=== PATIENT | female | born 1950 | race Caucasian/White ===

== ENCOUNTER → 2016-11-08 | Outpatient (CLI) | payer MEDICARE, OTHER ==
[~2016-11-08] MED LIST: ALBUTEROL2.5 MG/0.5 INH; AMBIEN5 MG PO; AMITRIPTYLINE50 MG PO; AMITRIPTYLINE75 MG PO; ASPIRIN ADULT L81 M1 PO; ASPIRIN ADULT L81 M2 PO; ATENOLOL25 MG PO; BREO ELLIPTA 11 EACH PO; CALCIUM 500 +1 EAC3 PO; CLOPIDOGREL75 MG PO; COLACE100 MG PO; CYMBALTA30 MG PO; CYMBALTA60 MG PO; ELAVIL75 MG PO; Ferrex 150150 MG PO; IRON159 M1 PO; IRON325 M2 PO; LASIX40 MG PO; LISINOPRIL10 M1 PO; Lovenox40 MG/0.4 SC; Lovenox60 MG/0.6 SQ; METOPROLOL SUCC50 M1 PO; MIRALAX17 GM PO; MOTRIN800 MG PO; MULTI VITAMINS1 TAB PO; NEURONTIN300 MG PO; NEURONTIN800 MG PO; OMEPRAZOLE MAGN20 MG PO; OSCAL/D,OYSTER250 MG PO; OXYCODONE AND A1 TA3 PO; PERCOCET 325 MG1 TA2 PO; PERCOCET 325 MG1 TA4 PO; PERCOCET 325 MG1 TA5 PO; PERCOCET 325 MG1 TA7 PO; PLAVIX75 M1 PO; PRAVASTATIN SOD40 MG PO; PRILOSEC20 M1 PO; PRINIVIL20 M1 PO; PROTONIX40 MG PO; ROXICODONE5 MG PO; SENNA8.6 MG PO; SEPTRA DS 800 M1 TAB PO; SYMBICORT1 AE1 INH; TASIGNA200 MG PO; TENORMIN25 M1 PO; TOPROL XL50 M1 PO; TRAZODONE100 MG PO; Tobrex Ophth S2.5 ML OPH; VENTOLIN H0.09 MG/AC INH; VITAMIN B-12500 MC3 PO; VITAMIN D34000 UNIT PO; VITAMIN D50000 I3 PO; XARELTO10 MG PO; ZETIA10 MG PO; ZOLPIDEM5 MG PO
[2016-11-08 16:58] LABS: BASO # 0.1 10*3/uL (0.0-0.1); EOS # 0.5 10*3/uL (0.0-0.4); EOS % 6.5 % (1.0-4.0); HEMATOCRIT 38.1 % (37.0-47.0); HEMOGLOBIN 11.1 g/dl (12.0-16.0); LYMPH # 2.1 10*3/uL (1.3-4.4); LYMPH % 30.8 % (27.0-41.0); MEAN CELL VOLUME 91.8 fl (81.0-99.0); MEAN CORPUSCULAR HGB 26.7 pg (27.0-31.0); MEAN CORPUSCULAR HGB CONC 29.1 g/dl (33.0-37.0); MEAN PLATELET VOLUME 9.1 fl (9.6-12.3); MONO # 0.6 10*3/uL (0.1-1.0); MONO % 8.4 % (3.0-9.0); NEUT # 3.6 10*3/uL (2.3-7.9); NEUT % 52.9 % (47.0-73.0); PLATELET COUNT AUTOMATED 314 10*3/uL (130-400); RED BLOOD COUNT 4.15 10*6/uL (4.10-5.10); RED CELL DISTRI WIDTH 14.4 % (0-14.5); WHITE BLOOD COUNT 6.9 10*3/uL (4.8-10.8)
[2016-11-08 17:24] LABS: BUN 13 mg/dl (7-24); CARBON DIOXIDE 30 mmol/L (21-32); CHLORIDE 99 mmol/L (98-107); EST GLOM FILT AFRICAN AMERICAN > 60 ml/min; GLUCOSE 90 mg/dL (65-99); POTASSIUM 4.1 mmol/L (3.5-5.1); SODIUM 138 mmol/L (136-145)
[2016-11-08 17:35] LABS: INTERNATIONAL NORM RATIO 0.9 (2.0-3.5)
== END | disposition home or self-care (01) ==
LOC: LAB 16:27
PROVIDERS: Surgery
DX: I73.9 Peripheral vascular disease, unspecified (principal); R79.1 Abnormal coagulation profile

== ENCOUNTER → 2017-01-16 | Outpatient (CLI) | payer MEDICARE, OTHER ==
--- NOTE | ~2017-01-16 | PR ---
[place], [place] PROGRESS NOTE NAME: [facility] ST[facility] #: [id number] UNIT #: [id number] ROOM: DOCTOR: SEBASTIÁN SloanTERRI BIRTHDATE: [birth year] DOS: 01/16/2017 SUBJECTIVE: The patient was seen last as a new patient in the wound clinic. She is status post a recent right lower extremity bypass with a postoperative edema and a wound from her surgical site at the distal calf. She continues to have sutures in place. She was sent to us for wound care for the right lower extremity for compression therapy. Initially, she had a wound VAC in place, but we did not have that SHERLY VAC available, so we had used Aquacel silver and a compression bandage of 3-layer Lite was used for her. We wanted her to come back and see us today to ensure that she did okay with the compression. She does complain that knee at times, it felt pretty tight and uncomfortable, but it did eventually resolve and she was able to keep the compression bandage in place. She has no new complaints. She does complain of continued pain of the left foot and an open wound of the left foot. According to the patient, she has had an open wound since her transmetatarsal amputation of her toes and continues to have an open wound from where the incision site is. Last time, last week, she was here was notable that there was some erythema noted and she was sent for an x-ray, which was unremarkable and negative. She comes in today saying the pain is about the same overall and she reports she has had continued pain off and on since the initial surgery in September. When I asked her specifically regarding the open wound of still present on her left foot near her surgical incision site, she states it has never healed and it has always been open. She offers no other specific complaints. Her physical examination, she is afebrile, pulse is 68, respirations 18, temperature is 98.2, blood pressure is 138/60. The left lateral foot wound is measuring slightly larger; however, the measurements reflect from last week did not include the area of nonviable fibrin slough that had been attached to the wound at the tip of the toe, so it is in the measurements are bigger at this time. Overall, redness seems better than it did when I saw her last week. There is no purulence, but there is a moderate amount of fibrin slough present in the base of the wound. It is measuring 2.2 x 0.4 x 0.1. The right medial leg wound, the surgical wound is looking better at 6 x 0.1 x 0.1. The edema of the leg seems improved as well. There is no cellulitis noted in the open area of the actual wound seems much less as well and there is no sign of maceration or any kind of particular amount of drainage. There is no drainage noted also. Selective debridement only was done of the left foot wound. There was some nonviable dried fibrin slough just hanging on the base of wound. This was removed with forceps and scissors. There was no bleeding. This was just nonviable tissue only. The patient did not want Hibiclens spray utilized and she did tolerate the procedure well. ASSESSMENT AND PLAN: Status post right lower extremity bypass. Her foot is warm. Her pulses were palpable. She seems to be tolerating, the compression therapy does seem to be helping as far as the edema control goes and the drainage from the wound is much minimal. At this point, we will continue with the dressing and a compression wrap for now, I am concerned about the left foot; however, her continued pain, there may be an continued ischemic component regarding this as she does have a poorly healing surgical wound still present. We did repeat the OMER in our clinic today on the left side and it was 0.7; although the Doppler did seem to have fade in and out at times. Her pulses are [place], [place] PROGRESS NOTE NAME: CHINMAY STARR [facility] UNIT #: [id number] ROOM: DOCTOR: TERRI LOWERY M.D. BIRTHDATE: [birth year] not palpable on the left foot, but her foot is warm. Due to the continued amount of pain that she has, I did do a culture as well as ordered a bone scan of the left foot to rule out osteomyelitis. I have placed a call to the surgical office and left a message regarding whether they would like her to follow up sooner than her appointment. She has an appointment scheduled for 01/24/2017. In addition, also, we will ask if they would like for us to take out the sutures at her next wound care visit or to have them taken out the sutures. The patient is to follow up in the Wound Clinic in one week. I did discuss that she should follow up with her oncologist regarding her lymph node of her right groin as well, so that he is aware of it and at some point, she may benefit from lymphedema therapy. She is asking for recommendations regarding the edema of the size. Our compression wraps only go up to the knee or below the knee. They did not go above the thigh, so she may need further management with morbid lymphedema for compression. Follow up with us in one week. The patient does have home health. TERRI LOWERY MD CM:PNTRANS [id number] TERRI LOWERY M.D. 01/20/17 1346 interface
== END ==
LOC: WOUNDCARE 10:59
DX: L97.521 Non-pressure chronic ulcer of other part of left foot limited to breakdown of skin (principal); I89.0 Lymphedema, not elsewhere classified; I48.91 Unspecified atrial fibrillation

== ENCOUNTER → 2017-01-20 | Outpatient (CLI) | payer MEDICARE, OTHER ==
[2017-01-20 16:54] LABS: BASO # 0.1 10*3/uL (0.0-0.1); BASO % 0.9 % (0.0-1.0); EOS # 0.2 10*3/uL (0.0-0.4); EOS % 3.5 % (1.0-4.0); HEMATOCRIT 28.3 % (37.0-47.0); HEMOGLOBIN 8.1 g/dl (12.0-16.0); LYMPH # 2.1 10*3/uL (1.3-4.4); LYMPH % 31.8 % (27.0-41.0); MEAN CELL VOLUME 88.7 fl (81.0-99.0); MEAN CORPUSCULAR HGB 25.4 pg (27.0-31.0); MEAN CORPUSCULAR HGB CONC 28.6 g/dl (33.0-37.0); MEAN PLATELET VOLUME 9.7 fl (9.6-12.3); MONO # 0.6 10*3/uL (0.1-1.0); MONO % 8.6 % (3.0-9.0); NEUT # 3.6 10*3/uL (2.3-7.9); PLATELET COUNT AUTOMATED 385 10*3/uL (130-400); RED BLOOD COUNT 3.19 10*6/uL (4.10-5.10); RED CELL DISTRI WIDTH 15.6 % (0-14.5); WHITE BLOOD COUNT 6.5 10*3/uL (4.8-10.8)
[2017-01-20 17:14] LABS: INTERNATIONAL NORM RATIO 1.1 (2.0-3.5); PROTHROMBIN TIME 11.2 SECONDS (9.0-12.4)
== END | disposition home or self-care (01) ==
LOC: LAB 16:24
PROVIDERS: Internal Medicine Medical Oncology
DX: C92.10 Chronic myeloid leukemia, BCR/ABL-positive, not having achieved remission (principal); D68.9 Coagulation defect, unspecified

== ENCOUNTER → 2017-01-23 | Outpatient (CLI) | payer MEDICARE, OTHER | END | disposition home or self-care (01) | LOC: WOUNDCARE 01:39 | DX: D68.9 Coagulation defect, unspecified (principal); C92.10 Chronic myeloid leukemia, BCR/ABL-positive, not having achieved remission ==

== ENCOUNTER → 2017-02-06 | Outpatient (CLI) | payer MEDICARE, OTHER ==
--- NOTE | ~2017-02-06 | PR ---
[place], [place] PROGRESS NOTE NAME: CHINMAY STARR [facility] #: [id number] UNIT #: [id number] ROOM: DOCTOR: SEBASTIÁN SloanTERRI BIRTHDATE: [birth year] DOS: 02/06/2017 WOUND CARE FOLLOWUP CHIEF COMPLAINT: Followup of recent right lower extremity surgical incision as well as her chronic surgical wound, status post transmetatarsal amputation of the left foot. HISTORY OF PRESENT ILLNESS: Her wound remains closed on the right lower extremity. Her edema has improved quite a bit. Her wound on her left foot seems to be healing. It is not draining anything; however, there is still in quite a bit of pain. She complains of pain that is pretty much persistent. It is a sharp, shooting, electrical type pain. At times, she also has some pain that she feels is from her toes, which are absent. She is finishing up her antibiotics this week. She is also complaining of some mouth sores, which is new. No fevers or chills. OBJECTIVE: VITAL SIGNS: Temperature is 98.9, pulse is 80, respirations 18, and blood pressure is 100/50. WOUND EXAMINATION: The wounded area basically has some callused dried adherent hyperkeratotic tissue to it. It does not appear to be open presently. The redness that was present when she first presented is much improved as well. There is no sign of infection. A selective debridement done of just some of the nonviable hyperkeratotic tissue at the periphery was removed at the periphery of the original wound. This was just accomplished with forceps and scissors. The measurements we are including at this time are included in 2 separate wounds and we are just clustering it and it is measuring 0.9 x 4.4 x 0.1. This is just a selective debridement once again. ASSESSMENT AND PLAN: Peripheral vascular disease, status post transmetatarsal amputation, very slow healing surgical postop wound. I think a lot of the pain that she has is neuropathic in nature. Her bone scan was unremarkable for the foot. It did have some areas of increased uptake in the pelvic areas as well as the right knee. She has had pelvic fractures in the past as well as multiple surgeries on her right knee. We will fax the reports to the PCP. As far as her stomatitis goes, I do not see any thrush at this point, but I would like her to follow up with her PCP and/or her home health nurse/oncologist regarding this. Follow up in wound care in 1 week. [place], [place] PROGRESS NOTE NAME: CHINMAY STARR UNIT #: [id number] ROOM: DOCTOR: TERRI LOWERY M.D. BIRTHDATE: [birth year] TERRI LOWERY MD CM:JO-ANN [id number] TERRI LOWERY M.D. 02/07/17 1021 interface
== END ==
LOC: WOUNDCARE 03:14
DX: T87.89 Other complications of amputation stump (principal); L97.521 Non-pressure chronic ulcer of other part of left foot limited to breakdown of skin; I73.9 Peripheral vascular disease, unspecified; L84 Corns and callosities; Y83.5 Amputation of limb(s) as the cause of abnormal reaction of the patient, or of later complication, without mention of misadventure at the time of the procedure

== ENCOUNTER → 2017-02-13 | Outpatient (CLI) | payer MEDICARE, OTHER ==
--- NOTE | ~2017-02-13 | PR ---
[place], [place] PROGRESS NOTE NAME: CHINMAY STARR [facility] #: [id number] UNIT #: [id number] ROOM: DOCTOR: TERRI LOWERY M.D. BIRTHDATE: [birth year] DOS: 02/13/2017 WOUND CARE FOLLOWUP NOTE CHIEF COMPLAINT: Followup of wound of the left lower extremity. HISTORY OF PRESENT ILLNESS: The wound is a surgical wound. It is located on her left foot. She has had a transmetatarsal amputation. This occurred in September. Comorbid conditions are chronic peripheral vascular disease, neuropathy, which is quite severe, somewhat debilitating, history of CML. The patient has been following up in the Wound Clinic. The postop wound has been steadily improving slowly. She had quite a bit of erythema when she first presented. Cultures were positive for MRSA. She was treated for 4 weeks with antibiotics. She did have a bone scan and x-ray which did not show any evidence of osteo. She comes in today without any specific complaints. The wound appears to be improving as well. There has been some scabbing over the incision and it seems to be overall slowly and gradually improving. The measurements are 0.1 x 0.1 x 0.1. PHYSICAL EXAMINATION: VITAL SIGNS: Stable. Blood pressure is 118/58, pulse of 80, respirations 18, temperature is 98.1. WOUND EXAMINATION: A debridement was done, a selective debridement only of very small amount of some of the adherent hyperkeratotic tissue around the periwound. There was no bleeding. This was accomplished with forceps and scissors. The patient tolerated the debridement well. ASSESSMENT AND PLAN: Slowly improving surgical postop wound. She does continue to have quite a bit of pain regarding this. It has been off and on since the surgery. The wound is looking pretty good. We will have her evaluated by an golf ball cover treater for shoes in the near future. I would like the wound to be a little bit more healed before this is done. Hopefully, within the next 2-3 weeks, she will be ready. Follow up next week. [place], [place] PROGRESS [facility] [id number] UNIT #: [id number] ROOM: DOCTOR: TERRI LOWERY M.D. BIRTHDATE: [birth year] TERRI LOWERY MD CM:JO-ANN [id number] TERRI LOWERY M.D. 02/14/1726 interface
== END ==
LOC: WOUNDCARE 02:11
DX: T87.89 Other complications of amputation stump (principal); L97.521 Non-pressure chronic ulcer of other part of left foot limited to breakdown of skin; I73.9 Peripheral vascular disease, unspecified; B95.62 Methicillin resistant Staphylococcus aureus infection as the cause of diseases classified elsewhere; Y83.5 Amputation of limb(s) as the cause of abnormal reaction of the patient, or of later complication, without mention of misadventure at the time of the procedure

== ENCOUNTER 2017-02-21 14:24 | Emergency (ER) | payer MEDICARE, OTHER ==
[2017-02-21] MEDS ORDERED: HYDROCODONE BIT1 T11 PO (15:19)
== END 2017-02-21 19:24 | disposition home or self-care (01) ==
LOC: ED 14:24
DX: M79.605 Pain in left leg (principal); D66 Hereditary factor VIII deficiency; I73.9 Peripheral vascular disease, unspecified; Z87.891 Personal history of nicotine dependence; Z90.49 Acquired absence of other specified parts of digestive tract; Z98.890 Other specified postprocedural states; Z79.899 Other long term (current) drug therapy; Z91.041 Radiographic dye allergy status; Z88.0 Allergy status to penicillin; Z91.040 Latex allergy status; Z88.8 Allergy status to other drugs, medicaments and biological substances

== ENCOUNTER 2017-03-05 14:22 | Inpatient (IN) | payer MEDICARE, OTHER, MEDICAID ==
[~2017-03-05] VITALS: Ht 157.4 cm; Wt 60.0 kg
--- NOTE | ~2017-03-05 | PR ---
[place], [place] PROGRESS NOTE NAME: CHINMAY STARR [facility] #: [id number] UNIT #: [id number] ROOM: 420 DOCTOR: TERRI LOWERY M.D. BIRTHDATE: [birth year] DOS: 03/07/2017 SUBJECTIVE: The patient was seen yesterday for a chronic wound on the left foot. It is a surgical wound that has been slowly healing. Yesterday, there was some discoloration noted at the distal part of the foot as well as the toes were felt to be quite cool. Pulses were difficult to feel and ultrasound was ordered. This morning, the radiologist called and informed me that there was absence of arterial flow from the left groin of the left foot with occlusion of the stented left superficial femoral artery and popliteal artery. These findings were relayed to the resident who is managing her medically. The patient reports some pain with the foot this morning. OBJECTIVE: VITAL SIGNS: Stable. Temperature is 97.4, pulse of 80, respirations 18, blood pressure is 157/54. WOUND EXAM: The dressing was removed. The wounds are stable and relatively unchanged from yesterday. The toes remains cool and slightly discolored. No palpable pulses are noted. ASSESSMENT AND PLAN: Critical leg ischemia in a patient with a history of severe vascular disease, multiple vascular procedures. Her vascular surgeon is Dr. Moreno from [facility]. Apparently, arrangements are being made for potential transfer to [facility] for further vascular management. TERRI LOWERY MD CM:JO-ANN [id number] TERRI LOWERY M.D. 03/08/17 0538 interface
--- NOTE | ~2017-03-05 | CON ---
[place], [place] REPORT OF CONSULTATION NAME: CHINMAY STARR [facility] #: [id number] UNIT #: [id number] ROOM: 420 DOCTOR: SEBASTIÁN SloanTERRI BIRTHDATE: [birth year] DOS: 03/06/2017 CHIEF COMPLAINT: Chronic ulceration of the left foot. HISTORY OF PRESENT ILLNESS: This is a 67-year-old female with a history of severe peripheral vascular disease who has undergone multiple bypass procedures, angiograms in the past with a recent left femoral posterior tibial artery bypass back in 07/2016. She eventually underwent transmetatarsal amputation of the left foot and has had nonhealing wound since then, it just never completely heals. She has got 2 open ulcers that have been slowly improving, but still have remained open. She has been following up in Wound Care since early January. She also underwent a recent right femoral to below the knee popliteal artery bypass graft back in 12/2016. She was seen for a surgical wound post this procedure as well, which did eventually heal with compression therapy. She was admitted through the Emergency Department last night for shortness of breath, productive cough and was noted to be only ____% when she arrived and symptoms have been getting worse over the past several days now, so she was admitted for these issues. 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 She does have a regular oncologist that she follows with; history of coronary artery disease, cellulitis, close foot fracture, depression, osteoarthritis, GERD, history of atrial fibrillation, anxiety disorder, history of stroke, history of sleep apnea. PAST SURGICAL HISTORY: Include multiple angioplasties and stents, at least 8 angioplasties with stent, thrombolysis and bypass surgery. ALLERGIES: GLEEVEC, IMATINIB, IODINATED CONTRAST MEDIA, IV DYE, LATEX AND PENICILLIN. MEDICATIONS: The current medications that she is on are as follows, Xarelto 20 mg daily, Elavil 75 daily, Levaquin 750 IV, Niferex 150 p.o. b.i.d., Cymbalta 60 daily, Colace 100 p.o. b.i.d., Plavix 75 daily, atenolol 25 p.o. daily, Ambien 5 mg at bedtime, Dulera 200 mcg inhalation b.i.d., Solu-Medrol 40 IV q. 8 hours, Neurontin 800 p.o. t.i.d., Zocor 40 daily, Roxicodone 5 mg q. 3 hours p.r.n., albuterol nebs q. 6 hours p.r.n., Zofran 4 mg IV q. 6 hours. p.r.n., Tylenol 650 q. 4 hours p.r.n. REVIEW OF SYSTEMS: She says her cough and her breathing feels better today. She has no nausea or vomiting, abdominal pain. Denies any diarrhea. No fevers or chills are noted. She says she feels her foot is healing well. She is asking about orthotic devices that she could possibly wear in order to get some [place], [place] REPORT OF CONSULTATION NAME: CHINMAY STARR UNIT #: [id number] ROOM: [facility] DOCTOR: TERRI LOWERY M.D. BIRTHDATE: [birth year] custom made shoes. She does have some sharp shooting pains at times, which she has complaints since I first met her. SOCIAL HISTORY: She does not smoke or drink. FAMILY HISTORY: Significant for coronary artery disease, congestive heart failure and atrial fibrillation. PHYSICAL EXAMINATION: VITAL SIGNS: She is afebrile, pulse 88, respirations 18, blood pressure is 119/41. GENERAL: This is a female who appears slightly older than her stated age, pleasant and cooperative, in no acute distress, slightly pale to examination. There is no JVD. LUNGS: Have coarse breath sounds bilaterally. CARDIOVASCULAR: S1, S2 regular rate and rhythm. Systolic murmur appreciable. ABDOMEN: Soft. EXTREMITIES: He has AMY hose on the right leg, edema is present. Left lower extremity trace edema. Peripheral pulses are palpable in the posterior tibia area, nut unable to appreciate the dorsalis pedis. She is status post transmetatarsal amputation of left foot. Her toes are quite cool. There is some minimal discoloration at the distal end of the forefoot noted. She still has 2 small areas of open wounds that are covered with hyperkeratotic tissue, which is actually stopped at this point since she has been using Adaptic still. The wound is covered with some hyperkeratotic tissue and it is on the lateral, there are 2 small areas noted. Overall, this is much improved from when she first presented to me. I would approximate it at 0.3 x 0.3 for both of these areas. Once again, it is quite cool. Her left heel is reddened, but it is blanchable. Her white count is down from 12.5 to 7. Her hemoglobin is 7.8. Her hematocrit is 28.9. Her platelets are 270, absolute neutrophils are high at 10. She has metamyelocytes at 1 and lymphocytes 3, neutrophils are 96. Her BUN is 10 and creatinine is 0.45. The hemoglobin A1c is less than 3.5 is low. Albumin is low at 2.2, HDL was 81. Chest x-ray shows increased scattered airspace opacities of both lungs could represent alveolar component of volume overload despite no significant pleural effusions or cardiomegaly. Blood cultures were negative. ASSESSMENT AND PLAN: Slow healing postsurgical wound on the left foot, status post transmetatarsal amputation. She has a history of hypercoagulable state, multiple revascularizations, her pulses are difficult to feel, toes are cool. There is some slight discoloration noted on the distal end. While she is here inpatient, I would like to go ahead and get an arterial ultrasound to further evaluate the circulation again. She has been seen by her vascular surgeon within the past 6 weeks or so regarding her continued pain of her left foot and he had felt that he was satisfied with the results of her Dopplers at that time. Those were performed in this office. We did not get Dopplers at this hospital before. However, I believe that the toes are slightly cooler than they had been from when I last saw her and slightly more discolored on the left foot, so I would like to go ahead and get the ultrasound while she is here. She has other [place], [place] REPORT OF CONSULTATION NAME: CHINMAY STARR [facility] #: [id number] UNIT #: [id number] ROOM: 420 DOCTOR: SEBASTIÁN Sloan,TERRI BIRTHDATE: [birth year] multiple medical problems that are being managed by her medical team. TERRI LOWERY MD CM:CONSTR:REPORT OF CONSULTATION 1255 03/07/17 1249 interface
[~2017-03-05 14:22] MED LIST changes: +HYDROCODONE BIT1 T11 PO
[2017-03-05 14:41] VITALS: BP 94/35
[2017-03-05] MEDS ORDERED: OXYCODONE HCL5 MG PO (14:46)
[2017-03-05 15:55] LABS: BASO # 0.1 10*3/uL (0.0-0.1); BASO % 0.4 % (0.0-1.0); EOS # 0.4 10*3/uL (0.0-0.4); EOS % 3.5 % (1.0-4.0); HEMATOCRIT 30.6 % (37.0-47.0); HEMOGLOBIN 8.5 g/dl (12.0-16.0); LYMPH # 1.2 10*3/uL (1.3-4.4); LYMPH % 9.2 % (27.0-41.0); MEAN CORPUSCULAR HGB 28.1 pg (27.0-31.0); MEAN CORPUSCULAR HGB CONC 27.8 g/dl (33.0-37.0); MEAN PLATELET VOLUME 8.9 fl (9.6-12.3); MONO # 0.9 10*3/uL (0.1-1.0); MONO % 6.8 % (3.0-9.0); NEUT % 79.8 % (47.0-73.0); PLATELET COUNT AUTOMATED 271 10*3/uL (130-400); RED BLOOD COUNT 3.03 10*6/uL (4.10-5.10); RED CELL DISTRI WIDTH 20.3 % (0-14.5); WHITE BLOOD COUNT 12.5 10*3/uL (4.8-10.8)
[2017-03-05 16:03] LABS: INTERNATIONAL NORM RATIO 1.1 (2.0-3.5); PROTHROMBIN TIME 12.1 SECONDS (9.0-12.4)
[2017-03-05 16:13] LABS: ALBUMIN 2.3 gm/dl (3.1-4.5); ALKALINE PHOSPHATASE 80 U/L (45-117); BILIRUBIN, TOTAL 0.3 mg/dl (0.2-1.0); BUN 9 mg/dl (7-24); CARBON DIOXIDE 35 mmol/L (21-32); CHLORIDE 96 mmol/L (98-107); EST GLOM FILT AFRICAN AMERICAN > 60 ml/min; GLUCOSE 101 mg/dL (65-99); POTASSIUM 4.3 mmol/L (3.5-5.1); SGOT/AST 13 IU/L (3-35); SGPT/ALT 11 U/L (12-78); SODIUM 139 mmol/L (136-145)
[2017-03-05 16:16] LABS: TROPONIN I < 0.015 ng/ml (<0.045)
[2017-03-05] MEDS ORDERED: METHADONE HYDROC5 MG PO (17:26)
[2017-03-05] MEDS ORDERED: IFEREX 150150 MG PO (17:27)
[2017-03-05] MEDS ORDERED: XARE20MG PO (17:28)
[2017-03-05] MEDS ORDERED: ZOLPIDEM TART5 MG PO (17:29)
[2017-03-05 18:17] VITALS: BP 118/44
[2017-03-05 20:00] VITALS: BP 102/44
[2017-03-06] VITALS: BP 101/41
[2017-03-06 06:37] LABS: HEMATOCRIT 28.9 % (37.0-47.0); HEMOGLOBIN 7.8 g/dl (12.0-16.0); MEAN CELL VOLUME 101.8 fl (81.0-99.0); MEAN CORPUSCULAR HGB 27.5 pg (27.0-31.0); MEAN PLATELET VOLUME 9.3 fl (9.6-12.3); PLATELET COUNT AUTOMATED 270 10*3/uL (130-400); RED BLOOD COUNT 2.84 10*6/uL (4.10-5.10); RED CELL DISTRI WIDTH 20.2 % (0-14.5); WHITE BLOOD COUNT 7.2 10*3/uL (4.8-10.8)
[2017-03-06 07:03] LABS: INTERNATIONAL NORM RATIO 1.4 (2.0-3.5); PROTHROMBIN TIME 14.6 SECONDS (9.0-12.4)
[2017-03-06 07:06] LABS: ALBUMIN 2.2 gm/dl (3.1-4.5); ALKALINE PHOSPHATASE 104 U/L (45-117); BILIRUBIN, TOTAL 0.2 mg/dl (0.2-1.0); BUN 10 mg/dl (7-24); CARBON DIOXIDE 36 mmol/L (21-32); CHLORIDE 100 mmol/L (98-107); CHOLESTEROL 140 mg/dL (<200); EST GLOM FILT AFRICAN AMERICAN > 60 ml/min; FREE T4 1.01 ng/dl (0.76-1.46); GLUCOSE 144 mg/dL (65-99); HDL CHOLESTEROL 81 mg/dl (40-60); LDL CHOLESTEROL 47 mg/dL (9-159); MAGNESIUM 1.5 mg/dL (1.5-2.1); POTASSIUM 4.5 mmol/L (3.5-5.1); SGOT/AST 18 IU/L (3-35); SGPT/ALT 20 U/L (12-78); SODIUM 139 mmol/L (136-145); TOTAL PROTEIN 5.7 gm/dL (6.4-8.2); TRIGLYCERIDES 59 mg/dl (<150); VLDL CHOLESTEROL 12 mg/dL (6-40)
[2017-03-06 07:11] LABS: THYROID STIM HORMONE (HS) 0.416 uIU/ml (0.358-4.75)
[2017-03-06 07:12] LABS: LYMPHOCYTE # 0.2 10*3/uL (1.3-4.4); METAMYELOCYTES 1 % (0-0); NEUTROPHIL # 6.9 10*3/uL (2.3-7.9); NEUTROPHILS 96 % (47-73); TOTAL CELLS COUNTED 100 #CELLS
[2017-03-06 07:13] LABS: PLATELET SUFFICIENCY NORMAL (NORMAL); POLYCHROMASIA SLIGHT
[2017-03-06 08:00] VITALS: BP 120/41
[2017-03-06 09:24] LABS: ESTIMATED AVERAGE GLUCOSE 54; HEMOGLOBIN A1c < 3.5 % (4.8-5.6)
[2017-03-06 10:45] LABS: VITAMIN D, 25-HYDROXY 61.9 ng/mL (30-100)
[2017-03-06 10:48] LABS: FOLIC ACID > 24.00 ng/mL (>5.38)
[2017-03-06 12:00] VITALS: BP 119/41
[2017-03-06 14:07] LABS: BILIRUBIN NEGATIVE (NEGATIVE); BLOOD NEGATIVE (NEGATIVE); CLARITY SL CLOUDY (CLEAR); COLOR YELLOW (YELLOW); GLUCOSE 3+ (NEGATIVE); KETONE NEGATIVE (NEGATIVE); LEUKO ESTERASE NEGATIVE (NEGATIVE); NITRITE NEGATIVE (NEGATIVE); PROTEIN NEGATIVE (NEGATIVE)
[2017-03-06 14:19] LABS: RBC 0-2 rbc/hpf (0-2); WBC 0-2 wbc/hpf (0-5)
[2017-03-06 16:00] VITALS: BP 118/40
[2017-03-06 20:00] VITALS: BP 124/60
[2017-03-07] VITALS: BP 120/50
[2017-03-07 06:12] LABS: BASO % 0.1 % (0.0-1.0); HEMATOCRIT 30.3 % (37.0-47.0); HEMOGLOBIN 8.2 g/dl (12.0-16.0); IG # 0.1 10*3/uL (0.0-0.1); LYMPH # 0.8 10*3/uL (1.3-4.4); LYMPH % 7.7 % (27.0-41.0); MEAN CELL VOLUME 103.1 fl (81.0-99.0); MEAN CORPUSCULAR HGB 27.9 pg (27.0-31.0); MEAN CORPUSCULAR HGB CONC 27.1 g/dl (33.0-37.0); MEAN PLATELET VOLUME 9.3 fl (9.6-12.3); MONO # 0.3 10*3/uL (0.1-1.0); MONO % 3.2 % (3.0-9.0); NEUT # 8.7 10*3/uL (2.3-7.9); NEUT % 88.2 % (47.0-73.0); PLATELET COUNT AUTOMATED 323 10*3/uL (130-400); RED BLOOD COUNT 2.94 10*6/uL (4.10-5.10); WHITE BLOOD COUNT 9.9 10*3/uL (4.8-10.8)
[2017-03-07 06:19] LABS: BUN 11 mg/dl (7-24); CARBON DIOXIDE 36 mmol/L (21-32); CHLORIDE 103 mmol/L (98-107); EST GLOM FILT AFRICAN AMERICAN > 60 ml/min; GLUCOSE 123 mg/dL (65-99); POTASSIUM 4.3 mmol/L (3.5-5.1); SODIUM 139 mmol/L (136-145)
[2017-03-07 08:00] VITALS: BP 157/54
[2017-03-07 12:00] VITALS: BP 146/62
[2017-03-07] MEDS ORDERED: NOVAPLUS SOLU-M40 MG IV (12:55)
[2017-03-07] MEDS ORDERED: LEVAQUIN IV (12:55)
[2017-03-07 16:00] VITALS: BP 138/89
== END 2017-03-07 17:50 | disposition short-term general hospital (02) | DRG 871 ==
LOC: ED 14:22 → 4E 16:55 → EDHOLD 16:55 → 4E 17:02
PROVIDERS: Internal Medicine; Internal Medicine Hospice and Palliative Medicine; Nurse Practitioner Family
DX: A41.9 Sepsis, unspecified organism (principal); J18.9 Pneumonia, unspecified organism; E46 Unspecified protein-calorie malnutrition; C92.10 Chronic myeloid leukemia, BCR/ABL-positive, not having achieved remission; D68.59 Other primary thrombophilia; L97.909 Non-pressure chronic ulcer of unspecified part of unspecified lower leg with unspecified severity; D64.9 Anemia, unspecified; I10 Essential (primary) hypertension; J44.9 Chronic obstructive pulmonary disease, unspecified; K59.00 Constipation, unspecified; F17.211 Nicotine dependence, cigarettes, in remission; I25.10 Atherosclerotic heart disease of native coronary artery without angina pectoris; F32.9 Major depressive disorder, single episode, unspecified; E78.5 Hyperlipidemia, unspecified; Z89.432 Acquired absence of left foot; I73.9 Peripheral vascular disease, unspecified; Z90.49 Acquired absence of other specified parts of digestive tract; Z82.49 Family history of ischemic heart disease and other diseases of the circulatory system; Z88.8 Allergy status to other drugs, medicaments and biological substances; Z91.041 Radiographic dye allergy status; Z88.0 Allergy status to penicillin; Z91.040 Latex allergy status; Z79.899 Other long term (current) drug therapy; Z68.23 Body mass index [BMI] 23.0-23.9, adult

== ENCOUNTER → 2017-03-22 | Outpatient (CLI) | payer MEDICARE, OTHER, MEDICAID ==
[~2017-03-22] MED LIST changes: +IFEREX 150150 MG PO; +LEVAQUIN IV; +METHADONE HYDROC5 MG PO; +NOVAPLUS SOLU-M40 MG IV; +OXYCODONE HCL5 MG PO; +XARE20MG PO; +ZOLPIDEM TART5 MG PO
--- NOTE | ~2017-03-22 | PR ---
[place], [place] PROGRESS NOTE NAME: CHINMAY STARR [facility] #: [id number] UNIT #: [id number] ROOM: DOCTOR: SEBASTIÁN SloanTERRI BIRTHDATE: [birth year] DOS: 03/22/2017 WOUND CARE PROGRESS NOTE CHIEF COMPLAINT: Chronic wound of the left lower extremity. HISTORY OF PRESENT ILLNESS: The wound is surgical. She is status post transmetatarsal amputation. She had this in September. She has chronic peripheral vascular disease, severe neuropathy and severe peripheral vascular disease that quite debilitating with recurrent revascularization being done, history of CML . She had been seen in the wound clinic and following up with her wound had steadily been improving. She had been admitted to the hospital here for an unrelated illness and I was consulted to see her and I had noted she had complained of pain that had been increasing on the left foot area and on physical exam at that time, it was noted that her left extremity was quite dusky and cool in appearance, which seemed to me to be more prominent than on prior occasions. In any case, she had a Doppler ultrasound, which was done that showed severe disease with very little flow even up high up from the femoral area. The patient was urgently transferred to [facility] for further management, where her surgeon is. Apparently, she is going to be revascularized later this month. I believe around the 03/30/2017, she is planning on bypass. She now currently is still undergoing cardiopulmonary testing first before this gets done, but she comes back to the Wound Clinic for further management of her wound. She thinks the wound is looking pretty good at this time, but she still continues to have a lot of pain with it. She is wondering about whether she can wear a different type of shoe as well. She has also still concerned about pressure ulcer that she has had for approximately 2 weeks now. It is in the left gluteal buttock area. Her saw her primary care doctor, Dr. Perez, who advised to use triple antibiotic ointment on it for now, but she does want our opinion regarding this as well. She reports that she was told to do some sort of exercise and get moving by her vascular surgeon, but she really has not had any desire to do this yet. PHYSICAL EXAMINATION: VITAL SIGNS: Her temperature is 98.1, pulse of 78, respirations 20, blood pressure is 118/58. Her wounds are measuring the following: The wound is located on the left lateral foot. It is a surgical wound. I am including 2 separate areas as one so the measurements 1.1 in length x 4.8 in width x 0.1 in depth. However, the full depth is not appreciable. It is covered with some dried hyperkeratotic tissue. There is chronic erythema. The toes are dusky and cool and I am unable to feel pulses. No debridement was done of this area at this time. Wound #5 is located on the proximal left gluteus, it is measuring 0.4 x 0.2 x 0.1. It is a superficial partial thickness wound that appears to be stage 2 ulcer. It actually looks like it is starting to epithelialize already on its own. There is no sign of infection. The next wound is measuring 0.4 x 0.1 x 0.1 and that looks similar in appearance as far as starting to epithelialize on its own as well with no sign of infection. ASSESSMENT AND PLAN: Chronic surgical wound of the left heel. The wound appears stable at the present time and in my opinion not completely healed yet. [place], [place] PROGRESS NOTE [facility] [id number] UNIT #: [id number] ROOM: DOCTOR: TERRI LOWERY M.D. BIRTHDATE: [birth year] There is still some hyperkeratotic tissue and an occasional drainage. She has severe peripheral vascular disease with very little flow from her femoral artery. She is going to have bypass hopefully in the near future. Hopefully, this will help heal this wound. In the meantime, I would hold off on changing the dressing to something different. I would just keep the Adaptic going that she has been using all along until she gets revascularized and then we can consider different dressings. In addition, we did discuss if maybe she could do stationary bike if it is okay with her men's furnishings salesperson and as long as she does not get out of breath. She can consider that for her vascular disease. As far as her pressure ulcers of the buttocks, they looks like they already in stages of healing, we will just continue with the same antibiotic ointment that was already being used and cover it with a foam. I did advise her to try to keep pressure off this area. We have written for a cushion for her chair. I did discuss with her about how these wounds start and friction from sliding in different positions, it may be a culprit and how it is important to try to avoid this type of movement. Also, nutrition is very important and she had a low albumin, when she was here, so I would recommend Boost supplements at least for now and to eat a healthy diet as much as she can. She is going to be in the hospital for another procedure and I did advise her and her family to make sure to keep an eye for the pressure ulcer, hopefully this will continue to improve. Follow up in Wound Care in one week. TERRI LOWERY MD CM:PNTRANS [phone] TERRI LOWERY M.D. 03/23/17 1023 interface
== END | disposition home or self-care (01) ==
LOC: WOUNDCARE 01:31
DX: T87.89 Other complications of amputation stump (principal); L97.521 Non-pressure chronic ulcer of other part of left foot limited to breakdown of skin; L89.322 Pressure ulcer of left buttock, stage 2; I73.9 Peripheral vascular disease, unspecified; Y83.5 Amputation of limb(s) as the cause of abnormal reaction of the patient, or of later complication, without mention of misadventure at the time of the procedure

== ENCOUNTER → 2017-03-31 | Outpatient (CLI) | payer MEDICARE, OTHER, MEDICAID ==
[~2017-03-31] MED LIST changes: +LOPRESSOR50 M1 PO
--- NOTE | ~2017-03-31 | PR ---
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 HISTORY OF PRESENT ILLNESS: The wound is on the left foot. It is surgical. She has a history of severe peripheral vascular disease. She is status post multiple revascularizations and a recent transmetatarsal amputation of the left foot. She has had some wound dehiscence for several weeks now. She has been coming to the Wound Clinic for 11 weeks; however, most recently, she had been admitted to the hospital for respiratory issues and was noted to have increased pain in the foot area and pulses were difficult to feel. There was discoloration of the foot, and it was noted that she had severe occlusion of the arteries to the left leg. On ultrasound, she was transferred to [facility]. She was evaluated by her vascular surgeon who is going to hopefully have her scheduled for revascularization; however, she is still awaiting Cardiopulmonary workup before this has been scheduled. In the meantime, she was noted to have a nonhealing ulcer near the suture sites from her transmetatarsal amputation. In addition, she was also noted to have a pressure ulcer of the buttock area, stage II last week, we had recommended to use a foam and bacitracin, which is what she had been using to the wound base. Since last week though she says that the buttock ulcer is feeling better; however, she complains of a lot of swelling of the right lower extremity. She has had edema in the right leg before. It was noted that did respond well to compression therapy. She has AMY hose at home, but they are too tight for her to get on. Her daughter was unable to get them on and off. She does have some discomfort in the lower leg due to the edema. She reports no other specific complaints. No fevers or chills. No change in pain with the left lower leg. Home health comes in to help her with the dressing changes other than that her daughters help her on days that they are unavailable. She recently was seen by her oncologist as well. They tried using an Savage wrap to the right lower leg to help with the edema, but it did not really help. SOCIAL HISTORY: She is a former smoker. She is . Does not drink alcohol and has a good family support system. Her daughters help her quite a bit. She is supposed to get a stress test done today; however, she drank a Coca Cola before it, so this had to be rescheduled. PHYSICAL EXAMINATION: VITAL SIGNS: Her vitals are as follows: Temperature is 99, pulse of 80, respirations 16, blood pressure is 122/58. WOUND EXAM: The wound on the left lower leg appears bigger. It is measuring 1.6 x 4.5 x 0.1. There has been more of the hyperkeratotic nonviable tissue seems to have fallen off on its own or with dressing changes; however, there is no visible necrotic tissue presently on the medial aspect of the stump of the left great toe; however, there is new openings. It is definitely open and it is right near where the suture lines would be. There is also a visible suture poking through the lateral side of the foot. The new wound is open and it is definitely measuring 0.5 x 1.9 x 0.1. It looks fairly clean. There is no overt necrotic tissue present. There is chronic erythema, which is unchanged, and the [place], [place] PROGRESS NOTE [facility]: [id number] UNIT #: [id number] ROOM: DOCTOR: TERRI LOWERY M.D. BIRTHDATE: [birth year] pulses are still difficult to feel and the tips of the foot are cool as before. The buttock area is wound number 5. It is measuring slightly bigger at 0.6 x 0.6 x 0.1. Remained fairly superficial. It actually looks like there might be small, very, very thin layer of epithelial tissue noted. However, there is quite a bit of excoriation around that. The left distal gluteal wound is measuring 0.1 x 0.1 x 0.1 and that is definitely smaller than last week, but the buttock area in general is quite excoriated and reddened. It appears to be more of irritation likely from the bacitracin. No debridement was done on any of the wounds today. Her right leg is quite edematous. There is pitting edema, and it is uncomfortable in general. There is no obvious calf tenderness. It seems uncomfortable in general. Her lymph node on the right groin seems to be smaller than the last time I had actually felt that. ASSESSMENT AND PLAN: Wound dehiscence and chronic ulceration of the left foot, status post transmetatarsal amputation with severe peripheral ischemia. She is awaiting revascularization. Hopefully, she will be able to get this done soon. In the meantime, since the wound seems to be more open now, there is no visible necrotic tissue, I would like to use a collagen dressing. There does not appear to be an active infection. We will do this for now and have her follow up next week if she is still of able to come into the wound clinic. She does have a pressure ulcer of the buttock area, which is much more excoriated than last week. She says she is trying to stay off of it as much as she can. I would like her to discontinue the bacitracin and use Calazime instead. She can also keep the area protected with a foam. I think this will help add some cushioning to it, but I would avoid the bacitracin for now. She also has a right lower extremity edema which is quite more noticeable on prior occasions, although she has had this before. She does have clotting disorder. She is on anticoagulants. She is on Xarelto. However, I would like to go ahead and order a stat Doppler ultrasound to ensure there is no DVT. Tubigrip can be utilized in place of the AMY hose since she is not able to get the AMY hose on at home. Follow up in the Wound Clinic in one week unless she is admitted to the hospital for revascularization. TERRI LOWERY MD CM:JO-ANN 1101 0 TERRI LOWERY M.D. 04/01/17420 interface
== END | disposition home or self-care (01) ==
LOC: CARD 03-30 09:00
DX: Z01.810 Encounter for preprocedural cardiovascular examination (principal); I25.10 Atherosclerotic heart disease of native coronary artery without angina pectoris; L89.319 Pressure ulcer of right buttock, unspecified stage; L97.529 Non-pressure chronic ulcer of other part of left foot with unspecified severity; R60.0 Localized edema; Z87.891 Personal history of nicotine dependence

== ENCOUNTER → 2017-04-04 | Outpatient (CLI) | payer MEDICARE, OTHER, MEDICAID ==
--- NOTE | ~2017-04-04 | ST ---
[place], [place] EXERCISE STRESS TEST REPORT NAME: CHINMAY STARR [facility] #: [id number] UNIT #: [id number] ROOM: DOCTOR: ALISHA NO MD BIRTHDATE: [birth year] DOS: 04/04/2017 LEXISCAN STRESS EKG INDICATION: Precordial chest pain. REFERRING PHYSICIAN: Dr. Wells. The patient underwent standard protocol Lexiscan stress EKG. The patient's baseline EKG showed sinus tachycardia with nonspecific ST-T wave changes with baseline heart rate of 105 with a blood pressure of 108/44 with a peak heart rate of 109 with a blood pressure 102/42. The patient had no chest pain. The patient had no ischemic changes. The patient had no arrhythmias. SUMMARY OF FINDINGS: Unremarkable Lexiscan stress EKG. Please see separate report for perfusion scan results. ALISHA NO MD CM:STRESS:EXERCISE STRESS TEST REPORT [id number] ALISHA NO MD
== END | disposition home or self-care (01) ==
LOC: CARD 02:28
DX: Z01.810 Encounter for preprocedural cardiovascular examination (principal); R07.2 Precordial pain; R53.81 Other malaise; I25.10 Atherosclerotic heart disease of native coronary artery without angina pectoris

== ENCOUNTER 2017-04-05 20:15 | Inpatient (IN) | payer MEDICARE, OTHER, MEDICAID ==
[~2017-04-05] VITALS: Ht 154.9 cm; Wt 73.1 kg
--- NOTE | ~2017-04-05 | PR ---
[place], [place] PROGRESS NOTE NAME: CHINMAY STARR [facility] #: [id number] UNIT #: [id number] ROOM: 510 DOCTOR: ARLENE MURRAY MD,PRESTON BIRTHDATE: [birth year] DOS: 04/07/2017 PULMONARY PROGRESS NOTE SUBJECTIVE: She has been noted without any new acute complaints, still noticed some cough, which has been noted nonproductive with shortness of breath. The symptoms have been noted partially decreased for the patient from yesterday. The patient denies symptoms of chest pain or any abdominal pain. OBJECTIVE: VITAL SIGNS: For the patient which were recorded showed the temperature of the patient noted as normal. The respiratory rate of the patient recorded as respiratory rate of 18, heart rate of 94, blood pressure 108/52. Pulse oxygen 97% saturation. HEENT: Showed no acute change. NECK: Supple. CARDIOVASCULAR SYSTEM: S1, S2 is audible. LUNGS: Noted crackles of the lungs was still noted in the middle lower portion of the lungs. ABDOMEN: Soft, nontender, bowel sounds present. LABORATORY DATA: BMP of patient 04/07/2017, glucose 135, BUN 13, creatinine 0.39. CO2 of 40. CBC of the patient that was done for the patient on 04/07/2017, hemoglobin 7.5, hematocrit 25.8, WBC count was normal. Platelet count was noted as normal. CT scan of the chest that was obtained yesterday I ordered for the patient review shows a large area of consolidation, infiltration noted in the lungs, mostly in the mid and lower portion of the lungs bilaterally. Some pleural thickening for the patient was also noted for this patient. Some of the infiltrate appeared to be reticulonodular in appearance. Upper lung relatively was noted spared of the problem. IMPRESSION: 1. The patient with acute bilateral pneumonia would be considered, current CT scan assessment as the cause of the current problem. The etiology of pneumonia of the patient could be considered gram-positive and gram-negative organisms. 2. Anemia of the patient as well. 3. Peripheral vascular disease. PLAN OF TREATMENT: The patient will be continued on the current bronchodilators, oxygen supplementation, antibiotics. I will add on the doxycycline to the treatment for patient in addition to the Levaquin that will give her coverage for gram-positive organisms. Continuation of the previous therapy, plan of management, other care. Usual care. All other supportive therapy, plan of management and treatments. Further treatment changes will be done based on the progression of the illness. If necessary do the bronchoscopy of the patient for the culture identifications as well. [place], [place] PROGRESS NOTE NAME: CHINMAY STARR UNIT #: [id number] ROOM: [facility] DOCTOR: PRESTON MCQUEEN MD BIRTHDATE: [birth year] PRESTON JACOBS MD CM:JO-ANN 1021 0 PRESTON MURRAY MD 04/08/17 011 interface
--- NOTE | ~2017-04-05 | PR ---
[place], [place] PROGRESS NOTE [id number] UN[facility] #: [id number] ROOM: 510 DOCTOR: ARLENE MURRAY MD,PRESTON BIRTHDATE: [birth year] DOS: 04/08/2017 SUBJECTIVE: She has been still noted with coughing for the patient which has been gradually decreased. Shortness of breath is resolving. There were no symptoms of chest pain or any abdominal pain. OBJECTIVE: VITAL SIGNS: Showed normal temperature, respiratory rate 18, heart rate 98, blood pressure 128/72. Intake for the patient recorded at 1340 mL, output was 1450 mL recorded. Pulse oxygen saturation on 2 L nasal cannula 95% saturation. HEENT: No acute change. NECK: Supple. CARDIOVASCULAR: S1, S2 audible. LUNGS: Crackles of the lungs were still noted, mostly on the right side. ABDOMEN: Soft, nontender. LABORATORY DATA: CBC: WBC count 9.0, hemoglobin 7.1, hematocrit 25.0, platelet count 368,000. BMP this morning, BUN 14, creatinine 0.41, CO2 of 38. IMPRESSION: 1. The patient who has been currently noted with extensive pneumonia involving the right lung for this patient with acute other respiratory symptoms, which have been noted with partial improvement. 2. Anemia, etiology unclear. PLAN OF TREATMENT: Continue antibiotics, bronchodilators as previously ordered. Chest x-ray repeat for this patient has been ordered for the morning for reassessment prior to making discharge planning. Other supportive plan of therapy. Usual care. PRESTON JACOBS MD CM:PNTRANS [id number] [id number] PRESTON MURRAY MD 04/08/17 1553 interface
--- NOTE | ~2017-04-05 | CON ---
[place], [place] REPORT OF CONSULTATION NAME: CHINMAY STARR [facility] #: [id number] UNIT #: [id number] ROOM: 510 DOCTOR: MYRIAM CONROY ED.D (YARY) BIRTHDATE: [birth year] DOS: 04/06/2017 HISTORY OF PRESENT ILLNESS: The patient is a 67-year-old female who is presently on the 5th floor at [facility]. She is a and has two daughters. I did speak with both daughters regarding the patient today. Her family physician is Dr. Mon. Her medical history is pertinent for Crohn's disease, hypertension, COPD, history of CVA, history of bowel obstructions, hypercholesterolemia, coronary artery disease, chronic leukemia, fractured tibia and atrial fibrillation and asthma and clotting disorder. Her medications include Symbicort, , zolpidem, Cymbalta, pravastatin, Neurontin, Elavil, Colace, vitamin D3 and she is on 2 liters of oxygen along with morphine. This patient was awake, alert and oriented to person, place and time. She was, however, quite delirious. She was hallucinating and talking to her daughters who were not present in the room. I spoke at length with her daughters and they stated this is a new issue and she has no difficulty with memory, but at the present time, she appears to be quite delirious. In my opinion, this patient is not really competent to make informed healthcare decisions at all. Decisions should be made by her family due to the fact she has no healthcare power of trimmer machine. Both daughters are in agreement that they will make decisions on her behalf. I spoke at length with the patient and she agrees with this also. DIAGNOSIS: Delirium, not otherwise specified. RECOMMENDATIONS: In my opinion, all decision should be made by her daughters who are her next of kin. Thank you very much for this consult. MYRIAM CONROY ED.D CM:CONSTR:REPORT OF CONSULTATION 1152 04/07/17 1122 interface
--- NOTE | ~2017-04-05 | CON ---
[place], [place] REPORT OF CONSULTATION NAME: CHINMAY STARR [facility] #: [id number] UNIT #: [id number] ROOM: 510 DOCTOR: PRESTON MCQUEEN MD BIRTHDATE: [birth year] DOS: 04/06/2017 The consultation was requested by the hospitalist services. REASON FOR CONSULTATION: The patient to be assessed for acute exacerbation of COPD. HISTORY OF PRESENT ILLNESS: This is a 67-year-old white female who has been noted with progressive increased respiratory symptoms of shortness of breath for this patient later on associated with coughing, which has been noted moderate to severe, nonproductive and wheezing and tightness in the chest for the past few days. The patient came into the emergency room. The patient has been hospitalized since 04/05/2017. The patient denies any symptoms of chest pain with that. She denies symptoms of hemoptysis. The patient denies any symptoms of chest trauma. The symptoms of the current respiratory track for the patient has been present for the past several weeks with recent worsening over the last 24-48 hours. PAST MEDICAL HISTORY: The patient was noted with history of: 1. Peripheral vascular disease. 2. Centrilobular emphysema. 3. Culture of the foot for this patient with previous bypass grafting of the left lower extremity. 4. History of CML. 5. Clotting disorder. 6. Essential hypertension. 7. Hyperlipidemia. 8. History of coronary artery disease. PAST SURGICAL HISTORY: 1. Amputation of the left toe. 2. Appendectomy. 3. Cardiac catheterization with coronary artery stent insertion. 4. Surgical resection of Meckel diverticulum. 5. Adhesions separation of small bowel with exploratory laparotomy twice. 6. Peripheral vascular disease intervention of the patient and bypass grafting of the left lower extremity, which has been later on complicated, treated at [facility]. SOCIAL HISTORY: The patient stated she is , has 2 children. Smoking known since teenager for the patient 2 packs of cigarettes per day until 2002. Denies history of alcohol use or any illicit drugs. FAMILY HISTORY: The patient's father from complication of congestive heart failure, coronary artery disease at age of 6060 years old. Mother at 60 years old from complication related to atrial fibrillation, coronary artery disease and myocardial infarction. HOME MEDICATIONS: 1. Listed as use of Elavil 75 mg daily. [place], [place] REPORT OF CONSULTATION NAME: CHINMAY STARR [facility] #: [id number] UNIT #: [id number] ROOM: 510 DOCTOR: ARLENE MURRAY MD,PRESTON BIRTHDATE: [birth year] 2. Atenolol 25 mg daily. 3. Symbicort 160/4.5 two puffs b.i.d. 4. Vitamin D3 of 5000 international units b.i.d. 5. Plavix 75 mg p.o. daily. 6. Cymbalta 60 mg p.o. daily. 7. Gabapentin 800 mg p.o. t.i.d. 8. Levaquin 750 mg IV daily. 9. Methadone 5 mg p.o. b.i.d. 10. OxyContin. 11. Simvastatin 40 mg daily. 12. Xarelto 20 mg daily. 13. Ambien 5 mg at bedtime. DRUG ALLERGIES HISTORY: 1. IVP DYE. 2. PENICILLIN. 3. GLEEVEC. REVIEW OF SYSTEMS: CONSTITUTIONAL: Fatigue and tiredness reported. Denies symptoms of fever or chills. EYES: Denies any burning, redness, or tenderness. EARS, NOSE, THROAT SYMPTOMS: No sore throat, hoarseness, otalgia, postnasal drainage. CARDIOVASCULAR: Denies anginal pain, edema or pain of the lower extremities. GASTROINTESTINAL: Denies dysphagia, nausea, vomiting, diarrhea, abdominal pain, hematemesis, melena, hematochezia. SKIN: Denies any lesions or rashes except the left foot problems which has been currently wrapped with the bandage. MUSCULOSKELETAL: The patient denies any acute joint pain, redness, or tenderness. CENTRAL NERVOUS SYSTEM: No dizziness, headache, diplopia with syncopal episodes. Remaining systems were reviewed with the patient, they were noted all negative. PHYSICAL EXAMINATION: GENERAL: This is a 67-year-old female who has been currently noted awake and alert without any acute distress. The patient's height was recorded by the nursing staff at the time of the admission with height of 5 feet 1 inch, weight of 161 pounds. BMI 30.4. HEENT: Examination shows head is atraumatic. Eyes: No icterus. NECK: Supple. CARDIOVASCULAR: S1, S2 is audible. LUNGS: The patient noted scattered crackles of the lungs noted bilaterally with expiratory wheezing. ABDOMEN: Soft, nontender and flat. EXTREMITIES: No edema, clubbing, cyanosis. Foot was wrapped with a bandage for this patient as well. CENTRAL NERVOUS SYSTEM: Cranial nerves 2 through 12 intact. No focal deficit. MUSCULOSKELETAL: Does not show any acute deformities. [place], [place] REPORT OF CONSULTATION NAME: CHINMAY STARR UNIT #: [id number] ROOM: [facility] DOCTOR: ARLENE MURRAY MD,PRESTON BIRTHDATE: [birth year] SKIN: Shows no lesions or rashes. LABORATORY DATA: On this patient, CBC that was done on 04/05/2017 was noted with WBC count 13.7, hemoglobin 7.6, hematocrit 27.9, platelet count was noted as 278,000. The PT/INR was 1.25 on 04/05/2017, on admission. CMP of the patient on 04/05/2017 was noted normal BUN and creatinine. The patient's carbon dioxide 42, chloride of 94. Arterial blood gas pH of 7.31, pCO2 of 84, pO2 of 82 last evening. The CK-MB and troponin noted normal yesterday and this morning. BMP this morning, BUN 5, creatinine was normal. Carbon dioxide 39, chloride of 97. CBC of the patient that was done on 04/06/2017 shows WBC count 11.4, hemoglobin 6.7, hematocrit of 25.1, platelet count was normal. The chest x-ray of the patient that was done, 1 view shows increased interstitial marking was noted in the lungs bilaterally with poor inspiratory efforts noted accentuating the current finding as well. The right hilar was noted to be quite prominent for the patient may be related partially due to the rotation effect. Chest x-ray of the patient that was done on 03/05/2017 essentially shows increased interstitial markings at that time. Additional previous chest x-ray of the patient was also reviewed, x-ray on 12/26/2016 still shows increasing interstitial markings. IMPRESSION: 1. The patient who has been currently admitted to the hospital with increase in the respiratory symptoms, but noted with acute hypercapnic and hypoxic respiratory failure. She is only using the oxygen supplementation 2 liters nasal cannula at home setting. 2. Hypercarbia. The patient was also noted metabolic alkalosis. 3. Rule out interstitial lung disease as well for this patient. Rule out lymphadenopathy in the hilar area for this patient, especially in the right hilum. 4. The patient with current peripheral vascular disease with complication. 5. Progressive anemia of the patient has been also noted. 6. Wound for this patient of the left foot which has been managed by the wound systems management consultant. 7. The exact cause of the anemia was unknown at this time. The evaluation remains in progress. PLAN OF TREATMENT: Ordering CT scan of the chest without contrast because of IVP dye allergy. The pulmonary parenchyma of the patient will be assessed; however, the assessment of the mediastinum will be suboptimal. Repeat another arterial blood gas of the patient this morning as well. Start the patient on the BiPAP for this patient after the arterial blood gas assessment. Further treatment changes will be done based on the current progression of the illness available to information for this patient as well. Usual care. All other supportive therapy, plan and management as well. Further treatment changes done for this patient later on as necessary. Obtain the sputum for Gram stain and culture as well. Continue bronchodilators administration. Supportive therapy, plan of management and other care. Thanks for allowing me to participate in the care of this patient. [place], [place] REPORT OF CONSULTATION NAME: CHINMAY STARR UNIT #: [id number] ROOM: [facility] DOCTOR: PRESTON MCQUEEN MD BIRTHDATE: [birth year] PRESTON JACOBS MD CM:CONSTR:REPORT OF CONSULTATION 1241 04/07/17 0206 interface
--- NOTE | ~2017-04-05 | PR ---
[place], [place] PROGRESS NOTE NAME: CHINMAY STARR UNIT #: [id number] ROOM: 510 DOCTOR: PRESTON MCQUEEN MD BIRTHDATE: [birth year] DOS: 04/10/2017 SUBJECTIVE: She has been noted comfortable at this time, ambulating well for this patient. She denies symptoms of chest pain or any abdominal pain. The coughing has been improved significantly. OBJECTIVE: VITAL SIGNS: For the patient, which has been recorded show the temperature of the patient noted as normal. The respiratory rate of the patient recorded as 20, heart rate 89, blood pressure 136/54. The pulse oxygen saturation on 2 L nasal cannula 95% saturation. HEENT: Examination shows no acute change. NECK: Supple. CARDIOVASCULAR SYSTEM: S1, S2 audible. LUNGS: Noted without any wheezing or crackles at the present time. ABDOMEN: Soft and nontender. LABORATORY DATA: Chest x-ray of the patient that were done yesterday showed reduction of the pulmonary infiltration; however, the resolution still noted incomplete, but the resolution gradually occurring. CBC this morning, hemoglobin of 7.2, hematocrit 25.7, WBC count was normal, platelet count was noted as normal. IMPRESSION: 1. The patient with resolving acute pneumonia gradually in the right lung for this patient. 2. Anemia for this patient noted, etiology unclear as well. 3. Peripheral vascular disease. PLAN OF TREATMENT: No changes from the pulmonary management standpoint. The patient could be discharged home on oral antibiotics, but needs to be assessed possibly for reassessment of the oxygen need for the home settings for this patient as a portable oxygen prior to discharge. She is currently using oxygen supplementation nocturnally. Abstinence of tobacco use was advised. [place], [place] PROGRESS NOTE NAME: CHINMAY STARR UNIT #: [id number] ROOM: 510 DOCTOR: PRESTON MCQUEEN MD BIRTHDATE: [birth year] PRESTON JACOBS MD CM:PNTRANS [id number] [id number] PRESTON MURRAY MD 04/11/17 0340 interface
--- NOTE | ~2017-04-05 | PR ---
[place], [place] PROGRESS NOTE [facility]: [id number] UNIT #: [id number] ROOM: 510 DOCTOR: ARLENE MURRAY MD,PRESTON BIRTHDATE: [birth year] DOS: 04/09/2017 SUBJECTIVE: The patient has been showing gradual reduction and improvement in the respiratory symptoms of coughing, shortness of breath has been improving gradually. Denies symptoms of chest pain or any abdominal pain. OBJECTIVE: VITAL SIGNS: For the patient which has been recorded shows normal temperature, respiratory rate 18, heart rate of 90, blood pressure 162/58. Pulse oxygen saturation of the patient noted 2 liters nasal cannula 98% saturation. HEENT: Showed no acute change. NECK: Supple. CARDIOVASCULAR SYSTEM: S1, S2 audible. LUNGS: Noted with crackles at the left lung base. There was no wheezing. ABDOMEN: Soft, nontender. LABORATORY DATA: CBC of the patient that was done this morning shows hemoglobin 7.3, hematocrit 26.3, WBC count normal, platelet count was normal. BMP for the patient that was done this morning showed glucose 134, CO2 of 36. Chest x-ray of the patient was ordered at this time. IMPRESSION: 1. The patient with acute bilateral pneumonia for this patient was noted, currently treated with antibiotics for this patient with resolving acute hypoxic respiratory failure as well. 2. Chronic wound for the patient of the foot. PLAN OF TREATMENT: Monitor chest x-ray results. Continue antibiotics, bronchodilators and other treatment as in progress. Usual care, other supportive therapy, plan of care. PRESTON JACOBS MD CM:PNTRANS [id number] PRESTON MURRAY MD 04/09/171934 interface
[2017-04-05 20:40] VITALS: BP 128/53
[2017-04-05 21:00] VITALS: BP 118/51; BP 130/60
[2017-04-05 21:56] LABS: BASO % 0.2 % (0.0-1.0); EOS # 0.3 10*3/uL (0.0-0.4); EOS % 2.2 % (1.0-4.0); HEMATOCRIT 27.9 % (37.0-47.0); HEMOGLOBIN 7.6 g/dl (12.0-16.0); IG # 0.1 10*3/uL (0.0-0.1); LYMPH # 1.1 10*3/uL (1.3-4.4); LYMPH % 7.9 % (27.0-41.0); MEAN CELL VOLUME 105.3 fl (81.0-99.0); MEAN CORPUSCULAR HGB 28.7 pg (27.0-31.0); MEAN CORPUSCULAR HGB CONC 27.2 g/dl (33.0-37.0); MEAN PLATELET VOLUME 8.8 fl (9.6-12.3); MONO # 0.7 10*3/uL (0.1-1.0); MONO % 5.3 % (3.0-9.0); NEUT # 11.4 10*3/uL (2.3-7.9); NEUT % 83.7 % (47.0-73.0); NUCLEATED RED BLOOD CELL 0.1 % (0.0-0.0); PLATELET COUNT AUTOMATED 378 10*3/uL (130-400); RED BLOOD COUNT 2.65 10*6/uL (4.10-5.10); WHITE BLOOD COUNT 13.7 10*3/uL (4.8-10.8)
[2017-04-05 22:00] VITALS: BP 112/49; BP 124/74; BP 124/741
[2017-04-05 22:07] LABS: INTERNATIONAL NORM RATIO 1.2 (2.0-3.5); PROTHROMBIN TIME 12.8 SECONDS (9.0-12.4)
[2017-04-05 22:15] LABS: ALKALINE PHOSPHATASE 69 U/L (45-117); BILIRUBIN, TOTAL 0.2 mg/dl (0.2-1.0); BUN 7 mg/dl (7-24); CHLORIDE 94 mmol/L (98-107); CKMB 0.6 ng/ml (0.5-3.6); CPK 8 U/L (26-192); EST GLOM FILT AFRICAN AMERICAN > 60 ml/min; GLUCOSE 93 mg/dL (65-99); LDH 134 U/L (84-246); MAGNESIUM 2.2 mg/dL (1.5-2.1); POTASSIUM 4.3 mmol/L (3.5-5.1); SGOT/AST 15 IU/L (3-35); SGPT/ALT 10 U/L (12-78); SODIUM 139 mmol/L (136-145); TOTAL PROTEIN 6.2 gm/dL (6.4-8.2)
[2017-04-05 22:19] LABS: CARBON DIOXIDE 42 mmol/L (21-32); TROPONIN I < 0.015 ng/ml (<0.045)
[2017-04-05 22:49] LABS: BILIRUBIN NEGATIVE (NEGATIVE); BLOOD NEGATIVE (NEGATIVE); CLARITY CLEAR (CLEAR); COLOR YELLOW (YELLOW); GLUCOSE NEGATIVE (NEGATIVE); KETONE NEGATIVE (NEGATIVE); LEUKO ESTERASE NEGATIVE (NEGATIVE); NITRITE NEGATIVE (NEGATIVE); PROTEIN NEGATIVE (NEGATIVE); UROBILINOGEN 0.2 E.U./dl (0.2-1.0)
[2017-04-05 23:03] LABS: BACTERIA TRACE; EPITHELIAL CELLS 0-2; MUCOUS 1+
[2017-04-05 23:04] LABS: URINE REFLEX COMMENT NO (NO)
[2017-04-05 23:11] LABS: ABG HCO3 41.4 mmol/l (22-26); ABG TEMPERATURE 98.4 F (98.0-99.0); ARTERIAL BLOOD GAS PH 7.312 (7.35-7.45)
[2017-04-05 23:12] VITALS: BP 112/68
[2017-04-06] VITALS (11 sets, daily range): BP systolic 98–152; BP diastolic 50–75
[2017-04-06 00:56] LABS: CKMB 0.6 ng/ml (0.5-3.6); CPK 9 U/L (26-192)
[2017-04-06 00:57] LABS: TROPONIN I < 0.015 ng/ml (<0.045)
[2017-04-06 06:22] LABS: BASO % 0.3 % (0.0-1.0); EOS # 0.2 10*3/uL (0.0-0.4); EOS % 1.6 % (1.0-4.0); HEMATOCRIT 25.1 % (37.0-47.0); HEMOGLOBIN 6.7 g/dl (12.0-16.0); IG # 0.1 10*3/uL (0.0-0.1); LYMPH # 1.1 10*3/uL (1.3-4.4); LYMPH % 9.5 % (27.0-41.0); MEAN CELL VOLUME 106.8 fl (81.0-99.0); MEAN CORPUSCULAR HGB 28.5 pg (27.0-31.0); MEAN CORPUSCULAR HGB CONC 26.7 g/dl (33.0-37.0); MEAN PLATELET VOLUME 9.3 fl (9.6-12.3); MONO # 0.6 10*3/uL (0.1-1.0); MONO % 5.3 % (3.0-9.0); NEUT # 9.5 10*3/uL (2.3-7.9); NEUT % 82.8 % (47.0-73.0); PLATELET COUNT AUTOMATED 341 10*3/uL (130-400); RED BLOOD COUNT 2.35 10*6/uL (4.10-5.10); RED CELL DISTRI WIDTH 18.1 % (0-14.5); WHITE BLOOD COUNT 11.4 10*3/uL (4.8-10.8)
[2017-04-06 06:23] LABS: BUN 5 mg/dl (7-24); CARBON DIOXIDE 39 mmol/L (21-32); CHLORIDE 97 mmol/L (98-107); EST GLOM FILT AFRICAN AMERICAN > 60 ml/min; GLUCOSE 79 mg/dL (65-99); PHOSPHOROUS 3.2 mg/dL (2.5-4.9); POTASSIUM 4.4 mmol/L (3.5-5.1); SODIUM 138 mmol/L (136-145)
[2017-04-06 06:26] LABS: CKMB 0.6 ng/ml (0.5-3.6); CPK 8 U/L (26-192)
[2017-04-06 06:31] LABS: TROPONIN I < 0.015 ng/ml (<0.045)
[2017-04-06 13:44] LABS: ABG BASE EXCESS 11.1 mmol/L (-2.0-2.0); ABG CO2 CONTENT 39.8 mmol/L (23-27); ABG HCO3 37.7 mmol/l (22-26); ABG TEMPERATURE 97.6 F (98.0-99.0); ARTERIAL BLOOD GAS PH 7.37 (7.35-7.45)
[2017-04-06 15:37] LABS: CKMB < 0.5 ng/ml (0.5-3.6); CPK 20 U/L (26-192); TROPONIN I < 0.015 ng/ml (<0.045)
[2017-04-07] VITALS: BP 131/43
[2017-04-07 06:37] LABS: HEMATOCRIT 25.8 % (37.0-47.0); HEMOGLOBIN 7.5 g/dl (12.0-16.0); LYMPH # 0.7 10*3/uL (1.3-4.4); LYMPH % 11.4 % (27.0-41.0); MEAN CORPUSCULAR HGB 28.4 pg (27.0-31.0); MEAN CORPUSCULAR HGB CONC 29.1 g/dl (33.0-37.0); MEAN PLATELET VOLUME 8.9 fl (9.6-12.3); MONO # 0.1 10*3/uL (0.1-1.0); MONO % 2.1 % (3.0-9.0); NEUT # 5.2 10*3/uL (2.3-7.9); NEUT % 85.8 % (47.0-73.0); NUCLEATED RED BLOOD CELL 0.3 % (0.0-0.0); PLATELET COUNT AUTOMATED 354 10*3/uL (130-400); RED BLOOD COUNT 2.64 10*6/uL (4.10-5.10); RED CELL DISTRI WIDTH 18.8 % (0-14.5); WHITE BLOOD COUNT 6.1 10*3/uL (4.8-10.8)
[2017-04-07 06:44] LABS: MEAN CELL VOLUME 97.7 fl (81.0-99.0)
[2017-04-07 06:47] LABS: BUN 13 mg/dl (7-24); CARBON DIOXIDE 40 mmol/L (21-32); CHLORIDE 98 mmol/L (98-107); EST GLOM FILT AFRICAN AMERICAN > 60 ml/min; GLUCOSE 135 mg/dL (65-99); POTASSIUM 4.5 mmol/L (3.5-5.1); SODIUM 141 mmol/L (136-145)
[2017-04-07 08:00] VITALS: BP 108/52; BP 121/43
[2017-04-07 12:00] VITALS: BP 128/50
[2017-04-07 16:00] VITALS: BP 134/46
[2017-04-07 20:00] VITALS: BP 126/51
[2017-04-08] VITALS: BP 122/54
[2017-04-08 04:00] VITALS: BP 120/50
[2017-04-08 06:57] LABS: HEMOGLOBIN 7.1 g/dl (12.0-16.0); IG # 0.1 10*3/uL (0.0-0.1); LYMPH # 0.9 10*3/uL (1.3-4.4); LYMPH % 9.9 % (27.0-41.0); MEAN CELL VOLUME 100.4 fl (81.0-99.0); MEAN CORPUSCULAR HGB 28.5 pg (27.0-31.0); MEAN CORPUSCULAR HGB CONC 28.4 g/dl (33.0-37.0); MEAN PLATELET VOLUME 9.3 fl (9.6-12.3); MONO # 0.4 10*3/uL (0.1-1.0); NEUT # 7.7 10*3/uL (2.3-7.9); NEUT % 85.3 % (47.0-73.0); PLATELET COUNT AUTOMATED 368 10*3/uL (130-400); RED BLOOD COUNT 2.49 10*6/uL (4.10-5.10); RED CELL DISTRI WIDTH 18.7 % (0-14.5)
[2017-04-08 07:22] LABS: BUN 14 mg/dl (7-24); CARBON DIOXIDE 38 mmol/L (21-32); CHLORIDE 101 mmol/L (98-107); EST GLOM FILT AFRICAN AMERICAN > 60 ml/min; GLUCOSE 121 mg/dL (65-99); POTASSIUM 4.2 mmol/L (3.5-5.1); SODIUM 145 mmol/L (136-145)
[2017-04-08 08:00] VITALS: BP 135/67
[2017-04-08 12:00] VITALS: BP 128/72
[2017-04-08] MEDS ORDERED: LEVOFLOXACIN500 MG PO (13:56)
[2017-04-08] MEDS ORDERED: VIBRAMYCIN100 MG PO (13:56)
[2017-04-08] MEDS ORDERED: PREDNISONE10 MG PO (13:56)
[2017-04-08 16:00] VITALS: BP 142/64
[2017-04-08 20:00] VITALS: BP 149/52
[2017-04-09] VITALS: BP 139/61
[2017-04-09 06:02] LABS: HEMATOCRIT 26.3 % (37.0-47.0); HEMOGLOBIN 7.3 g/dl (12.0-16.0); MEAN CELL VOLUME 102.3 fl (81.0-99.0); MEAN CORPUSCULAR HGB 28.4 pg (27.0-31.0); MEAN CORPUSCULAR HGB CONC 27.8 g/dl (33.0-37.0); NUCLEATED RED BLOOD CELL 0.4 % (0.0-0.0); PLATELET COUNT AUTOMATED 397 10*3/uL (130-400); RED BLOOD COUNT 2.57 10*6/uL (4.10-5.10); RED CELL DISTRI WIDTH 18.7 % (0-14.5); WHITE BLOOD COUNT 8.3 10*3/uL (4.8-10.8)
[2017-04-09 06:27] LABS: BUN 14 mg/dl (7-24); CARBON DIOXIDE 36 mmol/L (21-32); CHLORIDE 101 mmol/L (98-107); EST GLOM FILT AFRICAN AMERICAN > 60 ml/min; GLUCOSE 134 mg/dL (65-99); POTASSIUM 4.1 mmol/L (3.5-5.1); SODIUM 144 mmol/L (136-145)
[2017-04-09 06:29] LABS: HYPOCHROMIA MODERATE; MONOCYTE # 0.1 10*3/uL (0.1-1.0); NEUTROPHIL # 7.2 10*3/uL (2.3-7.9); NEUTROPHILS 87 % (47-73); PLATELET SUFFICIENCY NORMAL (NORMAL); POLYCHROMASIA SLIGHT; TOTAL CELLS COUNTED 100 #CELLS
[2017-04-09 08:00] VITALS: BP 162/58
[2017-04-09 12:00] VITALS: BP 158/60
[2017-04-09 16:00] VITALS: BP 141/59
[2017-04-09 20:00] VITALS: BP 152/57
[2017-04-10] VITALS: BP 168/62
[2017-04-10 06:12] LABS: HEMATOCRIT 25.7 % (37.0-47.0); HEMOGLOBIN 7.2 g/dl (12.0-16.0); MEAN CELL VOLUME 101.2 fl (81.0-99.0); MEAN CORPUSCULAR HGB 28.3 pg (27.0-31.0); MEAN PLATELET VOLUME 9.1 fl (9.6-12.3); NUCLEATED RED BLOOD CELL 0.1 10*3/uL (0.0-0.0); NUCLEATED RED BLOOD CELL 0.6 % (0.0-0.0); PLATELET COUNT AUTOMATED 396 10*3/uL (130-400); RED BLOOD COUNT 2.54 10*6/uL (4.10-5.10); RED CELL DISTRI WIDTH 18.6 % (0-14.5); WHITE BLOOD COUNT 8.5 10*3/uL (4.8-10.8)
[2017-04-10 06:31] LABS: BASOPHIL # 0.1 10*3/uL (0-0.1); BASOPHILS 1 % (0-1); LYMPHOCYTE # 1.1 10*3/uL (1.3-4.4); MONOCYTE # 0.1 10*3/uL (0.1-1.0); MYELOCYTES 2 % (0-0); NEUTROPHIL # 7.1 10*3/uL (2.3-7.9); NEUTROPHILS 83 % (47-73); PLATELET SUFFICIENCY NORMAL (NORMAL); POLYCHROMASIA SLIGHT; TOTAL CELLS COUNTED 100 #CELLS
[2017-04-10 08:00] VITALS: BP 136/54
[2017-04-10 16:00] VITALS: BP 165/74
== END 2017-04-10 18:10 | disposition home health service (06) | DRG 871 ==
LOC: ED 20:15 → EDHOLD 22:42 → 5E 22:42
PROVIDERS: Family Medicine Adult Medicine; Hospitalist; Internal Medicine; Internal Medicine Critical Care Medicine; Physician Assistant
PROC: 5A09357 Assistance with Respiratory Ventilation, Less than 24 Consecutive Hours, Continuous Positive Airway Pressure (ICD-10-PCS; principal; 2017-04-05)
PROC: 30233N1 Transfusion of Nonautologous Red Blood Cells into Peripheral Vein, Percutaneous Approach (ICD-10-PCS; principal; 2017-04-05)
DX: A41.9 Sepsis, unspecified organism (principal); J96.22 Acute and chronic respiratory failure with hypercapnia; J96.01 Acute respiratory failure with hypoxia; E43 Unspecified severe protein-calorie malnutrition; G93.41 Metabolic encephalopathy; C92.10 Chronic myeloid leukemia, BCR/ABL-positive, not having achieved remission; E87.2 Acidosis; E87.3 Alkalosis; J18.9 Pneumonia, unspecified organism; D68.9 Coagulation defect, unspecified; J44.1 Chronic obstructive pulmonary disease with (acute) exacerbation; J44.0 Chronic obstructive pulmonary disease with (acute) lower respiratory infection; R65.20 Severe sepsis without septic shock; E86.0 Dehydration; E83.41 Hypermagnesemia; I48.0 Paroxysmal atrial fibrillation; E78.5 Hyperlipidemia, unspecified; I10 Essential (primary) hypertension; I73.9 Peripheral vascular disease, unspecified; S91.309A Unspecified open wound, unspecified foot, initial encounter; R41.0 Disorientation, unspecified; D53.9 Nutritional anemia, unspecified; I25.10 Atherosclerotic heart disease of native coronary artery without angina pectoris; Z89.432 Acquired absence of left foot; Z90.49 Acquired absence of other specified parts of digestive tract; Z87.891 Personal history of nicotine dependence; Z82.49 Family history of ischemic heart disease and other diseases of the circulatory system; Z88.8 Allergy status to other drugs, medicaments and biological substances; Z99.81 Dependence on supplemental oxygen; Z91.041 Radiographic dye allergy status; Z88.0 Allergy status to penicillin; Z91.040 Latex allergy status; Z79.899 Other long term (current) drug therapy; Z68.21 Body mass index [BMI] 21.0-21.9, adult

== ENCOUNTER 2017-04-27 12:46 | Inpatient (IN) | payer MEDICARE ==
[~2017-04-27] VITALS: Ht 154.9 cm; Wt 57.6 kg
--- NOTE | ~2017-04-27 | PROC NOTE ---
[place], [place] PROCEDURE NOTE NAME: CHINMAY STARR [facility] #: [id number] UNIT #: [id number] ROOM: 411 DOCTOR: MANISHA DA SILVA BIRTHDATE: [birth year] DOS: 05/01/2017 MODIFIED BARIUM SWALLOW LOCATION: [facility], room 411, bed 2. DOCTOR: Dr. Jean. RADIOLOGIST: Dr. Moore. BACKGROUND INFORMATION: The patient is a 67-year-old female who was seen for modified barium swallow. This test was ordered to rule out aspiration and determine most appropriate diet consistency. This patient is currently receiving a regular diet and honey-thick liquids. She has undergone past modified barium swallows with aspiration detected. The patient reports dislike of the honey-thick liquids and is hoping to be able to upgrade. The patient presented to the hospital with nonhealing wound of the left foot. She was recently hospitalized in [place] with shortness of breath and pneumonia. MEDICAL HISTORY: Includes COPD, , CAD, clotting disorder, depression and chronic myelocytic leukemia. For today's assessment, she was alert and able to follow all commands. The patient was receiving oxygen via nasal cannula with congested respirations displayed. Lingual, labial and buccal skills were within normal limits for strength, range of motion and coordination. The patient presented with natural teeth with the exception of a bottom partial plate. She did have several missing left lower teeth. METHODS AND MATERIALS USED FOR THE EXAM: The patient was positioned in the lateral plane and the examination was viewed under fluoroscopy. The patient was presented with a variety of consistencies to assess swallowing skills including applesauce mixed with barium presented in half teaspoon amounts, barium-coated banana and cookie presented in bite size pieces and nectar thick barium by cup. The patient was given the cup and was observed in small and larger sip size amounts. ORAL PHASE: The patient achieved adequate labial seal around cup and spoon with no anterior loss. Bolus formation and transit were adequate. Mastication was adequate. Tongue to palate contact was within normal limits. Tongue retraction was within normal limits. Jarquin functioning was normal with no nasal regurgitation. PHARYNGEAL PHASE: The pharyngeal swallow occurred within a timely manner. There was no significant residue in the pharyngeal recesses. Post-swallow, the patient did exhibit some penetration during the swallow with nectar thick liquid when taking a larger sip size amount due to reduced laryngeal elevation and epiglottic function. When the patient took a small single sip of liquid, no penetration occurred. No aspiration occurred with any consistency. IMPRESSIONS AND RECOMMENDATIONS: Based upon assessment results, this 67-year-old female presents with a mild pharyngeal stage dysphagia characterized [place], [place] PROCEDURE NOTE NAME: CHINMAY STARR UNIT #: [id number] ROOM: 411 DOCTOR: MANISHA DA SILVA BIRTHDATE: [birth year] by penetration during the swallow with nectar thick liquid when consuming a larger volume. No penetration occurred with small single sip of liquid. No aspiration occurred with any consistency. Recommend regular diet and nectar thick liquid. Recommend small single sips of liquids. Followup therapy is recommended focusing on pharyngeal strengthening exercises, safe swallow strategies and education. Results and recommendations were shared with the patient, her daughter and her nurse and they verbalized understanding. Thank you very much for this referral. Should you have any questions regarding this patient, please contact the speech pathologist at [phone]. MANISHA DA SILVA CM:PROCNOTE:PROCEDURE NOTE [id number] MANISHA DA SILVA
--- NOTE | ~2017-04-27 | PR ---
[place], [place] PROGRESS NOTE NAME: [facility] STARR [facility] [id number] UNIT #: [id number] ROOM: 411 DOCTOR: ARLENE MURRAY MD,PRESTON BIRTHDATE: [birth year] DOS: 05/01/2017 PULMONARY FOLLOWUP SUBJECTIVE: She has been noted n.p.o. past midnight. Bronchoscopy has not reported any further symptoms of hemoptysis. Denies any chest pain. Shortness of breath has been noted at times with wheezing. OBJECTIVE: VITAL SIGNS: Normal temperature, respiratory rate 20, heart rate 87, blood pressure 150/59. The pulse oxygen saturation recorded on 3 liters nasal cannula 96% saturation. HEENT: No acute change. NECK: Supple. CARDIOVASCULAR: S1, S2 audible. LUNGS: Without any wheezing. Scattered crackles of the lungs were noted in the lung bases bilaterally. ABDOMEN: Soft, nontender. LABORATORY DATA: CBC today: WBC count 8.4, hemoglobin 39.1, platelet count was normal and WBC count was normal. Anti-Mabel-1 antibody was noted as negative. IMPRESSION: The patient has been currently noted with interstitial lung disease, possibly superimposed acute pulmonary infiltration as well as small amount of hemoptysis and other medical illnesses, which has been noted essentially the same. PLAN OF TREATMENT: Bronchoscopy will be done. Continue antibiotics, bronchodilators, and corticosteroids same dose. Other supportive therapy, plan of management and care. Usual treatment and any modification treatment if necessary will be done after bronchoscopy. PRESTON JACOBS MD CM:PNYAN [id number] PRESTON MURRAY MD 05/01/17 1330 interface
--- NOTE | ~2017-04-27 | PR ---
[place], [place] PROGRESS NOTE NAME: CHINMAY STARR UNIT #: [id number] ROOM: 411 DOCTOR: PRESTON MCQUEEN MD BIRTHDATE: [birth year] DOS: 04/30/2017 SUBJECTIVE: The patient has been noted comfortable at this time. She has not been noted with further symptoms of hemoptysis, chest congestion or cough which she had described. Shortness of breath occurs with exertion. Denied any symptoms of chest pain or abdominal pain. She has been given 1 packed RBC blood transfusion yesterday as well. OBJECTIVE: VITAL SIGNS: Shows normal temperature, respiratory rate 18, heart rate 82, blood pressure 120/56. Pulse oxygen saturation on 2 liters nasal cannula 97% saturation. HEENT: Shows no acute change. NECK: Supple. CARDIOVASCULAR: S1, S2 audible. LUNGS: Crackles were noted in the lungs bilaterally, patchy in the mid to lower lungs. There was no wheezing. ABDOMEN: Soft and nontender. LABORATORY DATA: CBC today: WBC count 11.8, hemoglobin 8.9, hematocrit 30.8, platelet count was normal. Vancomycin trough level 16.7, which is therapeutic. Blood culture from the , so far showed no bacterial growth. IMPRESSION: 1. The patient with patchy bilateral pulmonary infiltration with acute pneumonia. Treated this patient with intravenous antibiotics. 2. Hemoptysis, seems to be resolving. 3. Acute exacerbation of chronic obstructive pulmonary disease as well. 4. Peripheral vascular disease. PLAN OF TREATMENT: Bronchoscopy planned to be done in the morning for assessment of hemoptysis and currently bilateral pulmonary infiltration. In the meantime, continue with the therapy, plan of management, other care. Usual care, other supportive plan of therapies. [place], [place] PROGRESS NOTE NAME: CHINMAY STARR UNIT #: [id number] ROOM: 411 DOCTOR: PRESTON MCQUEEN MD BIRTHDATE: [birth year] PRESTON JACOBS MD CM:PNTRANS [id number] PRESTON MURRAY MD 05/01/17 0104 interface
--- NOTE | ~2017-04-27 | PR ---
[place], [place] PROGRESS NOTE NAME: CHINMAY STARR [facility] #: [id number] UNIT #: [id number] ROOM: 411 DOCTOR: ARLENE MURRAY MD,PRESTON BIRTHDATE: [birth year] DOS: 04/29/2017 SUBJECTIVE: She was ordered one blood transfusion. CT scan of the chest was completed yesterday, which was reviewed for patient. She has been noted symptoms of acute shortness of breath at rest. The cough has been noted, hemoptysis was noted small yesterday, not reoccurred at this time. OBJECTIVE: VITAL SIGNS: Showed normal temperature to 100.7 degree Fahrenheit, respiratory rate of 16-18, heart rate 70-85, blood pressure 114/42 on . Intake for the patient was 1400 mL, output 1600 mL. Pulse ox saturation on 2 liters nasal cannula 100% saturation recorded. HEENT: Examination shows no acute change. NECK: Supple. CARDIOVASCULAR: S1, S2 audible. LUNGS: Noted crackles in lower portion of the lungs bilaterally. ABDOMEN: Soft, nontender. LABORATORY DATA: Blood culture showed no bacterial growth on 04/27/2017. CBC this morning, WBC count 12.3, hemoglobin 6.7, hematocrit 24.0, platelet count 183,000. The BMP of the patient was noted BUN 30, creatinine 0.51, glucose 143. ESR was yesterday noted at 59. C-reactive protein was noted significantly elevated at 14.0. The CT scan of the chest of patient that was done yesterday for this patient was reviewed personally in detail. It shows multiple areas with ground glass opacity as well as reticular nodular pattern noted infiltrates in the lungs, predominantly noted in the left than the right side. Hiatal hernia for the patient was also noted. Some area of consolidative processes was also noted patchy in the lungs bilaterally. The mediastinal window review for this patient does not show any evidence of major significant lymphadenopathy, mild mediastinoscopy was noted with patient of unknown significance. However, the finding, the patient was not noted a very clear because of lack of the IV contrast study. IMPRESSION: 1. The patient will be currently admitted to the hospital noted with hemoptysis. The patient with interstitial lung process with a differential diagnosis of acute pulmonary infection versus other atypical infection and other differential diagnosis of interstitial lung disease including, nonspecific interstitial pneumonia, chronic infection with Mycobacterium avium complex, likely atypical microbacteria and all other remains in consideration. 2. History of peripheral vascular disease with intervention at [facility]. 3. Rule out chronic hypersensitivity pneumonitis as well. Plan of management workup for connective tissue disorder, vasculitis and others has been ordered and sent to the lab. A TB core test was also ordered. Continue the current treatment of patient with intravenous antibiotics. Consider bronchoscopy of patient for more accurate culture assessment as well. Monitor for hemoptysis which has been noted minimal to none at this time. Usual care, other supportive therapy, plan of care and treatment. Usual medical [place], [place] PROGRESS NOTE NAME: CHINMAY STARR UNIT #: [id number] ROOM: [facility] DOCTOR: ARLENE MURRAY MD,PRESTON BIRTHDATE: [birth year] therapies. Further change in treatment done based on progression of illness. Assessment and management done with one of her daughter, who was present in the room with the patient as well. PRESTON JACOBS MD CM:PNTRANS [id number] PRESTON MURRAY MD 04/30/17 0809 interface
--- NOTE | ~2017-04-27 | PROC NOTE ---
[place], [place] PROCEDURE NOTE [id number] UN[facility] #: [id number] ROOM: 411 DOCTOR: ARLENE MURRAY MD,PRESTON BIRTHDATE: [birth year] DOS: 05/01/2017 PREOPERATIVE DIAGNOSIS: Small hemoptysis with abnormal pulmonary infiltration in the lungs. POSTOPERATIVE DIAGNOSES: 1. There was no evidence of active hemoptysis noted at the present time. 2. Evidence of acute tracheobronchitis with the suspicion of acute pneumonia as well. PROCEDURE DESCRIPTION: Informed consent obtained. The patient was brought to the OR. In the supine position, conscious sedation administered by the Anesthesia Department. After achieving appropriate sedation, the patient's airway introduced into the mouth. The bronchoscope advanced into the airway into laryngeal area. Epiglottis and vocal cords were seen. The bronchoscope advanced to the vocal cord and tracheal lumen. There were no signs of active or old bleeding noted. Moderate amount of thick purulent secretion present in the tracheal lumen, which was suctioned out to the mary level. Right upper, right middle, right lower, left upper, lingular lower lobe bronchi were all examined. Moderate amount of thick mucopurulent secretions present in the endobronchial tree, which has been suctioned out with the help of normal saline wash. ____ sent for culture. There were no endobronchial obstructive lesions noted. Postoperative findings were discussed with the patient's daughter in the recovery room as well. PRESTON JACOBS MD CM:PROCNOTE:PROCEDURE NOTE [id number] PRESTON MURRAY MD
--- NOTE | ~2017-04-27 | CON ---
[place], [place] REPORT OF CONSULTATION NAME: CHINMAY STARR [facility] #: [id number] UNIT #: [id number] ROOM: 411 DOCTOR: PRESTON MCQUEEN MD BIRTHDATE: [birth year] DOS: 04/28/2017 PULMONARY CONSULTATION, EVALUATION AND MANAGEMENT CONSULTATION REQUESTED BY: Hospitalist services. REASON FOR CONSULTATION: Assessment of ongoing acute respiratory symptoms with pneumonia. HISTORY OF PRESENT ILLNESS: A 67-year-old white female who has been known to me with her previous admission. The patient has been admitted in this hospital in 04/2017. She was discharged home on 04/10/2017. At that time, she was managed for the acute pneumonia involving the right lower lobe, also noted with anemia of unclear etiology. She stated that she has developed symptoms of increased shortness of breath for the past few days. The symptoms started on Monday with progressive worsening. The symptoms have been noted with increased coughing, which has been noted with thick productive sputum. She was also noted with low-grade fever as well about 100 degrees Fahrenheit. Shortness of breath also noted that has been noted gradually increased. She denies symptoms of chest pain. Denies symptoms of hemoptysis. She has been noted with increased daytime sleepiness as well, as reported by the patient's daughter. At this time, the patient stated that symptoms have been noted partially decreased from yesterday. However, still noted with coughing intermittently. She denies symptoms of chest pain at the present time. There was no history of rather chest trauma. Upon assessment in the Emergency, the patient's oxygen saturation recorded 79-80% with 2 L nasal cannula. REVIEW OF SYSTEMS: CONSTITUTIONAL: Generalized weakness and fatigue were described without symptoms of fever or chills. EYES: Denies any burning, redness, or tenderness. EARS, NOSE, THROAT: No sore throat, hoarseness, otalgia, postnasal drainage or epistaxis. CARDIOVASCULAR: Denies anginal pain, edema of the lower extremities, or palpitations. GASTROINTESTINAL: Denies dysphagia, nausea, vomiting, diarrhea, abdominal pain, hematemesis, melena, or hematochezia. GENITOURINARY: No dysuria, suprapubic pain, hematuria. SKIN: Denies lesions or rashes. MUSCULOSKELETAL: Denies acute joint pain, redness, or tenderness. CENTRAL NERVOUS SYSTEM: Denies dizziness, headache, diplopia or syncopal episodes. Remaining systems were reviewed with the patient, they were noted all negative. PAST MEDICAL HISTORY: 1. CML. 2. Clotting disorder. 3. Essential hypertension. 4. Hyperlipidemia. [place], [place] REPORT OF CONSULTATION [id number] UNIT #: [id number] ROOM: 411 DOCTOR: ARLENE MURRAY MD,PRESTON BIRTHDATE: [birth year] 5. Coronary artery disease. 6. COPD/centrilobular emphysema. 7. History of peripheral vascular disease. 8. Wound of the left foot and lower extremity with previous bypass grafting surgery of the lower extremity for peripheral vascular disease management in [facility]. PAST SURGICAL HISTORY: 1. Amputation of the left toe. 2. Appendectomy. 3. Cardiac catheterization and coronary artery stent insertion. 4. Surgical resection Meckel diverticulum. 5. Adhesions separation of the small bowel with exploratory laparotomy x 2. 6. Peripheral vascular disease intervention and bypass grafting of the left lower extremity, complicated with some wounds and others, treated in [facility]. SOCIAL HISTORY: The patient is , has 2 children. Denies any history of alcohol use. Tobacco use was noted since teenager, 2 packs of cigarettes per day that was discontinued in 2002. FAMILY HISTORY: Father with complication of congestive heart failure, coronary artery disease. Mother at 60 years old from complication related to atrial fibrillation, coronary artery disease with acute myocardial infarction. CURRENT MEDICATIONS ADMINISTERED: Noted use of amitriptyline, Protonix, Plavix, metoprolol tartrate, Cymbalta, Lasix 20 mg IV b.i.d., simvastatin, Mucinex, IV Solu-Medrol 60 mg q.8 hours, Xarelto, oxycodone hydrochloride p.r.n. use, DuoNeb, Tylenol, Levaquin, aztreonam, and vancomycin. DRUG ALLERGY HISTORY: Reported as: 1. IVP DYE. 2. PENICILLIN. 3. GLEEVEC. PHYSICAL EXAMINATION: GENERAL: This is a 67-year-old female who has been currently sitting on the side of the bed without any acute distress. Height of 5 feet 1 inch, weight of 127 pounds, BMI 24. VITAL SIGNS: Temperature 100.7 degrees Fahrenheit noted yesterday on admission, currently noted normal temperature, respiratory rate 18-20, heart rate 71-84, blood pressure 115/43-123/46. Pulse oxygen saturation was noted on 3 L nasal canula 96% saturation. HEENT: Examination shows head was atraumatic. Eyes nonicterus. NECK: Supple. CARDIOVASCULAR: S1, S2 audible. LUNGS: Show essentially crackles noted in both lower lungs inspiratory with scattered wheezing. [place], [place] REPORT OF CONSULTATION NAME: CHINMAY STARR UNIT #: [id number] ROOM: 411 DOCTOR: ARLENE MURRAY MD,PRESTON BIRTHDATE: [birth year] ABDOMEN: Soft, nontender. EXTREMITIES: Mild edema of both lower extremities. CENTRAL NERVOUS SYSTEM: Cranial nerves 2-12 intact. No focal deficits. MUSCULOSKELETAL: No deformities. SKIN: No lesions or rashes. LABORATORY DATA: CBC on 04/27/2017, WBC count 15.3, hemoglobin 8.6, hematocrit 30.4, platelet count of 163,000. BMP of the patient on 04/27/2017, BUN and creatinine was normal. CO2 of 38. Lactic acid was noted at 2.3 yesterday, followup lactic acid 1.9 yesterday as well. CMP this morning, BUN and creatinine was normal, glucose 150. PT/PTT noted with INR of 1.2, PTT of 38.4. CBC showed WBC count 14.2, hemoglobin 7.9, hematocrit 28.8, platelet count was noted 186,000. IMAGING DATA: Chest x-ray of the patient that was done 1 view, was personally reviewed, shows increased interstitial markings noted with evidence of acute pneumonia, which has been observed in bilateral lower lungs as well. IMPRESSION: 1. The patient who has been currently admitted to the hospital with current acute symptoms, lactic acid; possibility of acute pneumonia with atelectasis and other etiology will be considered. 2. The patient with acute exacerbation of chronic obstructive pulmonary disease. At this time, wheezing has been noted significant. Decrease current dose of corticosteroids. 3. Past history of having nicotine dependence, which was discontinued in 2002. 4. Peripheral vascular disease was noted with some complications postoperatively, which seem to be resolving. PLAN OF MANAGEMENT: Decrease Solu-Medrol dose to 40 mg b.i.d. at the present time. Continue bronchodilators. Current antibiotic to be continued on broad spectrum until the culture results will be known. For more clear assessment of underlying pulmonary pathology and the extent of the current abnormality, I will order CT scan of the chest to be done without contrast. The noncontrast CT will be obtained because of history of allergy to IVP DYE. Collect the sputum for Gram stain and culture as well. Further treatment changes, plan of management to be continued according to the progression of the current illness. Thanks for allowing me to participate in the care of this patient. [place], [place] REPORT OF CONSULTATION NAME: CHINMAY STARR UNIT #: [id number] ROOM: 411 DOCTOR: ARLENE MURRAY MD,PRESTON BIRTHDATE: [birth year] PRESTON JACOBS MD CM:CONSTR:REPORT OF CONSULTATION 1202 04/28/17 5322 interface
--- NOTE | ~2017-04-27 | CON ---
[place], [place] REPORT OF CONSULTATION NAME: CHINMAY STARR [facility] #: [id number] UNIT #: [id number] ROOM: 411 DOCTOR: SEBASTIÁN SloanTERRI BIRTHDATE: [birth year] DOS: 04/28/2017 WOUND CARE CONSULTATION HISTORY OF PRESENT ILLNESS: This is a 67-year-old female with multiple medical problems, known to the Wound Clinic for nonhealing surgical wound of the left foot. She is status post multiple revascularizations and has a clotting disorder and follows with vascular surgery at [facility]. She has had transmetatarsal amputation and has had nonhealing surgical wound since. She has been coming to the Wound Clinic for several months, initially the wound was improving, however, within the past couple of weeks, she has had problems with wound worsening, increased pain and recent concern of graft occlusion. She has not been seen in the Wound Clinic for some time now. She was supposed to be considered for possible bypass surgery back at [facility], however, due to according to the patient and the patient's family due to her pulmonary status and the procedure that was initially intended to happen was felt to be too risky for her, so they are planning at some point to do it sounds like an axillary femoral bypass, but I do not have the records in front of me and I do not have the exact details. However, she has been having problems with her respiratory status, repetitive admissions for shortness of breath and pneumonia. There has been also some concern of aspiration. She has been following up at [facility] at their Wound Clinic. Apparently, there are plans for her to have laser therapy for it appears to be possibly to increase the microcirculation. I do not have records for this. According to the patient, they were planning on wanting her to have the treatment 4 days a week. In the meantime, they have been using Santyl on the wound and Adaptic, so it does not adhere to it. She does not want anything to adhere to the wound because it hurts when the dressings are removed. She says that regimen seems to be keeping things stable. In any case, she was admitted to the Emergency Room Department for worsening shortness of breath and a productive cough since Monday. She was recently discharged from [facility]. She was recently discharged with oral antibiotics from [facility] on Ceftin. She was prior to that was discharged on 04/10/2017 at [place] for COPD exacerbation and shortness of breath and also had some confusion and mental status changes from medication. PAST MEDICAL HISTORY: Complicated and includes arterial leg ulcer, coronary artery disease, chronic anemia, chronic respiratory acidosis, clotting disorder, chronic myelocytic leukemia, constipation, COPD, depression, diastolic heart failure, essential hypertension, hyperlipidemia, narcotic-induced respiratory depression, oxygen dependent, paroxysmal atrial fib, peripheral vascular disease, peripheral arterial disease. She is status post transmetatarsal amputation of the left foot, ORIF, history of appendectomy, history of cardiac catheterization with stents, Meckel's diverticulum, small-bowel obstruction due to adhesions, bowel obstruction requiring 2 surgeries. She is also status post multiple revascularizations that include bypass and her vascular surgeon is Dr. Moreno. FAMILY HISTORY: Significant for coronary artery disease and congestive heart failure. Mother with coronary artery disease, atrial fib and coronary artery disease. [place], [place] REPORT OF CONSULTATION NAME: CHINMAY STARR UNIT #: [id number] ROOM: [employer] DOCTOR: TERRI LOWERY M.D. BIRTHDATE: [birth year] SOCIAL HISTORY: She does not smoke or drink. She did smoke in the past, but quit in 2013, she had smoked 1 pack per day. ALLERGIES: IVP DYE, PENICILLIN, GLEEVEC AND LATEX. MEDICATIONS: That have been ordered are Solu-Medrol 40 mg IV b.i.d., Elavil 75 p.o. at bedtime., Levaquin 750 mg IV daily, Protonix 40 mg p.o. daily, Toprol-XL 50 p.o. daily, Lasix 20 IV b.i.d., Cymbalta 60 mg p.o. daily, Plavix 75 p.o. daily, aztreonam 2 g IV every 8 hours, Zocor 80 at bedtime, MS Contin 15 mg p.o. b.i.d., Mucinex 1200 mg q.12 hours, Xarelto 20 mg p.o. q.p.m., oxycodone 10 mg q.3 hours p.r.n., vancomycin 750 mg IV, DuoNeb 3 mL q.6 hours p.r.n., milk of magnesia p.r.n., Dulcolax p.r.n., Tylenol p.r.n. REVIEW OF SYSTEMS: She continues to have pain in her foot. She is not complaining of any increase in drainage. She was admitted with complaints of worsening shortness of breath and a cough that is productive and blood-tinged. She did have some complaints of pleuritic chest pain as well. She denies any vomiting, diarrhea, dizziness, abdominal pain or any other symptoms. Currently, there is no fever, but she had noted a fever prior to her admission. Once again, she thinks the foot looks better with the Santyl and also that Adaptic keeps it from sticking to the bandages and that the wound did look worse a couple of weeks ago. The last time I had seen the wound, there was a thick yellow drainage. OBJECTIVE: VITAL SIGNS: Temperature is 97.8, pulse of 71, respirations 20, blood pressure is 148/56. GENERAL: She is alert and in no acute distress. Mentation is clear and appropriate. The last time I had seen her, she was quite confused. She is slightly pale. HEENT: Oropharynx is clear. Extraocular movements are intact. NECK: Supple. I do not appreciate any JVD. LUNGS: Have coarse rhonchi bilaterally. CARDIOVASCULAR: S1, S2, regular rate and rhythm. ABDOMEN: Soft and nontender. EXTREMITIES: There is no calf tenderness. Her left foot was examined. She is status post transmetatarsal amputation, she still has an open surgical wounds that are noted. Her foot is cool. There is dependent rubor. There is no purulence noted. There is no overt sign of infection and there is no odor. It is open and there is fibrin slough present in the open area on the lateral incision of the foot. The wound is approximately 4 cm in length and 1 cm in width and 0.2 cm in depth. The area by her toe is open as well. This area seems bigger than the last time I had seen her, it is open, I would say measuring approximately 1 x 1 cm in length and width and 0.2 to 0.3 in depth. There is area of fibrin slough that is adhering and some of the necrotic tissue is dark in color. There is also a pressure ulcer on her heel. It is not actually open. I would classify it as unstageable, but it is dark and black to suggest necrosis, likely a combination of pressure and vascular disease and it is on the heel. It is measuring approximately 0.5 x 2 cm and present on the left heel. [place], [place] REPORT OF CONSULTATION NAME: CHINMAY STARR UNIT #: [id number] ROOM: 411 DOCTOR: TERRI LOWERY M.D. BIRTHDATE: [birth year] Once again, it is not open. LABORATORY DATA: Her white count is measuring 14.2, hemoglobin is 7.9, platelets are 186. INR is 1.2, creatinine is 0.52. BUN is 14, bicarbonate is 38, glucose is 150. LFTs are normal, protein is low at 5.6, albumin is low at 2.2. TSH is low at 0.154. Lactic acid is 2.3. Her blood cultures are pending. Chest x-ray shows moderate diffuse pneumonia, which overall has worsened in appearance when compared to the 04/05/2017 chest x-ray and superimposed congestive heart failure is also considered likely. ASSESSMENT AND PLAN: Nonhealing surgical wound of the left foot with vascular disease, which is severe. Further vascular treatment is planned, but has been on hold presently. I would like to get the records from [facility] if we can, it sounds like they are doing laser therapy to increase the microcirculation of the foot. There is no overt sign of infection. We will go ahead and get an x-ray for now to see if there is any kind of bony destruction. I would continue with the Olamide, she does have it at home, the family is going to be bringing it in for her and we will use that in the base of the wound where the fibrin slough is present, continue the Adaptic and Kerlix. As far as the heel goes, it is not actually open; however, this is at risk for breakdown. I would use Betadine on it daily and keep it covered with a foam and encourage offloading as much as possible to hopefully prevent this wound from opening up if we can. She has multiple other problems that include worsening pneumonia, history of aspiration, concern for heart failure, COPD, acute respiratory failure, hypoxia, and clotting disorder that are being managed by her medical team. TERRI LOWERY MD CM:CONSTR:REPORT OF CONSULTATION 1219 EM 05/08/17 1531 BRITTANIE [email or web address]
[~2017-04-27 12:46] MED LIST changes: +LEVOFLOXACIN500 MG PO; -LOPRESSOR50 M1 PO; +OXYCODONE HCL10 M1 PO; -OXYCODONE HCL5 MG PO; +PRAVACHOL80 M1 PO; -PRAVASTATIN SOD40 MG PO; +PREDNISONE10 MG PO; +VIBRAMYCIN100 MG PO
[2017-04-27 12:52] VITALS: BP 102/36
[2017-04-27] MEDS ORDERED: ALBUTEROL2.5 MG/0.5 INH (12:54)
[2017-04-27] MEDS ORDERED: ADVAIR 250/501 EA INH (12:55)
[2017-04-27] MEDS ORDERED: MS CONTIN15 MG PO (12:56)
[2017-04-27 14:10] LABS: BASO % 0.1 % (0.0-1.0); EOS # 0.1 10*3/uL (0.0-0.4); EOS % 0.5 % (1.0-4.0); HEMATOCRIT 30.4 % (37.0-47.0); HEMOGLOBIN 8.6 g/dl (12.0-16.0); IG # 0.1 10*3/uL (0.0-0.1); LYMPH % 6.3 % (27.0-41.0); MEAN CELL VOLUME 102.7 fl (81.0-99.0); MEAN CORPUSCULAR HGB 29.1 pg (27.0-31.0); MEAN CORPUSCULAR HGB CONC 28.3 g/dl (33.0-37.0); MONO # 0.9 10*3/uL (0.1-1.0); MONO % 5.7 % (3.0-9.0); NEUT # 13.3 10*3/uL (2.3-7.9); NEUT % 86.9 % (47.0-73.0); PLATELET COUNT AUTOMATED 163 10*3/uL (130-400); RED BLOOD COUNT 2.96 10*6/uL (4.10-5.10); RED CELL DISTRI WIDTH 17.4 % (0-14.5); WHITE BLOOD COUNT 15.3 10*3/uL (4.8-10.8)
[2017-04-27 14:25] LABS: BUN 13 mg/dl (7-24); CARBON DIOXIDE 38 mmol/L (21-32); CHLORIDE 96 mmol/L (98-107); EST GLOM FILT AFRICAN AMERICAN > 60 ml/min; GLUCOSE 117 mg/dL (65-99); POTASSIUM 4.8 mmol/L (3.5-5.1); SODIUM 141 mmol/L (136-145)
[2017-04-27 14:26] LABS: TROPONIN I < 0.015 ng/ml (<0.045)
[2017-04-27 17:10] VITALS: BP 115/45
[2017-04-27 17:17] VITALS: BP 115/45
[2017-04-27 17:57] VITALS: BP 137/52
[2017-04-27] MEDS ORDERED: COLACE100 MG PO (17:58)
[2017-04-27] MEDS ORDERED: PLAVIX75 M1 PO (18:16)
[2017-04-27] MEDS ORDERED: PREVACID15 M1 PO (18:17)
[2017-04-27] MEDS ORDERED: AMITRIPTYLINE H75 MG PO (18:20)
[2017-04-27] MEDS ORDERED: VITAMIN D50000 UNIT PO (18:32)
[2017-04-27 20:00] VITALS: BP 115/43
[2017-04-27 22:20] LABS: LA>2 REFLEX 2 HR DRAW NOW
[2017-04-28] VITALS: BP 125/46
[2017-04-28 05:57] LABS: HEMATOCRIT 28.8 % (37.0-47.0); HEMOGLOBIN 7.9 g/dl (12.0-16.0); MEAN CELL VOLUME 105.1 fl (81.0-99.0); MEAN CORPUSCULAR HGB 28.8 pg (27.0-31.0); MEAN CORPUSCULAR HGB CONC 27.4 g/dl (33.0-37.0); MEAN PLATELET VOLUME 9.7 fl (9.6-12.3); PLATELET COUNT AUTOMATED 186 10*3/uL (130-400); RED BLOOD COUNT 2.74 10*6/uL (4.10-5.10); RED CELL DISTRI WIDTH 17.1 % (0-14.5); WHITE BLOOD COUNT 14.2 10*3/uL (4.8-10.8)
[2017-04-28 05:59] LABS: ALBUMIN 2.2 gm/dl (3.1-4.5); ALKALINE PHOSPHATASE 60 U/L (45-117); BILIRUBIN, TOTAL 0.2 mg/dl (0.2-1.0); BUN 14 mg/dl (7-24); CARBON DIOXIDE 38 mmol/L (21-32); CHLORIDE 99 mmol/L (98-107); EST GLOM FILT AFRICAN AMERICAN > 60 ml/min; GLUCOSE 150 mg/dL (65-99); PHOSPHOROUS 2.8 mg/dL (2.5-4.9); POTASSIUM 4.9 mmol/L (3.5-5.1); SGOT/AST 7 IU/L (3-35); SGPT/ALT 13 U/L (12-78); SODIUM 145 mmol/L (136-145); TOTAL PROTEIN 5.6 gm/dL (6.4-8.2)
[2017-04-28 06:04] LABS: THYROID STIM HORMONE (HS) 0.154 uIU/ml (0.358-4.75)
[2017-04-28 06:13] LABS: INTERNATIONAL NORM RATIO 1.2 (2.0-3.5); PROTHROMBIN TIME 13.2 SECONDS (9.0-12.4)
[2017-04-28 06:44] LABS: FOLIC ACID 13.72 ng/mL (>5.38); VITAMIN D, 25-HYDROXY 58.6 ng/mL (30-100)
[2017-04-28 07:15] LABS: HYPOCHROMIA MODERATE; LYMPHOCYTE # 0.7 10*3/uL (1.3-4.4); NEUTROPHIL # 13.5 10*3/uL (2.3-7.9); NEUTROPHILS 95 % (47-73); PLATELET SUFFICIENCY NORMAL (NORMAL); POLYCHROMASIA SLIGHT; TOTAL CELLS COUNTED 100 #CELLS
[2017-04-28 08:00] VITALS: BP 148/56
[2017-04-28 12:00] VITALS: BP 145/67
[2017-04-28 16:00] VITALS: BP 101/68
[2017-04-28 20:00] VITALS: BP 136/55
[2017-04-29] VITALS (10 sets, daily range): BP systolic 104–134; BP diastolic 40–81
[2017-04-29 05:59] LABS: HEMOGLOBIN 6.7 g/dl (12.0-16.0); MEAN CELL VOLUME 102.6 fl (81.0-99.0); MEAN CORPUSCULAR HGB 28.6 pg (27.0-31.0); MEAN CORPUSCULAR HGB CONC 27.9 g/dl (33.0-37.0); MEAN PLATELET VOLUME 9.2 fl (9.6-12.3); PLATELET COUNT AUTOMATED 183 10*3/uL (130-400); RED BLOOD COUNT 2.34 10*6/uL (4.10-5.10); RED CELL DISTRI WIDTH 16.9 % (0-14.5); WHITE BLOOD COUNT 12.3 10*3/uL (4.8-10.8)
[2017-04-29 06:01] LABS: CARBON DIOXIDE 38 mmol/L (21-32); CHLORIDE 98 mmol/L (98-107); EST GLOM FILT AFRICAN AMERICAN > 60 ml/min; GLUCOSE 143 mg/dL (65-99); POTASSIUM 4.6 mmol/L (3.5-5.1); SODIUM 144 mmol/L (136-145)
[2017-04-29 06:06] LABS: VANCOMYCIN TROUGH 9.9 ug/mL (10-20)
[2017-04-29 06:10] LABS: BUN 30 mg/dl (7-24)
[2017-04-29 06:52] LABS: LYMPHOCYTE # 0.1 10*3/uL (1.3-4.4); MONOCYTE # 0.2 10*3/uL (0.1-1.0); NEUTROPHIL # 11.9 10*3/uL (2.3-7.9); NEUTROPHILS 97 % (47-73); PLATELET SUFFICIENCY NORMAL (NORMAL); POLYCHROMASIA SLIGHT; TOTAL CELLS COUNTED 100 #CELLS
[2017-04-29 08:08] LABS: RHEUMATOID ARTHRITIS FACTOR 15.2 IU/mL (0.0-13.9)
[2017-04-29 09:10] LABS: IMMUNOGLOBULIN IgE 002170 7 IU/mL (0-100)
[2017-04-30] VITALS: BP 110/52
[2017-04-30 05:53] LABS: BASO % 0.1 % (0.0-1.0); IG # 0.2 10*3/uL (0.0-0.1); LYMPH # 0.8 10*3/uL (1.3-4.4); LYMPH % 6.6 % (27.0-41.0); MEAN CORPUSCULAR HGB 28.9 pg (27.0-31.0); MEAN CORPUSCULAR HGB CONC 28.9 g/dl (33.0-37.0); MEAN PLATELET VOLUME 9.2 fl (9.6-12.3); MONO # 0.3 10*3/uL (0.1-1.0); MONO % 2.2 % (3.0-9.0); NEUT # 10.6 10*3/uL (2.3-7.9); NEUT % 89.7 % (47.0-73.0); NUCLEATED RED BLOOD CELL 0.3 % (0.0-0.0); PLATELET COUNT AUTOMATED 213 10*3/uL (130-400); RED BLOOD COUNT 3.08 10*6/uL (4.10-5.10); RED CELL DISTRI WIDTH 16.2 % (0-14.5); WHITE BLOOD COUNT 11.8 10*3/uL (4.8-10.8)
[2017-04-30 05:56] LABS: HEMATOCRIT 30.8 % (37.0-47.0); HEMOGLOBIN 8.9 g/dl (12.0-16.0)
[2017-04-30 08:00] VITALS: BP 120/56
[2017-04-30] MEDS ORDERED: ZOLPIDEM5 MG PO (10:36)
[2017-04-30 12:00] VITALS: BP 125/46
[2017-04-30 16:00] VITALS: BP 140/58
[2017-04-30 20:00] VITALS: BP 144/53
[2017-05-01] VITALS (8 sets, daily range): BP systolic 129–156; BP diastolic 52–67
[2017-05-01 06:30] LABS: BASO % 0.1 % (0.0-1.0); HEMATOCRIT 29.1 % (37.0-47.0); HEMOGLOBIN 8.4 g/dl (12.0-16.0); IG # 0.2 10*3/uL (0.0-0.1); LYMPH # 0.8 10*3/uL (1.3-4.4); LYMPH % 8.5 % (27.0-41.0); MEAN CELL VOLUME 101.4 fl (81.0-99.0); MEAN CORPUSCULAR HGB 29.3 pg (27.0-31.0); MEAN CORPUSCULAR HGB CONC 28.9 g/dl (33.0-37.0); MONO # 0.4 10*3/uL (0.1-1.0); MONO % 4.6 % (3.0-9.0); NEUT # 7.6 10*3/uL (2.3-7.9); NEUT % 84.4 % (47.0-73.0); NUCLEATED RED BLOOD CELL 0.1 10*3/uL (0.0-0.0); NUCLEATED RED BLOOD CELL 0.7 % (0.0-0.0); PLATELET COUNT AUTOMATED 235 10*3/uL (130-400); RED BLOOD COUNT 2.87 10*6/uL (4.10-5.10); RED CELL DISTRI WIDTH 16.3 % (0-14.5); WHITE BLOOD COUNT 9.1 10*3/uL (4.8-10.8)
[2017-05-01 14:09] LABS: ANGIOTENSIN-CONVERTING ENZYME 17 U/L (14-82)
[2017-05-01 15:04] LABS: ORGANISM ID Not indicated. (.); SPECIMEN SOURCE Urine (.); STREPTOCOCCUS PNEUMONIAE AG Negative (Negative)
[2017-05-01 17:08] LABS: IGG SUBCLASS 1 175 mg/dL (248-810); IGG SUBCLASS 2 182 mg/dL (130-555); IGG SUBCLASS 3 21 mg/dL (15-102); IGG SUBCLASS 4 7 mg/dL (2-96)
[2017-05-01] MEDS ORDERED: SANTYL250 U/GM T (17:56)
[2017-05-01] MEDS ORDERED: SPIRIVA -- 3018 MCG INH (17:56)
[2017-05-01] MEDS ORDERED: IFEREX 150150 MG PO (17:57)
[2017-05-01] MEDS ORDERED: OXYCODONE5 M1 PO (17:59)
[2017-05-01] MEDS ORDERED: MS CONTIN15 MG PO (18:17)
[2017-05-01] MEDS ORDERED: NEURONTIN800 MG PO (18:21)
[2017-05-02] VITALS: BP 141/55
[2017-05-02 07:03] LABS: BASO % 0.1 % (0.0-1.0); HEMATOCRIT 27.3 % (37.0-47.0); HEMOGLOBIN 8.1 g/dl (12.0-16.0); IG # 0.2 10*3/uL (0.0-0.1); LYMPH # 0.8 10*3/uL (1.3-4.4); LYMPH % 9.3 % (27.0-41.0); MEAN CELL VOLUME 100.7 fl (81.0-99.0); MEAN CORPUSCULAR HGB 29.9 pg (27.0-31.0); MEAN CORPUSCULAR HGB CONC 29.7 g/dl (33.0-37.0); MEAN PLATELET VOLUME 8.6 fl (9.6-12.3); MONO # 0.5 10*3/uL (0.1-1.0); NEUT # 6.6 10*3/uL (2.3-7.9); NEUT % 81.9 % (47.0-73.0); NUCLEATED RED BLOOD CELL 0.5 % (0.0-0.0); PLATELET COUNT AUTOMATED 217 10*3/uL (130-400); RED BLOOD COUNT 2.71 10*6/uL (4.10-5.10); RED CELL DISTRI WIDTH 16.8 % (0-14.5); WHITE BLOOD COUNT 8.1 10*3/uL (4.8-10.8)
[2017-05-02 08:00] VITALS: BP 140/52
[2017-05-02 14:08] LABS: ACID FAST SPEC PROCESSING Concentration (.)
[2017-05-02 16:00] VITALS: BP 127/47
[2017-05-03] VITALS: BP 118/50
[2017-05-03 06:06] LABS: BUN 19 mg/dl (7-24); EST GLOM FILT AFRICAN AMERICAN > 60 ml/min
[2017-05-03 06:14] LABS: VANCOMYCIN TROUGH 24.4 ug/mL (10-20)
[2017-05-03 08:00] VITALS: BP 100/52
[2017-05-03 10:03] LABS: MITOGEN VALUE 0.05 IU/mL (.); NIL VALUE 0.04 IU/mL (.); TB Ag VALUE 0.04 IU/mL (.); TB GOLD Indeterminate (Negative)
[2017-05-03] MEDS ORDERED: FUROSEMIDE40 MG PO (11:19)
[2017-05-03] MEDS ORDERED: DOXYCYCLINE100 M3 PO (11:19)
[2017-05-03] MEDS ORDERED: K-TAB10 MEQ PO (11:25)
[2017-05-03] MEDS ORDERED: PREDNISONE10 MG PO (11:25)
== END 2017-05-03 14:25 | disposition home health service (06) | DRG 871 ==
LOC: ED 12:46 → EDHOLD 15:32 → 4E 15:32
PROVIDERS: Emergency Medicine; Internal Medicine; Internal Medicine Critical Care Medicine; Student in an Organized Health Care Education/Training Program
PROC: 30233N1 Transfusion of Nonautologous Red Blood Cells into Peripheral Vein, Percutaneous Approach (ICD-10-PCS; principal; 2017-04-29)
PROC: 0BC18ZZ Extirpation of Matter from Trachea, Via Natural or Artificial Opening Endoscopic (ICD-10-PCS; 2017-05-01)
PROC: BD1BYZZ Fluoroscopy of Mouth/Oropharynx using Other Contrast (ICD-10-PCS; 2017-05-01)
PROC: 0BC28ZZ Extirpation of Matter from Carina, Via Natural or Artificial Opening Endoscopic (ICD-10-PCS; 2017-05-01)
PROC: 0BC88ZZ Extirpation of Matter from Left Upper Lobe Bronchus, Via Natural or Artificial Opening Endoscopic (ICD-10-PCS; 2017-05-01)
PROC: 0BC68ZZ Extirpation of Matter from Right Lower Lobe Bronchus, Via Natural or Artificial Opening Endoscopic (ICD-10-PCS; 2017-05-01)
PROC: 0BCB8ZZ Extirpation of Matter from Left Lower Lobe Bronchus, Via Natural or Artificial Opening Endoscopic (ICD-10-PCS; 2017-05-01)
PROC: 0BC48ZZ Extirpation of Matter from Right Upper Lobe Bronchus, Via Natural or Artificial Opening Endoscopic (ICD-10-PCS; 2017-05-01)
PROC: 0BC58ZZ Extirpation of Matter from Right Middle Lobe Bronchus, Via Natural or Artificial Opening Endoscopic (ICD-10-PCS; 2017-05-01)
PROC: 0BC98ZZ Extirpation of Matter from Lingula Bronchus, Via Natural or Artificial Opening Endoscopic (ICD-10-PCS; 2017-05-01)
DX: A41.9 Sepsis, unspecified organism (principal); J18.9 Pneumonia, unspecified organism; J96.01 Acute respiratory failure with hypoxia; I50.33 Acute on chronic diastolic (congestive) heart failure; T17.890A Other foreign object in other parts of respiratory tract causing asphyxiation, initial encounter; D68.9 Coagulation defect, unspecified; I11.0 Hypertensive heart disease with heart failure; C92.10 Chronic myeloid leukemia, BCR/ABL-positive, not having achieved remission; J44.1 Chronic obstructive pulmonary disease with (acute) exacerbation; J44.0 Chronic obstructive pulmonary disease with (acute) lower respiratory infection; R04.2 Hemoptysis; R65.20 Severe sepsis without septic shock; E78.5 Hyperlipidemia, unspecified; X58.XXXA Exposure to other specified factors, initial encounter; I25.10 Atherosclerotic heart disease of native coronary artery without angina pectoris; I73.9 Peripheral vascular disease, unspecified; I48.0 Paroxysmal atrial fibrillation; J20.9 Acute bronchitis, unspecified; D64.9 Anemia, unspecified; F32.9 Major depressive disorder, single episode, unspecified; Z90.49 Acquired absence of other specified parts of digestive tract; Z87.891 Personal history of nicotine dependence; Z88.8 Allergy status to other drugs, medicaments and biological substances; Z99.81 Dependence on supplemental oxygen; Z88.0 Allergy status to penicillin; Z91.040 Latex allergy status; Z98.1 Arthrodesis status; Z91.041 Radiographic dye allergy status; Z79.51 Long term (current) use of inhaled steroids; Z79.1 Long term (current) use of non-steroidal anti-inflammatories (NSAID); Z79.899 Other long term (current) drug therapy; Y93.89 Activity, other specified; Y92.89 Other specified places as the place of occurrence of the external cause; Y99.8 Other external cause status

== ENCOUNTER 2017-05-08 10:54 | Inpatient (IN) | payer MEDICARE, OTHER ==
[2017-05-08] VITALS (7 sets, daily range): BP systolic 86–116; BP diastolic 29–56
[~2017-05-08] VITALS: Ht 157.5 cm; Wt 63.1 kg
[~2017-05-08 10:54] MED LIST changes: +ADVAIR 250/501 EA INH; +AMITRIPTYLINE H75 MG PO; +DOXYCYCLINE100 M3 PO; +FUROSEMIDE40 MG PO; +K-TAB10 MEQ PO; +MS CONTIN15 MG PO; +OXYCODONE5 M1 PO; +PREVACID15 M1 PO; +SANTYL250 U/GM T; +SPIRIVA -- 3018 MCG INH; +VITAMIN D50000 UNIT PO
[2017-05-08] MEDS ORDERED: ONE-A-DAY ESSE1 EACH PO (11:06)
[2017-05-08] MEDS ORDERED: PREVACID15 M2 PO (11:07)
[2017-05-08] MEDS ORDERED: GABAPENTIN800 MG PO (11:07)
[2017-05-08] MEDS ORDERED: PRAVACHOL80 M1 GT (11:08)
[2017-05-08] MEDS ORDERED: POTASSIUM CHLO10 ME5 PO (11:08)
[2017-05-08] MEDS ORDERED: PLAVIX75 M1 PO (11:08)
[2017-05-08] MEDS ORDERED: MORPHINE SULFAT15 M7 PO (11:09)
[2017-05-08] MEDS ORDERED: XARE20MG PO (11:10)
[2017-05-08] MEDS ORDERED: PREDNISONE5 MG PO (11:10)
[2017-05-08] MEDS ORDERED: AMITRIPTYLINE H75 MG PO (11:11)
[2017-05-08] MEDS ORDERED: VITAMIN D2400 UNIT PO (11:11)
[2017-05-08] MEDS ORDERED: CYMBALTA60 MG PO (11:11)
[2017-05-08 11:39] LABS: BASO % 0.1 % (0.0-1.0); EOS % 0.2 % (1.0-4.0); HEMATOCRIT 31.1 % (37.0-47.0); HEMOGLOBIN 8.8 g/dl (12.0-16.0); IG # 0.2 10*3/uL (0.0-0.1); LYMPH # 1.2 10*3/uL (1.3-4.4); LYMPH % 6.2 % (27.0-41.0); MEAN CELL VOLUME 103.3 fl (81.0-99.0); MEAN CORPUSCULAR HGB 29.2 pg (27.0-31.0); MEAN CORPUSCULAR HGB CONC 28.3 g/dl (33.0-37.0); MEAN PLATELET VOLUME 8.9 fl (9.6-12.3); MONO # 0.9 10*3/uL (0.1-1.0); MONO % 4.5 % (3.0-9.0); NEUT # 17.6 10*3/uL (2.3-7.9); NEUT % 87.9 % (47.0-73.0); NUCLEATED RED BLOOD CELL 0.2 % (0.0-0.0); PLATELET COUNT AUTOMATED 358 10*3/uL (130-400); RED BLOOD COUNT 3.01 10*6/uL (4.10-5.10); RED CELL DISTRI WIDTH 17.3 % (0-14.5); WHITE BLOOD COUNT 19.9 10*3/uL (4.8-10.8)
[2017-05-08 11:57] LABS: ALBUMIN 2.5 gm/dl (3.1-4.5); ALKALINE PHOSPHATASE 65 U/L (45-117); BILIRUBIN, TOTAL 0.2 mg/dl (0.2-1.0); BUN 19 mg/dl (7-24); CARBON DIOXIDE 40 mmol/L (21-32); CHLORIDE 92 mmol/L (98-107); EST GLOM FILT AFRICAN AMERICAN > 60 ml/min; GLUCOSE 162 mg/dL (65-99); POTASSIUM 3.6 mmol/L (3.5-5.1); SGOT/AST 14 IU/L (3-35); SGPT/ALT 18 U/L (12-78); SODIUM 138 mmol/L (136-145); TOTAL PROTEIN 5.7 gm/dL (6.4-8.2)
[2017-05-08 12:02] LABS: TROPONIN I < 0.015 ng/ml (<0.045)
[2017-05-08 12:19] LABS: ABG BASE EXCESS 16.4 mmol/L (-2.0-2.0); ABG CO2 CONTENT 44.6 mmol/L (23-27); ABG HCO3 42.7 mmol/l (22-26); ARTERIAL BLOOD GAS PH 7.424 (7.35-7.45); ARTERIAL BLOOD GAS PO2 54.6 mmHg (80-90)
[2017-05-08] MEDS ORDERED: SPIRIVA18 MCG PO (13:24)
[2017-05-08 13:30] LABS: LA>2 REFLEX 2 HR DRAW NOW
[2017-05-08 19:04] LABS: BILIRUBIN NEGATIVE (NEGATIVE); BLOOD NEGATIVE (NEGATIVE); CLARITY CLEAR (CLEAR); COLOR YELLOW (YELLOW); GLUCOSE NEGATIVE (NEGATIVE); KETONE NEGATIVE (NEGATIVE); LEUKO ESTERASE 1+ (NEGATIVE); NITRITE NEGATIVE (NEGATIVE); PH 6.5 (5.0-9.0); PROTEIN NEGATIVE (NEGATIVE); UROBILINOGEN 0.2 E.U./dl (0.2-1.0)
[2017-05-08 19:23] LABS: BACTERIA TRACE; RBC 0-2 rbc/hpf (0-2); URINE REFLEX COMMENT YES (NO)
[2017-05-09] VITALS (12 sets, daily range): BP systolic 108–143; BP diastolic 40–61
[2017-05-09 06:03] LABS: ALBUMIN 1.9 gm/dl (3.1-4.5); ALKALINE PHOSPHATASE 58 U/L (45-117); BILIRUBIN, TOTAL 0.2 mg/dl (0.2-1.0); BUN 16 mg/dl (7-24); CARBON DIOXIDE 40 mmol/L (21-32); CHLORIDE 99 mmol/L (98-107); EST GLOM FILT AFRICAN AMERICAN > 60 ml/min; GLUCOSE 128 mg/dL (65-99); PHOSPHOROUS 2.8 mg/dL (2.5-4.9); POTASSIUM 4.3 mmol/L (3.5-5.1); SGOT/AST 12 IU/L (3-35); SGPT/ALT 20 U/L (12-78); SODIUM 144 mmol/L (136-145); TOTAL PROTEIN 4.9 gm/dL (6.4-8.2)
[2017-05-09 06:09] LABS: MEAN CELL VOLUME 104.7 fl (81.0-99.0); MEAN CORPUSCULAR HGB 28.9 pg (27.0-31.0); MEAN CORPUSCULAR HGB CONC 27.6 g/dl (33.0-37.0); PLATELET COUNT AUTOMATED 256 10*3/uL (130-400); RED BLOOD COUNT 2.32 10*6/uL (4.10-5.10); RED CELL DISTRI WIDTH 17.4 % (0-14.5); WHITE BLOOD COUNT 16.4 10*3/uL (4.8-10.8)
[2017-05-09 06:11] LABS: HEMATOCRIT 24.3 % (37.0-47.0); HEMOGLOBIN 6.7 g/dl (12.0-16.0)
[2017-05-09 06:31] LABS: LYMPHOCYTE # 0.3 10*3/uL (1.3-4.4); NEUTROPHIL # 16.1 10*3/uL (2.3-7.9); NEUTROPHILS 98 % (47-73); TOTAL CELLS COUNTED 100 #CELLS
[2017-05-09 06:32] LABS: PLATELET SUFFICIENCY NORMAL (NORMAL)
[2017-05-09] MEDS ORDERED: LASIX40 MG PO (20:40)
[2017-05-09 22:27] LABS: HEMOGLOBIN 8.2 g/dl (12.0-16.0); MEAN CORPUSCULAR HGB 29.6 pg (27.0-31.0); MEAN CORPUSCULAR HGB CONC 29.3 g/dl (33.0-37.0); MEAN PLATELET VOLUME 8.9 fl (9.6-12.3); NUCLEATED RED BLOOD CELL 0.1 % (0.0-0.0); PLATELET COUNT AUTOMATED 277 10*3/uL (130-400); RED BLOOD COUNT 2.77 10*6/uL (4.10-5.10); RED CELL DISTRI WIDTH 17.6 % (0-14.5); WHITE BLOOD COUNT 16.3 10*3/uL (4.8-10.8)
[2017-05-09 22:28] LABS: MEAN CELL VOLUME 101.1 fl (81.0-99.0)
[2017-05-09 22:45] LABS: LYMPHOCYTE # 0.5 10*3/uL (1.3-4.4); MONOCYTE # 0.3 10*3/uL (0.1-1.0); NEUTROPHIL # 15.5 10*3/uL (2.3-7.9); NEUTROPHILS 95 % (47-73); PLATELET SUFFICIENCY NORMAL (NORMAL); TOTAL CELLS COUNTED 100 #CELLS
[2017-05-09 22:46] LABS: HYPOCHROMIA SLIGHT; POLYCHROMASIA SLIGHT
[2017-05-10] VITALS: BP 134/50
[2017-05-10 06:14] LABS: HEMATOCRIT 28.2 % (37.0-47.0); MEAN CELL VOLUME 102.2 fl (81.0-99.0); MEAN CORPUSCULAR HGB CONC 28.4 g/dl (33.0-37.0); MEAN PLATELET VOLUME 9.2 fl (9.6-12.3); PLATELET COUNT AUTOMATED 276 10*3/uL (130-400); RED BLOOD COUNT 2.76 10*6/uL (4.10-5.10); RED CELL DISTRI WIDTH 17.5 % (0-14.5)
[2017-05-10 06:51] LABS: LYMPHOCYTE # 0.1 10*3/uL (1.3-4.4); NEUTROPHIL # 13.9 10*3/uL (2.3-7.9); NEUTROPHILS 99 % (47-73); PLATELET SUFFICIENCY NORMAL (NORMAL); POLYCHROMASIA SLIGHT; TOTAL CELLS COUNTED 100 #CELLS
[2017-05-10 08:00] VITALS: BP 131/72
[2017-05-10 12:00] VITALS: BP 134/58
[2017-05-10 16:00] VITALS: BP 124/58
[2017-05-10 20:00] VITALS: BP 148/56
[2017-05-10] MEDS ORDERED: SANTYL250 U/GM T (20:51)
[2017-05-11] VITALS: BP 146/65
[2017-05-11 06:43] LABS: HEMATOCRIT 28.2 % (37.0-47.0); HEMOGLOBIN 8.2 g/dl (12.0-16.0); MEAN CELL VOLUME 99.6 fl (81.0-99.0); MEAN CORPUSCULAR HGB CONC 29.1 g/dl (33.0-37.0); MEAN PLATELET VOLUME 8.7 fl (9.6-12.3); PLATELET COUNT AUTOMATED 284 10*3/uL (130-400); RED BLOOD COUNT 2.83 10*6/uL (4.10-5.10); RED CELL DISTRI WIDTH 16.8 % (0-14.5); RETICULOCYTE % 5.43 % (0.50-2.50); WHITE BLOOD COUNT 9.6 10*3/uL (4.8-10.8)
[2017-05-11 07:13] LABS: ALBUMIN 2.1 gm/dl (3.1-4.5); BILIRUBIN, TOTAL 0.3 mg/dl (0.2-1.0); BUN 20 mg/dl (7-24); CARBON DIOXIDE 39 mmol/L (21-32); CHLORIDE 98 mmol/L (98-107); EST GLOM FILT AFRICAN AMERICAN > 60 ml/min; GLUCOSE 136 mg/dL (65-99); IRON 37 ug/dL (50-170); POTASSIUM 3.9 mmol/L (3.5-5.1); SGOT/AST 15 IU/L (3-35); SGPT/ALT 27 U/L (12-78); SODIUM 143 mmol/L (136-145)
[2017-05-11 07:16] LABS: ALKALINE PHOSPHATASE 58 U/L (45-117); IRON SATURATION 14 %; TOTAL PROTEIN 5.3 gm/dL (6.4-8.2); UIBC 224 ug/dL (110-365)
[2017-05-11 08:00] VITALS: BP 162/73
[2017-05-11 08:07] LABS: FERRITIN 202.7 ng/mL (10.0-291.0)
[2017-05-11 08:08] LABS: FOLIC ACID 11.25 ng/mL (>5.38)
[2017-05-11 08:15] LABS: IRF 20.9 % (2.4-13.3); RET-He 22.8 pg (32.1-37.9)
[2017-05-11 08:16] LABS: BASOPHIL # 0.1 10*3/uL (0-0.1); BASOPHILS 1 % (0-1); EOSINOPHIL # 0.1 10*3/uL (0-0.4); EOSINOPHILS 1 % (1-4); LYMPHOCYTE # 0.1 10*3/uL (1.3-4.4); MONOCYTE # 0.2 10*3/uL (0.1-1.0); NEUTROPHIL # 9.1 10*3/uL (2.3-7.9); NEUTROPHILS 95 % (47-73); PLATELET SUFFICIENCY NORMAL (NORMAL); TOTAL CELLS COUNTED 100 #CELLS
[2017-05-11 12:00] VITALS: BP 146/72
[2017-05-11 16:00] VITALS: BP 139/57
[2017-05-11 20:00] VITALS: BP 129/45
[2017-05-11 23:50] VITALS: BP 138/57
[2017-05-12] VITALS (8 sets, daily range): BP systolic 138–157; BP diastolic 54–71
[2017-05-12 05:05] LABS: IMMUNOGLOBULIN IgE 002170 8 IU/mL (0-100)
[2017-05-12 06:10] LABS: HEMATOCRIT 28.1 % (37.0-47.0); HEMOGLOBIN 8.2 g/dl (12.0-16.0); IG # 0.1 10*3/uL (0.0-0.1); LYMPH # 0.3 10*3/uL (1.3-4.4); LYMPH % 4.9 % (27.0-41.0); MEAN CELL VOLUME 98.9 fl (81.0-99.0); MEAN CORPUSCULAR HGB 28.9 pg (27.0-31.0); MEAN CORPUSCULAR HGB CONC 29.2 g/dl (33.0-37.0); MONO # 0.2 10*3/uL (0.1-1.0); MONO % 3.7 % (3.0-9.0); NEUT # 5.9 10*3/uL (2.3-7.9); PLATELET COUNT AUTOMATED 281 10*3/uL (130-400); RED BLOOD COUNT 2.84 10*6/uL (4.10-5.10); RED CELL DISTRI WIDTH 16.6 % (0-14.5); WHITE BLOOD COUNT 6.6 10*3/uL (4.8-10.8)
[2017-05-12 06:43] LABS: ALBUMIN 2.1 gm/dl (3.1-4.5); BUN 19 mg/dl (7-24); CHLORIDE 96 mmol/L (98-107); EST GLOM FILT AFRICAN AMERICAN > 60 ml/min; GLUCOSE 162 mg/dL (65-99); POTASSIUM 3.3 mmol/L (3.5-5.1); SGOT/AST 18 IU/L (3-35); SGPT/ALT 32 U/L (12-78); SODIUM 142 mmol/L (136-145)
[2017-05-12 06:45] LABS: ALKALINE PHOSPHATASE 60 U/L (45-117); BILIRUBIN, TOTAL 0.3 mg/dl (0.2-1.0); CARBON DIOXIDE 39 mmol/L (21-32); TOTAL PROTEIN 5.2 gm/dL (6.4-8.2)
[2017-05-12 08:09] LABS: HAPTOGLOBIN 001628 315 mg/dL (34-200)
[2017-05-13] VITALS: BP 146/54
[2017-05-13 06:04] LABS: HEMATOCRIT 28.3 % (37.0-47.0); HEMOGLOBIN 8.3 g/dl (12.0-16.0); IG # 0.1 10*3/uL (0.0-0.1); LYMPH # 0.6 10*3/uL (1.3-4.4); MEAN CELL VOLUME 100.7 fl (81.0-99.0); MEAN CORPUSCULAR HGB 29.5 pg (27.0-31.0); MEAN CORPUSCULAR HGB CONC 29.3 g/dl (33.0-37.0); MEAN PLATELET VOLUME 8.7 fl (9.6-12.3); MONO # 0.6 10*3/uL (0.1-1.0); MONO % 8.3 % (3.0-9.0); NEUT # 5.8 10*3/uL (2.3-7.9); NEUT % 81.7 % (47.0-73.0); NUCLEATED RED BLOOD CELL 0.3 % (0.0-0.0); PLATELET COUNT AUTOMATED 280 10*3/uL (130-400); RED BLOOD COUNT 2.81 10*6/uL (4.10-5.10); RED CELL DISTRI WIDTH 16.3 % (0-14.5); WHITE BLOOD COUNT 7.1 10*3/uL (4.8-10.8)
[2017-05-13 06:35] LABS: BUN 16 mg/dl (7-24); CHLORIDE 97 mmol/L (98-107); EST GLOM FILT AFRICAN AMERICAN > 60 ml/min; GLUCOSE 97 mg/dL (65-99); MAGNESIUM 2.5 mg/dL (1.5-2.1); PHOSPHOROUS 2.3 mg/dL (2.5-4.9); POTASSIUM 3.4 mmol/L (3.5-5.1); SODIUM 145 mmol/L (136-145)
[2017-05-13 06:37] LABS: CARBON DIOXIDE 41 mmol/L (21-32)
[2017-05-13 08:00] VITALS: BP 142/62
[2017-05-13 12:00] VITALS: BP 133/53
[2017-05-13 16:00] VITALS: BP 138/59
[2017-05-13 20:00] VITALS: BP 131/55
[2017-05-14] VITALS: BP 141/55
[2017-05-14 06:21] LABS: HEMATOCRIT 29.2 % (37.0-47.0); HEMOGLOBIN 8.4 g/dl (12.0-16.0); MEAN CORPUSCULAR HGB 29.1 pg (27.0-31.0); MEAN CORPUSCULAR HGB CONC 28.8 g/dl (33.0-37.0); MEAN PLATELET VOLUME 8.6 fl (9.6-12.3); NUCLEATED RED BLOOD CELL 0.2 % (0.0-0.0); PLATELET COUNT AUTOMATED 234 10*3/uL (130-400); RED BLOOD COUNT 2.89 10*6/uL (4.10-5.10); RED CELL DISTRI WIDTH 16.4 % (0-14.5); WHITE BLOOD COUNT 8.2 10*3/uL (4.8-10.8)
[2017-05-14 06:53] LABS: BUN 14 mg/dl (7-24); CARBON DIOXIDE 39 mmol/L (21-32); CHLORIDE 97 mmol/L (98-107); EST GLOM FILT AFRICAN AMERICAN > 60 ml/min; GLUCOSE 121 mg/dL (65-99); LYMPHOCYTE # 0.4 10*3/uL (1.3-4.4); METAMYELOCYTES 2 % (0-0); MONOCYTE # 0.6 10*3/uL (0.1-1.0); MYELOCYTES 1 % (0-0); NEUTROPHILS 85 % (47-73); PLATELET SUFFICIENCY NORMAL (NORMAL); POLYCHROMASIA SLIGHT; SODIUM 144 mmol/L (136-145); TOTAL CELLS COUNTED 100 #CELLS
[2017-05-14 08:00] VITALS: BP 159/71
[2017-05-14 12:00] VITALS: BP 152/76
[2017-05-14 16:00] VITALS: BP 140/59
[2017-05-14 20:00] VITALS: BP 147/78
[2017-05-15] VITALS (7 sets, daily range): BP systolic 136–160; BP diastolic 55–73
[2017-05-15 06:19] LABS: PROTHROMBIN TIME 10.1 SECONDS (9.0-12.4)
[2017-05-15] MEDS ORDERED: PREDNISONE10 MG PO (13:31)
[2017-05-15] MEDS ORDERED: DOXYCYCLINE100 M3 PO (13:31)
[2017-05-15] MEDS ORDERED: METOPROLOL SUCC50 M1 PO (14:11)
== END 2017-05-15 17:45 | disposition home health service (06) | DRG 871 ==
LOC: ED 10:54 → 5E 11:50 → ICCU 11:50 → EDHOLD 11:50 → ICCU 11:55 → 5E 05-09 13:51
PROVIDERS: Emergency Medicine; Hospitalist; Internal Medicine; Internal Medicine Hematology & Oncology; Internal Medicine Nephrology; Surgery
PROC: 5A09457 Assistance with Respiratory Ventilation, 24-96 Consecutive Hours, Continuous Positive Airway Pressure (ICD-10-PCS; principal; 2017-05-08)
PROC: 0DB78ZX Excision of Stomach, Pylorus, Via Natural or Artificial Opening Endoscopic, Diagnostic (ICD-10-PCS; 2017-05-12)
PROC: 30243N1 Transfusion of Nonautologous Red Blood Cells into Central Vein, Percutaneous Approach (ICD-10-PCS; 2017-05-12)
PROC: B5181ZA Fluoroscopy of Superior Vena Cava using Low Osmolar Contrast, Guidance (ICD-10-PCS; 2017-05-15)
PROC: 02HV33Z Insertion of Infusion Device into Superior Vena Cava, Percutaneous Approach (ICD-10-PCS; 2017-05-15)
DX: A41.9 Sepsis, unspecified organism (principal); J96.21 Acute and chronic respiratory failure with hypoxia; E43 Unspecified severe protein-calorie malnutrition; D84.9 Immunodeficiency, unspecified; J18.1 Lobar pneumonia, unspecified organism; I11.0 Hypertensive heart disease with heart failure; J44.0 Chronic obstructive pulmonary disease with (acute) lower respiratory infection; I50.32 Chronic diastolic (congestive) heart failure; K22.10 Ulcer of esophagus without bleeding; J18.0 Bronchopneumonia, unspecified organism; C92.10 Chronic myeloid leukemia, BCR/ABL-positive, not having achieved remission; J44.1 Chronic obstructive pulmonary disease with (acute) exacerbation; K92.2 Gastrointestinal hemorrhage, unspecified; D80.1 Nonfamilial hypogammaglobulinemia; R65.20 Severe sepsis without septic shock; F32.9 Major depressive disorder, single episode, unspecified; E78.5 Hyperlipidemia, unspecified; I73.9 Peripheral vascular disease, unspecified; I25.10 Atherosclerotic heart disease of native coronary artery without angina pectoris; I48.0 Paroxysmal atrial fibrillation; D64.9 Anemia, unspecified; Y95 Nosocomial condition; K44.9 Diaphragmatic hernia without obstruction or gangrene; Z89.432 Acquired absence of left foot; Z68.23 Body mass index [BMI] 23.0-23.9, adult; Z99.81 Dependence on supplemental oxygen; Z88.0 Allergy status to penicillin; Z91.041 Radiographic dye allergy status; Z91.040 Latex allergy status; Z82.49 Family history of ischemic heart disease and other diseases of the circulatory system; Z79.899 Other long term (current) drug therapy; Z88.8 Allergy status to other drugs, medicaments and biological substances; Z87.891 Personal history of nicotine dependence; T38.0X5A Adverse effect of glucocorticoids and synthetic analogues, initial encounter; Y92.89 Other specified places as the place of occurrence of the external cause

== ENCOUNTER 2017-05-18 09:53 | Inpatient (IN) | payer MEDICARE, OTHER ==
[2017-05-18] VITALS (9 sets, daily range): BP systolic 77–120; BP diastolic 42–66
[~2017-05-18] VITALS: Ht 167.6 cm; Wt 62.7 kg
[~2017-05-18 09:53] MED LIST changes: +GABAPENTIN800 MG PO; +MORPHINE SULFAT15 M7 PO; +ONE-A-DAY ESSE1 EACH PO; +POTASSIUM CHLO10 ME5 PO; +PRAVACHOL80 M1 GT; +PREDNISONE5 MG PO; +PREVACID15 M2 PO; +SPIRIVA18 MCG PO; +VITAMIN D2400 UNIT PO
[2017-05-18 10:48] LABS: BASO % 0.1 % (0.0-1.0); EOS # 0.1 10*3/uL (0.0-0.4); EOS % 0.4 % (1.0-4.0); HEMATOCRIT 27.9 % (37.0-47.0); HEMOGLOBIN 7.9 g/dl (12.0-16.0); IG # 0.1 10*3/uL (0.0-0.1); LYMPH # 0.8 10*3/uL (1.3-4.4); LYMPH % 6.1 % (27.0-41.0); MEAN CELL VOLUME 101.1 fl (81.0-99.0); MEAN CORPUSCULAR HGB 28.6 pg (27.0-31.0); MEAN CORPUSCULAR HGB CONC 28.3 g/dl (33.0-37.0); MONO # 0.4 10*3/uL (0.1-1.0); MONO % 3.3 % (3.0-9.0); NEUT # 11.8 10*3/uL (2.3-7.9); NEUT % 89.5 % (47.0-73.0); PLATELET COUNT AUTOMATED 214 10*3/uL (130-400); RED BLOOD COUNT 2.76 10*6/uL (4.10-5.10); RED CELL DISTRI WIDTH 17.2 % (0-14.5); WHITE BLOOD COUNT 13.2 10*3/uL (4.8-10.8)
[2017-05-18] MEDS ORDERED: IFEREX 150150 MG PO (10:49)
[2017-05-18] MEDS ORDERED: PANTOPRAZOLE SO20 MG PO (10:49)
[2017-05-18] MEDS ORDERED: XARELTO10 MG PO (10:50)
[2017-05-18] MEDS ORDERED: AMITRIPTYLINE25 MG PO (10:50)
[2017-05-18] MEDS ORDERED: LASIX20 MG PO (10:51)
[2017-05-18] MEDS ORDERED: PLAVIX75 M1 PO (10:51)
[2017-05-18] MEDS ORDERED: CYMBALTA60 MG PO (10:51)
[2017-05-18] MEDS ORDERED: POTASSIUM CHLO10 ME5 PO (10:52)
[2017-05-18] MEDS ORDERED: GABAPENTIN800 MG PO (10:52)
[2017-05-18] MEDS ORDERED: PREDNISONE10 MG PO (10:52)
[2017-05-18] MEDS ORDERED: ZOFRAN4 MG PO (10:53)
[2017-05-18] MEDS ORDERED: PRAVACHOL80 M1 PO (10:53)
[2017-05-18] MEDS ORDERED: VITAMIN D22000 UNIT PO (10:54)
[2017-05-18] MEDS ORDERED: MIRALAX17 GM/DOSE PO (10:56)
[2017-05-18] MEDS ORDERED: SENOKOT1 TAB PO (10:56)
[2017-05-18] MEDS ORDERED: GAVISCON ES TA1 EACH PO (10:57)
[2017-05-18] MEDS ORDERED: SPIRIVA18 MCG PO (10:57)
[2017-05-18] MEDS ORDERED: Ventolin 02.5 MG/3 M INH (10:58)
[2017-05-18] MEDS ORDERED: MORPHINE SULFAT15 MG PO (10:59)
[2017-05-18] MEDS ORDERED: OXYCODONE HCL10 M1 PO (10:59)
[2017-05-18] MEDS ORDERED: OXYCODONE HCL15 MG PO (11:00)
[2017-05-18 11:04] LABS: BUN 29 mg/dl (7-24); CHLORIDE 95 mmol/L (98-107); EST GLOM FILT AFRICAN AMERICAN > 60 ml/min; GLUCOSE 158 mg/dL (65-99); SODIUM 142 mmol/L (136-145); TROPONIN I < 0.015 ng/ml (<0.045)
[2017-05-18 11:04] LABS: BILIRUBIN NEGATIVE (NEGATIVE); BLOOD NEGATIVE (NEGATIVE); CLARITY CLEAR (CLEAR); COLOR YELLOW (YELLOW); GLUCOSE NEGATIVE (NEGATIVE); KETONE TRACE (NEGATIVE); LEUKO ESTERASE NEGATIVE (NEGATIVE); NITRITE NEGATIVE (NEGATIVE); PH 5.5 (5.0-9.0); PROTEIN 1+ (NEGATIVE); SPECIFIC GRAVITY 1.025 (1.005-1.030); UROBILINOGEN 0.2 E.U./dl (0.2-1.0)
[2017-05-18 11:05] LABS: CARBON DIOXIDE 42 mmol/L (21-32)
[2017-05-18 11:14] LABS: RBC 0-2 rbc/hpf (0-2); URINE REFLEX COMMENT NO (NO); WBC 0-2 wbc/hpf (0-5)
[2017-05-18] MEDS ORDERED: Lopressor25 MG PO (11:14)
[2017-05-18 14:24] LABS: ABG BASE EXCESS 13.5 mmol/L (-2.0-2.0); ABG CO2 CONTENT 42.2 mmol/L (23-27); ABG HCO3 40.1 mmol/l (22-26); ARTERIAL BLOOD GAS PH 7.378 (7.35-7.45); ARTERIAL BLOOD GAS PO2 71.4 mmHg (80-90)
[2017-05-18] MEDS ORDERED: DOXYCYCLINE HY100 M3 PO (14:34)
[2017-05-18 18:42] LABS: ABG BASE EXCESS 8.8 mmol/L (-2.0-2.0); ABG CO2 CONTENT 37.5 mmol/L (23-27); ABG HCO3 35.4 mmol/l (22-26); ABG TEMPERATURE 97.7 F (98.0-99.0); ARTERIAL BLOOD GAS PH 7.332 (7.35-7.45); ARTERIAL BLOOD GAS PO2 79.6 mmHg (80-90)
[2017-05-18] MEDS ORDERED: METOPROLOL SUCC50 M1 PO (20:03)
[2017-05-18] MEDS ORDERED: XARE20MG PO (22:22)
[2017-05-19] VITALS (19 sets, daily range): BP systolic 104–142; BP diastolic 44–58
[2017-05-19 06:19] LABS: MEAN CORPUSCULAR HGB 28.9 pg (27.0-31.0); MEAN CORPUSCULAR HGB CONC 28.4 g/dl (33.0-37.0); MEAN PLATELET VOLUME 9.5 fl (9.6-12.3); PLATELET COUNT AUTOMATED 151 10*3/uL (130-400); RED BLOOD COUNT 1.97 10*6/uL (4.10-5.10); RED CELL DISTRI WIDTH 17.2 % (0-14.5); WHITE BLOOD COUNT 9.4 10*3/uL (4.8-10.8)
[2017-05-19 06:38] LABS: PROTHROMBIN TIME 10.8 SECONDS (9.0-12.4)
[2017-05-19 06:43] LABS: ALBUMIN 1.7 gm/dl (3.1-4.5); ALKALINE PHOSPHATASE 51 U/L (45-117); BILIRUBIN, TOTAL 0.3 mg/dl (0.2-1.0); BUN 20 mg/dl (7-24); CARBON DIOXIDE 38 mmol/L (21-32); CHLORIDE 102 mmol/L (98-107); EST GLOM FILT AFRICAN AMERICAN > 60 ml/min; GLUCOSE 169 mg/dL (65-99); MAGNESIUM 1.8 mg/dL (1.5-2.1); PHOSPHOROUS 2.5 mg/dL (2.5-4.9); POTASSIUM 4.3 mmol/L (3.5-5.1); SGOT/AST 12 IU/L (3-35); SGPT/ALT 26 U/L (12-78); SODIUM 143 mmol/L (136-145); TOTAL PROTEIN 4.6 gm/dL (6.4-8.2)
[2017-05-19 06:51] LABS: HEMATOCRIT 20.1 % (37.0-47.0)
[2017-05-19 06:53] LABS: HYPOCHROMIA SLIGHT; MONOCYTE # 0.2 10*3/uL (0.1-1.0); NEUTROPHIL # 9.2 10*3/uL (2.3-7.9); NEUTROPHILS 98 % (47-73); PLATELET SUFFICIENCY NORMAL (NORMAL); POLYCHROMASIA SLIGHT; TOTAL CELLS COUNTED 100 #CELLS
[2017-05-19 06:54] LABS: HEMOGLOBIN 5.7 g/dl (12.0-16.0)
[2017-05-19 08:36] LABS: ABG BASE EXCESS 11.6 mmol/L (-2.0-2.0); ABG CO2 CONTENT 39.9 mmol/L (23-27); ABG HCO3 37.8 mmol/l (22-26); ABG TEMPERATURE 97.9 F (98.0-99.0); ARTERIAL BLOOD GAS PH 7.362 (7.35-7.45)
[2017-05-19 08:41] LABS: ARTERIAL BLOOD GAS PO2 38.7 mmHg (80-90)
[2017-05-19 09:05] LABS: ABG BASE EXCESS 10.6 mmol/L (-2.0-2.0); ABG CO2 CONTENT 37.6 mmol/L (23-27); ABG HCO3 35.8 mmol/l (22-26); ABG TEMPERATURE 97.9 F (98.0-99.0); ARTERIAL BLOOD GAS PH 7.418 (7.35-7.45); ARTERIAL BLOOD GAS PO2 63.3 mmHg (80-90)
[2017-05-19 14:26] LABS: ABG BASE EXCESS 10.4 mmol/L (-2.0-2.0); ABG CO2 CONTENT 39.1 mmol/L (23-27); ABG TEMPERATURE 98.1 F (98.0-99.0); ARTERIAL BLOOD GAS PH 7.36 (7.35-7.45); ARTERIAL BLOOD GAS PO2 67.3 mmHg (80-90)
[2017-05-19 15:07] LABS: HEMATOCRIT 24.9 % (37.0-47.0); HEMOGLOBIN 7.5 g/dl (12.0-16.0); MEAN CORPUSCULAR HGB 30.1 pg (27.0-31.0); MEAN CORPUSCULAR HGB CONC 30.1 g/dl (33.0-37.0); MEAN PLATELET VOLUME 9.1 fl (9.6-12.3); NUCLEATED RED BLOOD CELL 0.2 % (0.0-0.0); PLATELET COUNT AUTOMATED 175 10*3/uL (130-400); RED BLOOD COUNT 2.49 10*6/uL (4.10-5.10); RED CELL DISTRI WIDTH 17.5 % (0-14.5); WHITE BLOOD COUNT 11.2 10*3/uL (4.8-10.8)
[2017-05-19 15:14] LABS: LYMPHOCYTE # 0.2 10*3/uL (1.3-4.4); MONOCYTE # 0.2 10*3/uL (0.1-1.0); NEUTROPHIL # 10.8 10*3/uL (2.3-7.9); NEUTROPHILS 96 % (47-73); PLATELET SUFFICIENCY NORMAL (NORMAL); POLYCHROMASIA SLIGHT; TOTAL CELLS COUNTED 100 #CELLS
[2017-05-19 15:16] LABS: HYPOCHROMIA SLIGHT
[2017-05-20 03:51] VITALS: BP 112/44
[2017-05-20 05:49] LABS: ABG BASE EXCESS 9.9 mmol/L (-2.0-2.0); ABG CO2 CONTENT 39.1 mmol/L (23-27); ABG TEMPERATURE 98.2 F (98.0-99.0); ARTERIAL BLOOD GAS PH 7.351 (7.35-7.45)
[2017-05-20 06:26] LABS: BASO % 0.1 % (0.0-1.0); EOS # 0.1 10*3/uL (0.0-0.4); EOS % 0.6 % (1.0-4.0); HEMATOCRIT 26.9 % (37.0-47.0); IG # 0.1 10*3/uL (0.0-0.1); LYMPH # 0.7 10*3/uL (1.3-4.4); LYMPH % 8.4 % (27.0-41.0); MEAN CORPUSCULAR HGB 28.8 pg (27.0-31.0); MEAN CORPUSCULAR HGB CONC 29.7 g/dl (33.0-37.0); MEAN PLATELET VOLUME 9.7 fl (9.6-12.3); MONO # 0.3 10*3/uL (0.1-1.0); MONO % 4.2 % (3.0-9.0); NEUT # 6.9 10*3/uL (2.3-7.9); PLATELET COUNT AUTOMATED 135 10*3/uL (130-400); RED BLOOD COUNT 2.78 10*6/uL (4.10-5.10); RED CELL DISTRI WIDTH 18.8 % (0-14.5)
[2017-05-20 06:28] LABS: MEAN CELL VOLUME 96.8 fl (81.0-99.0)
[2017-05-20 07:10] LABS: BUN 13 mg/dl (7-24); CARBON DIOXIDE 36 mmol/L (21-32); CHLORIDE 100 mmol/L (98-107); EST GLOM FILT AFRICAN AMERICAN > 60 ml/min; GLUCOSE 85 mg/dL (65-99); POTASSIUM 3.9 mmol/L (3.5-5.1); SODIUM 142 mmol/L (136-145)
[2017-05-20 07:19] LABS: INTERNATIONAL NORM RATIO 0.9 (2.0-3.5); PROTHROMBIN TIME 9.5 SECONDS (9.0-12.4)
[2017-05-20 08:00] VITALS: BP 130/52
[2017-05-20 08:00] LABS: FOLIC ACID 10.56 ng/mL (>5.38)
[2017-05-20 16:00] VITALS: BP 102/44
[2017-05-20 20:00] VITALS: BP 117/46
[2017-05-21] VITALS: BP 120/55
[2017-05-21 04:00] VITALS: BP 124/55
[2017-05-21 05:51] LABS: ALBUMIN 1.8 gm/dl (3.1-4.5); ALKALINE PHOSPHATASE 69 U/L (45-117); BILIRUBIN, TOTAL 0.3 mg/dl (0.2-1.0); BUN 10 mg/dl (7-24); CHLORIDE 92 mmol/L (98-107); EST GLOM FILT AFRICAN AMERICAN > 60 ml/min; GLUCOSE 96 mg/dL (65-99); POTASSIUM 3.1 mmol/L (3.5-5.1); SGOT/AST 24 IU/L (3-35); SGPT/ALT 38 U/L (12-78); SODIUM 141 mmol/L (136-145); TOTAL PROTEIN 5.5 gm/dL (6.4-8.2)
[2017-05-21 05:53] LABS: CARBON DIOXIDE 44 mmol/L (21-32)
[2017-05-21 05:55] LABS: BASO % 0.2 % (0.0-1.0); EOS # 0.1 10*3/uL (0.0-0.4); EOS % 0.8 % (1.0-4.0); HEMATOCRIT 28.3 % (37.0-47.0); HEMOGLOBIN 8.6 g/dl (12.0-16.0); IG # 0.2 10*3/uL (0.0-0.1); LYMPH # 0.7 10*3/uL (1.3-4.4); MEAN CELL VOLUME 95.6 fl (81.0-99.0); MEAN CORPUSCULAR HGB 29.1 pg (27.0-31.0); MEAN CORPUSCULAR HGB CONC 30.4 g/dl (33.0-37.0); MEAN PLATELET VOLUME 9.4 fl (9.6-12.3); MONO # 0.3 10*3/uL (0.1-1.0); MONO % 5.1 % (3.0-9.0); NEUT # 5.3 10*3/uL (2.3-7.9); NEUT % 81.4 % (47.0-73.0); NUCLEATED RED BLOOD CELL 0.3 % (0.0-0.0); PLATELET COUNT AUTOMATED 157 10*3/uL (130-400); RED BLOOD COUNT 2.96 10*6/uL (4.10-5.10); RED CELL DISTRI WIDTH 17.5 % (0-14.5); WHITE BLOOD COUNT 6.5 10*3/uL (4.8-10.8)
[2017-05-21 07:21] LABS: ABG BASE EXCESS 15.7 mmol/L (-2.0-2.0); ABG CO2 CONTENT 44.1 mmol/L (23-27); ABG HCO3 42.1 mmol/l (22-26); ABG TEMPERATURE 98.6 F (98.0-99.0); ARTERIAL BLOOD GAS PH 7.433 (7.35-7.45); ARTERIAL BLOOD GAS PO2 73.1 mmHg (80-90)
[2017-05-21 08:00] VITALS: BP 123/48
[2017-05-21 12:00] VITALS: BP 99/45
[2017-05-21 16:00] VITALS: BP 110/42
[2017-05-21 20:00] VITALS: BP 98/44
[2017-05-22] VITALS: BP 94/50
[2017-05-22 07:13] LABS: BASO % 0.2 % (0.0-1.0); EOS # 0.1 10*3/uL (0.0-0.4); EOS % 1.2 % (1.0-4.0); HEMATOCRIT 28.1 % (37.0-47.0); HEMOGLOBIN 8.5 g/dl (12.0-16.0); IG # 0.1 10*3/uL (0.0-0.1); LYMPH # 0.6 10*3/uL (1.3-4.4); LYMPH % 12.3 % (27.0-41.0); MEAN CELL VOLUME 98.3 fl (81.0-99.0); MEAN CORPUSCULAR HGB 29.7 pg (27.0-31.0); MEAN CORPUSCULAR HGB CONC 30.2 g/dl (33.0-37.0); MEAN PLATELET VOLUME 9.4 fl (9.6-12.3); MONO # 0.3 10*3/uL (0.1-1.0); MONO % 5.8 % (3.0-9.0); NEUT # 3.9 10*3/uL (2.3-7.9); NEUT % 77.7 % (47.0-73.0); PLATELET COUNT AUTOMATED 161 10*3/uL (130-400); RED BLOOD COUNT 2.86 10*6/uL (4.10-5.10); RED CELL DISTRI WIDTH 16.9 % (0-14.5)
[2017-05-22 07:43] LABS: BUN 13 mg/dl (7-24); CHLORIDE 97 mmol/L (98-107); EST GLOM FILT AFRICAN AMERICAN > 60 ml/min; GLUCOSE 105 mg/dL (65-99); POTASSIUM 3.8 mmol/L (3.5-5.1); SODIUM 141 mmol/L (136-145)
[2017-05-22 07:45] LABS: CARBON DIOXIDE 41 mmol/L (21-32)
[2017-05-22 08:00] VITALS: BP 142/67
[2017-05-22 12:00] VITALS: BP 90/49
[2017-05-22] MEDS ORDERED: LEVAQUIN750 M1 PO (13:27)
[2017-05-22] MEDS ORDERED: SUPRAX400 M2 PO (13:29)
[2017-05-22] MEDS ORDERED: PANTOPRAZOLE SO40 MG PO (13:29)
[2017-05-22 16:00] VITALS: BP 98/48
[2017-05-22 20:00] VITALS: BP 95/49
[2017-05-23] VITALS: BP 102/52; BP 172/82
[2017-05-23 08:00] VITALS: BP 110/42
== END 2017-05-23 12:48 | disposition other institution (70) | DRG 871 ==
LOC: ED 09:53 → EDHOLD 13:06 → ICCU 13:06 → 4E 05-21 13:43
PROVIDERS: Emergency Medicine; Family Medicine; Internal Medicine; Internal Medicine Hematology & Oncology
PROC: 5A09457 Assistance with Respiratory Ventilation, 24-96 Consecutive Hours, Continuous Positive Airway Pressure (ICD-10-PCS; principal; 2017-05-18)
PROC: 30233N1 Transfusion of Nonautologous Red Blood Cells into Peripheral Vein, Percutaneous Approach (ICD-10-PCS; 2017-05-19)
DX: A41.9 Sepsis, unspecified organism (principal); J96.22 Acute and chronic respiratory failure with hypercapnia; E43 Unspecified severe protein-calorie malnutrition; J69.0 Pneumonitis due to inhalation of food and vomit; L89.321 Pressure ulcer of left buttock, stage 1; I77.2 Rupture of artery; E87.3 Alkalosis; J18.9 Pneumonia, unspecified organism; I50.32 Chronic diastolic (congestive) heart failure; J44.0 Chronic obstructive pulmonary disease with (acute) lower respiratory infection; E87.2 Acidosis; C92.10 Chronic myeloid leukemia, BCR/ABL-positive, not having achieved remission; J44.1 Chronic obstructive pulmonary disease with (acute) exacerbation; D68.59 Other primary thrombophilia; D80.1 Nonfamilial hypogammaglobulinemia; D62 Acute posthemorrhagic anemia; L97.429 Non-pressure chronic ulcer of left heel and midfoot with unspecified severity; R13.12 Dysphagia, oropharyngeal phase; D53.1 Other megaloblastic anemias, not elsewhere classified; K64.9 Unspecified hemorrhoids; I25.10 Atherosclerotic heart disease of native coronary artery without angina pectoris; F32.9 Major depressive disorder, single episode, unspecified; I11.0 Hypertensive heart disease with heart failure; E78.5 Hyperlipidemia, unspecified; I48.0 Paroxysmal atrial fibrillation; R65.20 Severe sepsis without septic shock; K29.50 Unspecified chronic gastritis without bleeding; I73.9 Peripheral vascular disease, unspecified; T87.81 Dehiscence of amputation stump; Z88.8 Allergy status to other drugs, medicaments and biological substances; Z88.0 Allergy status to penicillin; Z91.040 Latex allergy status; Z91.041 Radiographic dye allergy status; Z99.81 Dependence on supplemental oxygen; Z79.01 Long term (current) use of anticoagulants; Z89.422 Acquired absence of other left toe(s); Z95.5 Presence of coronary angioplasty implant and graft; Z87.891 Personal history of nicotine dependence; Z82.49 Family history of ischemic heart disease and other diseases of the circulatory system; Z68.21 Body mass index [BMI] 21.0-21.9, adult; Z79.891 Long term (current) use of opiate analgesic

== ENCOUNTER 2017-06-03 12:53 | Inpatient (IN) | payer MEDICARE, OTHER ==
[~2017-06-03] VITALS: Ht 154.9 cm; Wt 77.1 kg
[2017-06-03] VITALS (8 sets, daily range): BP systolic 99–155; BP diastolic 44–62
--- NOTE | ~2017-06-03 | PR ---
[place], [place] PROGRESS NOTE NAME: CHINMAY STARR [facility] #: [id number] UNIT #: [id number] ROOM: 407 DOCTOR: SEBASTIÁN SloanTERRI BIRTHDATE: [birth year] DOS: 06/07/2017 SUBJECTIVE: She is a 67-year-old female with multiple medical problems who is known to the Wound Clinic for a nonhealing wound on her left foot. She is status post multiple bilateral lower extremity revascularizations and has had critical ischemia of the left foot since March of this past year. She is being followed by Vascular Surgery, Dr. Moreno at [facility]. She has been admitted on multiple occasions to the hospital, most recently 2 weeks ago for respiratory failure and pneumonia. She was able to make her followup appointment with Dr. Moreno on 05/24/2017. She did evaluate her, had noticed that there was some deterioration of the wound and did not think revascularization was an option at that time. Her overall condition and pulmonary status was greatly compromised and he had felt that if hopefully she has improvement in her pulmonary status, he may be able to consider revascularization aorto profunda bypass in the near future. He was to see her for followup in 2-3 weeks. It does appear that the patient has been at [facility] facility, was noted to have increasing shortness of breath and low saturation and some confusion. The patient was admitted for these above complaints, this is her ninth admission in the hospital for the past 10 weeks. PAST MEDICAL HISTORY: Complicated and includes anemia, megaloblastic arterial leg ulcer, coronary artery disease status post transmetatarsal amputation of the left foot, chronic anemia, chronic respiratory failure, clotting disorders, CML, depression, diastolic heart failure, hypertension, GI bleed, healthcare-associated pneumonia, hyperlipidemia, oxygen dependent paroxysmal atrial fibrillation, peripheral arterial disease, pneumonia of both lower lobes, peripheral vascular disease. She is status post transmetatarsal amputation of the left foot, ORIF, appendectomy, cardiac cath, stents x 2, Meckel's diverticulum with small bowel obstruction due to adhesions. SOCIAL HISTORY: She is a past smoker, quit in 2013. Does not drink alcohol or use illicit drugs. FAMILY HISTORY: Significant for coronary artery disease, heart failure, and atrial fibrillation. ALLERGIES: IVP DYE, PENICILLIN, GLEEVEC, AND LATEX. CURRENT MEDICATIONS: Xarelto 20 mg daily, Deltasone 10 mg p.o. b.i.d., vitamin D 50,000 units once a week, MS Contin 15 mg t.i.d., Micro-K 10 mEq p.o. daily, Toprol-XL 50 daily, lidocaine 3% topical, Cymbalta 60 p.o. daily, Santyl has been ordered, Plavix 75 p.o. daily, Protonix 40 mg p.o. daily, Zocor 40 mg p.o. at bedtime, Neurontin 800 t.i.d., Lasix 40 b.i.d. IV, Elavil 75 mg p.o. at bedtime, Niferex 150 mg p.o. b.i.d., Ventolin 2.5 q.6h., Dulera inhalation q. 12 hours, Senokot 8.6 mg daily, MiraLax 17 g p.o. daily, Roxicodone 15 mg p.o. q. 3 hours p.r.n., Reglan 5 mg p.o. at bedtime p.r.n., morphine sulfate 2 mg IV q.4h. p.r.n., milk of mag, Dulcolax, [place] and Tylenol p.r.n. REVIEW OF SYSTEMS: The patient says she is feeling better with her breathing. She states that her foot hurts and she would like to dangle it down off the bed [place], [place] PROGRESS NOTE NAME: CHINMAY STARR UNIT #: [id number] ROOM: [facility] DOCTOR: TERRI LOWERY M.D. BIRTHDATE: [birth year] to help the pain. She offers no other specific complaints. OBJECTIVE: VITAL SIGNS: Her vitals are stable. Temperature is 97.8, pulse 89, respirations 20, blood pressure is 136/60. The dressing was removed. She has Adaptic placed on the entire lateral and forefoot of the wound. She has some increased areas of breakdown, which are new that I did not see 2 weeks ago. Essentially, almost entire surgical site is dehisced on the lateral side of the foot and the forefoot. Also, there has been increased breakdown on the left great toe amputation site as well and also there is some epidermal loss also noted on the great toe area that was not there last time either. She has moderate fibrin slough. There is no odor. There is no sign of infection. The left heel also has an area which is unstageable. There is some fibrin slough present in it, but it is still fairly flat and it has not gotten any deeper from what I can see. It is acutely tender and cool, pale. Pulses are not palpable. LABORATORY DATA: Her white count is 14. Her hemoglobin is 8. Her platelets are 376. Her bicarbonate is 46, BUN is 18, potassium is 3, chloride is 83, glucose is 134. Albumin is markedly low at 1.8. DIAGNOSTIC DATA: Her actual chest x-ray from the and shows slightly improved lung base or aeration. The initial chest x-ray was read as mild interval increase in heart size and probable mild pulmonary edema, more opacities in the bases, may be atelectasis and/or infiltrate. ASSESSMENT AND PLAN: Ischemic foot. They have been using Santyl, which has already been ordered. We will continue this and a nonadherent dressing. For now, there is no sign of an acute infection. Her recent x-ray really was unremarkable. I have ordered for a heel lift to help protect the heel as well. She should followup with Vascular Surgery once stabilized. Hopefully, at some point, her pulmonary status will be stable enough for her to undergo revascularization. [place], [place] PROGRESS NOTE [facility]ARR [facility] [id number] UNIT #: [id number] ROOM: 407 DOCTOR: TERRI LOWERY M.D. BIRTHDATE: [birth year] TERRI LOWERY MD CM:JO-ANN [id number] TERRI LOWERY M.D. 06/07/17 1336 interface
--- NOTE | ~2017-06-03 | CON ---
[place], [place] REPORT OF CONSULTATION NAME: CHINMAY STARR [facility] #: [id number] UNIT #: [id number] ROOM: 407 DOCTOR: PRESTON MCQUEEN MD BIRTHDATE: [birth year] DOS: 06/08/2017 PULMONARY CONSULTATION CONSULTATION REQUESTED BY: Hospitalist services. REASON FOR CONSULTATION: To assess the patient for symptoms of shortness of breath and other symptoms. HISTORY OF PRESENT ILLNESS: This is a 67-year-old white female, well known to me with history of recurrent pneumonia, variable hypogammaglobulinemia, recently discovered history of chronic hypercapnic hypoxic respiratory failure, was transferred and admitted to [facility] on 05/23/2017. The patient remained in the facility. The patient was actually doing well. I did see the patient last . The patient said she was improving progressively using oxygen supplementation 3 liters nasal cannula and also using noninvasive ventilator at the facility. She stated that she has developed gradually increased edema of the lower extremity and increasing abdominal girth. The patient's history was partially assisted by her daughter who was present in the room with the patient. She was brought to the hospital and is currently admitted and treated under the hospitalist service on 06/03/2017. She stated symptoms of cough has been noted intermittently. Denies symptoms of chest pain. She does have edema of the lower extremity seemed to be decreased. She denies any wheezing or hemoptysis. REVIEW OF SYSTEMS: CONSTITUTIONAL: Fatigue and tiredness noted without any fever or chills. EYES: Denies any burning, redness, or tenderness. EARS, NOSE, THROAT SYMPTOMS: Denies sore throat, hoarseness, otalgia, postnasal drainage or epistaxis. CARDIOVASCULAR: As reported, edema of the lower extremity seems to be better at this time. GASTROINTESTINAL: Denies dysphagia, nausea, vomiting, diarrhea, abdominal pain, hematemesis, melena, or hematochezia. SKIN: Denies lesions or rashes. CENTRAL NERVOUS SYSTEM: Generalized weakness and fatigue, was noted without symptoms of seizures. Remaining systems were reviewed with the patient, they were noted all negative. PAST MEDICAL HISTORY: Noted with last hospitalization in this hospital in 05/2017 and [facility] after the management of acute exacerbation of COPD and other problems. 1. The past medical history was noted with chronic hypercapnia and hypoxic respiratory failure and a history of chronic obstructive pulmonary disease and acute chronic wound of the left foot. 2. History of peripheral vascular disease with past intervention. 3. History of common variable hypogammaglobulinemia. 4. 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 5. Clotting disorder. [place], [place] REPORT OF CONSULTATION NAME: CHINMAY STARR UNIT #: [id number] ROOM: 407 DOCTOR: ARLENE MURRAY MD,PRESTON BIRTHDATE: [birth year] 6. Essential hypertension. 7. Hyperlipidemia. 8. Coronary artery disease. 9. Recurrent anemia for this patient requiring blood transfusion intermittently. PAST SURGICAL HISTORY: 1. Amputation of the left toe. 2. Appendectomy. 3. Cardiac catheterization and coronary artery stent insertion. 4. Resection Meckel diverticulum. 5. Adhesiolysis and exploratory laparotomy twice for acute peripheral vascular disease, intervention and grafting of the patient's left lower extremity. 5. Fiberoptic bronchoscopies. SOCIAL HISTORY: The patient is , has 2 children, lives at home prior to the hospitalization currently residing at the nursing facility. History of tobacco use noted as teenager, 2 packs of cigarettes per day until 2002. FAMILY HISTORY: The patient's father from complication related to congestive heart failure, coronary artery disease. Mother at the age 6060 years old, complication related to atrial fibrillation, coronary artery disease and acute myocardial infarction. MEDICATIONS: Current administered medications for the patient were noted as Xarelto, vitamin D, collagenase dressing, metoprolol succinate, potassium chloride, Plavix, Cymbalta, Protonix, simvastatin, Neurontin, amitriptyline, Lasix 40 mg IV b.i.d., albuterol sulfate with the nebulizer, Dulera, Reglan, Levaquin, OxyContin and other medications. DRUG ALLERGIES: 1. PENICILLIN. 2. IVP DYE. 3. GLEEVEC. PHYSICAL EXAMINATION: GENERAL: A 67-year-old female, currently sitting on the chair without any distress. Height of 5 feet 1 inch, weight of 170 pounds, BMI 32.1. VITAL SIGNS: Normal temperature, respiratory rate 18-20, heart rate 94-89, blood pressure 142-115/50. The pulse oxygen saturation for the patient was recorded this morning on 3 L nasal cannula 97% saturation. The patient's admission oxygen saturation was recorded at 50% as 93% with the use of the BiPAP. HEENT: Examination shows head was atraumatic. Eyes nonicterus. NECK: Supple. CARDIOVASCULAR: S1, S2 audible. LUNGS: The patient was noted with coarse crackles noted in the mid to lower portion of the lungs bilaterally. There was no wheezing. EXTREMITIES: Shows mild edema. The left foot bandage was noted in place. MUSCULOSKELETAL: No deformities. [place], [place] REPORT OF CONSULTATION NAME: CHINMAY STARR UNIT #: [id number] ROOM: 407 DOCTOR: ARLENE MURRAY MD,PRESTON BIRTHDATE: [birth year] SKIN: Showed no lesions or rashes. CENTRAL NERVOUS SYSTEM: Cranial nerves 2-12 intact. No focal deficits. LABORATORY DATA: CBC of 06/03/2017 in the emergency on admission, WBC count normal, hemoglobin 8.3, hematocrit 29.2, platelet count of 405,000; elevated. Differential 81% segmented neutrophils, 14% lymphocytes. CMP of the patient on admission 06/03/2017, normal BUN and creatinine. CO2 was 39. Arterial blood gas of the patient, pH of 7.29, pCO2 88.6, pO2 80.1. Chest x-ray of the patient that was done for the patient on admission 1 view on 06/03/2017 shows increased interstitial marking. The patient's pulmonary edema was noted bilaterally with the area of basilar atelectasis. Blood culture from the 05/30 for this patient showed no bacterial growth. CBC on 06/06, WBC count 16.3, hemoglobin 9.5, hematocrit 32.2, platelet count was 425,000. CMP of the patient noted normal BUN and creatinine. CT scan of the head, which was done without contrast yesterday for this patient was noted without any acute intracranial pathologies. CBC of this morning: WBC count of 12.9, hemoglobin 7, hematocrit 27.2, platelet count of 419,000 and 77% segmented neutrophils. CMP of the patient noted glucose 126, BUN and creatinine normal, carbon dioxide 46, chloride of 84. The blood culture of the patient from the showed no bacterial growth. Chest x-ray of the patient that was done this morning was reviewed, MediPort noted in place in the left chest. Basilar area of atelectasis for this patient noted right middle lobe atelectasis with reduction of the previous noted congestive heart failure findings. There were no significant visible pleural fluid seen. IMPRESSION: 1. The patient has been admitted to the hospital, developed acute congestive heart failure. The patient with acute on chronic hypercapnic hypoxic respiratory failure. 2. The patient with evidence of chronic hypercapnia and COPD as well, which appeared to be advanced. 3. Congestive heart failure, with possible diastolic dysfunction noted with echocardiogram that was done on 12/06/2016. 4. General anxiety disorder. 5. Recurrent anemia was noted with gradual anemia again. 6. Overall debility and muscle deconditioning. 7. History of common variable hypogammaglobulinemia. 8. Right middle lobe partial atelectasis in the right lower lobe secondary to mucus impaction. 9. The patient with worsening of the metabolic alkalosis secondary to diuretic for this patient and because of the chronic hypercarbia. PLAN OF TREATMENT: Conservative treatment for the sputum expectoration with continuous use of the incentive spirometry and flutter valve use. Obtain the sputum for Gram stain and assessment and management of anemia to be continued. Obtain another arterial blood gas of the patient to assess the improvement in the acute hypercapnia. All other supportive therapy, plan of management. Usual treatment, all other care. Metabolic alkalosis, the patient will be treated with the use of Diamox for this patient as well. All other supportive plan and management and care to be continued. [place], [place] REPORT OF CONSULTATION NAME: CHINMAY STARR UNIT #: [id number] ROOM: 407 DOCTOR: PRESTON MCQUEEN MD BIRTHDATE: [birth year] Thanks for allowing me to participate in the care of this patient. PRESTON JACOBS MD CM:CONSTR:REPORT OF CONSULTATION 1715 06/08/172033 interface
--- NOTE | ~2017-06-03 | PR ---
[place], [place] PROGRESS NOTE NAME: CHINMAY STARR UNIT #: [id number] ROOM: 407 DOCTOR: PRESTON MCQUEEN MD BIRTHDATE: [birth year] DOS: SUBJECTIVE: The patient has been noted comfortably sitting on the chair at this time. There was no acute shortness breath or chest pain. Arterial blood gases were done yesterday, which shows improvement in the pH. Hypercarbia still noted. The patient denies any cough or chest pain. Edema of the extremity was resolving. OBJECTIVE: VITAL SIGNS: Normal temperature, respiratory rate 18, heart rate 89, blood pressure 100/46. The pulse oxygen saturation of the patient was recorded as 99% on 4 L nasal cannula. HEENT: Showed no acute change. NECK: Supple. CARDIOVASCULAR: S1, S2 audible. LUNGS: Noted without any wheezing or crackles at the present time. ABDOMEN: Soft, nontender. EXTREMITIES: Shows very mild edema. LABORATORY DATA: Arterial blood gas yesterday, 4 liters, pH of 7.41, pCO2 of 75, pO2 of 79.5. BMP of patient, BUN 29, creatinine was normal. The CO2 was elevated as 49. Chloride of 84. CBC this morning, hemoglobin 7.7, hematocrit 26.5, WBC count 14.6, platelet count 449,000. IMPRESSION: 1. Resolving [id number] severe hypercapnic hypoxic respiratory failure. 2. Metabolic alkalosis noted severe. 3. Congestive heart failure for this patient with diastolic dysfunction. 4. Anemia. 5. Debility. PLAN OF TREATMENT: Pulmonary standpoint, the patient could be discharged on oral medications at this time. She will be continued on the noninvasive ventilator at the nursing facility. Physical therapy, occupational therapy. Continue Diamox for metabolic alkalosis and management. Other supportive therapy, plan and management, usual care, other treatment and therapies. [place], [place] PROGRESS NOTE NAME: CHINMAY STARR UNIT #: [id number] ROOM: 407 DOCTOR: PRESTON MCQUEEN MD BIRTHDATE: [birth year] PRESTON JACOBS MD CM:PNTRANS [id number] PRESTON MURRAY MD 06/09/17 1331 interface
[~2017-06-03 12:53] MED LIST changes: +AMITRIPTYLINE25 MG PO; +DOXYCYCLINE HY100 M3 PO; +GAVISCON ES TA1 EACH PO; +LASIX20 MG PO; +LEVAQUIN750 M1 PO; +Lopressor25 MG PO; +MIRALAX17 GM/DOSE PO; +MORPHINE SULFAT15 MG PO; +OXYCODONE HCL15 MG PO; +PANTOPRAZOLE SO20 MG PO; +PANTOPRAZOLE SO40 MG PO; +SENOKOT1 TAB PO; +SUPRAX400 M2 PO; +VITAMIN D22000 UNIT PO; +Ventolin 02.5 MG/3 M INH; +ZOFRAN4 MG PO
[2017-06-03 13:37] LABS: HEMATOCRIT 29.2 % (37.0-47.0); HEMOGLOBIN 8.3 g/dl (12.0-16.0); MEAN CELL VOLUME 100.3 fl (81.0-99.0); MEAN CORPUSCULAR HGB 28.5 pg (27.0-31.0); MEAN CORPUSCULAR HGB CONC 28.4 g/dl (33.0-37.0); NUCLEATED RED BLOOD CELL 0.1 10*3/uL (0.0-0.0); NUCLEATED RED BLOOD CELL 0.6 % (0.0-0.0); PLATELET COUNT AUTOMATED 405 10*3/uL (130-400); RED BLOOD COUNT 2.91 10*6/uL (4.10-5.10); RED CELL DISTRI WIDTH 17.4 % (0-14.5); WHITE BLOOD COUNT 10.6 10*3/uL (4.8-10.8)
[2017-06-03 13:49] LABS: PROTHROMBIN TIME 10.3 SECONDS (9.0-12.4)
[2017-06-03 13:54] LABS: LYMPHOCYTE # 1.5 10*3/uL (1.3-4.4); METAMYELOCYTES 2 % (0-0); MONOCYTE # 0.1 10*3/uL (0.1-1.0); MYELOCYTES 2 % (0-0); NEUTROPHIL # 8.6 10*3/uL (2.3-7.9); NEUTROPHILS 81 % (47-73); TOTAL CELLS COUNTED 100 #CELLS
[2017-06-03 13:55] LABS: PLATELET SUFFICIENCY NORMAL (NORMAL); POLYCHROMASIA SLIGHT
[2017-06-03 13:59] LABS: ALKALINE PHOSPHATASE 88 U/L (45-117); BILIRUBIN, TOTAL 0.2 mg/dl (0.2-1.0); BUN 15 mg/dl (7-24); CARBON DIOXIDE 39 mmol/L (21-32); CHLORIDE 97 mmol/L (98-107); EST GLOM FILT AFRICAN AMERICAN > 60 ml/min; GLUCOSE 156 mg/dL (65-99); SGOT/AST 17 IU/L (3-35); SGPT/ALT 24 U/L (12-78); SODIUM 141 mmol/L (136-145)
[2017-06-03 14:05] LABS: TROPONIN I < 0.015 ng/ml (<0.045)
[2017-06-03 14:51] LABS: ABG BASE EXCESS 13.5 mmol/L (-2.0-2.0); ABG CO2 CONTENT 44.2 mmol/L (23-27); ABG HCO3 41.6 mmol/l (22-26); ABG TEMPERATURE 99.3 F (98.0-99.0); ARTERIAL BLOOD GAS PH 7.296 (7.35-7.45); ARTERIAL BLOOD GAS PO2 80.1 mmHg (80-90)
[2017-06-03] MEDS ORDERED: PRO-STAT 64 3030 M2 (16:17)
[2017-06-03] MEDS ORDERED: REGLAN5 MG PO (16:21)
[2017-06-03] MEDS ORDERED: BREO ELLIPTA 11 EACH INH (16:26)
[2017-06-03] MEDS ORDERED: LIDOVEX60 GM T (17:52)
[2017-06-03] MEDS ORDERED: SANTYL250 U/GM T (17:53)
[2017-06-04] VITALS: BP 115/58
[2017-06-04 04:00] VITALS: BP 123/72
[2017-06-04 06:02] LABS: ALKALINE PHOSPHATASE 81 U/L (45-117); BILIRUBIN, TOTAL 0.2 mg/dl (0.2-1.0); BUN 14 mg/dl (7-24); CHLORIDE 90 mmol/L (98-107); EST GLOM FILT AFRICAN AMERICAN > 60 ml/min; GLUCOSE 156 mg/dL (65-99); MAGNESIUM 1.9 mg/dL (1.5-2.1); POTASSIUM 3.7 mmol/L (3.5-5.1); SGOT/AST 15 IU/L (3-35); SGPT/ALT 21 U/L (12-78); SODIUM 143 mmol/L (136-145); TOTAL PROTEIN 5.9 gm/dL (6.4-8.2)
[2017-06-04 06:07] LABS: CARBON DIOXIDE 44 mmol/L (21-32)
[2017-06-04 06:18] LABS: BASO % 0.1 % (0.0-1.0); EOS % 0.2 % (1.0-4.0); HEMATOCRIT 29.5 % (37.0-47.0); HEMOGLOBIN 8.2 g/dl (12.0-16.0); IG # 0.2 10*3/uL (0.0-0.1); LYMPH # 1.5 10*3/uL (1.3-4.4); LYMPH % 10.9 % (27.0-41.0); MEAN CELL VOLUME 98.3 fl (81.0-99.0); MEAN CORPUSCULAR HGB 27.3 pg (27.0-31.0); MEAN CORPUSCULAR HGB CONC 27.8 g/dl (33.0-37.0); MEAN PLATELET VOLUME 9.1 fl (9.6-12.3); MONO # 1.1 10*3/uL (0.1-1.0); MONO % 7.9 % (3.0-9.0); NEUT # 10.6 10*3/uL (2.3-7.9); NEUT % 79.1 % (47.0-73.0); NUCLEATED RED BLOOD CELL 0.1 10*3/uL (0.0-0.0); NUCLEATED RED BLOOD CELL 0.9 % (0.0-0.0); PLATELET COUNT AUTOMATED 425 10*3/uL (130-400); RED CELL DISTRI WIDTH 17.3 % (0-14.5); WHITE BLOOD COUNT 13.4 10*3/uL (4.8-10.8)
[2017-06-04 08:00] VITALS: BP 124/72
[2017-06-04 12:00] VITALS: BP 119/57; BP 142/89
[2017-06-04 15:59] VITALS: BP 119/57
[2017-06-04 20:00] VITALS: BP 118/57
[2017-06-05] VITALS: BP 117/55
[2017-06-05 04:00] VITALS: BP 95/43
[2017-06-05 05:24] LABS: HEMATOCRIT 29.4 % (37.0-47.0); HEMOGLOBIN 8.4 g/dl (12.0-16.0); MEAN CELL VOLUME 96.1 fl (81.0-99.0); MEAN CORPUSCULAR HGB 27.5 pg (27.0-31.0); MEAN CORPUSCULAR HGB CONC 28.6 g/dl (33.0-37.0); MEAN PLATELET VOLUME 8.9 fl (9.6-12.3); NUCLEATED RED BLOOD CELL 0.3 % (0.0-0.0); PLATELET COUNT AUTOMATED 384 10*3/uL (130-400); RED BLOOD COUNT 3.06 10*6/uL (4.10-5.10); WHITE BLOOD COUNT 14.6 10*3/uL (4.8-10.8)
[2017-06-05 05:35] LABS: BUN 18 mg/dl (7-24); CHLORIDE 86 mmol/L (98-107); EST GLOM FILT AFRICAN AMERICAN > 60 ml/min; GLUCOSE 93 mg/dL (65-99); POTASSIUM 3.3 mmol/L (3.5-5.1); SODIUM 137 mmol/L (136-145)
[2017-06-05 05:48] LABS: CARBON DIOXIDE 47 mmol/L (21-32)
[2017-06-05 07:12] LABS: HYPOCHROMIA SLIGHT; LYMPHOCYTE # 0.7 10*3/uL (1.3-4.4); MONOCYTE # 0.6 10*3/uL (0.1-1.0); NEUTROPHIL # 13.3 10*3/uL (2.3-7.9); NEUTROPHILS 91 % (47-73); PLATELET SUFFICIENCY NORMAL (NORMAL); POLYCHROMASIA SLIGHT; TOTAL CELLS COUNTED 100 #CELLS
[2017-06-05 08:00] VITALS: BP 108/76
[2017-06-05 12:00] VITALS: BP 99/75
[2017-06-05 16:00] VITALS: BP 119/52
[2017-06-05 20:00] VITALS: BP 96/47
[2017-06-06] VITALS: BP 90/58
[2017-06-06 06:12] LABS: HEMATOCRIT 32.2 % (37.0-47.0); HEMOGLOBIN 9.5 g/dl (12.0-16.0); MEAN CELL VOLUME 95.8 fl (81.0-99.0); MEAN CORPUSCULAR HGB 28.3 pg (27.0-31.0); MEAN CORPUSCULAR HGB CONC 29.5 g/dl (33.0-37.0); MEAN PLATELET VOLUME 8.9 fl (9.6-12.3); NUCLEATED RED BLOOD CELL 0.1 10*3/uL (0.0-0.0); NUCLEATED RED BLOOD CELL 0.4 % (0.0-0.0); PLATELET COUNT AUTOMATED 425 10*3/uL (130-400); RED BLOOD COUNT 3.36 10*6/uL (4.10-5.10); WHITE BLOOD COUNT 16.3 10*3/uL (4.8-10.8)
[2017-06-06 06:30] LABS: ALBUMIN 1.8 gm/dl (3.1-4.5); BUN 19 mg/dl (7-24); CHLORIDE 83 mmol/L (98-107); GLUCOSE 93 mg/dL (65-99); POTASSIUM 3.2 mmol/L (3.5-5.1); SODIUM 136 mmol/L (136-145)
[2017-06-06 06:33] LABS: ALKALINE PHOSPHATASE 107 U/L (45-117); BILIRUBIN, TOTAL 0.4 mg/dl (0.2-1.0); EST GLOM FILT AFRICAN AMERICAN > 60 ml/min; SGOT/AST 17 IU/L (3-35); SGPT/ALT 20 U/L (12-78); TOTAL PROTEIN 6.4 gm/dL (6.4-8.2)
[2017-06-06 07:03] LABS: LYMPHOCYTE # 2.6 10*3/uL (1.3-4.4); METAMYELOCYTES 1 % (0-0); MONOCYTE # 0.8 10*3/uL (0.1-1.0); NEUTROPHIL # 12.7 10*3/uL (2.3-7.9); NEUTROPHILS 78 % (47-73); TOTAL CELLS COUNTED 100 #CELLS
[2017-06-06 07:04] LABS: PLATELET SUFFICIENCY HIGH (NORMAL); POLYCHROMASIA SLIGHT
[2017-06-06 08:00] VITALS: BP 111/47
[2017-06-06 09:26] LABS: CARBON DIOXIDE 45 mmol/L (21-32)
[2017-06-06 12:01] VITALS: BP 90/53
[2017-06-06 16:00] VITALS: BP 100/50
[2017-06-06 20:00] VITALS: BP 106/88
[2017-06-07] VITALS: BP 125/53
[2017-06-07 06:12] LABS: HEMATOCRIT 28.3 % (37.0-47.0); HEMOGLOBIN 8.3 g/dl (12.0-16.0); MEAN CELL VOLUME 94.3 fl (81.0-99.0); MEAN CORPUSCULAR HGB 27.7 pg (27.0-31.0); MEAN CORPUSCULAR HGB CONC 29.3 g/dl (33.0-37.0); NUCLEATED RED BLOOD CELL 0.2 % (0.0-0.0); PLATELET COUNT AUTOMATED 376 10*3/uL (130-400); RED CELL DISTRI WIDTH 16.8 % (0-14.5); WHITE BLOOD COUNT 14.7 10*3/uL (4.8-10.8)
[2017-06-07 06:52] LABS: BUN 18 mg/dl (7-24); CHLORIDE 83 mmol/L (98-107); EST GLOM FILT AFRICAN AMERICAN > 60 ml/min; GLUCOSE 134 mg/dL (65-99); POTASSIUM 3.3 mmol/L (3.5-5.1); SODIUM 136 mmol/L (136-145)
[2017-06-07 07:03] LABS: HYPOCHROMIA MODERATE; LYMPHOCYTE # 1.9 10*3/uL (1.3-4.4); METAMYELOCYTES 1 % (0-0); MONOCYTE # 1.2 10*3/uL (0.1-1.0); MYELOCYTES 1 % (0-0); NEUTROPHIL # 11.3 10*3/uL (2.3-7.9); NEUTROPHILS 77 % (47-73); PLATELET SUFFICIENCY NORMAL (NORMAL); STOMATOCYTE FEW; TOTAL CELLS COUNTED 100 #CELLS
[2017-06-07 08:00] VITALS: BP 132/59
[2017-06-07 10:16] LABS: CARBON DIOXIDE 46 mmol/L (21-32)
[2017-06-07 12:00] VITALS: BP 136/60
[2017-06-07 16:00] VITALS: BP 115/53
[2017-06-07 20:00] VITALS: BP 113/53
[2017-06-08] VITALS: BP 108/57
[2017-06-08 06:45] LABS: HEMATOCRIT 27.2 % (37.0-47.0); HEMOGLOBIN 7.8 g/dl (12.0-16.0); MEAN CELL VOLUME 96.1 fl (81.0-99.0); MEAN CORPUSCULAR HGB 27.6 pg (27.0-31.0); MEAN CORPUSCULAR HGB CONC 28.7 g/dl (33.0-37.0); NUCLEATED RED BLOOD CELL 0.3 % (0.0-0.0); PLATELET COUNT AUTOMATED 419 10*3/uL (130-400); RED BLOOD COUNT 2.83 10*6/uL (4.10-5.10); RED CELL DISTRI WIDTH 16.6 % (0-14.5); WHITE BLOOD COUNT 12.9 10*3/uL (4.8-10.8)
[2017-06-08 06:58] LABS: BUN 20 mg/dl (7-24); CHLORIDE 84 mmol/L (98-107); EST GLOM FILT AFRICAN AMERICAN > 60 ml/min; GLUCOSE 126 mg/dL (65-99); POTASSIUM 3.7 mmol/L (3.5-5.1); SODIUM 137 mmol/L (136-145)
[2017-06-08 07:16] LABS: LYMPHOCYTE # 1.7 10*3/uL (1.3-4.4); METAMYELOCYTES 3 % (0-0); MONOCYTE # 0.8 10*3/uL (0.1-1.0); MYELOCYTES 1 % (0-0); NEUTROPHIL # 9.9 10*3/uL (2.3-7.9); NEUTROPHILS 77 % (47-73); TOTAL CELLS COUNTED 100 #CELLS
[2017-06-08 07:17] LABS: OVALOCYTES FEW; PLATELET SUFFICIENCY NORMAL (NORMAL); POLYCHROMASIA SLIGHT
[2017-06-08 07:24] LABS: CARBON DIOXIDE 46 mmol/L (21-32)
[2017-06-08 08:00] VITALS: BP 100/42
[2017-06-08 10:55] LABS: BILIRUBIN NEGATIVE (NEGATIVE); BLOOD NEGATIVE (NEGATIVE); CLARITY CLEAR (CLEAR); COLOR YELLOW (YELLOW); GLUCOSE NEGATIVE (NEGATIVE); KETONE NEGATIVE (NEGATIVE); LEUKO ESTERASE NEGATIVE (NEGATIVE); NITRITE NEGATIVE (NEGATIVE); PROTEIN NEGATIVE (NEGATIVE); SPECIFIC GRAVITY <= 1.005 (1.005-1.030); UROBILINOGEN 0.2 E.U./dl (0.2-1.0)
[2017-06-08 11:13] LABS: EPITHELIAL CELLS 0-2
[2017-06-08 11:14] LABS: BACTERIA 2+; RBC 0-2 rbc/hpf (0-2); URINE REFLEX COMMENT YES (NO)
[2017-06-08 12:00] VITALS: BP 110/50
[2017-06-08 16:00] VITALS: BP 115/58
[2017-06-08 19:16] LABS: ABG BASE EXCESS 20.4 mmol/L (-2.0-2.0); ABG CO2 CONTENT 49.8 mmol/L (23-27); ABG HCO3 47.5 mmol/l (22-26); ABG TEMPERATURE 98.6 F (98.0-99.0); ARTERIAL BLOOD GAS PH 7.417 (7.35-7.45); ARTERIAL BLOOD GAS PO2 79.5 mmHg (80-90)
[2017-06-08 20:00] VITALS: BP 132/50
[2017-06-09] VITALS: BP 121/44
[2017-06-09 06:42] LABS: HEMATOCRIT 26.5 % (37.0-47.0); HEMOGLOBIN 7.7 g/dl (12.0-16.0); MEAN CORPUSCULAR HGB 27.9 pg (27.0-31.0); MEAN CORPUSCULAR HGB CONC 29.1 g/dl (33.0-37.0); MEAN PLATELET VOLUME 9.1 fl (9.6-12.3); NUCLEATED RED BLOOD CELL 0.2 10*3/uL (0.0-0.0); PLATELET COUNT AUTOMATED 449 10*3/uL (130-400); RED BLOOD COUNT 2.76 10*6/uL (4.10-5.10); RED CELL DISTRI WIDTH 16.9 % (0-14.5); WHITE BLOOD COUNT 14.6 10*3/uL (4.8-10.8)
[2017-06-09 06:48] LABS: BUN 29 mg/dl (7-24); CHLORIDE 84 mmol/L (98-107); EST GLOM FILT AFRICAN AMERICAN > 60 ml/min; GLUCOSE 118 mg/dL (65-99); POTASSIUM 3.6 mmol/L (3.5-5.1); SODIUM 134 mmol/L (136-145)
[2017-06-09 07:00] LABS: CARBON DIOXIDE 49 mmol/L (21-32)
[2017-06-09 07:25] LABS: LYMPHOCYTE # 2.9 10*3/uL (1.3-4.4); METAMYELOCYTES 3 % (0-0); MONOCYTE # 0.6 10*3/uL (0.1-1.0); MYELOCYTES 4 % (0-0); NEUTROPHIL # 10.1 10*3/uL (2.3-7.9); NEUTROPHILS 69 % (47-73); TOTAL CELLS COUNTED 100 #CELLS
[2017-06-09 07:26] LABS: PLATELET SUFFICIENCY HIGH (NORMAL); POLYCHROMASIA SLIGHT
[2017-06-09 08:00] VITALS: BP 129/58
[2017-06-09] MEDS ORDERED: MORPHINE SULFAT15 MG PO (09:59)
[2017-06-09] MEDS ORDERED: PREDNISONE10 M1 PO (09:59)
[2017-06-09] MEDS ORDERED: VITAMIN D1000 IU PO (09:59)
[2017-06-09] MEDS ORDERED: ACETAZOLAMIDE250 MG PO (09:59)
[2017-06-09] MEDS ORDERED: XARE20MG PO (09:59)
[2017-06-09] MEDS ORDERED: OXYCODONE HCL15 MG PO (09:59)
[2017-06-09] MEDS ORDERED: OXYCODONE HCL10 M1 PO (09:59)
[2017-06-09] MEDS ORDERED: LASIX40 MG PO (09:59)
[2017-06-09 12:00] VITALS: BP 100/46
== END 2017-06-09 14:03 | disposition other institution (70) | DRG 291 ==
LOC: ED 12:53 → ICCU 14:55 → EDHOLD 14:55 → ICCU 15:46 → 4E 06-05 13:28
PROVIDERS: Hospitalist; Internal Medicine; Internal Medicine Critical Care Medicine; Internal Medicine Hospice and Palliative Medicine; Internal Medicine Nephrology; Nurse Practitioner Family; Student in an Organized Health Care Education/Training Program
PROC: 5A09557 Assistance with Respiratory Ventilation, Greater than 96 Consecutive Hours, Continuous Positive Airway Pressure (ICD-10-PCS; principal; 2017-06-03)
DX: I11.0 Hypertensive heart disease with heart failure (principal); E43 Unspecified severe protein-calorie malnutrition; J96.21 Acute and chronic respiratory failure with hypoxia; E87.3 Alkalosis; J18.9 Pneumonia, unspecified organism; C92.10 Chronic myeloid leukemia, BCR/ABL-positive, not having achieved remission; D68.9 Coagulation defect, unspecified; J96.22 Acute and chronic respiratory failure with hypercapnia; L97.909 Non-pressure chronic ulcer of unspecified part of unspecified lower leg with unspecified severity; J44.0 Chronic obstructive pulmonary disease with (acute) lower respiratory infection; J44.9 Chronic obstructive pulmonary disease, unspecified; E87.8 Other disorders of electrolyte and fluid balance, not elsewhere classified; I50.33 Acute on chronic diastolic (congestive) heart failure; B95.2 Enterococcus as the cause of diseases classified elsewhere; F41.1 Generalized anxiety disorder; R73.9 Hyperglycemia, unspecified; F32.9 Major depressive disorder, single episode, unspecified; E78.5 Hyperlipidemia, unspecified; I73.9 Peripheral vascular disease, unspecified; I25.10 Atherosclerotic heart disease of native coronary artery without angina pectoris; D53.1 Other megaloblastic anemias, not elsewhere classified; Z88.8 Allergy status to other drugs, medicaments and biological substances; Z91.041 Radiographic dye allergy status; Z88.0 Allergy status to penicillin; Z91.040 Latex allergy status; Z79.2 Long term (current) use of antibiotics; Z79.51 Long term (current) use of inhaled steroids; Z90.49 Acquired absence of other specified parts of digestive tract; Z79.899 Other long term (current) drug therapy; Z89.432 Acquired absence of left foot; Z95.5 Presence of coronary angioplasty implant and graft; Z87.891 Personal history of nicotine dependence; Z82.49 Family history of ischemic heart disease and other diseases of the circulatory system; Z68.32 Body mass index [BMI] 32.0-32.9, adult

== ENCOUNTER 2017-06-13 11:06 | Emergency (ER) | payer MEDICARE, OTHER ==
[~2017-06-13] VITALS: Ht 154.9 cm; Wt 54.4 kg
[~2017-06-13 11:06] MED LIST changes: +ACETAZOLAMIDE250 MG PO; +BREO ELLIPTA 11 EACH INH; +LIDOVEX60 GM T; +PREDNISONE10 M1 PO; +PRO-STAT 64 3030 M2; +REGLAN5 MG PO; +VITAMIN D1000 IU PO
[2017-06-13 11:56] LABS: HEMATOCRIT 21.7 % (37.0-47.0); HEMOGLOBIN 6.1 g/dl (12.0-16.0); MEAN CELL VOLUME 98.6 fl (81.0-99.0); MEAN CORPUSCULAR HGB 27.7 pg (27.0-31.0); MEAN CORPUSCULAR HGB CONC 28.1 g/dl (33.0-37.0); NUCLEATED RED BLOOD CELL 0.1 10*3/uL (0.0-0.0); NUCLEATED RED BLOOD CELL 0.9 % (0.0-0.0); PLATELET COUNT AUTOMATED 407 10*3/uL (130-400); RED CELL DISTRI WIDTH 19.9 % (0-14.5); WHITE BLOOD COUNT 13.7 10*3/uL (4.8-10.8)
[2017-06-13 12:06] LABS: INTERNATIONAL NORM RATIO 1.2 (2.0-3.5); PROTHROMBIN TIME 12.4 SECONDS (9.0-12.4)
[2017-06-13 12:13] LABS: ALKALINE PHOSPHATASE 78 U/L (45-117); BILIRUBIN, TOTAL 0.1 mg/dl (0.2-1.0); BUN 38 mg/dl (7-24); C-REACTIVE PROTEIN 2.01 MG/DL (0-0.3); CARBON DIOXIDE 37 mmol/L (21-32); CHLORIDE 94 mmol/L (98-107); CKMB 0.5 ng/ml (0.5-3.6); CPK 29 U/L (26-192); EST GLOM FILT AFRICAN AMERICAN > 60 ml/min; GLUCOSE 138 mg/dL (65-99); MAGNESIUM 2.3 mg/dL (1.5-2.1); POTASSIUM 2.8 mmol/L (3.5-5.1); SGOT/AST 21 IU/L (3-35); SGPT/ALT 17 U/L (12-78); SODIUM 138 mmol/L (136-145); TOTAL PROTEIN 5.6 gm/dL (6.4-8.2)
[2017-06-13 12:15] LABS: TROPONIN I < 0.015 ng/ml (<0.045)
[2017-06-13 12:18] LABS: EOSINOPHIL # 0.3 10*3/uL (0-0.4); EOSINOPHILS 2 % (1-4); LYMPHOCYTE # 2.5 10*3/uL (1.3-4.4); MONOCYTE # 0.4 10*3/uL (0.1-1.0); MYELOCYTES 1 % (0-0); NEUTROPHIL # 10.4 10*3/uL (2.3-7.9); NEUTROPHILS 76 % (47-73); PLATELET SUFFICIENCY HIGH (NORMAL); TOTAL CELLS COUNTED 100 #CELLS
[2017-06-13 12:19] LABS: HYPOCHROMIA MODERATE; POLYCHROMASIA MODERATE; STOMATOCYTE FEW
== END 2017-06-13 12:33 | disposition short-term general hospital (02) ==
LOC: ED 11:06
PROVIDERS: Emergency Medicine
DX: I77.9 Disorder of arteries and arterioles, unspecified (principal); I25.10 Atherosclerotic heart disease of native coronary artery without angina pectoris; I48.0 Paroxysmal atrial fibrillation; E78.5 Hyperlipidemia, unspecified; I11.0 Hypertensive heart disease with heart failure; I50.30 Unspecified diastolic (congestive) heart failure; Z91.041 Radiographic dye allergy status; Z88.0 Allergy status to penicillin; Z88.8 Allergy status to other drugs, medicaments and biological substances; Z91.040 Latex allergy status; Z87.891 Personal history of nicotine dependence

== ENCOUNTER 2018-01-22 14:11 | Emergency (ER) | payer MEDICARE, OTHER ==
[~2018-01-22] VITALS: Ht 157.4 cm; Wt 8.6 kg
== END 2018-01-22 14:51 | disposition home or self-care (01) ==
LOC: ED 14:11
DX: S50.11XA Contusion of right forearm, initial encounter (principal); I25.10 Atherosclerotic heart disease of native coronary artery without angina pectoris; I11.0 Hypertensive heart disease with heart failure; I50.9 Heart failure, unspecified; E78.5 Hyperlipidemia, unspecified; I48.0 Paroxysmal atrial fibrillation; Z91.041 Radiographic dye allergy status; Z91.040 Latex allergy status; Z88.8 Allergy status to other drugs, medicaments and biological substances; Z79.899 Other long term (current) drug therapy; Z88.0 Allergy status to penicillin; Z87.891 Personal history of nicotine dependence; W22.03XA Walked into furniture, initial encounter; Y93.89 Activity, other specified; Y92.89 Other specified places as the place of occurrence of the external cause; Y99.8 Other external cause status

== ENCOUNTER → 2018-01-22 | Outpatient (CLI) | payer MEDICARE, OTHER ==
[2018-01-22 14:29] LABS: INTERNATIONAL NORM RATIO 3.5 (2.0-3.5)
[2018-01-22 14:44] LABS: ALKALINE PHOSPHATASE 151 U/L (45-117); BUN 17 mg/dl (7-24); CHLORIDE 99 mmol/L (98-107); CREATININE 0.63 mg/dL (0.55-1.02); POTASSIUM 3.4 mmol/L (3.5-5.1); SGOT/AST 55 IU/L (3-35); SGPT/ALT 77 U/L (12-78); SODIUM 138 mmol/L (136-145); TOTAL PROTEIN 6.9 gm/dL (6.4-8.2)
[2018-01-23 08:10] LABS: COMPLEMENT C4 001834 31 mg/dL (14-44)
== END | disposition home or self-care (01) ==
LOC: LAB 13:19
PROVIDERS: Family Medicine; Surgery
DX: I73.9 Peripheral vascular disease, unspecified (principal); C92.90 Myeloid leukemia, unspecified, not having achieved remission; J44.9 Chronic obstructive pulmonary disease, unspecified; I10 Essential (primary) hypertension

== ENCOUNTER → 2018-03-01 | Outpatient (CLI) | payer MEDICARE, OTHER ==
[2018-03-01 13:37] LABS: BASO % 0.4 % (0.0-1.0); EOS # 0.1 10*3/uL (0.0-0.4); EOS % 0.7 % (1.0-4.0); HEMATOCRIT 44.7 % (37.0-47.0); LYMPH # 1.2 10*3/uL (1.3-4.4); LYMPH % 12.7 % (27.0-41.0); MEAN CELL VOLUME 100.7 fl (81.0-99.0); MEAN CORPUSCULAR HGB 29.3 pg (27.0-31.0); MEAN CORPUSCULAR HGB CONC 29.1 g/dl (33.0-37.0); MEAN PLATELET VOLUME 9.4 fl (9.6-12.3); MONO # 0.3 10*3/uL (0.1-1.0); MONO % 2.9 % (3.0-9.0); NEUT # 7.5 10*3/uL (2.3-7.9); NEUT % 82.3 % (47.0-73.0); PLATELET COUNT AUTOMATED 233 10*3/uL (130-400); RED BLOOD COUNT 4.44 10*6/uL (4.10-5.10); RED CELL DISTRI WIDTH 14.7 % (0-14.5); WHITE BLOOD COUNT 9.1 10*3/uL (4.8-10.8)
[2018-03-01 13:46] LABS: BILIRUBIN NEGATIVE (NEGATIVE); BLOOD NEGATIVE (NEGATIVE); CLARITY CLEAR (CLEAR); COLOR YELLOW (YELLOW); GLUCOSE NEGATIVE (NEGATIVE); KETONE NEGATIVE (NEGATIVE); LEUKO ESTERASE NEGATIVE (NEGATIVE); NITRITE NEGATIVE (NEGATIVE); PH 6.5 (5.0-9.0)
[2018-03-01 14:02] LABS: BACTERIA TRACE; WBC 0-2 wbc/hpf (0-5)
[2018-03-01 14:09] LABS: BUN 17 mg/dl (7-24); CHLORIDE 101 mmol/L (98-107); CREATININE 0.59 mg/dL (0.55-1.02); POTASSIUM 4.9 mmol/L (3.5-5.1); SODIUM 139 mmol/L (136-145)
[2018-03-02 09:06] LABS: HEPATITIS B SURFACE AG Negative (Negative); HEPATITIS C VIRUS ANTIBODY <0.1 s/co (0.0-0.9)
== END | disposition home or self-care (01) ==
LOC: LAB 12:51
PROVIDERS: Family Medicine; Surgery
DX: Z01.818 Encounter for other preprocedural examination (principal); J44.9 Chronic obstructive pulmonary disease, unspecified; I73.9 Peripheral vascular disease, unspecified; I10 Essential (primary) hypertension; R94.5 Abnormal results of liver function studies

== ENCOUNTER → 2018-03-23 | Outpatient (CLI) | payer MEDICARE, OTHER ==
[2018-03-23 15:21] LABS: BASO # 0.1 10*3/uL (0.0-0.1); BASO % 0.6 % (0.0-1.0); EOS # 0.1 10*3/uL (0.0-0.4); EOS % 0.6 % (1.0-4.0); HEMATOCRIT 40.9 % (37.0-47.0); HEMOGLOBIN 12.1 g/dl (12.0-16.0); LYMPH # 1.6 10*3/uL (1.3-4.4); LYMPH % 14.7 % (27.0-41.0); MEAN CELL VOLUME 98.1 fl (81.0-99.0); MEAN CORPUSCULAR HGB CONC 29.6 g/dl (33.0-37.0); MEAN PLATELET VOLUME 9.1 fl (9.6-12.3); MONO # 0.4 10*3/uL (0.1-1.0); MONO % 3.7 % (3.0-9.0); NEUT # 8.6 10*3/uL (2.3-7.9); NEUT % 79.2 % (47.0-73.0); PLATELET COUNT AUTOMATED 310 10*3/uL (130-400); RED BLOOD COUNT 4.17 10*6/uL (4.10-5.10); RED CELL DISTRI WIDTH 14.8 % (0-14.5); WHITE BLOOD COUNT 10.9 10*3/uL (4.8-10.8)
== END ==
LOC: LAB 14:37
PROVIDERS: Internal Medicine Medical Oncology
DX: C92.10 Chronic myeloid leukemia, BCR/ABL-positive, not having achieved remission (principal)

== ENCOUNTER → 2018-04-26 | Outpatient (CLI) | payer MEDICARE, OTHER ==
[2018-04-26 18:16] LABS: INTERNATIONAL NORM RATIO 2.2 (2.0-3.5)
== END | disposition home or self-care (01) ==
LOC: LAB 17:14
PROVIDERS: Surgery
DX: I70.219 Atherosclerosis of native arteries of extremities with intermittent claudication, unspecified extremity (principal)

== ENCOUNTER → 2018-08-13 | Outpatient (CLI) | payer MEDICARE, OTHER ==
[~2018-08-13] MED LIST changes: +KEFLEX500 M1 PO; +TESSALON PERLE100 M1 PO
[2018-08-13 13:26] LABS: BASO # 0.1 10*3/uL (0.0-0.1); BASO % 0.7 % (0.0-1.0); EOS # 0.2 10*3/uL (0.0-0.4); EOS % 2.6 % (1.0-4.0); HEMOGLOBIN 11.8 g/dl (12.0-16.0); LYMPH # 1.6 10*3/uL (1.3-4.4); LYMPH % 17.6 % (27.0-41.0); MEAN CELL VOLUME 91.3 fl (81.0-99.0); MEAN CORPUSCULAR HGB 26.3 pg (27.0-31.0); MEAN CORPUSCULAR HGB CONC 28.8 g/dl (33.0-37.0); MEAN PLATELET VOLUME 9.7 fl (9.6-12.3); MONO # 0.7 10*3/uL (0.1-1.0); MONO % 7.8 % (3.0-9.0); NEUT # 6.4 10*3/uL (2.3-7.9); PLATELET COUNT AUTOMATED 308 10*3/uL (130-400); RED BLOOD COUNT 4.49 10*6/uL (4.10-5.10); RED CELL DISTRI WIDTH 15.8 % (0-14.5); WHITE BLOOD COUNT 9.1 10*3/uL (4.8-10.8)
== END | disposition home or self-care (01) ==
LOC: LAB 12:34
PROVIDERS: Family Medicine
DX: J40 Bronchitis, not specified as acute or chronic (principal); R06.02 Shortness of breath; J44.9 Chronic obstructive pulmonary disease, unspecified

== ENCOUNTER 2018-08-23 13:40 | Emergency (ER) | payer MEDICARE, OTHER ==
[~2018-08-23] VITALS: Ht 157.4 cm; Wt 65.8 kg
--- NOTE | ~2018-08-23 | EKG ---
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
[~2018-08-23 13:40] MED LIST changes: -KEFLEX500 M1 PO; -TESSALON PERLE100 M1 PO
[2018-08-23 15:05] LABS: BASO # 0.1 10*3/uL (0.0-0.1); BASO % 0.9 % (0.0-1.0); EOS # 0.4 10*3/uL (0.0-0.4); EOS % 6.5 % (1.0-4.0); HEMATOCRIT 39.9 % (37.0-47.0); HEMOGLOBIN 11.4 g/dl (12.0-16.0); LYMPH # 1.5 10*3/uL (1.3-4.4); LYMPH % 27.2 % (27.0-41.0); MEAN CELL VOLUME 91.5 fl (81.0-99.0); MEAN CORPUSCULAR HGB 26.1 pg (27.0-31.0); MEAN CORPUSCULAR HGB CONC 28.6 g/dl (33.0-37.0); MEAN PLATELET VOLUME 9.4 fl (9.6-12.3); MONO # 0.5 10*3/uL (0.1-1.0); MONO % 8.3 % (3.0-9.0); NEUT % 55.6 % (47.0-73.0); PLATELET COUNT AUTOMATED 226 10*3/uL (130-400); RED BLOOD COUNT 4.36 10*6/uL (4.10-5.10); RED CELL DISTRI WIDTH 15.8 % (0-14.5); WHITE BLOOD COUNT 5.4 10*3/uL (4.8-10.8)
[2018-08-23 15:20] LABS: ACT PARTIAL THROMBO TIME 55.3 SECONDS (20.8-31.5)
[2018-08-23 15:24] LABS: ALBUMIN 2.5 gm/dl (3.1-4.5); ALKALINE PHOSPHATASE 119 U/L (45-117); BUN 8 mg/dl (7-24); CHLORIDE 101 mmol/L (98-107); CREATININE 0.53 mg/dL (0.55-1.02); POTASSIUM 4.2 mmol/L (3.5-5.1); SGOT/AST 11 IU/L (3-35); SGPT/ALT 9 U/L (12-78); SODIUM 139 mmol/L (136-145); TOTAL PROTEIN 6.7 gm/dL (6.4-8.2)
[2018-08-23 15:25] LABS: TROPONIN I < 0.015 ng/ml (<0.045)
[2018-08-23 15:26] LABS: INTERNATIONAL NORM RATIO 4.6 (2.0-3.5)
[2018-08-23] MEDS ORDERED: TESSALON PERLE100 M1 PO (15:43)
[2018-08-23 16:01] LABS: BILIRUBIN NEGATIVE (NEGATIVE); BLOOD NEGATIVE (NEGATIVE); CLARITY CLEAR (CLEAR); COLOR YELLOW (YELLOW); GLUCOSE NEGATIVE (NEGATIVE); KETONE NEGATIVE (NEGATIVE); NITRITE NEGATIVE (NEGATIVE); PH 6.5 (5.0-9.0); SPECIFIC GRAVITY 1.025 (1.005-1.030)
[2018-08-23 16:04] LABS: LEUKO ESTERASE TRACE (NEGATIVE)
[2018-08-23 16:26] LABS: BACTERIA TRACE
[2018-08-23] MEDS ORDERED: KEFLEX500 M1 PO (16:31)
== END 2018-08-23 17:00 | disposition home or self-care (01) ==
LOC: ED 13:40
PROVIDERS: Physician Assistant
DX: R30.0 Dysuria (principal); R05 Cough; R51 Headache; R79.1 Abnormal coagulation profile; R53.1 Weakness; R53.83 Other fatigue; J44.9 Chronic obstructive pulmonary disease, unspecified; Z87.891 Personal history of nicotine dependence; Z79.899 Other long term (current) drug therapy; Z91.041 Radiographic dye allergy status; Z88.0 Allergy status to penicillin; Z91.040 Latex allergy status; Z88.8 Allergy status to other drugs, medicaments and biological substances

== ENCOUNTER → 2018-09-12 | Outpatient (CLI) | payer MEDICARE, OTHER ==
[~2018-09-12] MED LIST changes: +KEFLEX500 M1 PO; +TESSALON PERLE100 M1 PO
[2018-09-12 18:50] LABS: INTERNATIONAL NORM RATIO 1.8 (2.0-3.5)
== END | disposition home or self-care (01) ==
LOC: LAB 17:50
PROVIDERS: Surgery
DX: Z79.01 Long term (current) use of anticoagulants (principal)

== ENCOUNTER 2018-11-26 03:18 | Inpatient (IN) | payer MEDICARE, OTHER ==
[~2018-11-26] VITALS: Ht 157.4 cm; Wt 64.0 kg
[2018-11-26] VITALS (7 sets, daily range): BP systolic 110–141; BP diastolic 40–64
--- NOTE | ~2018-11-26 | PR ---
[place], [place] PROGRESS NOTE NAME: CHINMAY STARR UNIT #: [id number] ROOM: 406 DOCTOR: LAITH YOUNG MD BIRTHDATE: [birth year] DOS: 11/28/2018 CARDIOLOGY PROGRESS NOTE SUBJECTIVE: The patient was seen at her bedside today with her daughter in attendance. The patient states that she is feeling reasonably well. She did tolerate the bronchoscopy that was done this morning and is breathing well at this time. She did have a brief period of atrial fibrillation, but has reverted back to sinus rhythm. Her appetite has improved, but she still does not eat much. She denies any nausea or vomiting. Her daughter believes that her color is better and that she is looking brighter. PHYSICAL EXAMINATION: VITAL SIGNS: On exam today, her pulse is 90 and regular, blood pressure is 148/78. She is afebrile. NECK: Supple. She has no jugular distention. Carotids are full. LUNGS: Respirations are unlabored. Chest is clear to auscultation and percussion. She has no presacral edema. HEART: Has a regular rhythm with an S4 gallop. ABDOMEN: Soft. EXTREMITIES: Right lower extremity shows trivial edema. She has a left above the knee amputation. IMPRESSIONS: 1. Hospitalization with increased respiratory distress and bilateral pneumonia. 2. Paroxysmal atrial fibrillation. The patient has had episodes of atrial fibrillation in the hospital, but currently is in sinus rhythm. 3. History of atherosclerotic heart disease with recent atypical chest pain. 4. History of peripheral vascular disease, status post [id number] amputation on the left. 5. History of recurrent anemia. PLAN: We will continue her current management. Her INR was 1.9 today and we will simply recheck it on her current dose of warfarin tomorrow. I thank the hospitalist physicians for asking our advice regarding her care. [place], [place] PROGRESS NOTE NAME: CHINMAY STARR UNIT #: [id number] ROOM: 406 DOCTOR: LAITH YOUNG MD BIRTHDATE: [birth year] LAITH YOUNG MD CM:PNTRANS [id number] LAITH YOUNG MD 11/28/18 1631 interface
--- NOTE | ~2018-11-26 | PR ---
[place], [place] PROGRESS NOTE NAME: CHINMAY STARR UNIT #: [id number] ROOM: 406 DOCTOR: PRESTON MCQUEEN MD BIRTHDATE: [birth year] DOS: 12/02/2018 PULMONARY PROGRESS NOTE SUBJECTIVE: The patient was noted comfortable at this time, sitting on the chair without any acute distress. The edema of the extremity noted decreased. She does have mild cough, but there was no sputum expectoration. Denies symptoms of chest pain, fever or chills. Has symptoms of hemoptysis. OBJECTIVE: VITAL SIGNS: For the patient, which has been recorded showed normal temperature, respiratory rate 18, heart rate 77, blood pressure of 162/83. The pulse oxygen saturation was noted on 3 liters nasal cannula 92% saturation. HEENT: Head was atraumatic. Eyes nonicterus. NECK: Supple. CARDIOVASCULAR SYSTEM: S1, S2 audible. LUNGS: Decreased breath sounds in the right lung as previously. Scattered crackles. ABDOMEN: Soft, nontender. Bowel sounds present. EXTREMITIES: With resolving edema. LABORATORY DATA: INR today was noted 3.0, which is therapeutic. CMP this morning, normal BUN and creatinine. Potassium decreased at 3.1 and CO2 level noted 41. IMPRESSION: 1. The patient with resolving peripheral edema. 2. Improving acute pneumonia, Methicillin-resistant Staphylococcus aureus, which is noted recurrent. Clinical radiologic progression was still noted the same without any changes with chest x-ray of yesterday. PLAN OF MANAGEMENT: The patient recommended placement in the senior care facility or LTAC Facility. Monitor the potassium level for this patient. Supplementation of potassium will be continued. Monitoring the bicarbonate level as well. Other additional treatment changes will be ordered based on progression of the illness. [place], [place] PROGRESS NOTE NAME: CHINMAY STARR UNIT #: [id number] ROOM: 406 DOCTOR: PRESTON MCQUEEN MD BIRTHDATE: [birth year] PRESTON JACOBS MD CM:PNTRANS 1607 [id number] PRESTON MURRAY MD 12/03/18 0057 interface
--- NOTE | ~2018-11-26 | PR ---
[place], [place] PROGRESS NOTE NAME: CHINMAY STARR [facility] #: [id number] UNIT #: [id number] ROOM: 406 DOCTOR: ARLENE MURRAY MD,PRESTON BIRTHDATE: [birth year] DOS: 12/03/2018 PULMONARY PROGRESS NOTE SUBJECTIVE: The patient was noted comfortable at this time, resting in the bed without any acute distress. She has been noted with some cough, but there was no sputum expectoration. Denies symptoms of acute shortness of breath at rest. The patient was stating improvement in the edema of the extremities. She has not been noted with any symptoms of headache or fever. Denies symptoms of diplopia. Denies symptoms of hematuria or urinary incontinence or diarrhea. Remaining systems reviewed were noted all negative. OBJECTIVE: VITAL SIGNS: Normal temperature, respiratory rate of 18, heart rate 72, blood pressure 144/50-148/51. Pulse oxygen saturation on 3 liters nasal cannula is 95% saturation. HEENT: Head was atraumatic. Eyes nonicterus. NECK: Supple. CARDIOVASCULAR: S1, S2 is audible. LUNGS: Decreased breath sounds, some crackles scattered in the lungs on the right side. ABDOMEN: Soft, nontender. Bowel sounds present. EXTREMITIES: Resolving edema. 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 Other musculoskeletal noted without any deformities. VISIBLE SKIN: No lesions or rashes. CENTRAL NERVOUS SYSTEM: Intact. LABORATORY DATA: Labs on this patient. CBC this morning; WBC count 6.9, hemoglobin 10.5, platelet count were normal. PT/INR is 3.2, which is therapeutic today. CMP of the patient this morning; normal BUN and creatinine, potassium 3.2, CO2 of 44. The acid-fast bacillus in the bronchial washing was noted as negative with pending culture results. IMPRESSION: 1. Acute extensive pneumonia noted with methicillin-resistant Staphylococcus aureus. 2. Hypokalemia secondary to diuretics. 3. Metabolic alkalosis secondary to intravascular volume depletion and use of diuretic combination. 4. Peripheral edema was noted, much better. 5. Therapeutic INR. PLAN OF MANAGEMENT: Switching the patient's Lasix to oral was done yesterday. Supplementation of potassium. Use of Diamox 4 doses to resolve the metabolic alkalosis. Potassium supplementation will be given oral formulation to improve the severe hypokalemia for this patient and also it will help to improve the metabolic alkalosis. [place], [place] PROGRESS NOTE NAME: CHINMAY STARR UNIT #: [id number] ROOM: [facility] DOCTOR: PRESTON MCQUEEN MD BIRTHDATE: [birth year] PRESTON JACOBS MD CM:JO-ANN 1005 PRESTON MURRAY MD 12/04/18 0056 interface
--- NOTE | ~2018-11-26 | EKG ---
[place], [place] ELECTROCARDIOGRAM REPORT NAME: CHINMAY STARR UNIT #: [id number] ROOM: 406 DOCTOR: EPIPHANY DRAFT REPORT BIRTHDATE: [address] [facility] Test Date: 2018-11-28 Test Time: 12:35:56 Pat Name: CHINMAY STARR Department: Room: [facility] 1 Gender: F Tanyard Worker: ELIZABETH : 1950 Requested By: JANEL HEARD Order Number: [id number] Reading MD: Bj Wells MD Measurements Intervals [place] Rate: 133 P: 91 MO: 127 QRS: 30 QRSD: 89 T: 4 QT: 307 QTc: 457 Interpretive Statements Sinus tachycardia Low voltage, precordial leads Borderline repolarization abnormality Compared to ECG 11/26/2018 03:32:58 Sinus rhythm no longer present Electronically Signed On 11-28-2018 22:10:01 PST by Bj Wells MD CM:EKGRPT:ELECTROCARDIOGRAM REPORT [id number] JANEL HEARD EPIPHANY DRAFT REPORT JANEL HEARD
--- NOTE | ~2018-11-26 | PR ---
[place], [place] PROGRESS NOTE NAME: CHINMAY STARR [facility] #: [id number] UNIT #: [id number] ROOM: 406 DOCTOR: ARLENE MURRAY MD,PRESTON BIRTHDATE: [birth year] DOS: 11/27/2018 SUBJECTIVE: The patient has been currently sitting on the chair this morning for assessment. Coughing has been reported with minimal sputum expectoration. Shortness of breath has been noted stable. There were no symptoms of chest pain reported by the patient. Denies symptoms of nausea, vomiting, diarrhea, headache or diplopia reported by the patient. He denies any pain of the lower extremity, mild edema of the right lower extremity was still noted. Symptoms of itching. Remaining systems were reviewed. They were noted all negative. OBJECTIVE: VITAL SIGNS: For the patient which has been recorded shows normal temperature, respiratory rate of 16-20, heart rate of 87-85, blood pressure 120/41-118/50. Pulse oxygen saturation on 2.5 liters nasal cannula with 93% saturation. HEENT: Examination shows head was atraumatic. Eyes nonicterus. NECK: Supple. CARDIOVASCULAR: S1, S2 audible. LUNGS: Decreased breath sounds on the right lung. ABDOMEN: Soft, nontender. Bowel sounds present. EXTREMITIES: Mild edema. MUSCULOSKELETAL: Amputation of the left lower extremity. SKIN: No lesions or rashes. CENTRAL NERVOUS SYSTEM: No focal deficit. LABORATORY DATA: The CT scan of the chest noted with pulmonary infiltration involving both of the lungs bilaterally with area of consolidative mass-like lesion in the right upper and right lower lobe. Other additional infiltration was noted in the left lung as well. Mediastinal lymphadenopathy was also noted as well as at the right hilar lymph node enlargement size of 1.8 x 1.3-2.1 and 1.9 cm. Trace right pleural fluid was also seen. IMPRESSION: 1. Acute bilateral pneumonia with area of consolidative mass-like lesion. 2. Mediastinal lymphadenopathy, most likely reactive to the current pneumonia; however, this needs to be monitored to exclude a malignancy in future. 3. History of MRSA pneumonia and prolonged hospitalization, treated with an antibiotic with addition of resistant infection besides the MRSA to be excluded. 4. Mild edema of the right lower extremity as well. Overall debility secondary to the above. Plan of management. Therapeutic bronchoscopy was suggested for this patient. The procedure could be done tomorrow morning. She agreed for the procedure. N.p.o. past midnight status will be achieved. No change in antibiotic at this time. Continue other therapy, plan of management, care plan and treatment. Other additional treatment changes recommended based on progression of the illness. [place], [place] PROGRESS NOTE NAME: CHINMAY STARR UNIT #: [id number] ROOM: [facility] DOCTOR: PRESTON MCQUEEN MD BIRTHDATE: [birth year] PRESTON JACOBS MD CM:PNTRANS 1015 [id number] PRESTON MURRAY MD 11/27/18 1150 interface
--- NOTE | ~2018-11-26 | PR ---
[place], [place] PROGRESS NOTE NAME: CHINMAY STARR [facility] #: [id number] UNIT #: [id number] ROOM: 406 DOCTOR: LAITH YOUNG MD BIRTHDATE: [birth year] DOS: 12/05/2018 CARDIOLOGY PROGRESS NOTE SUBJECTIVE: The patient was seen at her bedside today, 12/05/2018, for followup of her paroxysmal atrial fibrillation and atherosclerotic heart disease. She was seen with her daughter at the bedside. She is progressing well. She is being treated for bilateral pneumonia and this is responding to therapy. Plans are being made for her to be sent to an extended care facility in the very near future. The nurses did mention to me that her blood pressure has been on the lower end of normal with systolic pressures of 106-118. Heart rates have been stable in the 70s and therefore, they have been withholding beta vinayak doses. The patient denies any chest pain or palpitations and the monitor shows that she is remaining in sinus rhythm. PHYSICAL EXAMINATION: VITAL SIGNS: Her pulse is 78 and regular, blood pressure is 106/42. She is afebrile. NECK: Supple. She has no jugular distention. Carotids are full. LUNGS: Respirations are unlabored. Chest is clear with a few crackles at the bases. She has no presacral edema. HEART: Has a regular rhythm with an S4 gallop, but no S3 or significant murmur. ABDOMEN: Soft. EXTREMITIES: Her right ankle is free of any edema or palpable cords. LABORATORY DATA: Hemoglobin is 11.4, white count 13,100, platelet count 339,000. IMPRESSION: 1. Hospitalization with bilateral pneumonia. 2. Paroxysmal atrial fibrillation. The patient is currently in sinus rhythm. 3. History of atherosclerotic heart disease. The patient had atypical chest pain, but no evidence for acute myocardial infarction on this admission. 4. History of peripheral vascular disease, status post left ipqju-cry-pmed amputation. 5. History of recurrent anemia. PLAN: We will decrease her metoprolol to twice a day and place parameters for its administration on the chart. Otherwise, no other cardiac workup is planned at this time. We will see her intermittently while she is still in the hospital, but she may be discharged at any time from our perspective. I thank the hospitalist physicians for asking our advice regarding her care. [place], [place] PROGRESS NOTE NAME: CHINMAY STARR UNIT #: [id number] ROOM: 406 DOCTOR: LAITH YOUNG MD BIRTHDATE: [birth year] LAITH YOUNG MD CM:PNTRANS [id number] LAITH YOUNG MD 12/06/18 0425 interface
--- NOTE | ~2018-11-26 | PR ---
[place], [place] PROGRESS NOTE NAME: [facility] #[facility] [id number] UNIT #: [id number] ROOM: 406 DOCTOR: LAITH YOUNG MD BIRTHDATE: [birth year] DOS: 12/03/2018 CARDIOLOGY PROGRESS NOTE SUBJECTIVE: The patient was seen at her bedside with her daughter in attendance today 12/03/2018. She is feeling better. She is breathing easily and coughing much less. She denies any chest pain or palpitations. She has been in sinus rhythm for the last few days. PHYSICAL EXAMINATION: VITAL SIGNS: On exam today, her pulse is 72 and regular, blood pressure is 144/50. She is afebrile, oxygen saturation is 95%. NECK: Supple. She has no jugular distention. Carotids are full. LUNGS: Respirations are unlabored. Her chest has bibasilar crackles. She has no presacral edema. HEART: Has a regular rhythm with a fourth heart sound, but no third heart sound or murmur. ABDOMEN: Benign. EXTREMITIES: Her ankle is mildly swollen with trace edema. LABORATORY DATA: INR today is 3.2, slightly supratherapeutic. Sodium is 142, potassium 3.2, chloride 94, CO2 44, BUN 3, creatinine 0.36. Albumin is low at 2.0. IMPRESSION: 1. Hospitalization with increased respiratory distress and bilateral pneumonias. 2. Paroxysmal atrial fibrillation. The patient is currently in sinus rhythm. 3. History of atherosclerotic heart disease. The patient recently had atypical chest pain, but no evidence for an acute myocardial infarction. 4. History of peripheral vascular disease, status post left csnwz-msr-hwlw amputation. 5. History of recurrent anemia. PLAN: Her potassium should be replaced. No other cardiac evaluation or change in therapy is planned at this time. I will defer to the primary team for management of her INR. We will continue to look in on her intermittently while she is still here for antibiotic therapy. I thank the hospitalist physicians for asking our advice regarding her care. [place], [place] PROGRESS NOTE NAME: CHINMAY STARR UNIT #: [id number] ROOM: 406 DOCTOR: LAITH YOUNG MD BIRTHDATE: [birth year] LAITH YOUNG MD CM:PNYAN [phone] LAITH YOUNG MD 12/04/18 0935 interface
--- NOTE | ~2018-11-26 | EKG ---
[place], [place] ELECTROCARDIOGRAM REPORT NAME: CHINMAY STARR UNIT #: [id number] ROOM: 406 DOCTOR: EPIPHANY DRAFT REPORT BIRTHDATE: [birth year] [facility] Test Date: 2018-11-27 Test Time: 11:25:03 Pat Name: CHINMAY STARR Department: Room: [facility] 1 Gender: F Video Game Technician: Sindhu Gaffney : 1950 Requested By: PRESTON MURRAY Order Number: [id number] Reading MD: Preston Swift MD Measurements Intervals [place] Rate: 87 P: -53 WY: 146 QRS: 33 QRSD: 84 T: 36 QT: 358 QTc: 431 Interpretive Statements Sinus or ectopic atrial rhythm Compared to ECG 09/22/2018 16:31:16 Electronically Signed On 12-01-2018 11:45:52 PST by Preston Swift MD CM:EKGRPT:ELECTROCARDIOGRAM REPORT [id number] PRESTON ALBRIGHT DRAFT REPORT PRESTON MURRAY MD
--- NOTE | ~2018-11-26 | CON ---
[place], [place] REPORT OF CONSULTATION NAME: CHINMAY STARR [facility] #: [id number] UNIT #: [id number] ROOM: 406 DOCTOR: LAITH YOUNG MD BIRTHDATE: [birth year] DOS: 11/26/2018 REASON FOR CONSULTATION: History of coronary artery disease, paroxysmal atrial fibrillation, peripheral vascular disease. HISTORY OF PRESENT ILLNESS: The patient is a 68-year-old woman who has got multiple medical problems including coronary artery disease status post stents in the distant past, peripheral vascular disease, status post stents and eventual left above the knee amputation, hypertension, Crohn's disease, immunodeficiency with common variable hypergammaglobulinemia, and chronic myeloid leukemia. She has had recurrent pneumonias and was recently hospitalized at the [facility] with pneumonia. While there, she reportedly did have a seizure. She did have recurrent atrial fibrillation while she was in respiratory distress and her medications were changed. She was placed on ranolazine and propafenone. Since then, she has felt poorly. She is hospitalized now with recurrent dyspnea and we were asked to assist in the adjustment of her medications. Currently, the patient feels lethargic and weak. She has noticed increased shortness of breath lately. A chest x-ray on admission does show a right middle and lower lobe pneumonia and therefore she was admitted for further management. PAST MEDICAL HISTORY: Includes: 1. Essential hypertension. 2. Paroxysmal atrial fibrillation. 3. Hyperlipidemia. 4. History of stroke. 5. Atherosclerotic heart disease, status post 2 stents placed in the distant past, reportedly around 2003. 6. Chronic myeloid leukemia. The patient is not currently on chemotherapy. 7. Peripheral vascular disease, status post revascularizations and eventual left icxrw-ifn-vyyo amputation. 8. Immune deficiency with common variable hypogammaglobulinemia. 9. Recurrent anemia. 10. Chronic obstructive pulmonary disease. 11. Recurrent pneumonias. 12. Reported seizure while hospitalized with respiratory difficulties at the [facility] recently. MEDICATIONS: Prior to admission included albuterol by inhaler q. 6 hours, Pulmicort by nebulizer daily, Cymbalta 30 mg daily, famotidine 40 mg daily, iron sulfate 325 mg daily, folic acid 1 mg daily, gabapentin 300 mg t.i.d., Keppra 250 mg b.i.d., Ondansetron 4 mg q. 6 hours p.r.n., pantoprazole 40 mg daily, potassium chloride 10 mEq b.i.d., pravastatin 40 mg at bedtime, ranolazine 500 mg b.i.d. and warfarin 3 mg daily to maintain an INR between 2 and 3. Recently, she has also taken aspirin and metoprolol. Although these have been stopped during her hospitalization in [place]. ALLERGIES: SHE LISTS ALLERGIES TO IV DYE, PENICILLINS, ABILIGY, AND LATEX. In addition, she appears to be intolerant of propafenone, although this probably is [place], [place] REPORT OF CONSULTATION NAME: CHINMAY STARR UNIT #: [id number] ROOM: 406 DOCTOR: LAITH YOUNG MD BIRTHDATE: [birth year] not a true allergy. REVIEW OF SYSTEMS: The patient denies diplopia or loss of vision. She is generally weak, but denies focal weakness. She denies syncope. She denies vomiting, but she is constantly nauseous. She believes that this got worse when she started taking ranolazine. She denies chest pain at present, although she may have had some pain while she was hospitalized in [place]. She denies fevers, chills or sweats at this time. She is coughing and does have shortness of breath. Cough is mildly productive. There is no blood in her sputum. She denies blood in her bowels or urine. She denies any change in bowel or bladder habits. She denies swelling in her right leg. She has a left AKA. She denies any new skin rashes. Remainder review of systems is negative except as noted above. FAMILY HISTORY: The patient's parents both of complications of coronary artery disease in their early 60s. There is a family history of hypertension, diabetes, stroke and coronary artery disease. SOCIAL HISTORY: The patient lives with her daughter. She was a smoker, but quit many years ago. She does not consume alcohol. PHYSICAL EXAMINATION: GENERAL: The patient is a slender, elderly white female who looks chronically ill. VITAL SIGNS: Pulse is 94 and regular, blood pressure is 119/50. She is afebrile. She weighs 59.1 kg and has a body mass index of 23.8. HEENT: Normocephalic and atraumatic. Extraocular muscles are intact. Sclerae are clear. Pupils equal, round and react to light. The oral mucosa is moist. Tongue is midline. NECK: Supple. She has no jugular distention. Carotids are full and I heard no bruits. She had no neck or supraclavicular masses. LUNGS: Respirations are unlabored at rest. She does have decreased breath sounds at the bases with crackles at the bases, especially on the right. She has no presacral edema or chest wall tenderness. HEART: Has a regular rhythm. She has a fourth heart sound, but no third heart sound or murmur. The PMI is not displaced. There is no precordial heave, lift or thrill. ABDOMEN: Soft and normally active without masses, organomegaly or bruits. EXTREMITIES: Showed no clubbing, cyanosis or edema on the right. She has a left AKA. Peripheral pulses are absent in the right foot. There is no palpable cord in the right leg. LABORATORY DATA: I reviewed her electrocardiograms, which showed sinus rhythm with low voltage in the precordium. No acute ST or T-wave changes are seen. IMPRESSIONS: 1. Admission to hospital with increased respiratory distress and progressive bilateral pneumonias. 2. Paroxysmal atrial fibrillation. The patient is currently in sinus rhythm. 3. History of atherosclerotic heart disease with recent atypical chest pain. [place], [place] REPORT OF CONSULTATION NAME: CHINMAY STARR UNIT #: [id number] ROOM: 406 DOCTOR: LAITH YOUNG MD BIRTHDATE: [birth year] 4. History of peripheral vascular disease, status post left above-knee amputation. 5. History of recurrent anemia with current hemoglobin 11.1. PLAN: As regards to her atrial fibrillation, she has done well with metoprolol in the past and we will resume that. Hopefully, this will be enough to take care of any potential cardiac ischemia as well. She does not appear to be tolerating ranolazine and therefore we will stop the drug. Hopefully, this will help with some of her nausea. She should be on an antiplatelet agent for her lower extremity stenting and we will continue her on warfarin, both for her right lower extremity and for stroke prevention. Currently, her INR is subtherapeutic. Once it becomes therapeutic we will be able to stop her Lovenox injections. For now, however, I would increase the Lovenox to therapeutic doses. We will follow the patient with her other physicians and I thank the hospitalist for asking our advice regarding her care. LAITH YOUNG MD CM:CONSTR:REPORT OF CONSULTATION 1025 11/26/18 1149 interface
--- NOTE | ~2018-11-26 | PR ---
[place], [place] PROGRESS NOTE NAME: CHINMAY STARR UNIT #: [id number] ROOM: 406 DOCTOR: LAITH YOUNG MD BIRTHDATE: [birth year] DOS: 11/27/2018 CARDIOLOGY PROGRESS NOTE SUBJECTIVE: The patient was seen at her bedside today, 11/27/2018, for followup of her paroxysmal atrial fibrillation and atherosclerotic heart disease. When I saw her yesterday, I stopped ranolazine and put her back on beta vinayak. She is feeling much better today. She states that her appetite has improved. She no longer has nausea and she is breathing adequately. She no longer feels lethargic and weak. She still is coughing and has coarse breath sounds. I understand that she is scheduled for bronchoscopy by Dr. Swift within the next 24 hours. PHYSICAL EXAMINATION: VITAL SIGNS: Today her pulse is 87 and regular, blood pressure is 120/41. She is afebrile. NECK: Supple. She has no jugular distention. Carotids are full. LUNGS: Respirations are unlabored. She does have coarse breath sounds bilaterally with expiratory prolongation and scattered wheezes bilaterally. She also has rhonchi, especially anteriorly. HEART: Has a regular rhythm. Heart tones are quite distant and obscured by lung sounds. ABDOMEN: Soft and normally active. EXTREMITIES: Showed left above the knee amputation. Her right ankle shows trivial edema. She does seem to be doing better from a cardiac standpoint on her current medical regimen. Since she has good control of her heart rate and blood pressure, I think I will leave things as they are, but we have room to adjust her beta vinayak upwards if need be. IMPRESSION: 1. Hospitalization with increased respiratory distress and progressive bilateral pneumonias. 2. Paroxysmal atrial fibrillation. The patient is currently in sinus rhythm. 3. History of atherosclerotic heart disease with recent atypical chest pain. 4. History of peripheral vascular disease, status post left mstgt-kip-vsiu amputation. 5. History of recurrent anemia. PLAN: As noted above. We will continue to follow the patient intermittently in the hospital as her pneumonias are being treated. I thank the hospitalist physicians for asking our advice regarding her care. [place], [place] PROGRESS NOTE NAME: CHINMAY STARR UNIT #: [id number] ROOM: 406 DOCTOR: LAITH YOUNG MD BIRTHDATE: [birth year] LAITH YOUNG MD CM:PNTRANS [id number] LAITH YOUNG MD 11/27/18 1437 interface
--- NOTE | ~2018-11-26 | PR ---
[place], [place] PROGRESS NOTE NAME: CHINMAY STARR [facility] #: [id number] UNIT #: [id number] ROOM: 406 DOCTOR: ARLENE MURRAY MD,PRESTON BIRTHDATE: [birth year] DOS: 11/30/2018 PULMONARY PROGRESS NOTE SUBJECTIVE: The patient has been still noted with some cough. Shortness of breath has been subsiding. There are no symptoms of chest pain or hemoptysis. She denies symptoms of abdominal pain, nausea, vomiting, diarrhea, hematemesis, melena, or hematochezia. The patient denies any symptoms of headache or diplopia. Remaining systems were reviewed, they were noted all negative. OBJECTIVE: VITAL SIGNS: Normal temperature, respiratory rate 21, heart rate 77, blood pressure 164/74. Pulse oxygen saturation recorded as 96% on BiPAP. HEENT: No acute change. NECK: Supple. CARDIOVASCULAR: S1 and S2 audible. LUNGS: Noted with decreased breath sounds. Scattered crackles of the right lung. ABDOMEN: Soft, nontender. EXTREMITIES: Above-knee amputation, left lower extremity. Mild edema of the right lower extremity. VISIBLE SKIN: No lesions or rashes. MUSCULOSKELETAL: Without other deformities. CENTRAL NERVOUS SYSTEM: No focal deficit. LABORATORY DATA: CBC: WBC count was 4.9, hemoglobin 9.9, platelet count normal. PT/INR 3.9, mildly above therapeutic range. Culture of the bronchial washings has been noted with MRSA isolation and yeast. IMAGING STUDIES: Chest x-ray that was done outpatient this morning was personally reviewed, extensive infiltration involving the right lung was noted with small infiltration in the left lower lobe as well. IMPRESSION: 1. Acute multilobar pneumonia in the lung secondary to MRSA pneumonia, which has been noted recurrent. The patient has been treated for MRSA pneumonia for several weeks in the last 60 days or more. 2. Acute respiratory failure, secondary to above. PLAN OF MANAGEMENT: De-escalation of antibiotic based on the current culture results. Adjustment of PT/INR to be in the therapeutic level. Continuation of other therapy plan of management. Placement with either a long-term acute care facility or usp facility could be started with protective services social worker for discharge possibly on Monday upon achieving further stability of the current respiratory condition and pneumonia. Other therapy plan of management as well. Usual care. Continue the BiPAP for respiratory failure support. [place], [place] PROGRESS NOTE NAME: CHINMAY STARR [facility] #: [id number] UNIT #: [id number] ROOM: [facility] DOCTOR: PRESTON MCQUEEN MD BIRTHDATE: [birth year] PRESTON JACOBS MD CM:PNTRANS 1145 [id number] PRESTON MURRAY MD 11/30/18 1433 interface
--- NOTE | ~2018-11-26 | PR ---
[place], [place] PROGRESS NOTE NAME: CHINMAY STARR [facility] #: [id number] UNIT #: [id number] ROOM: 406 DOCTOR: ARLENE MURRAY MD,PRESTON BIRTHDATE: [birth year] DOS: 12/01/2018 SUBJECTIVE: The patient was seen and examined on 12/01/2018. She has been noted with chest congestion with intermittent cough and shortness of breath. She has been noted increased edema of the upper and the lower extremities. Denies symptoms of chest pain. Denies symptoms of hemoptysis. Denies symptoms of nausea and vomiting. Denies symptoms of diplopia. There were no symptoms of hematuria. Remaining systems were reviewed, they were noted all negative. OBJECTIVE: VITAL SIGNS: Normal temperature, respiratory rate 20, heart rate 74, blood pressure 151/59 to 148/60. Intake of 820 mL, output 1100 mL, negative 280 mL. Pulse oxygen saturation on BiPAP 35% oxygen 97%; on 2 liters nasal cannula at rest, 97% saturation. HEENT: Shows head was atraumatic, eyes nonicterus. NECK: Supple. CARDIOVASCULAR: S1 and S2 audible. LUNGS: Decreased breath sounds and scattered crackles in the lung on the right side. Left lung appeared to be clear. ABDOMEN: Soft, nontender. Bowel sounds present. EXTREMITIES: Noted edema of the right lower extremity and the upper extremity 2+. VISIBLE SKIN: Noted without any lesions or rashes. MUSCULOSKELETAL: Above knee amputation of the left lower extremity. CENTRAL NERVOUS SYSTEM: Intact. LABORATORY DATA: CBC this morning: WBC count normal, hemoglobin 9.9, platelet count was normal. PT/INR 3.8, mildly about therapeutic range. BMP this morning: BUN 5, creatinine was normal, potassium 3.3. IMPRESSION: 1. The patient has been currently noted with peripheral edema. 2. Acute pneumonia, extensive, involving the right lung with methicillin-resistant Staphylococcus aureus. 3. Acute respiratory failure that remains stable. 4. Overall debility. PLAN OF MANAGEMENT: Continuation of vancomycin. Supplementation of potassium. Ordering IV Lasix 40 mg daily. Monitor BUN, creatinine, and electrolytes. Titrate oxygen supplementation to maintain pulse ox saturation 92% or greater. Continue use of the BiPAP. Other additional treatment changes will be done based on progression of the illness. [place], [place] PROGRESS NOTE NAME: CHINMAY STARR UNIT #: [id number] ROOM: [facility] DOCTOR: PRESTON MCQUEEN MD BIRTHDATE: [birth year] PRESTON JACOBS MD CM:JO-ANN [id number] PRESTON MURRAY MD 12/01/18 2323 interface
--- NOTE | ~2018-11-26 | PR ---
[place], [place] PROGRESS NOTE NAME: CHINMAY STARR [facility] #: [id number] UNIT #: [id number] ROOM: 406 DOCTOR: ARLENE MURRAY MD,PRESTON BIRTHDATE: [birth year] DOS: 11/28/2018 PULMONARY PROGRESS NOTE SUBJECTIVE: The patient has been noted comfortable, resting on the bed this morning. She has not been noted with any symptoms of fever, chills, or hemoptysis. She is continuing with broad-spectrum intravenous antibiotic coverage for MRSA infection as a Gram-negative infection. Extensive pneumonic infiltration was noted in the lungs, greater on the right than the left side. Denies symptoms of nausea, vomiting, diarrhea, or abdominal pain. She has not been noted with any symptoms of hemoptysis. Denies symptoms of headache or diplopia. Denies any pain of the lower extremities. Remaining systems reviewed, were noted negative. OBJECTIVE: VITAL SIGNS: Which recorded show the temperature recorded as normal, respiratory rate of 14-20, heart rate 95, blood pressure is 145/74 to 128/51. The pulse oxygen saturation recorded as 97% saturation on 3 liters nasal cannula. HEENT: Examination shows head was atraumatic. Eyes nonicterus. NECK: Supple. CARDIOVASCULAR: S1 and S2 audible. LUNGS: Noted without any crackles, rhonchi, or wheezing. Breaths are noted decreased in the lungs essentially bilaterally. ABDOMEN: Soft, nontender. Bowel sounds present. EXTREMITIES: Without any acute edema. MUSCULOSKELETAL: Noted without any abnormality. Above-keen amputation of the left lower extremity. VISIBLE SKIN: No lesions or rashes. CENTRAL NERVOUS SYSTEM: General weakness, but there were no gross focal neurologic deficits. LABORATORY DATA: INR today is noted as 1.9. Vancomycin trough level from yesterday noted as 11.5. IMPRESSION: 1. Acute multilobar pneumonia with consolidative area, mass-like lesion, much greater on the right side than the left side. 2. History of peripheral arterial disease. 3. Recurrent hospitalization. 4. Chronic obstructive pulmonary disease without any acute exacerbation. 5. Chronic anticoagulation, hypercoagulable disorder. PLAN OF MANAGEMENT: Continue with current plan of management, antibiotics, bronchodilator. Proceed with fiberoptic bronchoscopy as planned. Any additional treatment changes if necessary for the patient will be ordered after the bronchoscopy. [place], [place] PROGRESS NOTE NAME: CHINMAY STARR UNIT #: [id number] ROOM: [facility] DOCTOR: PRESTON MCQUEEN MD BIRTHDATE: [birth year] PRESTON JCAOBS MD CM:PNYAN [id number] PRESTON MURRAY MD 11/28/18 1514 interface
--- NOTE | ~2018-11-26 | PR ---
[place], [place] PROGRESS NOTE NAME: CHINMAY STARR UNIT #: [id number] ROOM: 406 DOCTOR: PRESTON MCQUEEN MD BIRTHDATE: [birth year] DOS: 12/06/2018 PULMONARY PROGRESS NOTE SUBJECTIVE: She was comfortably resting in the bed, using BiPAP this morning of assessment. Has not reported any acute respiratory complaints in the last 24 hours. The coughing has been subsiding. Shortness of breath noted stable at rest. She was continued on intravenous antibiotics with vancomycin for the MRSA pneumonia. OBJECTIVE: VITAL SIGNS: Normal temperature this morning, respiratory rate 14, heart rate of 86, blood pressure 136/56. The pulse oxygen saturation BiPAP 95% on 4 liters nasal cannula at rest 97% saturation other times. HEENT: No acute change. NECK: Supple. CARDIOVASCULAR: S1, S2 audible. LUNGS: Noted without any wheezing or crackles at present time. Decreased breath sounds in the lungs. ABDOMEN: Soft, nontender. Bowel sounds are present. EXTREMITIES: No acute change. Above-knee amputation of the left lower extremity with resolved edema. LABORATORY DATA: PT/INR noted 1.5, which is subtherapeutic. IMPRESSION: 1. Stable respiratory status, acute pneumonia with methicillin-resistant Staphylococcus aureus, which noted extensive. Currently noted stable and slow response to the treatment. 2. Small pleural fluid related to acute pneumonia on the right side as well, not amenable for any intervention. PLAN OF MANAGEMENT: No change in the plan of care at this time. Continue the patient's current therapy, plan of care as in progress. Still pending transfer to the long-term care facility based on the neonatal social worker note as well. [place], [place] PROGRESS NOTE NAME: CHINMAY STARR UNIT #: [id number] ROOM: 406 DOCTOR: PRESTON MCQUEEN MD BIRTHDATE: [birth year] PRESTON JACOBS MD CM:PNTRANS [id number] PRESTON MURRAY MD 12/06/18 1887 interface
--- NOTE | ~2018-11-26 | CON ---
[place], [place] REPORT OF CONSULTATION NAME: CHINMAY STARR [facility] #: [id number] UNIT #: [id number] ROOM: 406 DOCTOR: PRESTON MCQUEEN MD BIRTHDATE: [birth year] DOS: 11/26/2018 PULMONARY CONSULTATION EVALUATION AND MANAGEMENT REQUESTED PHYSICIAN: The consultation is requested by the hospitalist service. REASON FOR CONSULTATION: Assessment of current pneumonia with respiratory failure. HISTORY OF PRESENT ILLNESS: A 68-year-old white female patient who has been followed up by a mouthpiece maker in [place], [place]. She has been noted prolonged hospitalization at [facility], later at [facility] from September 2018 and discharged on 11/08/2018 as per daughter. The patient has been treated for MRSA infection, which is noted recurrent. She also stayed at a halfway facility in between 2 hospitalizations as well. She has completed the antibiotic management for acute pneumonia and MRSA was noted with improvement in respiratory status prior to discharge as per daughter. She has been admitted to the hospital for further assessment of symptoms, which have been reported as increased shortness of breath with coughing and chest congestion. The symptoms were noted significantly worsened, requiring assessment in the hospital. Cough has been noted intermittent with sputum expectoration. There was no chest pain reported by the patient. She has not reported any symptoms of hemoptysis. There were no symptoms of wheezing reported as well. REVIEW OF SYSTEMS: CONSTITUTIONAL: Fatigue and tiredness reported. Denies symptoms of fever or chills. EYES: Denies any burning, redness, or tenderness. EARS, NOSE, AND THROAT: Denies sore throat, hoarseness, otalgia, postnasal drainage or epistaxis. CARDIOVASCULAR: Denies anginal pain, edema, or pain of the lower extremities. GASTROINTESTINAL: Denies dysphagia, nausea, vomiting, diarrhea, abdominal pain, hematemesis, melena, or hematochezia. SKIN: Denies any abnormal lesions or rashes. MUSCULOSKELETAL: No acute joint pain, redness, or tenderness. 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 CENTRAL NERVOUS SYSTEM: Denies dizziness, headache, diplopia, or syncopal episodes. Remaining systems were reviewed, they were noted all negative. PAST MEDICAL HISTORY: Reported as: 1. COPD. 2. Chronic hypercapnia with respiratory failure and acute chronic hypoxic respiratory failure. 3. Peripheral arterial disease. 4. Common variable hypogammaglobulinemia. 5. 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 6. Hypercoagulable disorder. [place], [place] REPORT OF CONSULTATION NAME: CHINMAY STARR [facility] #: [id number] UNIT #: [id number] ROOM: 406 DOCTOR: ARLENE MURRAY MDPRESTON BIRTHDATE: [birth year] 7. Essential hypertension. 8. Hyperlipidemia. 9. Coronary artery disease. 10. Recurrent anemia, requiring blood transfusions. PAST SURGICAL HISTORY: 1. Above knee amputation of left lower extremity. 2. Appendectomy. 3. Cardiac catheterization with coronary stents insertion. 4. Resection of Meckel's diverticulum. 5. Exploratory laparotomy for adhesions separation. 6. Fiberoptic bronchoscopies. SOCIAL HISTORY: The patient is , has 2 children, lives at home. There is no history of alcohol use or illicit drug use. Tobacco use was noted at a younger age, 2 packs of cigarettes per day, until 2002. FAMILY HISTORY: The patient's father from complication of congestive heart failure and coronary artery disease. Mother at age 6060 years old from complication of atrial fibrillation, coronary artery disease, and myocardial infarction. MEDICATIONS: Current medications administered to the patient during this hospitalization, use of aspirin, Protonix, Lipitor, Lovenox, Coumadin, metoprolol tartrate, folic acid, ferrous sulfate, famotidine, Keppra, Neurontin, Cymbalta, IV vancomycin, clindamycin, and [place]. DRUG ALLERGIES: THE PATIENT REPORTED ALLERGIES: 1. IVP DYE. 2. PENICILLIN. 3. RYTHMOL. 4. ABILIFY. PHYSICAL EXAMINATION: GENERAL: A 68-year-old white female, currently noted to be awake and alert without any acute distress this morning, using oxygen supplementation through nasal cannula. Height of 5 feet 3 inches, weight of 130 pounds, BMI 23. VITAL SIGNS: Normal temperature, respiratory rate 19-20, heart rate of 94-97, blood pressure 119/50 to 121/49. Pulse oxygen saturation was recorded on 3 liters as 94% saturation at rest. HEENT: Head was atraumatic. Eyes nonicterus. NECK: Supple. Oral mucosa was moist. CARDIOVASCULAR: S1 and S2 audible. LUNGS: Noted coarse breathing with crackles noted in the mid to lower portion of the left lung and in the right lower lung. There was no wheezing heard. ABDOMEN: Flat, soft, nontender. EXTREMITIES: The patient was noted with mild edema of the right lower extremity and above knee amputation of left lower extremity. Other musculoskeletal examination of the patient was noted as normal. VISIBLE SKIN: No lesions or rashes. [place], [place] REPORT OF CONSULTATION NAME: CHINMAY STARR UNIT #: [id number] ROOM: [facility] DOCTOR: ARLENE MURRAY MD,PRESTON BIRTHDATE: [birth year] CENTRAL NERVOUS SYSTEM: Cranial nerves 2-12 intact. No focal deficit. LABORATORY AND DIAGNOSTIC DATA: Assessed for the patient for this hospitalization. Lactic acid this morning on admission 1.0, normal. CBC of the patient this morning, hemoglobin of 11.1, WBC count normal, platelet count normal. PT/INR is subtherapeutic at 1.4. CMP this morning on admission, BUN normal, creatinine normal, glucose 135, albumin 2.4. Troponin was normal. Arterial blood gas with pH of 7.34, pCO2 64, pO2 62.2 and 3 liters nasal cannula. Chest x-ray shows rotation of the film towards the right side. Left lung appeared to have a small infiltration in the left lower lung. The right side of the lung was noted with area of consolidation, mass-like lesion in the right lower lobe. Small associated pleural fluid cannot be excluded. IMPRESSION: 1. The patient has been currently admitted to the hospital, noted with past history of treatment for MRSA pneumonia, recurrent, in the past couple of months with antibiotics, currently admitted to the hospital with current abnormal finding on chest x-ray suggestive of possibility of recurrent pneumonia. 2. Rule out any mass lesion in the right lower lobe versus rounded atelectasis, rule out pleural fluid as well. 3. The patient with chronic obstructive pulmonary disease, which has been also noted long-term without any apparent exacerbation of chronic obstructive pulmonary disease noted at the present time. 4. The patient with chronic anticoagulation with hypercoagulable disorder, on Coumadin, subtherapeutic INR. 5. 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 PLAN OF MANAGEMENT: Agree with the current antibiotic for the medical management of the suspected MRSA infection. She was also started on clindamycin for possible aspiration that could be continued. De-escalation of antibiotic based on the new culture results. Order sputum for Gram stain and culture. Obtain CT scan of the chest for further detailed assessment of the patient's current abnormal chest x-ray. Sputum for Gram stain culture was ordered. Titrate oxygen supplementation to maintain pulse ox 92% or greater. Chronic hypercapnic hypoxemic respiratory failure will be treated with BiPAP as well with the BiPAP settings of 14/8. Other additional treatment changes will be ordered based on progression of the illness. Assessment and management of the patient discussed with the patient's daughter. Coumadin is to be continued with adjustment of the dose to bring the INR to the therapeutic level. Thanks for allowing me to participate in the care of this patient. [place], [place] REPORT OF CONSULTATION NAME: CHINMAY STARR UNIT #: [id number] ROOM: [facility] DOCTOR: PRESTON MCQUEEN MD BIRTHDATE: [birth year] PRESTON JACOBS MD CM:CONSTR:REPORT OF CONSULTATION 1147 11/27/18 0009 interface
--- NOTE | ~2018-11-26 | PR ---
[place], [place] PROGRESS NOTE NAME[facility]ARR [id number] UN[facility] #: [id number] ROOM: 406 DOCTOR: LAITH YOUNG MD BIRTHDATE: [birth year] DOS: 11/29/2018 CARDIOLOGY PROGRESS NOTE SUBJECTIVE: The patient was seen at her bedside today 11/29/2018 for followup of her paroxysmal atrial fibrillation. She did have an episode of atrial fibrillation after bronchoscopy yesterday. This resolved spontaneously. This morning, her metoprolol was slightly delayed and she went back into atrial fibrillation. Her dose was administered and she has gone back into sinus rhythm again. She is lying almost flat in the bed and does seem to be comfortable today. PHYSICAL EXAMINATION: VITAL SIGNS: Her pulse is 80 and regular, blood pressure is 150/74. She is afebrile. She weighs 59.0 kg. NECK: Supple. She has no jugular distention. Carotids are full. LUNGS: Respirations are unlabored. Chest is clear to auscultation and percussion. She has no presacral edema. HEART: Has a regular rhythm with an S4 gallop. ABDOMEN: Soft. EXTREMITIES: She does have trivial edema of the right lower extremity and has a left above the knee amputation. IMPRESSION: 1. Hospitalization with increased respiratory distress and bilateral pneumonia. 2. Paroxysmal atrial fibrillation. The patient has had episodes of atrial fibrillation in the hospital, but is back in sinus rhythm now. 3. History of atherosclerotic heart disease with recent atypical chest pain. 4. History of peripheral vascular disease, status post [id number] amputation on the left. 5. History of recurrent anemia. PLAN: I did increase her metoprolol slightly today. Her INR remains slightly subtherapeutic at 1.9. We will add an additional dose of warfarin today and continue to monitor this closely. I thank the hospitalist physicians for asking our advice regarding her care. [place], [place] PROGRESS NOTE NAME: CHINMAY STARR UNIT #: [id number] ROOM: 406 DOCTOR: LAITH YOUNG MD BIRTHDATE: [birth year] LAITH YOUNG MD CM:PNTRANS [id number] 1222 LAITH YOUNG MD 11/29/18 1223 interface
--- NOTE | ~2018-11-26 | PR ---
[place], [place] PROGRESS NOTE NAME: CHINMAY STARR UNIT #: [id number] ROOM: 406 DOCTOR: ARLENE MURRAY MD,PRESTON BIRTHDATE: [birth year] DOS: 12/05/2018 PULMONARY PROGRESS NOTE SUBJECTIVE: She has been comfortably resting on the bed without any acute distress. Coughing continued, resolved. There were no symptoms of fever or chills, chest pain or hemoptysis reported. OBJECTIVE: VITAL SIGNS: Normal temperature, respiratory rate 17, heart rate 76, blood pressure 150/50. Pulse oxygen saturation recorded as 96% saturation on 4 liters nasal cannula at rest. HEENT: Examination shows head was atraumatic. Eyes nonicterus. NECK: Supple. CARDIOVASCULAR: S1, S2 is audible. LUNGS: Without any wheezing or crackles in the left side. Decreased breath sounds noted. Questionable crackles in the right lung. ABDOMEN: Soft, nontender. Bowel sounds present. EXTREMITIES: No acute change. LABORATORY DATA: CBC this morning WBC count 13.1, hemoglobin 11.4, platelet count was normal. BMP this morning, CO2 of 38. Potassium was normal. IMPRESSION: 1. Resolution of the metabolic alkalosis progressively with resolved hypokalemia. 2. Acute pneumonia with methicillin-resistant Staphylococcus aureus. Resolution of peripheral edema. Stable respiratory failure. PLAN OF MANAGEMENT: No changes in the plan of care at this time. Continue the patient's current therapy, plan of management. The patient has been accepted for transfer to long-term acute care facility, awaiting for bed availability. PRESTON JACOBS MD CM:PNTRANS [id number] PRESTON MURRAY MD 12/05/18 1234 interface
--- NOTE | ~2018-11-26 | PR ---
[place], [place] PROGRESS NOTE NAME: CHINMAY STARR UNIT #: [id number] ROOM: 406 DOCTOR: PRESTON MCQUEEN MD BIRTHDATE: [birth year] DOS: 11/29/2018 SUBJECTIVE: She has bronchoscopy done yesterday, reduction in cough is noted. Symptoms of chest pain, fevers or chills reported by the patient. Does not have symptoms of nausea, vomiting. Bronchoscopy resulted in symptoms of cough. OBJECTIVE: VITAL SIGNS: Normal temperature, respiratory rate 16, heart rate of 80, blood pressure 150/74. The pulse oxygen saturation recorded as 99% saturation on 3 liters nasal cannula. HEAD, EYES, EARS, NOSE, AND THROAT: Examination shows head was atraumatic. Eyes nonicterus. NECK: Supple. CARDIOVASCULAR SYSTEM: S1, S2 is audible. LUNGS: Crackles noted. Decreased breaths in the right lung. ABDOMEN: Soft, nontender. Bowel sounds present. EXTREMITIES: No acute change. LABORATORY DATA: Culture of the bronchial washing was noted with moderate growth of gram-positive cocci and yeast. The final results pending. Gram stain of the bronchial washing yesterday, many white blood cells, few epithelial cells, rare gram-positive cocci in pairs and clusters. Urine for legionella antigen negative. Respiratory virus panel negative. IMPRESSION: 1. The patient who has been currently noted and treated for acute multilobar pneumonia, which are noted current possible consideration of MRSA recurrence. Rule out any other superimposed infection. 2. Overall muscle decondition for the secondary to acute illness. 3. Chronic obstructive pulmonary disease by history. PLAN OF MANAGEMENT: Continuation of the current plan of care at this time with antibiotics, adjustment in antibiotic escalation tomorrow, most likely upon availability of final culture results. Continue other medical management as in progress. No changes need to be made for today's visit. [place], [place] PROGRESS NOTE NAME: CHINMAY STARR UNIT #: [id number] ROOM: 406 DOCTOR: PRESTON MCQUEEN MD BIRTHDATE: [birth year] PRESTON JACOBS MD CM:PNTRANS 1121 1223 PRESTON MURRAY MD 11/29/18 1223 interface
--- NOTE | ~2018-11-26 | PROC NOTE ---
[place], [place] PROCEDURE NOTE NAME: [facility]INMAY STARR [facility] [id number] UNIT #: [id number] ROOM: 406 DOCTOR: ARLENE MURRAY MD,PRESTON BIRTHDATE: [birth year] DOS: 11/28/2018 FIBEROPTIC BRONCHOSCOPY PREOPERATIVE DIAGNOSES: Extensive bilateral multilobar pneumonia at consolidative areas. POSTOPERATIVE DIAGNOSES: Removal of the mucopurulent material from endobronchial tree bilaterally and mucus impaction of the airways. COMPLICATION: None. PROCEDURE DESCRIPTION: Informed consent obtained from the patient. The patient was brought to the OR. She was placed in supine position. Conscious sedation administered by the Anesthesia Department. After achieving proper sedation, airway introduced into the mouth. Bronchoscope advanced to the airway into laryngeal area. Epiglottis and vocal cord were seen. Bronchoscope advanced to the vocal cords into tracheal lumen. The tracheal lumen was noted with moderate amount of purulent secretion suctioned out at the mary level. The patient noted purulent secretion from endobronchial tree bilaterally, which were removed endobronchial tree subsegments bilaterally. Some of the mucus impaction was also noted in the right middle and lower lobe bronchi, which was removed as well. BAL specimen was also obtained in the right lower lobe. The bronchial washing sent for all the appropriate testing and analysis for the cultures as well as for the BAL for cell differential. Postoperative findings will be discussed with the patient once he recovers the effects of acute sedation. PRESTON JACOBS MD CM:PROCNOTE:PROCEDURE NOTE [id number] 1521 PRESTON MURRAY MD
--- NOTE | ~2018-11-26 | EKG ---
[place], [place] ELECTROCARDIOGRAM REPORT NAME: CHINMAY STARR UNIT #: [id number] ROOM: 406 DOCTOR: NATALEE DRAFT REPORT BIRTHDATE: [birth year] [facility] Test Date: 2018-11-26 Test Time: 03:32:58 Pat Name: CHINMAY STARR Department: Room: 406 Gender: F Senior Research Executive: Joselin Lion : 1950 Requested By: YASSINE AMBROSIO Order Number: [id number] Reading MD: Bj Wells MD Measurements Intervals [place] Rate: 94 P: 8 AL: 166 QRS: 31 QRSD: 75 T: 30 QT: 335 QTc: 419 Interpretive Statements Sinus rhythm Low voltage, precordial leads Borderline T abnormalities, anterior leads Compared to ECG 09/22/2018 16:31:16 Low QRS voltage now present Ectopic atrial rhythm no longer present Electronically Signed On 11-28-2018 9:05:25 PST by Bj Wells MD CM:EKGRPT:ELECTROCARDIOGRAM REPORT [id number] YASSINE TITUS DRAFT REPORT YASSINE AMBROSIO DO
--- NOTE | ~2018-11-26 | PR ---
[place], [place] PROGRESS NOTE [id number] UN[facility] #: [id number] ROOM: 406 DOCTOR: LAITH YOUNG MD BIRTHDATE: [birth year] DOS: 11/30/2018 CARDIOLOGY PROGRESS NOTE SUBJECTIVE: The patient was seen at her bedside today 11/30/2018 for followup of her paroxysmal atrial fibrillation in the setting of severe peripheral vascular disease and bilateral pneumonia. She tells me that she is gradually feeling better. Her breathing is improving. She did have a brief period of atrial fibrillation yesterday, but her rhythms have remained stable since we increased her metoprolol. She denies any chest pain, palpitations or syncope. She is anxious for discharge. PHYSICAL EXAMINATION: VITAL SIGNS: Today, her pulse is 79 and regular, blood pressure is 141/55. She is afebrile. NECK: Supple. She has no jugular distention. Carotids are full. LUNGS: Respirations are unlabored. She has bibasilar crackles. She has no presacral edema. HEART: Has a regular rhythm with an S4 gallop. ABDOMEN: Soft and normally active without masses, organomegaly or bruits. EXTREMITIES: She has trivial edema of the right lower extremity. The left leg has an [id number] amputation. LABORATORY DATA: INR today is elevated at 3.9, it increased from 1.9 yesterday after I increased her warfarin from 5 mg daily to 6 mg daily. IMPRESSION: 1. Hospitalization with increased respiratory distress and bilateral pneumonia. 2. Paroxysmal atrial fibrillation. The patient is currently back in sinus rhythm. 3. History of atherosclerotic heart disease with recent atypical chest pain. 4. History of peripheral vascular disease, status post left [id number] amputation. 5. History of recurrent anemia. PLAN: She is doing well with the increased dose of metoprolol. I will be withholding her warfarin today since her INR is 3.9. It is still being checked daily and daily adjustments will be required to maintain her INR between 2 and 3. I thank the hospitalist physicians for asking our advice regarding her care. [place], [place] PROGRESS NOTE NAME: CHINMAY STARR UNIT #: [id number] ROOM: 406 DOCTOR: LAITH YOUNG MD BIRTHDATE: [birth year] LAITH YOUNG MD CM:PNTRANS 1316 29 LAITH YOUNG MD 11/30/18 1531 interface
--- NOTE | ~2018-11-26 | PR ---
[place], [place] PROGRESS NOTE NAME: CHINMAY STARR UNIT #: [id number] ROOM: 406 DOCTOR: PRESTON MCQUEEN MD BIRTHDATE: [birth year] DOS: 12/04/2018 SUBJECTIVE: The patient has been noted comfortable, sitting on the chair this morning, has not been noted symptoms of chest pain. The coughing has been noted minimal at this time. Denies symptoms of fever or chills or hemoptysis, edema of the lower extremity, resolved completely. OBJECTIVE: VITAL SIGNS: Normal temperature, respiratory rate 18, heart rate 74, blood pressure 134/60. Pulse oxygen saturation recorded on 3 liters nasal cannula, rest 99% saturation. HEAD, EYES, EARS, NOSE, AND THROAT: Examination shows head was atraumatic. Eyes nonicterus. NECK: Supple. CARDIOVASCULAR SYSTEM: S1, S2 audible. LUNGS: Decreased breath sounds on the right lung. Scattered crackles. There was no wheezing. ABDOMEN: Soft, nontender. EXTREMITIES: Resolution of the edema. Above knee amputation of left lower extremity. Chronic finding. LABORATORY AND DIAGNOSTIC DATA: INR today was noted 2.5. The chest x-ray that was completed yesterday noted with a small pleural fluid was noted without any further changes and the chest x-ray as compared with the previous chest x-ray of . IMPRESSION: 1. Acute MRSA pneumonia noted with extensive mass-like consolidation in the right lung with debility and partial improvement was noted. Small pleural fluid noted in the right related to current pneumonia. 2. Resolution of the edema of the extremities. 3. Resolving metabolic alkalosis for this patient and improving hyperkalemia. Potassium level noted at the low normal range and it was noted 40. PLAN OF MANAGEMENT: Continue antibiotics, bronchodilators, monitor current chest x-ray until resolution before consideration of any additional assessment for future. Pleural fluid noted small at this time, would not require any further assessment and intervention. [place], [place] PROGRESS NOTE NAME: CHINMAY STARR UNIT #: [id number] ROOM: 406 DOCTOR: PRESTON MCQUEEN MD BIRTHDATE: [birth year] PRESTON JACOBS MD CM:PNTRANS 1017 1245 PRESTON MURRAY MD 12/04/18 1246 interface
[2018-11-26 03:49] LABS: BASO % 0.4 % (0.0-1.0); EOS % 0.4 % (1.0-4.0); HEMATOCRIT 38.3 % (37.0-47.0); HEMOGLOBIN 11.1 g/dl (12.0-16.0); LYMPH # 0.8 10*3/uL (1.3-4.4); LYMPH % 9.6 % (27.0-41.0); MEAN CELL VOLUME 98.7 fl (81.0-99.0); MEAN CORPUSCULAR HGB 28.6 pg (27.0-31.0); MEAN PLATELET VOLUME 9.7 fl (9.6-12.3); MONO # 1.2 10*3/uL (0.1-1.0); MONO % 13.4 % (3.0-9.0); NEUT # 6.5 10*3/uL (2.3-7.9); PLATELET COUNT AUTOMATED 247 10*3/uL (130-400); RED BLOOD COUNT 3.88 10*6/uL (4.10-5.10); RED CELL DISTRI WIDTH 15.4 % (0-14.5); WHITE BLOOD COUNT 8.6 10*3/uL (4.8-10.8)
[2018-11-26 03:58] LABS: INTERNATIONAL NORM RATIO 1.4 (2.0-3.5)
[2018-11-26] MEDS ORDERED: KEPPRA250 MG PO (04:00)
[2018-11-26] MEDS ORDERED: PULMICORT0.5 MG/2 M INH (04:01)
[2018-11-26] MEDS ORDERED: RANEXA500 M1 PO (04:02)
[2018-11-26] MEDS ORDERED: GOOD NEIGHBOR P20 MG PO (04:02)
[2018-11-26] MEDS ORDERED: FERROUS SULFAT325 MG PO (04:03)
[2018-11-26] MEDS ORDERED: NATURE'S BLEND F1 MG PO (04:03)
[2018-11-26] MEDS ORDERED: COUMADIN3 M1 PO (04:04)
[2018-11-26 04:05] LABS: ALBUMIN 2.4 gm/dl (3.1-4.5); ALKALINE PHOSPHATASE 109 U/L (45-117); BUN 10 mg/dl (7-24); CHLORIDE 100 mmol/L (98-107); CREATININE 0.46 mg/dL (0.55-1.02); SGOT/AST 10 IU/L (3-35); SGPT/ALT 11 U/L (12-78); SODIUM 137 mmol/L (136-145); TOTAL PROTEIN 7.1 gm/dL (6.4-8.2)
[2018-11-26 04:08] LABS: TROPONIN I < 0.015 ng/ml (<0.045)
--- NOTE | 2018-11-26 04:09 | NUR ---
PATIENT IN BED, DAUGHTER AT BEDSIDE. RESP EASY AND NONLABORED. RN WILL CONT TO MONITOR
--- NOTE | 2018-11-26 06:10 | NUR ---
BLANCHABLE REDDENED AREA NOTED TO PT BUTTOCKS, NO WOUNDS PRESENT.
--- NOTE | 2018-11-26 06:15 | NUR ---
A 68, admitted to , under the services of BONNIE Mcnally DO with a diagnosis of PNEUMONIA. Chief complaint is SOB. Patient arrived via stretcher from ER. Monitor applied. Initial assessment completed. Vital signs taken and recorded. BONNIE MCNALLY DO notified of admission to the unit. Orders received. See assessment for past medical history, medications and allergies. Patient and/or family oriented to unit. [facility] 4TH FLOOR visitation policy reviewed. Clothing/patient valuable form completed. JON PRETTY
--- NOTE | 2018-11-26 07:09 | NUR ---
MED REC UPDATED PER LIST FROM [facility]
--- NOTE | 2018-11-26 07:48 | NUR ---
CHINMAY STARR [id number] Please refer to the physician's history and physical for past medical history, comorbid conditions, and allergies. Diagnosis: PNEUMONIA Mauricio Score: 17,AT RISK WOUND DESCRIPTIONS: Location of the wound: right great toe Thickness: Partial Size: 0.4cm x 0.2cm x 0.1cm Tunneling: none Undermining: none Sinus Tract: none Presence of Exudate: none Amount: None Color: Red Odor: None Periwound Skin Appearance: Normal Wound edges: approximated Pain (associated with wound): none at time of assessment How does patient state this happened? Daughter stated she followed up with her coal inspector in [facility] and he removed ingrown toenails and she has a blister to the third toe and the coal inspector told her to not where those shoes because its causing pressure Location of the wound: right 3rd toe proximal Thickness: Partial Size: 0.4cm x 0.3cm x 0.1cm Tunneling: none Undermining: none Sinus Tract: none Presence of Exudate: none Amount: None Color: Red Odor: None Periwound Skin Appearance: Normal Wound edges: approximated Pain (associated with wound): none at time of assessment How does patient state this happened? Daughter stated she followed up with her coal inspector in [facility] and he removed ingrown toenails and she has a blister to the third toe and the coal inspector told her to not where those shoes because its causing pressure Location of the wound: right 3rd toe distal Thickness: Partial Size: 0.1cm x 0.2cm x 0.1cm Tunneling: none Undermining: none Sinus Tract: none Presence of Exudate: none Amount: None Color: Red Odor: None Periwound Skin Appearance: Normal Wound edges: approximated Pain (associated with wound): none at time of assessment How does patient state this happened? Daughter stated she followed up with her coal inspector in [facility] and he removed ingrown toenails and she has a blister to the third toe and the coal inspector told her to not where those shoes because its causing pressure Patient coccyx is red and blanchable at time of assessment. No open areas noted at present time. No odor noted at present time. Daughter stated she was using some type of silver cream on her buttocks. Patients right heel is red and blanchable at time of assessment. No open areas noted. No drainage noted at time of assessment. Surface the patient is resting on: Isoflex SKIN PREVENTION RECOMMENDATION: 1. Pressure redistribution support surface as appropriate 2. Elevate heels 3. Remove boots/TEDS every shift and reapply 4. Head of bed 30 degrees as tolerated 5. Assess nutrition and hydration 6. Manage moisture 7. Avoid the use of containment devices while in bed 8. Use absorptive products on surfaces limit layers of linens on bed 9. Turn and reposition every 1-2 hours in bed and every 1 hour in chair as tolerated 10. Weight shifts every 15 minutes while up in chair 11. Offloading with pillows or device to keep heels elevated off bed 12. Monitor skin at least every shift 13. Inspect under medical devices twice a day WOUND TREATMENT RECOMMENDATIONS: Heel raiser pro boots to right foot while in bed. Wheelchair cushion when oob. Partial thickness guidelines: Cleanse right great toe and right 3rd toe proximal and distal areas with nss and apply sureprep around the wound therahoney to wound bed and cover with bandaids daily. Cleanse coccyx with soap and water and apply hydraguard every shift and prn for soiling. Patient is requesting to follow up in the wound care center next week on Monday.
--- NOTE | 2018-11-26 09:00 | NUR ---
Stud Beef Cattle Farmer in to talk to patient. Patient states lives at home with daughter. There are no steps in the home. Physician: julia lew [facility] Patient's level of ADLs: MODERATE ASSIST Patient has working utilities: all working DME: stair lift, home oxygen, portable tanks, [facility] Follow-up physician's appointment after d/c: will be made by hospitalist nurse director upon discharge Does patient want to access PORTAL?: no Discharge plan discussed with patient, patient lives at home with daughter, daughter present at this time, daughter states that patient has caregivers when the daughter works and also has [facility], nursing, physical therapy and occupational therapy currently and would like them to continue upon discharge, daughter states the patient will be going back home with her when patient is medically stable. daughter stated there wasnt anything else at this time they needed at home. BALA RODRIGUEZ
--- NOTE | 2018-11-26 09:10 | NUR ---
PHYSICIAN WAS NOTIFIED OF DR. JACOBS CONSULT. RESPONSE OF NOTIFICATION WAS ON FLOOR AND SEEN PATIENT. NARINDER MOTLEY
[2018-11-26 09:14] LABS: ABG BASE EXCESS 7.6 mmol/L (-2.0-2.0); ABG HCO3 34.5 mmol/l (22-26); ABG O2 SATURATION 93.4 % (95-97); ARTERIAL BLOOD GAS PCO2 64.3 mmHg (35-45); ARTERIAL BLOOD GAS PH 7.348 (7.35-7.45); ARTERIAL BLOOD GAS PO2 62.3 mmHg (80-90)
--- NOTE | 2018-11-26 09:16 | NUR ---
Follow up with Hanny NELSON in wound care clinic on 12/03/18 at 11:00am, call [phone] with any concerns
--- NOTE | 2018-11-26 09:47 | NUR ---
PT REQUESTED NORCO FOR C/O CHRONIC BACK PAIN OF 05/15. WILL CONT TO MONITOR. CALL LIGHT IN REACH.
--- NOTE | 2018-11-26 10:02 | NUR ---
Bedside swallow Evaluation Patient pleasant her daughter present and reporting in September 2018 she was hospitalized and had an MBS with aspiration on thin liquids but follow up MBS later in September with no aspiration and regular diet tolerated.Oral phase timely with thin liquids via cup, applesauce via spoon and cracker Saltine.No overt signs and symptoms of aspiration with clear vocal quality.Recommend soft diet texture due ot weakness overall and thin liquiods via cup small sips which patient demonstrates independently. Speech to follow 1-2 days at meal to assess endurance to complete a meal timely as history of COPD and breathing issues reported. Ramona Nowak MA CCC-GEROPSYCHOLOGIST
--- NOTE | 2018-11-26 10:38 | NUR ---
Dr. Lis SANCHEZ notified of wound care recommendations.
[2018-11-26 10:40] LABS: BILIRUBIN NEGATIVE (NEGATIVE); BLOOD NEGATIVE (NEGATIVE); CLARITY CLEAR (CLEAR); COLOR YELLOW (YELLOW); GLUCOSE NEGATIVE (NEGATIVE); KETONE NEGATIVE (NEGATIVE); LEUKO ESTERASE NEGATIVE (NEGATIVE); NITRITE NEGATIVE (NEGATIVE); PH 5.5 (5.0-9.0); SPECIFIC GRAVITY >= 1.030 (1.005-1.030); UROBILINOGEN 0.2 E.U./dl (0.2-1.0)
[2018-11-26 10:54] LABS: BACTERIA 4+
[2018-11-26 10:55] LABS: EPITHELIAL CELLS 15-20; WBC 21-30 wbc/hpf (0-5)
[2018-11-26 10:56] LABS: YEAST 2+
--- NOTE | 2018-11-26 11:52 | NUR ---
PHYSICAL THERAPY 1:1 Time: Pain on a scale of 0-10 > Prior to treatment: 01/13 Post treatment: 03/15 Progress note: Pt seen on this date for initial physical therapy assessment; please refer to pt's chart for details. Pt was able to perform supine <-> sit with with min A and sit at EOB for 5 minutes with F+/G- balance. SHe was able to transfer self back in bed I but required max A x 2 for scooting up in bed. She has a prosthetic for her LLE, however, it is at home. Her daughter reports that she will bring it in tomorrow. ZHEN TIM S PT
--- NOTE | 2018-11-26 14:25 | NUR ---
PHYSICAL THERAPY Patient seen this pm 1:1 for therapy visit and was supine in bed upon therapist arrival. Patient presented with continuous O2-3L via NC and family member was visiting throughout entire treatment. Patient voices no new c/o's and is AKA on L LE, but does not have her Prosthesis with her at this time. Patient transfers supine to sit EOB with Min A, tolerating static sit x 3 minutes without c/o. Patient performed seated R LE therex, all planes, x 15 reps each for increased LE strength and stated she was too tired to attempt sit to stand. Patient returned to supine in bed and remained with call light, tray table and bed alarm. Will continue per POC as tolerated, total treatment time 16 minutes. Lloyd López, YARD WAREHOUSE WORKER
--- NOTE | 2018-11-26 18:39 | NUR ---
C/O PAIN TO RIGHT FOOT OF 05/15. WILL CONT TO MONITOR. CALL LIGHT IN REACH.
--- NOTE | 2018-11-26 20:11 | NUR ---
1952 RESTING IN BED ON RIGHT SIDE. HEP LOCK INTACT. 02 ITNACT. RESPIRATIONS EASY. NO DISTRESS NOTED.
--- NOTE | 2018-11-26 23:15 | NUR ---
PT PLACED ON BIPAP
[2018-11-27] VITALS: BP 120/41
--- NOTE | 2018-11-27 00:15 | NUR ---
RESTING IN BED WITH EYES CLOSED. APPEARS TO BE SLEEPING.
--- NOTE | 2018-11-27 01:52 | NUR ---
0000 REFUSED BIPAP FOR RESPIRATORY THERAPY. PULSE OX 96% WITH 02 INTACT VIA NC. 0150 [id number] OF URINE. COMPLETE BED BATH GIVEN AND LINENS CHANGED.
--- NOTE | 2018-11-27 04:12 | NUR ---
RESTING IN BED WITHOUT C/O'S. SLEEPING AT INTERVALS.
--- NOTE | 2018-11-27 06:07 | NUR ---
APPEARS TO BE SLEEPING 02 INTACT. HEP LOCK INTACT NILES. NO DISTRESS NOTED. MOIST COUGH CONT. CONDITION GUARDED.
[2018-11-27 06:24] LABS: BASO % 0.4 % (0.0-1.0); EOS # 0.1 10*3/uL (0.0-0.4); EOS % 0.7 % (1.0-4.0); HEMATOCRIT 35.2 % (37.0-47.0); LYMPH % 11.3 % (27.0-41.0); MEAN CELL VOLUME 96.7 fl (81.0-99.0); MEAN CORPUSCULAR HGB 27.5 pg (27.0-31.0); MEAN CORPUSCULAR HGB CONC 28.4 g/dl (33.0-37.0); MONO # 0.8 10*3/uL (0.1-1.0); MONO % 8.8 % (3.0-9.0); NEUT # 7.1 10*3/uL (2.3-7.9); NEUT % 78.6 % (47.0-73.0); PLATELET COUNT AUTOMATED 261 10*3/uL (130-400); RED BLOOD COUNT 3.64 10*6/uL (4.10-5.10); RED CELL DISTRI WIDTH 15.5 % (0-14.5)
[2018-11-27 06:34] LABS: BUN 10 mg/dl (7-24); CHLORIDE 98 mmol/L (98-107); CREATININE 0.35 mg/dL (0.55-1.02); PHOSPHOROUS 2.2 mg/dL (2.5-4.9); POTASSIUM 3.6 mmol/L (3.5-5.1); SODIUM 137 mmol/L (136-145)
[2018-11-27 06:41] LABS: THYROID STIM HORMONE (HS) 0.468 uIU/ml (0.358-4.75)
--- NOTE | 2018-11-27 07:05 | NUR ---
pt not on bipap at this time
[2018-11-27 08:00] VITALS: BP 120/60
--- NOTE | 2018-11-27 08:55 | NUR ---
PT OOB IN WHEELCHAIR, C/O PAIN TO RIGHT FOOT OF 05/15. NORCO GIVEN AT THIS TIME. WILL CONT TO MONITOR. CALL LIGHT IN REACH.
--- NOTE | 2018-11-27 09:55 | NUR ---
PANKAJ EFF. WILL CONT TO MONITOR. CALL LIGHT IN REACH.
--- NOTE | 2018-11-27 10:01 | NUR ---
PHYSICAL THERAPY Patient presented to therapy in supine with head of bed elevated and report of not having prosthetic leg. Patient has no other complaints. Patient was identified by name and . Patient agreed to therapy session. Patient performed supine to sitting at EOB transfer with MIN A x 1. Patient STS transfer with MIN A X 1 to W/W with verbal cues for locking R LE and pushing off bed with hands. Patient transferrred to bedside chair with SPT with MIN A X 1. Patient then performed seated bilateral LE ther ex x 15 reps each in all planes of movement in order to improve patient's functional mobility. Patient was left in wheelchair with chair alarm attached ot patient and wheelchair, call light within reach, and tray table near patient. Patient has pressure pads under hips and back in wheelchair. Patient was 1:1 with this CABLE OPERATOR for 23 minutes total. AMEE HARRIS CABLE OPERATOR
--- NOTE | 2018-11-27 10:39 | NUR ---
SPEECH PATHOLOGY Patient was seen for treatment this am during breakfast meal to ensure safe intake and endurance to complete meal. Patient was alert and cooperative but confused. She was able to feed herself after tray set up. No overt s/s aspiration were displayed. After several minutes into the meal, patient reported that she was done eating and to use the bathroom. Her intake was poor overall, with consumption of only a few bites of pancakes and several sips of coffee. Recommend she remain on present diet with continued treatment plan. BLAKE DA SILVA MSCCC-SEASONAL RECRUITER
--- NOTE | 2018-11-27 10:47 | NUR ---
Occupational Therapy evaluation completed on 4 with full eval to follow. Precautions include fall risk, LLE prosthesis, o2 use. Patient is moderate complexity level 23544 via testing, eval and chart review. Recommend OT per POC and SNF v.s. home health to enable max safety in her home environment. Thank you for this referral. Sanna Simms OTR/l
[2018-11-27 12:00] VITALS: BP 131/49
--- NOTE | 2018-11-27 13:45 | NUR ---
PHYSICAL THERAPY Patient seen this pm 1:1 for therapy visit and was supine in bed upon therapist arrival. Patient presents with Aayush WILLARD and received her prosthetic leg earlier today which she has supposedly worn the past few months. Patient reports no new c/o's at this time and transfers supine to sit EOB with CGA. Patient performed sit to stand transfer, MORTGAGE LOAN OFFICER ORIGINATOR/Min, completing SPT to w/c in room, then received verbal / visual instruction on proper Don/Doff of L stump silicone sleeve. Patient attmepted Donning of sleeve, however experienced increased difficulty as she stated was due to increased stump edema. Therapist also made attmept and was unable to Dmitriy as well. Stump prepleater sleeve was applied to control edema as patient remained in bedside w/c with call light, tray table, telephone and body alarm awaiting a late lunch. Will continue per POC as tolerated, total treatmen time 15 minutes. Lloyd López, FIRST OFFICER
[2018-11-27 16:00] VITALS: BP 129/52
--- NOTE | 2018-11-27 17:05 | NUR ---
Nursing screen and Occupational Therapy referral received and evaluation completed. Thank you. Sanna Simms OTR/l
[2018-11-27 20:00] VITALS: BP 128/51
[2018-11-28] VITALS (8 sets, daily range): BP systolic 145–156; BP diastolic 59–78
[2018-11-28 06:10] LABS: ADENOVIRUS Negative (Negative); INFLUENZA A Negative (Negative); INFLUENZA B Negative (Negative); METAPNEUMOVIRUS Negative (Negative); PARAINFLUENZA 1 Negative (Negative); PARAINFLUENZA 2 Negative (Negative); PARAINFLUENZA 3 Negative (Negative); RHINOVIRUS Negative (Negative); RSV A Negative (Negative); RSV B Negative (Negative)
[2018-11-28 06:50] LABS: INTERNATIONAL NORM RATIO 1.9 (2.0-3.5)
--- NOTE | 2018-11-28 07:30 | NUR ---
PT IS DOWN FOR BRONCH. UNABLE TO ASSESS AT THIS TIME.
--- NOTE | 2018-11-28 07:38 | NUR ---
PATIENT TAKEN OFF FLOOR FOR SURGERY AT THIS TIME.
--- NOTE | 2018-11-28 07:57 | NUR ---
OT NOTE Attempted to see pt this A.M. 1:1 for OT session and upon arrival pt was out of room for surgery. Will continue with POC as able. MISSAEL Brenner/Aayush
--- NOTE | 2018-11-28 09:30 | NUR ---
case management attempted to visit with patient, patient out of room for procedure, will talk with patient and daughter at a later time today
[2018-11-28 10:29] LABS: BF LYMPHOCYTES 3 %; BF MACROPHAGES 3 %; BF NEUTROPHILS 93 %
--- NOTE | 2018-11-28 11:11 | NUR ---
NORCO GIVEN FOR 7/10 R FOOT PAIN. WILL CONTINUE TO MONITOR AND REASSESS.
--- NOTE | 2018-11-28 11:50 | NUR ---
NORCO EFFECTIVE FOR 7/10 PAIN. PT STATES 5/10 PAIN, RESTING COMFORTABLY
--- NOTE | 2018-11-28 13:25 | NUR ---
RISHI FAJARDO NOTIFIED OF PT HR IN 150S. EKG IN CHART.
--- NOTE | 2018-11-28 14:00 | NUR ---
OT NOTE Pt was seen this P.M. 1:1 for 20 minute OT session. Upon arrival pt was sitting upright in w/c, pt identified by name and and had no complaints at this time. Pt completed BUE towel exercises over all planes of motion with emphasis on triceps for 1 X 10 to increase UE strength needed for increased I in self care tasks and functional transfers. Pt then completed a stand pivot from w/c <> bedside commode with modA and use of w/w for UE support. Pt was left sitting upright in w/c with body alarm activated for safety, call light in hand, and tray table in place. Continue with rec D/C plan to SNF versus home. MISSAEL Brenner/Aayush
--- NOTE | 2018-11-28 14:58 | NUR ---
PHYSICAL THERAPY Patient presented to therapy in supine with daughter olga in the room with report of no pain , but feeling tired. Patient had a brochyscope this AM. Patient agrees to therapy session. Patient was identified by name and . Patient performed transfer via sliding board to bedside wheelchair with CGA X 1. Patient is on 3.5 liters of spO2 via nasal canula. Patient performed seated bilateral LE ther ex 2 x 10 reps each for strengthening the LEs in order to improve patient's functional mobility. Patient did not want to don prosthetic leg due to being fatigued. Patient says she dons and doffs prosthetic leg on her own at home everyday. Patient was left in sitting position with call light within reach, chair alarm attached ,and tray table in front of patient with lunch. Patient was 1:1 with this VAMP PRESSER for 20 minutes total. Patient is recommended to SNF upon discharge. AMEE HARRIS VAMP PRESSER
--- NOTE | 2018-11-28 15:03 | NUR ---
SPEECH PATHOLOGY Patient was taken for surgery this am. Treatment was attempted X2 this pm. Upon both visits, patient was sleeping. Her daughter was present and reported that she has been "in an out" since returning from surgery and was too tired to eat much. Swallowing therapy withheld today. Continue treatment tomorrow. [facility]HA [facility]PA[facility]IXER LIQUID
--- NOTE | 2018-11-28 18:05 | NUR ---
NORCO GIVEN FOR 8 OUT OF 10 PAIN IN RIGHT LEG. WILL CONTINUE TO MONITOR AND REASSESS.
--- NOTE | 2018-11-28 18:54 | NUR ---
.NORCO EFFECTIVE FOR PAIN. PT RESTING COMFORTABLY
--- NOTE | 2018-11-28 21:12 | NUR ---
NOTIFIED DR. MARTIN AT THIS TIME THAT ON PATIENTS MED REC, PATIENT IS TO BE TAKING 750MG BID OF KEPPRA AND 600MG TID OF NEUROTIN AND NO LONGER TAKES RANEXA. DR. MARTIN STATED THAT IT WAS OK TO FIX THESE ON THE MED REC, CONTINUE THEM AND GIVE HER THE REST OF THE DOSAGES THAT SHE MISSED
[2018-11-28] MEDS ORDERED: NEURONTIN600 MG PO (21:14)
[2018-11-28] MEDS ORDERED: KEPPRA750 MG PO (21:15)
--- NOTE | 2018-11-28 21:30 | NUR ---
CALLED DR. MARTIN AT THIS TIME FOR PATIENT COMPLAINING OF EXCRUCIATED PAIN TO THE LEG AND THAT IT IS NOT QUITE TIME FOR HER PAIN PILL. DR. MARTIN STATED HE WOULD PUT IN A ONE TIME DOSE OF MORPHINE
--- NOTE | 2018-11-28 22:26 | NUR ---
PRN NORCO GIVEN FOR PT COMPLAINTS OF CONTINUED LEG PAIN. STATED THAT MORPHINE BROUGHT THE PAIN DOWN TO A 6/10 VS AN 8/10 AND WOULD LIKE HER PAIN PILL. CALL LIGHT WITHIN REACH, WILL MONITOR
--- NOTE | 2018-11-28 22:50 | NUR ---
PT PLACED ON BIPAP
--- NOTE | 2018-11-28 23:33 | NUR ---
PRN NORCO APPEARS EFFECTIVE, PT SLEEPING
[2018-11-29] VITALS: BP 129/53
--- NOTE | 2018-11-29 01:22 | NUR ---
24 HR chart check completed.
[2018-11-29 06:38] LABS: INTERNATIONAL NORM RATIO 1.9 (2.0-3.5)
[2018-11-29 08:00] VITALS: BP 150/74
--- NOTE | 2018-11-29 09:48 | NUR ---
PATIENT NOW IN A-FIB WITH RVR. PT ASYMPTOMATIC. PT SITTING UP IN BED. 02 IN USE PER ORDER. HR RANGING BETWEEN 140-160'S. UP ON FLOOR AND NOTIFIED AT THIS TIME. PATIENT'S SCHEDULED PO LOPRESSOR GIVEN AT THIS TIME. WILL MONITOR EFFECTIVENESS. CALL LIGHT WITHIN REACH.
--- NOTE | 2018-11-29 09:57 | NUR ---
OT NOTE Attempted to see pt this A.M. for OT session and upon arrival pt's nurse notified therapist that pt's heart rate is elevated and would like for her to be on hold at this time. Will continue with POC as able. GEO Brenner
--- NOTE | 2018-11-29 10:00 | NUR ---
HR NOW 114. SINUS TACH PER CM. WILL CONTINUE TO MONITOR. 02 IN USE. POX 93 % VIA 3LNC. CALL LIGHT WITHIN REACH.
--- NOTE | 2018-11-29 10:04 | NUR ---
SPEECH PATHOLOGY Patient was seen for treatment this am during breakfast meal. She was alert and cooperative, reporting that her breathing was better since her bronchoscopy yesterday. Patient was sitting upright, feeding herself breakfast. Patient consumed solid foods and thin liquids with no overt difficulty. Patient implemented safe swallow precautions independenly while eating. Her intake was good today, improved from previous sessions. As she is tolerating a regular diet safely, recommend discharge from dysphagia therapy. Thank you for this referral. It has been a pleasure taking part in this patient's care. MANISHA DA SILVA MSCCC-ELEMENTARY TEACHER
--- NOTE | 2018-11-29 10:55 | NUR ---
PATIENT'S HR NOW NSR. HR BETWEEN 80-90'S. WILL CONTINUE TO MONITOR.
--- NOTE | 2018-11-29 11:11 | NUR ---
PHYSICAL THERAPY Per discussion with patient's nurse, Patient to be on hold this date secondary to increased HR and SOB. Will continue as able per POC. Lloyd López, ASSISTANT PROFESSOR OF MATHEMATICS
[2018-11-29 12:00] VITALS: BP 144/55
[2018-11-29 15:08] LABS: ACID FAST SPEC PROCESSING Concentration (.)
[2018-11-29 16:00] VITALS: BP 154/68
--- NOTE | 2018-11-29 16:01 | NUR ---
PT MEDICATED WITH PO NORCO PER PRN ORDER FOR C/O PAIN/DISCOMFORT. WILL MONITOR EFFECTIVENESS. CHRONIC PAIN PER PT. CALL LIGHT WITHIN REACH.
--- NOTE | 2018-11-29 17:30 | NUR ---
NORCO SLIGHTLY RELIEVING PAIN. WILL CONTINUE TO MONITOR.
[2018-11-29 20:00] VITALS: BP 152/60
--- NOTE | 2018-11-29 20:50 | NUR ---
CALLED DR. CHOI AT THIS TIME ABOUT PATIENT INQUIRING ABOUT 2MG OF MORPHINE FOR HER PHANTOM LIMB PAIN WHICH GETS WORSE AT NIGHT. DR. CHOI STATED HE WOULD ORDER IT.
--- NOTE | 2018-11-29 22:02 | NUR ---
PRN NORCO GIVEN AFTER MORPHINE BROUGHT PATIENTS PAIN DOWN SLIGHTLY. PAIN NOW 6/10 INSTEAD OF 9/10 IN PHANTOM LIMB. CALL LIGHT WITHIN REACH, WILL MONITOR
--- NOTE | 2018-11-29 23:30 | NUR ---
PRN MEDICATION APPEARS EFFECTIVE, PT SLEEPING
[2018-11-30] VITALS: BP 157/57
--- NOTE | 2018-11-30 02:20 | NUR ---
PATIENT SLEEPING. BIPAP ON. RESPIRATIONS EASY/REG, BED IN LOW POSITION. WHEELS LOCKED, CALL LIGHT IN REACH
[2018-11-30 06:14] LABS: ALBUMIN 1.8 gm/dl (3.1-4.5); ALKALINE PHOSPHATASE 91 U/L (45-117); BUN 6 mg/dl (7-24); CHLORIDE 106 mmol/L (98-107); CREATININE 0.35 mg/dL (0.55-1.02); PHOSPHOROUS 2.6 mg/dL (2.5-4.9); POTASSIUM 3.3 mmol/L (3.5-5.1); SGOT/AST 14 IU/L (3-35); SGPT/ALT 9 U/L (12-78); SODIUM 145 mmol/L (136-145); TOTAL PROTEIN 6.1 gm/dL (6.4-8.2)
[2018-11-30 06:15] LABS: BASO % 0.6 % (0.0-1.0); EOS # 0.3 10*3/uL (0.0-0.4); EOS % 6.1 % (1.0-4.0); HEMATOCRIT 35.2 % (37.0-47.0); HEMOGLOBIN 9.9 g/dl (12.0-16.0); LYMPH # 1.4 10*3/uL (1.3-4.4); LYMPH % 28.6 % (27.0-41.0); MEAN CELL VOLUME 98.1 fl (81.0-99.0); MEAN CORPUSCULAR HGB 27.6 pg (27.0-31.0); MEAN CORPUSCULAR HGB CONC 28.1 g/dl (33.0-37.0); MEAN PLATELET VOLUME 9.1 fl (9.6-12.3); MONO # 0.6 10*3/uL (0.1-1.0); MONO % 11.6 % (3.0-9.0); NEUT # 2.5 10*3/uL (2.3-7.9); NEUT % 51.3 % (47.0-73.0); PLATELET COUNT AUTOMATED 254 10*3/uL (130-400); RED BLOOD COUNT 3.59 10*6/uL (4.10-5.10); RED CELL DISTRI WIDTH 15.5 % (0-14.5); WHITE BLOOD COUNT 4.9 10*3/uL (4.8-10.8)
[2018-11-30 06:22] LABS: INTERNATIONAL NORM RATIO 3.9 (2.0-3.5)
[2018-11-30 08:00] VITALS: BP 164/74
--- NOTE | 2018-11-30 08:04 | NUR ---
OT NOTE Attempted to see pt this A.M. for OT session and upon arrival pt was asleep in bed with BIPAP on. Will check back at a later time/date. MISSAEL Brenner/Aayush
--- NOTE | 2018-11-30 08:34 | NUR ---
PHYSICAL THERAPY Patient was on bi-pap machine at 8:04 AM. Will check back later. AMEE HARRIS PLANNER INTERNSHIP
--- NOTE | 2018-11-30 08:40 | NUR ---
PT RESTING IN BED WITH HOB ELEVATED. AIDE JUST BATHED PT. NO C/O AT THIS TIME. PROD COUGH FOR LIGHT YELLOW PER PT. RIGHT HEEL OFF BED ON PILLOW. LUNGS RHONCHI,WHEEZES T/O. CALL LIGHT IN REACH. SEE SHIFT ASSESSMENT.
--- NOTE | 2018-11-30 09:21 | NUR ---
PT TAKEN OFF OF BIPAP BY RN. PLACED ON 2LNC
--- NOTE | 2018-11-30 10:04 | NUR ---
PT SITTING UP IN RECLINER CHAIR. C/O RIGHT TOE PAIN, RATES PAIN 8 ON PAIN SCALE 0-10. MEDICATED WITH NORCO PO PER PRN ORDER, SEE EMAR. CALL LIGHT IN REACH.
--- NOTE | 2018-11-30 10:33 | NUR ---
NOTIFIED RISHI ZALDIVAR UNABLE TO GET IV ON PT. REMOVED OLD IV SITE, WAS BURNING PT. SMALL AMOUNT RED SWELLING NOTED. CALL DR. PARK FOR MIDLINE.
--- NOTE | 2018-11-30 10:35 | NUR ---
JAYY PARK HE STATES HE WILL TRY THIS AFTERNOON. RISHI NOTIFIED.
--- NOTE | 2018-11-30 10:50 | NUR ---
RESTING IN CHAIR. STATES PAIN MEDICATION IS HELPING. CALL LIGHT IN REACH.
[2018-11-30 12:00] VITALS: BP 141/55
--- NOTE | 2018-11-30 12:54 | NUR ---
OT NOTE Pt was seen this P.M. 1:1 for 14 minute OT session. Upon arrival pt was sitting upright on the bedside commode. Pt identified by name and and had no complaints at this time. Pt completed sit to stand transfer from bedside commode with modA X 2 and education of proper hand placement. While standing pt required maxA for clothing management and maxA to maintain upright posture due to going retrograde and having LOB to the R. Stand pivot completed from bedside commode with recliner with modA X 2 and use of w/w for UE support. Pt then completed BUE towel exercises over all planes of motion for 1 X 10 to increase UE strength needed for increased I in self care tasks and functional transfers. Pt was left sitting upright in recliner with call light in hand, trya table in place, and body alarm activated for safety. Continue with rec D/C plan to SNF versus home. MISSAEL Brenner/Aayush
--- NOTE | 2018-11-30 13:03 | NUR ---
PHYSICAL THERAPY Patient presented to therapy in sitting position on bedside commode with report of not wanting to don her prosthetic LE today due to being fatigued. Patient agrees to ther ex and transfer to bedside chair. Patient transferred from bedside commode with MOD A X 2. Patient transferred to bedside chair with MOD A X 2. Patient performed seated bilateral LE ther ex x 20 reps each in all planes of movement for strengthening in order to improve patient's functional mobility. Patient was left in sitting position in bedside chair with call light within reach, chair alarm tested and attached to patient and chair, and tray table in front of patient. Patient O2 SAT was recorded as 95% and pulse is 75. Patient was 1:1 with this FURNITURE ASSEMBLER AND INSTALLER for 20 minutes. PATIENT WAS VERY CONFUSED. AMEE HARRIS FURNITURE ASSEMBLER AND INSTALLER
--- NOTE | 2018-11-30 13:30 | NUR ---
SITTING UP IN CHAIR. TOLERATED ROUTINE MED WITH NO PROBLEM. CALL LIGHT IN REACH.
--- NOTE | 2018-11-30 15:27 | NUR ---
ASSUMED CARE OF THE PATIENT AT THIS TIME. RESTING COMFORTABLY IN HER BED AT THIS TIME. NO S/S OF DISTRESS. CALL LIGHT WITHIN REACH.
--- NOTE | 2018-11-30 15:52 | NUR ---
PATIENT RECEIVED NORCO FOR PAIN RATED 6/10.
[2018-11-30 16:00] VITALS: BP 164/65
--- NOTE | 2018-11-30 16:04 | NUR ---
OCCUPATIONAL THERAPY CO-SIGN I approve of the Occupational Therapy notes written above. ANDRÉS BUCHANAN OTR/Aayush
[2018-11-30 20:00] VITALS: BP 123/55
--- NOTE | 2018-11-30 20:37 | NUR ---
NOTIFIED DR MASON OF PATIENTS DAILY WEIGHT THIS AM 137.2 AND ON ADMISSION FROM THE WAS 130.3. PATIENT STATES SHE SHORT OF BREATH OFF/ON AND LUNGS DID HAVE SOME CRACKLES TONIGHT. STATED TO LET THEM KNOW IF SHE IS INCREASINGLY SOB. NO NEW ORDERS AT THIS TIME
--- NOTE | 2018-11-30 21:28 | NUR ---
PATIENT MEDICATED WITH 1X DOSE MORPHINE ORDERED FOR C/O RIGHT LEG/ LEFT PHANTOM LEG PAIN WHICH IS WORSE AT NIGHT PER PATIENT. WILL FOLLOW UP
--- NOTE | 2018-11-30 22:30 | NUR ---
PATIENT MEDICATED LEX ABBOTT NORCO ORDERD FOR C/O RIGHT LEG PAIN AND LEFT PHANTOM LIBM PAIN, WORSE AT BEDTIME, RATED 9/10.
[2018-12-01] VITALS: BP 151/59
--- NOTE | 2018-12-01 02:30 | NUR ---
MEDICATED WITH PRN NORCO FOR LEFT PHANTOM LIMB PAIN RATED 7/10
--- NOTE | 2018-12-01 03:32 | NUR ---
EARLIER NORCO APPEARS EFFECTIVE. PATIENT SLEEPING. BIPAP ON. NO S/S OF DISTRESS NOTED. CALL LIGHT IS IN REACH.
--- NOTE | 2018-12-01 05:59 | NUR ---
NOTIFIED DR MARTIN OF PATIENTS WEIGHT STILL INCREASING THIS MORNING TO 143.4 AND WITH PATIENT HAVING MORE SOB THIS MORNING THAN NORMAL. STATED HE WILL PUT IN FOR A CXR AND GO FROM THERE.
[2018-12-01 07:29] LABS: INTERNATIONAL NORM RATIO 3.8 (2.0-3.5)
[2018-12-01 07:47] LABS: BASO % 0.5 % (0.0-1.0); EOS # 0.3 10*3/uL (0.0-0.4); EOS % 5.2 % (1.0-4.0); HEMATOCRIT 34.8 % (37.0-47.0); HEMOGLOBIN 9.9 g/dl (12.0-16.0); LYMPH # 1.3 10*3/uL (1.3-4.4); LYMPH % 22.4 % (27.0-41.0); MEAN CELL VOLUME 98.9 fl (81.0-99.0); MEAN CORPUSCULAR HGB 28.1 pg (27.0-31.0); MEAN CORPUSCULAR HGB CONC 28.4 g/dl (33.0-37.0); MEAN PLATELET VOLUME 9.3 fl (9.6-12.3); MONO # 0.4 10*3/uL (0.1-1.0); MONO % 7.5 % (3.0-9.0); NEUT # 3.5 10*3/uL (2.3-7.9); NEUT % 62.6 % (47.0-73.0); PLATELET COUNT AUTOMATED 252 10*3/uL (130-400); RED BLOOD COUNT 3.52 10*6/uL (4.10-5.10); RED CELL DISTRI WIDTH 15.4 % (0-14.5); WHITE BLOOD COUNT 5.6 10*3/uL (4.8-10.8)
[2018-12-01 07:55] LABS: BUN 5 mg/dl (7-24); CHLORIDE 103 mmol/L (98-107); CREATININE 0.27 mg/dL (0.55-1.02); POTASSIUM 3.3 mmol/L (3.5-5.1); SODIUM 145 mmol/L (136-145)
--- NOTE | 2018-12-01 09:48 | NUR ---
PATIENT RECEIVED NORCO FOR PAIN RATED 6/10 IN LEG.
[2018-12-01 09:50] VITALS: BP 148/60
[2018-12-01 12:00] VITALS: BP 168/90
[2018-12-01] MEDS ORDERED: OXYCODONE HYDRO15 MG PO (13:42)
[2018-12-01] MEDS ORDERED: LASIX40 MG PO (13:42)
--- NOTE | 2018-12-01 14:24 | NUR ---
PATIENT RECEIVED ROXICODONE FOR PAIN RATED 7/10.
[2018-12-01 16:00] VITALS: BP 144/59
--- NOTE | 2018-12-01 17:53 | NUR ---
PATIENT STATES ROXYCODONE WAS EFFECTIVE FOR PAIN. RATES IT 11/15.
--- NOTE | 2018-12-01 18:41 | NUR ---
PATIENT RECEIVED ZOFRAN FOR NAUSEA.
--- NOTE | 2018-12-01 19:58 | NUR ---
AWAKE/ALERT FOR SHIFT ASSESSMENT. DAUGHTER IS AT BEDSIDE. RESPIRATIONS EASY/REG ON 3L NC. SITTING AT SIDE OF BED, STATES SHE HAS SOME PHANTOM LIMB PAIN. UNDERSTANDING OF TIMING FOR NEXT DOSE, BED IN LOW POSITION, WHEELS LOCKED,CALL LIGHT IN REACH.
[2018-12-01 20:00] VITALS: BP 159/57
[2018-12-02] VITALS: BP 163/56
--- NOTE | 2018-12-02 04:37 | NUR ---
PATIENT SLEEPING. NO S/S OF DISTRESS NOTED. BIPAP ON. CALL LIGHT IN REACH
[2018-12-02 06:41] LABS: BUN 4 mg/dl (7-24); CHLORIDE 97 mmol/L (98-107); POTASSIUM 3.1 mmol/L (3.5-5.1); SGOT/AST 11 IU/L (3-35); SGPT/ALT 9 U/L (12-78); SODIUM 144 mmol/L (136-145); TOTAL PROTEIN 6.4 gm/dL (6.4-8.2)
[2018-12-02 06:42] LABS: ALKALINE PHOSPHATASE 101 U/L (45-117)
--- NOTE | 2018-12-02 06:57 | NUR ---
NOTIFIED DR AQUINO OF PATIENTS CRITICAL CO2 41.
[2018-12-02 08:00] VITALS: BP 146/70
[2018-12-02 12:00] VITALS: BP 162/83
--- NOTE | 2018-12-02 13:45 | NUR ---
PT MEDICATED WITH LASIX 40MG PO PRN DOSE. PT STATES SHE FEELS SHE HASNT BEEN PEEING ENOUGH TODAY AND THAT IS WHEN SHE USUALLY TAKES IT AT HOME.
[2018-12-02 16:00] VITALS: BP 148/52
--- NOTE | 2018-12-02 16:47 | NUR ---
PT STATED THE OXY WAS EFFECTIVE IN EASING HER LEG PAIN.
[2018-12-02 20:00] VITALS: BP 137/46
--- NOTE | 2018-12-02 21:29 | NUR ---
2000 PT BACK IN BED PER DTR. PT RESTING IN BEDWITH HOB ELEVATED. SIDE RAILS UP X'S 2. CALL LIGHT IN REACH. HEP LOCK INTACT JUAN. 02 ITACT AT 3L. PULSE OX 98%. 2019 MEDICATED WITH OXY IR FOR C/O'S GENERALIZED PAIN. WILL MONITOR.
--- NOTE | 2018-12-02 22:11 | NUR ---
EARLIER PAIN MED EFFECTIVE. 02 INTACT. WAITING ON RESP THERAPY TO APPLY BIPAP. CONDITION GUARDED
--- NOTE | 2018-12-02 23:05 | NUR ---
2245 BIPAP APPLIED. CONT PULSE OX ON. 92%. WILL CONT TO MONITOR.
[2018-12-03] VITALS: BP 144/55
--- NOTE | 2018-12-03 00:46 | NUR ---
24 HR chart check completed.
--- NOTE | 2018-12-03 01:28 | NUR ---
PATIENT STATES SHE DOES NOT WANT TO STAY ON THE BIPAP ANY LONGER BECAUSE THE MASK IS BOTHERING HER. EDUCATED ON THE IMPORTANCE OF WEARING IT. VERBALIZED UNDERSTANDING. NASAL CANNULA INTACT. BED IN LOWEST POSITION, BED ALARM ON, CALL LIGHT IN REACH
[2018-12-03 05:14] VITALS: BP 148/51
[2018-12-03 06:14] LABS: BASO % 0.6 % (0.0-1.0); EOS # 0.2 10*3/uL (0.0-0.4); EOS % 3.4 % (1.0-4.0); HEMATOCRIT 36.9 % (37.0-47.0); HEMOGLOBIN 10.5 g/dl (12.0-16.0); LYMPH # 1.3 10*3/uL (1.3-4.4); MEAN CELL VOLUME 97.6 fl (81.0-99.0); MEAN CORPUSCULAR HGB 27.8 pg (27.0-31.0); MEAN CORPUSCULAR HGB CONC 28.5 g/dl (33.0-37.0); MEAN PLATELET VOLUME 8.7 fl (9.6-12.3); MONO # 0.4 10*3/uL (0.1-1.0); MONO % 6.3 % (3.0-9.0); NEUT # 4.8 10*3/uL (2.3-7.9); NEUT % 69.5 % (47.0-73.0); PLATELET COUNT AUTOMATED 246 10*3/uL (130-400); RED BLOOD COUNT 3.78 10*6/uL (4.10-5.10); RED CELL DISTRI WIDTH 14.8 % (0-14.5); WHITE BLOOD COUNT 6.9 10*3/uL (4.8-10.8)
[2018-12-03 06:24] LABS: INTERNATIONAL NORM RATIO 3.2 (2.0-3.5)
[2018-12-03 06:37] LABS: ALKALINE PHOSPHATASE 103 U/L (45-117); BUN 3 mg/dl (7-24); CHLORIDE 94 mmol/L (98-107); CREATININE 0.36 mg/dL (0.55-1.02); POTASSIUM 3.2 mmol/L (3.5-5.1); SGOT/AST 10 IU/L (3-35); SGPT/ALT 8 U/L (12-78); SODIUM 142 mmol/L (136-145); TOTAL PROTEIN 6.6 gm/dL (6.4-8.2)
--- NOTE | 2018-12-03 06:44 | NUR ---
DR MOURA AWARE OF CRITICAL CO2 44. NO ORDERS
[2018-12-03 08:00] VITALS: BP 144/50
--- NOTE | 2018-12-03 08:10 | NUR ---
PT. DOES NOT WANT AEROSOL TX OR TO USE BIPAP AT THIS TIME. RN AWARE.
--- NOTE | 2018-12-03 10:24 | NUR ---
OT NOTE Pt was seen this A.M. 1:1 for 15 minute OT session. Upon arrival pt was supine in bed, pt identified by name and and had no complaints at this time. Pt transferred supine to sit EOB with SBA and good use of bed rail for UB assist. While sitting EOB pt completed one set of ten tricep towel exercises then transport showed up needing pt, no other ther ex completed at this time. Pt completed stand pivot to w/c with Red. There she was left under transport supervision for chest xray. Continue with rec D/C plan to SNF versus home. MISSAEL Brenner/Aayush
--- NOTE | 2018-12-03 10:45 | NUR ---
PHYSICAL THERAPY Patient presented to therapy in supine with no concerns or complaints. Patient's daughter in the room visiting with patient. Patient agrees to therapy session. Patient was identified by name and . Patient transferred supine to sitting at EOB with MIN A X 1. Patient attempted to don prosthetic LE ,but the sock would not slide up over patient's thigh due to contiued edema. Patient transferred STS and SPT transfer to bedside wheelchair with MIN A X 1. Patient was then transported to radiology via W/W for X-RAY. Patient is on 3 liters of spO2 via nasal canula. Patient was 1:1 with this BUILDING MANAGER for 14 minutes total. AMEE HARRIS BUILDING MANAGER
[2018-12-03 12:00] VITALS: BP 141/47
--- NOTE | 2018-12-03 12:34 | NUR ---
case managment visits with patient, daughter present, discussed with patient and daughter a short term jail for rehab prior to going back home, patient will also need iv antibiotics for a couple of weeks, patient and daughter were agreeable but to an LTAC, [facility]. daughter stated that they wanted to try this facility first before making another choice. associate media planner will contact [facility] and see if patient will qualify for a stay in their facility, case management will follow
--- NOTE | 2018-12-03 12:40 | NUR ---
Patient and family requesting referral to [facility]; Contacted facility and faxed referral. [facility] stated they do not have any beds today, but they have a planned discharge for tomorrow and should have availability at that point. [facility] is checking the rev codes since patient has not had an [facility] stay. Waiting for review.
--- NOTE | 2018-12-03 13:40 | NUR ---
OT NOTE Pt was seen this P.M. 1:1 for second OT session consisting of 20 minutes. Upon arrival pt was sitting upright in her w/c with call light on requesting to get back into bed. Pt identified by name and and had reports of increased fatigue. Presented to therapy with continous 3L-O2 via NC which she remained on throughout entire session. Pt completed stand pivot w/c to bed with Red for UE support. While in bed pt completed BUE towel exercises over all planes of motion for 1 X 10 to increase UE strength needed for increased I in self care tasks and functional transfers. Pt was left supine in bed with call light in hand, tray table in place, and bed alarm activated for safety. Continue with rec D/C plan to SNF versus home. MISSAEL Brenner/Aayush
--- NOTE | 2018-12-03 14:04 | NUR ---
PHYSICAL THERAPY Patient presented to therapy in sitting position with report of wanting to go back to bed and being tired. Patient has no other complaints. Patient agrees to therapy session. Patient was identified by name and . Patient is on 3 liters of spO2 via nasal canula. Patient performed STS transfer with MIN A X 2 using bed railing and handles of W/C. Patient transferred sit to supine with SBA. Patient performed supine bilateral LE ther ex x 15 reps each in all planes of movement for strengthening the LEs in order to improve patient's functional mobility. Patient still unable to Don prosthetic LE due to edema in affected extremity preventing the suction sock from being applied. Patient was left in supine with head of bed elevated, call light within reach, and bed alarm activated with patient's daughter visiting in room. Patient was 1:1 with this JET OPERATOR for 20 minutes total. AMEE HARRIS JET OPERATOR
--- NOTE | 2018-12-03 14:50 | NUR ---
CHINMAY STARR [id number] Please refer to the physician's history and physical for past medical history, comorbid conditions, and allergies. Diagnosis: PNEUMONIA Mauricio Score: 17,AT RISK WOUND DESCRIPTIONS: Location of the wound: right great toe Thickness: Partial Size: 0.4cm x 0.2cm x 0.1cm Tunneling: none Undermining: none Sinus Tract: none Presence of Exudate: none Amount: None Color: Red Odor: None Periwound Skin Appearance: Normal Wound edges: approximated Pain (associated with wound): none at time of assessment How does patient state this happened? Daughter stated she followed up with her lean six sigma black belt in [facility] and he removed ingrown toenails and she has a blister to the third toe and the lean six sigma black belt told her to not where those shoes because its causing pressure Location of the wound: right 3rd toe proximal Thickness: Partial Size: 0.4cm x 0.3cm x 0.1cm Tunneling: none Undermining: none Sinus Tract: none Presence of Exudate: none Amount: None Color: Red Odor: None Periwound Skin Appearance: Normal Wound edges: approximated Pain (associated with wound): none at time of assessment How does patient state this happened? Daughter stated she followed up with her lean six sigma black belt in [facility] and he removed ingrown toenails and she has a blister to the third toe and the lean six sigma black belt told her to not where those shoes because its causing pressure Location of the wound: right 3rd toe distal Thickness: Partial Size: 0.1cm x 0.2cm x 0.1cm Tunneling: none Undermining: none Sinus Tract: none Presence of Exudate: none Amount: None Color: Red Odor: None Periwound Skin Appearance: Normal Wound edges: approximated Pain (associated with wound): none at time of assessment How does patient state this happened? Daughter stated she followed up with her lean six sigma black belt in [facility] and he removed ingrown toenails and she has a blister to the third toe and the lean six sigma black belt told her to not where those shoes because its causing pressure Patient coccyx is red and blanchable at time of assessment. No open areas noted at present time. No odor noted at present time. Daughter stated she was using some type of silver cream on her buttocks. Patients right heel is red and blanchable at time of assessment. No open areas noted. No drainage noted at time of assessment. Surface the patient is resting on: Isoflex SKIN PREVENTION RECOMMENDATION: 1. Pressure redistribution support surface as appropriate 2. Elevate heels 3. Remove boots/TEDS every shift and reapply 4. Head of bed 30 degrees as tolerated 5. Assess nutrition and hydration 6. Manage moisture 7. Avoid the use of containment devices while in bed 8. Use absorptive products on surfaces limit layers of linens on bed 9. Turn and reposition every 1-2 hours in bed and every 1 hour in chair as tolerated 10. Weight shifts every 15 minutes while up in chair 11. Offloading with pillows or device to keep heels elevated off bed 12. Monitor skin at least every shift 13. Inspect under medical devices twice a day WOUND TREATMENT RECOMMENDATIONS: Continue current orders.
[2018-12-03 16:00] VITALS: BP 140/59
[2018-12-03 20:00] VITALS: BP 151/56
--- NOTE | 2018-12-03 20:42 | NUR ---
DAUGHTER AT BEDSIDE. PATIENT EDUCATED ON IMPORTANCE OF WEARING BIPAP DUE TO CO2 BEING HIGH. PATIENT VERBALIZED UNDERSTANDING. NO NEEDS MADE AT THIS TIME. BED IN LOWEST POSITION, CALL LIGHT IN REACH
--- NOTE | 2018-12-03 21:22 | NUR ---
PATIENT INSTRUCTED ON IS USE. PATIENT ACHIEVED 500-1000CC X 10. GOOD PATIENT EFFORT. IS LEFT AT BEDSIDE, PATIENT ENCOURAGED TO USE ON HER OWN.
--- NOTE | 2018-12-03 21:36 | NUR ---
PATIENT MEDICATED WITH PRN ZOFRAN FOR C/O NAUSEA. WILL MONITOR FOR EFFECTIVENESS
--- NOTE | 2018-12-03 21:41 | NUR ---
24 HR chart check completed.
[2018-12-04] VITALS: BP 130/47
--- NOTE | 2018-12-04 04:28 | NUR ---
PATIENT RESTING IN BED WITH NO NEEDS MADE. NO S/S OF DISTRESS. BED IN LOWEST POSITION, CALL LIGHT IN REACH.
[2018-12-04 06:14] LABS: BASO # 0.1 10*3/uL (0.0-0.1); BASO % 0.6 % (0.0-1.0); EOS # 0.3 10*3/uL (0.0-0.4); EOS % 3.1 % (1.0-4.0); HEMATOCRIT 37.5 % (37.0-47.0); HEMOGLOBIN 10.6 g/dl (12.0-16.0); LYMPH # 1.3 10*3/uL (1.3-4.4); LYMPH % 15.6 % (27.0-41.0); MEAN CELL VOLUME 98.9 fl (81.0-99.0); MEAN CORPUSCULAR HGB CONC 28.3 g/dl (33.0-37.0); MEAN PLATELET VOLUME 9.1 fl (9.6-12.3); MONO # 0.5 10*3/uL (0.1-1.0); NEUT # 5.9 10*3/uL (2.3-7.9); NEUT % 73.7 % (47.0-73.0); PLATELET COUNT AUTOMATED 281 10*3/uL (130-400); RED BLOOD COUNT 3.79 10*6/uL (4.10-5.10); RED CELL DISTRI WIDTH 14.9 % (0-14.5)
[2018-12-04 06:24] LABS: ALBUMIN 2.1 gm/dl (3.1-4.5); ALKALINE PHOSPHATASE 108 U/L (45-117); BUN 4 mg/dl (7-24); CHLORIDE 97 mmol/L (98-107); CREATININE 0.43 mg/dL (0.55-1.02); POTASSIUM 3.7 mmol/L (3.5-5.1); SGOT/AST 10 IU/L (3-35); SGPT/ALT 9 U/L (12-78); SODIUM 141 mmol/L (136-145); TOTAL PROTEIN 6.8 gm/dL (6.4-8.2)
--- NOTE | 2018-12-04 06:30 | NUR ---
PATIENT TOLERATED BIPAP WELL OVERNIGHT.
[2018-12-04 06:35] LABS: INTERNATIONAL NORM RATIO 2.5 (2.0-3.5)
[2018-12-04 08:00] VITALS: BP 134/60
--- NOTE | 2018-12-04 08:27 | NUR ---
Patient was accepted and approved to [facility], however the planned discharge they had for today for this patient to have a bed, is not being discharged. They may have a bed for this patient tomorrow pending a discharge from their facility.
--- NOTE | 2018-12-04 08:45 | NUR ---
OT NOTE Pt was seen this A.M. 1:1 for 30 minute OT session. Upon arrival pt was supine in bed, pt identified by name and . Pt had no complaints at this time and presented to therapy with continous 3L-O2 via NC which she remained on throughout entire session. Pt transferred supine to sit EOB with SBA. Stand pivot then completed from bed to w/c with Red. She was then taken into the bathroom where she sat sink side while completing UB/LB bathing with set-upA. Pt donned shirt with Red due to managing heart monitor and donned pants with modA. Extra time given throughout task due to slow rate of performance. Pt was left sitting upright in w/c with call light in hand, tray table in place, and body alarm on for safety. Continue with rec D/C plan to SNF versus home. MISSAEL Brenner/Aayush
--- NOTE | 2018-12-04 09:32 | NUR ---
PHYSICAL THERAPY Patient presented to therapy in supine with 3 liters of spO2 via nasal canula and report of no pain or other complaints. Patient agrees to therapy treatment. Patient was identified by name and . Patient performed supine to EOB transfer with SBA. Patient transferred STS to W/W with and MIN A X 1. Patient transferred to bedside wheel-chair with CGA X 1. Patient sat in wheelchair and performed seated bilateral LE ther ex 2 x 10 reps each in all planes of movement for strengthening the LEs in order to improve patients functional mobility. Patient stood at W/W for 2 minutes for standing tolerance with CGA x 1 with verbal cues for upright posture AND PUSHING DOWN ON WALKER. Patient was left in sitting position with call light within reach, chair alarm tested and attached to patient and chair, and tray table near patient. Patient still with significant edema in L LE preventing prosthesis from being Donned and walking. Patient was 1:1 with this FROZEN MEAT CUTTER for 23 minutes total. AMEE HARRIS FROZEN MEAT CUTTER
--- NOTE | 2018-12-04 10:44 | NUR ---
development planner working with [facility] on transferring patient when she is medically stable and [facility] has an available bed. case management will follow
--- NOTE | 2018-12-04 11:33 | NUR ---
PATIENT MEDICATED WITH ROXICODONE AT THIS TIME FOR COMPLAINTS OF PAIN IN HER LEFT HIP AREA. WILLL MONITOR FOR EFFECTIVENESS.
[2018-12-04 12:00] VITALS: BP 152/61
--- NOTE | 2018-12-04 13:50 | NUR ---
OT NOTE Pt was seen this A.M. 1:1 for 20 minute OT session. Upon arrival pt was sitting upright in recliner, pt identified by name and . Pt had no complaints at this time and presented to therapy with continous 3L-O2 via NC which she remained on throughout entire session. Pt completed BUE towel exercises over all planes of motion with emphasis on triceps for 1 X 15 to increase UE strength needed for increased I in self care tasks and functional transfers. Pt was left sitting upright in recliner with call light in hand, tray table in place, and body alarm on fo safety. Continue with rec D/C plan to SNF versus home. MISSAEL Brenner/Aayush
--- NOTE | 2018-12-04 14:04 | NUR ---
PHYSICAL THERAPY Patient presented therapy in sitting position with head of bed elevated and report of feeling better. patient says she is frustrated she cannot get her prosthetic LE on due ot the swelling lately. Patient agrees to therapy session. Patient was identified by name and . Patient's daughter is in the room visiting at present. Patient attempted to Don her SOCK AND PROSTHETIC LE , BUT THE L LE WAS STILL TO EDEMOUS and prevent the sock/prosthetic from being put on the L LE. Patient performed bilateral LE ther ex 2 x 10 reps in all planes of movement for strengthening the LEs in order to facilitate improving patient's functional mobility. Patient performed x 5 STSs from bedside chair with MIN A X 1 for the 1st and 2nd attempts and the last x 3 STSs was with CGA x 1. Patient requested to stay in bedside chair. Patient was left in bedside chair with call light within reach, chair alarm attached and tested, and LEs elevated. Patient was 1:1 with this REBEAMER for 23 minutes. AMEE HARRIS REBEAMER
--- NOTE | 2018-12-04 15:15 | NUR ---
Recommend follow up for wound care in outpatient setting patient being discharge to another facility at this time.
--- NOTE | 2018-12-04 15:36 | NUR ---
PATIENT MEDICATED WITH PRN LASIX AT THIS TIME PER REQUEST OF PATIENT. PATIENT STATED HER LEG IS SWOLLEN AND SHE IS NOT ABLE TO GET HER PROSTHETIC LEG ON.
[2018-12-04 16:00] VITALS: BP 134/45
--- NOTE | 2018-12-04 19:54 | NUR ---
PATIENT RESTING IN BED WITH DAUGHTER AT BEDSIDE. DAUGHTER CONCERNED ABOUT INCREASED CONFUSION. PREVIOUS SHIFT NURSE STATES THE DOCTORS ARE AWARE OF THIS. PATIENT PLEASANT AND COOPERATIVE AT THIS TIME. ALERT TO PERSON AND TIME, REORIENTED TO PLACE. BED ALARM ON. BED IN LOWEST POSITION, CALL LIGHT IN REACH
[2018-12-04 20:00] VITALS: BP 130/64
[2018-12-05] VITALS (7 sets, daily range): BP systolic 100–129; BP diastolic 38–51
--- NOTE | 2018-12-05 01:25 | NUR ---
24 HR chart check completed.
[2018-12-05 06:00] LABS: BASO # 0.1 10*3/uL (0.0-0.1); BASO % 0.5 % (0.0-1.0); EOS # 0.4 10*3/uL (0.0-0.4); EOS % 2.7 % (1.0-4.0); HEMATOCRIT 40.4 % (37.0-47.0); HEMOGLOBIN 11.4 g/dl (12.0-16.0); LYMPH # 1.5 10*3/uL (1.3-4.4); LYMPH % 11.4 % (27.0-41.0); MEAN CELL VOLUME 98.8 fl (81.0-99.0); MEAN CORPUSCULAR HGB 27.9 pg (27.0-31.0); MEAN CORPUSCULAR HGB CONC 28.2 g/dl (33.0-37.0); MEAN PLATELET VOLUME 8.9 fl (9.6-12.3); MONO # 0.6 10*3/uL (0.1-1.0); MONO % 4.5 % (3.0-9.0); NEUT # 10.5 10*3/uL (2.3-7.9); PLATELET COUNT AUTOMATED 339 10*3/uL (130-400); RED BLOOD COUNT 4.09 10*6/uL (4.10-5.10); RED CELL DISTRI WIDTH 15.1 % (0-14.5); WHITE BLOOD COUNT 13.1 10*3/uL (4.8-10.8)
[2018-12-05 06:11] LABS: BUN 9 mg/dl (7-24); CHLORIDE 97 mmol/L (98-107); CREATININE 0.48 mg/dL (0.55-1.02); POTASSIUM 3.7 mmol/L (3.5-5.1); SODIUM 140 mmol/L (136-145)
--- NOTE | 2018-12-05 06:22 | NUR ---
sarathpressor held per dr vinson
--- NOTE | 2018-12-05 09:03 | NUR ---
[facility] stated they are unable to accept this patient today because their "planned discharge" cannot be discharged again today. They are willing to accept this patient at their [place] facility and then transfer her to [place] when a bed is available. notified Case Management.
--- NOTE | 2018-12-05 09:03 | NUR ---
PHYSICAL THERAPY Patient was sleeing at 08:10 AM. Will check back later. AMEE HARRIS CEMENTER MACHINE APPLICATOR
--- NOTE | 2018-12-05 10:53 | NUR ---
OT NOTE Pt was seen this A.M. 1:1 for 23 minute OT session. Upon arrival pt was supine in bed, pt identified by name and . Pt had complaints of increased fatigue and presented to therapy with continous 4L-O2 via NC which she remained on throughout entire session. Pt transferred supine to sit EOB with CGA and use of bed rails. Stand pivot completed from bed to w/c with Red. Pt was taken into the sink where she completed UB/LB bathing with set-upA while seated in w/c. Extra time given throughout due to slow rate of performance and increased fatigue. Pt was left sitting upright in w/c with call light in hand, tray table in place, and body alarm on for safety. Continue with rec D/C plan to SNF versus home. MISSAEL Brenner/Aayush
--- NOTE | 2018-12-05 10:54 | NUR ---
PHYSICAL THERAPY Patient presented to therapy in supine with head of bed elevated and complaint of fatigue. Patient agrees to therapy session. Patient was identified by name and . Patient is on 4 liters oF spO2. Patient performed supine to sitting at EOB with SBA. Patient transferred STS with MIN A X 1. Patient SPT to bedside W/C with MIN A X 1. Patient very fatigued and was encouraged to sit up in W/C until after lunch. This PIER MASTER attempted to assist pateint to DON GEL SOCK but it would not fit fully on L THIGH , so after 2 attempts this was aborted. Patient was left in sitting position with call light within reach, chair alarm attached and tested and LEG REST attached ON R LE. Patient was 1;1 with this PIER MASTER for 18 minutes total. AMEE HARRIS PIER MASTER
--- NOTE | 2018-12-05 11:31 | NUR ---
case management visits with patient and daughter, patient was somewhat drowsy, educated daughter that [facility] [place] did not have any available beds but respresentative from [facility] stated that patient could be admitted to their facility in [place], [place] and transferred to [place] when bed was available. daughter declined this, stated she did not want her mother that far away that her compensation analyst was in [place] and that's where she wanted her mom to stay. ased case management to check on inpatient stay at [facility] nursing. sr. merchandise planner will contact [facility] and check on bed availablity
--- NOTE | 2018-12-05 12:40 | NUR ---
PT WAS UP IN CHAIR, DAUGHTER ASSISTED BACK TO BED. PT DROWSY/SLEEPY. WILL WAKE UP EASILY TO VERBAL COMMAND. DAUGHTER UPDATED ON CARE.
--- NOTE | 2018-12-05 13:52 | NUR ---
OT NOTE Pt was seen this P.M. for second OT session consisting of 20 minutes. Upon arrival pt was supine in bed, pt transferred supine to sit EOB with CGA. Stand pivot transfer completed with Red bed to bedside commode. Clothing management completed with Red and toilet hygiene completed with set-upA. Stand pivot then completed bedside commode to recliner with Red. There she completed BUE PRE using green (medium) theraband over all planes of motion for 1 X 10 to increase UE strength needed for increased I in self care tasks and functional transfers. Pt was left sitting upright in recliner with call light in hand, tray table in place, and body alarm on for safety. Continue with rec D/C plan to SNF versus home. MISSAEL Brenner/Aayush
--- NOTE | 2018-12-05 14:21 | NUR ---
OKAY PER DR. GUERRA TO HOLD 1400 DOSE OF LOPRESSOR, AWARE NO PROTIME ORDERED FOR TODAY, STATED WILL PLACE ORDER FOR PROTIME TO BE DRAWN
--- NOTE | 2018-12-05 14:26 | NUR ---
PHYSICAL THERAPY Patient presented to therapy in supine with noticable fatigue. patient transferred to bedside chair with MIN A X 1. patient performed seated bilateral LE ther ex 2 x 10 reps in all planes of movement for strengthening in order to improve patient's functional mobility. Patient was 1;1 wit hthis BUTTON BUTTONHOLE MARKER for 16 minutes total. AMEE HARRIS BUTTON BUTTONHOLE MARKER
--- NOTE | 2018-12-05 14:33 | NUR ---
Contacted [facility], they have no available beds at this time and they have a waiting list. Notified manager country and Dr. Samaniego that family is refusing placement any where else besides [facility].
--- NOTE | 2018-12-05 15:10 | NUR ---
pt complains of pain 7/10 in foot, prn oxyir given. see mar. will monitor for effectiveness. changed bandaid on right great toe, right 3rd toe. pt sitting up in chair at this time
--- NOTE | 2018-12-05 20:00 | NUR ---
PT HAD DTI TO COCCYX, PT REFUSED OPTIFOAM TO BUTTOCKS. PER DAUGHTER THEY WANTED CALAZIME APPLIED FROM HOME
[2018-12-06] VITALS: BP 116/54
--- NOTE | 2018-12-06 04:40 | NUR ---
24 HR chart check completed.
--- NOTE | 2018-12-06 07:50 | NUR ---
Discussed patient discharge to [facility] with their surgical device sales representative again this morning. She stated again, they do not have a bed in [place] right now due to a difficult discharge they are having. They were in yesterday and spoke with patients daughter explaining they can admit patient to their [place] facility today and then transfer her to [place] when a bed becomes available. Daughter refusing. Daughter wants patient in [place] where patients dry cleaner hand is; contacted [place] [facility] and they are full with a waiting list. Daughter is refusing all other locations. [facility] stated they cannot guarantee patient will continue to qualify for LTACH especially if her IV ATB are discontinued. will follow
[2018-12-06 07:58] LABS: BASO # 0.1 10*3/uL (0.0-0.1); BASO % 0.7 % (0.0-1.0); EOS # 0.3 10*3/uL (0.0-0.4); EOS % 2.8 % (1.0-4.0); HEMATOCRIT 37.1 % (37.0-47.0); HEMOGLOBIN 10.4 g/dl (12.0-16.0); LYMPH # 1.5 10*3/uL (1.3-4.4); LYMPH % 16.3 % (27.0-41.0); MEAN CELL VOLUME 97.9 fl (81.0-99.0); MEAN CORPUSCULAR HGB 27.4 pg (27.0-31.0); MONO # 0.6 10*3/uL (0.1-1.0); MONO % 6.5 % (3.0-9.0); NEUT # 6.6 10*3/uL (2.3-7.9); PLATELET COUNT AUTOMATED 290 10*3/uL (130-400); RED BLOOD COUNT 3.79 10*6/uL (4.10-5.10)
[2018-12-06 08:00] VITALS: BP 138/56
[2018-12-06 08:06] LABS: INTERNATIONAL NORM RATIO 1.5 (2.0-3.5)
[2018-12-06 08:15] LABS: BUN 10 mg/dl (7-24); CHLORIDE 101 mmol/L (98-107); CREATININE 0.39 mg/dL (0.55-1.02); POTASSIUM 3.9 mmol/L (3.5-5.1); SODIUM 140 mmol/L (136-145)
--- NOTE | 2018-12-06 09:09 | NUR ---
Spoke with Margarita from [facility]. She is saying they may possibly have a bed today or as late as tomorrow, however she is concerned patient may not meet LTACH criteria much longer. Notified Dr. Jean to discuss patient. Will follow
--- NOTE | 2018-12-06 10:25 | NUR ---
OT NOTE Pt was seen this A.M. 1:1 for 23 minute OT session. Upon arrival pt was supine in bed, pt identified by name and . Pt had reports of increased fatigue and presented to therapy with continous 4L-O2 via NC which she remained on throughout entire session. Pt transferred supine to sit EOB with CGA and use of bed rails and Red for "walking" hips forward to the EOB. Pt then completed stand pivot from bed to recliner with Red. While sitting requested for pt to attempt donning LLE prosthesis for increased I in LB dressing. Pt was able to sisi with modA for assist with alignment and with velcro strap tightening. Pt was able to sequence properly and had good safety awareness throughout. Pt then doffed with modA for assist with pulling off and managing once it was doffed. Pt then completed BUE PRE using green (medium) theraband over all planes of motion with emphasis on triceps for 1 X 10 to increase UE strength needed for increased I in self care tasks and functional transfers. Pt was left sitting upright in recliner with call light in hand, tray table in place, and body alarm on for safety. Continue with rec D/C plan to SNF versus home. MISSAEL Brenner/Aayush
--- NOTE | 2018-12-06 10:45 | NUR ---
PHYSICAL THERAPY Pateint presented to therapy in supine still on 4 liters of spO2 with head of bed elevated and report of fatigue. Patient agrees to therapy session. Patient was identified by name and . Patient performed supine to sitting at EOB transfers with SBA. Patient performed STS transfer with MIN A X 2 WITHOUT USING THE WALKER. Patient sat in bedside chair and performed sitting bilateral LE ther ex 2 x 10 reps each in all planes of movement for strengthening in order to improve patient's functional mobility. Green theraband utilized for strengthening ther ex. Patient then Donned the protheic sock , which fit correctly this time ,honey ! Patient then was able to Don the prosthetic L LIMB and this SPIN TANK TENDER assisted with donning of the prosthetic limb, securing the strap for a tight fit. Patient then transferred STS FROM THE BEDSIDE CHAIR with MOD A X 2 and patient then properly seated THE LIMB and the prosthetic limb and the strap were tightened again. Patient ambulated 6' x 1 with the W/W with this SPIN TANK TENDER assisting with advancing the limb forwards during swing phase of gait. Patient's L prosthetic limb DID NOT clear the ground enough for the patient to be able to swing through with the L prosthetic limb. Patient was compensating and leaning to the R side in order to attempt to clear the floor. Patient's chair was brought up behind her and she sat in chair with MIN A X 1. Patient's prosthetic limb was doffed and patient applied compression sock herself. Patient was left in sitting position with call light within reach, chair alarm attached and tested, and R LE in down position. Patient is attached to wall outlet with 4 liters of spO2 via nasal canula. Patient was 1:1 with this SPIN TANK TENDER for 25 minutes total. AMEE HARRIS SPIN TANK TENDER
--- NOTE | 2018-12-06 10:46 | NUR ---
Patient has been accepted to [facility] and they have a bed for her today. Patient can be discharged; notified patients daughter Emperatriz that patient will be discharged and transported this afternoon.
[2018-12-06] MEDS ORDERED: ASPIRIN ADULT L81 M2 PO (11:18)
[2018-12-06] MEDS ORDERED: LOSARTAN POTASS25 M1 PO (11:18)
[2018-12-06] MEDS ORDERED: NYSTOP60 GM T (11:18)
[2018-12-06] MEDS ORDERED: Ipratropium Brom3 ML NEB (11:18)
[2018-12-06] MEDS ORDERED: KLOR-CON M2020 ME1 PO (11:18)
[2018-12-06] MEDS ORDERED: LOPRESSOR25 MG PO (11:18)
[2018-12-06] MEDS ORDERED: AMERINET CHOICE1 GM IV (11:18)
[2018-12-06 12:00] VITALS: BP 112/54
--- NOTE | 2018-12-06 12:01 | NUR ---
Patient is discharged to [facility] in [place]; transportation scheduled for 3 PM with [facility]. [facility]/patients daughters/snack steward and RN all notified.
--- NOTE | 2018-12-06 12:20 | NUR ---
PT COMPLAINING OF 7/10 RIGHT FOOT PAIN, MEDICATED WITH OXYCODONE PER PRN ORDER. WILL MONITOR FOR EFFECTIVENESS.
--- NOTE | 2018-12-06 13:00 | NUR ---
NURSE TO NURSE REPORT GIVEN TO SHAHEED AT [facility].
--- NOTE | 2018-12-06 13:33 | NUR ---
IN TO OBTAIN D/C PHOTOS AT THIS TIME, PT'S DAUGHTER HAS HER FULLY DRESSED AND REQUESTING PHOTOS NOT TO BE TAKEN.
--- NOTE | 2018-12-06 14:05 | NUR ---
PHYSICAL THERAPY CO-SIGN I approve of the Phyical Therapy notes written above. ANY NORMAN PT
--- NOTE | 2018-12-06 14:05 | NUR ---
OCCUPATIONAL THERAPY CO-SIGN I approve of the Occupational Therapy notes written above. ANDRÉS BUCHANAN OTR/Aayush
--- NOTE | 2018-12-06 15:05 | NUR ---
Discharge instructions reviewed with patient/family. Patient receptive and verbalizes understanding. Follow-up care arranged. Written instructions given to patient/family. Pt discharged via [facility] ambulance. Midline left in place. JON DEAN
[2019-01-09 16:08] LABS: ACID FAST CULTURE Negative (.)
[2019-03-13] MEDS ORDERED: IPRATROPIU0.2 MG/1 M NEB (16:59)
[2019-03-13] MEDS ORDERED: FOLIC ACID PO (17:03)
[2019-03-13] MEDS ORDERED: LOPRESSOR25 MG PO (17:05)
[2019-03-13] MEDS ORDERED: KLOR-CON M2020 ME1 PO (17:07)
[2019-03-13] MEDS ORDERED: MIRALAX119 GM PO (17:11)
[2019-03-13] MEDS ORDERED: STOOL SOFTENER250 M2 PO (17:12)
== END 2018-12-06 16:03 | DRG 871 ==
LOC: ED 03:18 → 4E 05:33 → EDHOLD 05:33 → 4E 05:43
PROVIDERS: Emergency Medicine; Family Medicine; Internal Medicine; Internal Medicine Cardiovascular Disease; Internal Medicine Critical Care Medicine; Student in an Organized Health Care Education/Training Program; ADMIT Internal Medicine
DX: A41.9 Sepsis, unspecified organism (principal); E43 Unspecified severe protein-calorie malnutrition; J18.1 Lobar pneumonia, unspecified organism; J96.00 Acute respiratory failure, unspecified whether with hypoxia or hypercapnia; I50.32 Chronic diastolic (congestive) heart failure; C92.10 Chronic myeloid leukemia, BCR/ABL-positive, not having achieved remission; I25.10 Atherosclerotic heart disease of native coronary artery without angina pectoris; F32.9 Major depressive disorder, single episode, unspecified; I11.0 Hypertensive heart disease with heart failure; D53.1 Other megaloblastic anemias, not elsewhere classified; G40.909 Epilepsy, unspecified, not intractable, without status epilepticus; E87.5 Hyperkalemia; E78.5 Hyperlipidemia, unspecified; E11.51 Type 2 diabetes mellitus with diabetic peripheral angiopathy without gangrene; Z88.0 Allergy status to penicillin; Z88.9 Allergy status to unspecified drugs, medicaments and biological substances; Z91.041 Radiographic dye allergy status; Z89.619 Acquired absence of unspecified leg above knee; Z90.49 Acquired absence of other specified parts of digestive tract; Z95.5 Presence of coronary angioplasty implant and graft; Z72.89 Other problems related to lifestyle; Z82.49 Family history of ischemic heart disease and other diseases of the circulatory system; Z83.6 Family history of other diseases of the respiratory system; Z83.3 Family history of diabetes mellitus; Z82.3 Family history of stroke; Z68.23 Body mass index [BMI] 23.0-23.9, adult; K21.9 Gastro-esophageal reflux disease without esophagitis; M94.0 Chondrocostal junction syndrome [Tietze]

== ENCOUNTER → 2019-03-11 | Outpatient (CLI) | payer MEDICARE, OTHER ==
[~2019-03-11] MED LIST changes: +AMERINET CHOICE1 GM IV; +COUMADIN3 M1 PO; +FERROUS SULFAT325 MG PO; +FOLIC ACID PO; +GOOD NEIGHBOR P20 MG PO; +IPRATROPIU0.2 MG/1 M NEB; +Ipratropium Brom3 ML NEB; +KEPPRA250 MG PO; +KEPPRA750 MG PO; +KLOR-CON M2020 ME1 PO; +LOPRESSOR25 MG PO; +LOSARTAN POTASS25 M1 PO; +MIRALAX119 GM PO; +NATURE'S BLEND F1 MG PO; +NEURONTIN600 MG PO; +NYSTOP60 GM T; +OXYCODONE HCL20 M1 PO; +OXYCODONE HYDRO15 MG PO; +OXYCONTIN20 M1 PO; +PULMICORT0.5 MG/2 M INH; +RANEXA500 M1 PO; +STOOL SOFTENER250 M2 PO
[2019-03-11 10:56] LABS: BASO # 0.1 10*3/uL (0.0-0.1); BASO % 0.7 % (0.0-1.0); EOS # 0.6 10*3/uL (0.0-0.4); EOS % 7.1 % (1.0-4.0); HEMATOCRIT 42.5 % (37.0-47.0); HEMOGLOBIN 12.3 g/dl (12.0-16.0); LYMPH # 1.5 10*3/uL (1.3-4.4); LYMPH % 18.9 % (27.0-41.0); MEAN CELL VOLUME 98.2 fl (81.0-99.0); MEAN CORPUSCULAR HGB 28.4 pg (27.0-31.0); MEAN CORPUSCULAR HGB CONC 28.9 g/dl (33.0-37.0); MEAN PLATELET VOLUME 9.1 fl (9.6-12.3); MONO # 0.5 10*3/uL (0.1-1.0); MONO % 5.6 % (3.0-9.0); NEUT # 5.4 10*3/uL (2.3-7.9); NEUT % 67.1 % (47.0-73.0); PLATELET COUNT AUTOMATED 235 10*3/uL (130-400); RED BLOOD COUNT 4.33 10*6/uL (4.10-5.10); RED CELL DISTRI WIDTH 14.3 % (0-14.5)
[2019-03-11 11:31] LABS: ALBUMIN 2.9 gm/dl (3.1-4.5); ALKALINE PHOSPHATASE 138 U/L (45-117); BUN 11 mg/dl (7-24); CHLORIDE 98 mmol/L (98-107); CREATININE 0.63 mg/dL (0.55-1.02); POTASSIUM 4.1 mmol/L (3.5-5.1); SGOT/AST 19 IU/L (3-35); SGPT/ALT 13 U/L (12-78); SODIUM 141 mmol/L (136-145); TOTAL PROTEIN 7.5 gm/dL (6.4-8.2)
[2019-03-11 15:52] LABS: TOTAL IRON BINDING CAPACITY 232 ug/dl (250-450)
== END | disposition home or self-care (01) ==
LOC: LAB 09:30 → US 09:30
PROVIDERS: Internal Medicine Medical Oncology
DX: K80.20 Calculus of gallbladder without cholecystitis without obstruction (principal); C92.10 Chronic myeloid leukemia, BCR/ABL-positive, not having achieved remission; R11.0 Nausea

== ENCOUNTER → 2019-05-08 | Outpatient (CLI) | payer MEDICARE, OTHER ==
[2019-05-08 19:20] LABS: BASO # 0.1 10*3/uL (0.0-0.1); BASO % 0.8 % (0.0-1.0); EOS # 0.3 10*3/uL (0.0-0.4); EOS % 3.8 % (1.0-4.0); HEMATOCRIT 39.3 % (37.0-47.0); HEMOGLOBIN 11.6 g/dl (12.0-16.0); LYMPH # 2.4 10*3/uL (1.3-4.4); LYMPH % 33.9 % (27.0-41.0); MEAN CORPUSCULAR HGB 28.6 pg (27.0-31.0); MEAN CORPUSCULAR HGB CONC 29.5 g/dl (33.0-37.0); MEAN PLATELET VOLUME 9.2 fl (9.6-12.3); MONO # 0.6 10*3/uL (0.1-1.0); MONO % 8.2 % (3.0-9.0); NEUT # 3.8 10*3/uL (2.3-7.9); PLATELET COUNT AUTOMATED 216 10*3/uL (130-400); RED BLOOD COUNT 4.05 10*6/uL (4.10-5.10); RED CELL DISTRI WIDTH 14.2 % (0-14.5); WHITE BLOOD COUNT 7.2 10*3/uL (4.8-10.8)
[2019-05-08 19:49] LABS: ALKALINE PHOSPHATASE 109 U/L (45-117); BUN 15 mg/dl (7-24); CHLORIDE 92 mmol/L (98-107); CREATININE 0.76 mg/dL (0.55-1.02); POTASSIUM 3.6 mmol/L (3.5-5.1); SGOT/AST 11 IU/L (3-35); SGPT/ALT 14 U/L (12-78); SODIUM 139 mmol/L (136-145); TOTAL PROTEIN 7.4 gm/dL (6.4-8.2)
== END | disposition home or self-care (01) ==
LOC: LAB 18:41
PROVIDERS: Internal Medicine Medical Oncology
DX: C92.10 Chronic myeloid leukemia, BCR/ABL-positive, not having achieved remission (principal); D50.8 Other iron deficiency anemias

== ENCOUNTER 2019-05-23 03:08 | Emergency (ER) | payer MEDICARE, OTHER ==
[~2019-05-23] VITALS: Ht 157.4 cm; Wt 59.0 kg
--- NOTE | ~2019-05-23 | EKG ---
[place], [place] ELECTROCARDIOGRAM REPORT NAME: CHINMAY STARR UNIT #: [id number] ROOM: DOCTOR: NATALEE DRAFT REPORT BIRTHDATE: [birth year] [facility] Test Date: 2019-05-23 Test Time: 04:29:21 Pat Name: CHINMAY STARR Department: Room: Gender: F Public Policy Analyst: : 1950 Requested By: INÉS ALFORD Order Number: [id number] Reading MD: Sara Tatum Measurements Intervals [place] Rate: 92 P: 32 [place]: 142 QRS: 17 QRSD: 79 T: 30 QT: 349 QTc: 432 Interpretive Statements Sinus rhythm Atrial premature complex Low voltage, precordial leads Borderline T abnormalities, anterior leads Compared to ECG 11/28/2018 12:35:56 Atrial premature complex(es) now present T-wave abnormality now present Sinus tachycardia no longer present Electronically Signed On 05-24-2019 10:06:19 PDT by Sara Tatum CM:EKGRPT:ELECTROCARDIOGRAM REPORT [id number] INÉS TITUS DRAFT REPORT INÉS ALFORD DO
--- NOTE | ~2019-05-23 | EKG ---
[place], [place] ELECTROCARDIOGRAM REPORT NAME: CHINMAY STARR UNIT #: [id number] ROOM: DOCTOR: NATALEE DRAFT REPORT BIRTHDATE: [birth year] [facility] Test Date: 2019-05-23 Test Time: 06:48:37 Pat Name: CHINMAY STARR Department: Room: Gender: F [employer]: : 1950 Requested By: INÉS ALFORD Order Number: [id number] Reading MD: Sara Tatum Measurements Intervals [place] Rate: 110 P: 14 OR: 138 QRS: 19 QRSD: 69 T: 21 QT: 324 QTc: 439 Interpretive Statements Sinus tachycardia Low voltage, precordial leads Abnormal R-wave progression, early transition Compared to ECG 11/28/2018 12:35:56 No significant changes Electronically Signed On 05-24-2019 10:06:25 PDT by Sara Tatum CM:EKGRPT:ELECTROCARDIOGRAM REPORT 1006 INÉS TITUS DRAFT REPORT INÉS ALFORD DO
[~2019-05-23 03:08] MED LIST changes: -OXYCODONE HCL20 M1 PO; -OXYCONTIN20 M1 PO
[2019-05-23] MEDS ORDERED: OXYCONTIN20 M1 PO (03:16)
[2019-05-23] MEDS ORDERED: OXYCODONE HCL20 M1 PO (03:17)
[2019-05-23 04:04] LABS: BASO % 0.2 % (0.0-1.0); EOS % 0.4 % (1.0-4.0); LYMPH # 1.3 10*3/uL (1.3-4.4); LYMPH % 12.9 % (27.0-41.0); MEAN CELL VOLUME 97.1 fl (81.0-99.0); MEAN CORPUSCULAR HGB 28.6 pg (27.0-31.0); MEAN CORPUSCULAR HGB CONC 29.4 g/dl (33.0-37.0); MEAN PLATELET VOLUME 9.4 fl (9.6-12.3); MONO # 0.6 10*3/uL (0.1-1.0); MONO % 5.3 % (3.0-9.0); NEUT # 8.3 10*3/uL (2.3-7.9); NEUT % 80.5 % (47.0-73.0); PLATELET COUNT AUTOMATED 236 10*3/uL (130-400); RED CELL DISTRI WIDTH 14.4 % (0-14.5); WHITE BLOOD COUNT 10.3 10*3/uL (4.8-10.8)
[2019-05-23 04:14] LABS: ACT PARTIAL THROMBO TIME 35.3 SECONDS (20.0-32.1); INTERNATIONAL NORM RATIO 2.5 (2.0-3.5)
[2019-05-23 04:21] LABS: ALBUMIN 2.6 gm/dl (3.1-4.5); ALKALINE PHOSPHATASE 100 U/L (45-117); BUN 15 mg/dl (7-24); CHLORIDE 92 mmol/L (98-107); CREATININE 0.93 mg/dL (0.55-1.02); POTASSIUM 4.2 mmol/L (3.5-5.1); SGOT/AST 12 IU/L (3-35); SGPT/ALT 19 U/L (12-78); SODIUM 135 mmol/L (136-145); TOTAL PROTEIN 7.1 gm/dL (6.4-8.2)
[2019-05-23 04:22] LABS: TROPONIN I < 0.015 ng/ml (<0.045)
== END 2019-05-23 08:47 | disposition short-term general hospital (02) ==
LOC: ED 03:08
PROVIDERS: Student in an Organized Health Care Education/Training Program
DX: I82.622 Acute embolism and thrombosis of deep veins of left upper extremity (principal); I95.9 Hypotension, unspecified; I25.10 Atherosclerotic heart disease of native coronary artery without angina pectoris; G89.29 Other chronic pain; J44.9 Chronic obstructive pulmonary disease, unspecified; I11.0 Hypertensive heart disease with heart failure; I50.23 Acute on chronic systolic (congestive) heart failure; E78.5 Hyperlipidemia, unspecified; I48.91 Unspecified atrial fibrillation; I73.9 Peripheral vascular disease, unspecified; G40.909 Epilepsy, unspecified, not intractable, without status epilepticus; Z91.041 Radiographic dye allergy status; Z88.0 Allergy status to penicillin; Z88.8 Allergy status to other drugs, medicaments and biological substances; Z91.040 Latex allergy status; Z79.82 Long term (current) use of aspirin; Z79.899 Other long term (current) drug therapy; Z79.01 Long term (current) use of anticoagulants; Z89.422 Acquired absence of other left toe(s); Z90.49 Acquired absence of other specified parts of digestive tract; Z87.891 Personal history of nicotine dependence

== ENCOUNTER 2019-09-13 23:55 | Emergency (ER) | payer MEDICARE, OTHER ==
[~2019-09-13] VITALS: Ht 4089 cm; Wt 2.3 kg
--- NOTE | ~2019-09-13 | EKG ---
[place], [place] ELECTROCARDIOGRAM REPORT NAME: CHINMAY STARR UNIT #: [id number] ROOM: DOCTOR: EPIPHANY DRAFT REPORT BIRTHDATE: [birth year] [facility] Test Date: 2019-09-14 Test Time: 00:01:47 Pat Name: CHINMAY STARR Department: ED Room: Gender: F Radiological Health Specialist: : 1950 Requested By: MAYDA ALLISON Order Number: [id number] Reading MD: Alberto Gibson MD Measurements Intervals [place] Rate: 112 P: 48 ME: 174 QRS: 15 QRSD: 53 T: 21 QT: 333 QTc: 455 Interpretive Statements Sinus tachycardia Low voltage, precordial leads Borderline T abnormalities, anterior leads Compared to ECG 05/23/2019 06:48:37 T-wave abnormality now present Electronically Signed On 09-14-2019 7:08:06 PST by Alberto Gibson MD CM:EKGRPT:ELECTROCARDIOGRAM REPORT [id number] MAYDA ALLISON MD EPIPHANY DRAFT REPORT MAYDA ALLISON MD
[~2019-09-13 23:55] MED LIST changes: +OXYCODONE HCL20 M1 PO; +OXYCONTIN20 M1 PO
[2019-09-14 00:36] LABS: BASO % 0.4 % (0.0-1.0); EOS % 0.3 % (1.0-4.0); HEMATOCRIT 32.3 % (37.0-47.0); HEMOGLOBIN 8.6 g/dl (12.0-16.0); LYMPH # 0.5 10*3/uL (1.3-4.4); LYMPH % 6.3 % (27.0-41.0); MEAN CELL VOLUME 98.8 fl (81.0-99.0); MEAN CORPUSCULAR HGB 26.3 pg (27.0-31.0); MEAN CORPUSCULAR HGB CONC 26.6 g/dl (33.0-37.0); MEAN PLATELET VOLUME 9.4 fl (9.6-12.3); MONO # 0.5 10*3/uL (0.1-1.0); MONO % 6.2 % (3.0-9.0); NEUT # 6.6 10*3/uL (2.3-7.9); NEUT % 86.5 % (47.0-73.0); PLATELET COUNT AUTOMATED 269 10*3/uL (130-400); RED BLOOD COUNT 3.27 10*6/uL (4.10-5.10); RED CELL DISTRI WIDTH 16.5 % (0-14.5); WHITE BLOOD COUNT 7.6 10*3/uL (4.8-10.8)
[2019-09-14 00:49] LABS: ACT PARTIAL THROMBO TIME 26.2 SECONDS (20.0-32.1); INTERNATIONAL NORM RATIO 1.1 (2.0-3.5)
[2019-09-14 01:03] LABS: ALBUMIN 2.6 gm/dl (3.1-4.5); ALKALINE PHOSPHATASE 111 U/L (45-117); BUN 7 mg/dl (7-24); CHLORIDE 95 mmol/L (98-107); CREATININE 0.64 mg/dL (0.55-1.02); POTASSIUM 3.8 mmol/L (3.5-5.1); SGOT/AST 14 IU/L (3-35); SGPT/ALT 13 U/L (12-78); SODIUM 138 mmol/L (136-145); TOTAL PROTEIN 6.8 gm/dL (6.4-8.2)
[2019-09-14 01:05] LABS: TROPONIN I < 0.015 ng/ml (<0.045)
[2019-09-14 01:56] LABS: BILIRUBIN NEGATIVE (NEGATIVE); BLOOD 2+ (NEGATIVE); CLARITY CLEAR (CLEAR); COLOR YELLOW (YELLOW); GLUCOSE NEGATIVE (NEGATIVE); KETONE NEGATIVE (NEGATIVE); LEUKO ESTERASE TRACE (NEGATIVE); NITRITE NEGATIVE (NEGATIVE); SPECIFIC GRAVITY 1.015 (1.005-1.030); UROBILINOGEN 0.2 E.U./dl (0.2-1.0)
[2019-09-14 02:10] LABS: RBC 21-30 rbc/hpf (0-2); WBC 21-30 wbc/hpf (0-5)
[2019-09-14 02:11] LABS: BACTERIA TRACE
== END 2019-09-14 03:44 | disposition short-term general hospital (02) ==
LOC: ED 23:55
PROVIDERS: Emergency Medicine Emergency Medical Services
DX: R50.9 Fever, unspecified (principal); R06.02 Shortness of breath; I11.0 Hypertensive heart disease with heart failure; I50.9 Heart failure, unspecified; I25.10 Atherosclerotic heart disease of native coronary artery without angina pectoris; J44.9 Chronic obstructive pulmonary disease, unspecified; E78.5 Hyperlipidemia, unspecified; G40.909 Epilepsy, unspecified, not intractable, without status epilepticus; I48.0 Paroxysmal atrial fibrillation; F17.200 Nicotine dependence, unspecified, uncomplicated; Z79.899 Other long term (current) drug therapy; Z79.01 Long term (current) use of anticoagulants; Z91.041 Radiographic dye allergy status; Z88.0 Allergy status to penicillin; Z88.8 Allergy status to other drugs, medicaments and biological substances; Z86.718 Personal history of other venous thrombosis and embolism

== ENCOUNTER 2019-11-27 19:19 | Inpatient (IN) | payer MEDICARE, OTHER ==
[~2019-11-27] VITALS: Ht 157.4 cm; Wt 58.6 kg
[2019-11-27 19:26] VITALS: BP 123/51
[2019-11-27 19:53] LABS: BASO % 0.2 % (0.0-1.0); EOS % 0.2 % (1.0-4.0); HEMATOCRIT 31.5 % (37.0-47.0); LYMPH # 1.2 10*3/uL (1.3-4.4); LYMPH % 12.3 % (27.0-41.0); MEAN CELL VOLUME 93.8 fl (81.0-99.0); MEAN CORPUSCULAR HGB 26.8 pg (27.0-31.0); MEAN CORPUSCULAR HGB CONC 28.6 g/dl (33.0-37.0); MEAN PLATELET VOLUME 9.4 fl (9.6-12.3); MONO # 0.6 10*3/uL (0.1-1.0); MONO % 6.6 % (3.0-9.0); NEUT # 7.6 10*3/uL (2.3-7.9); NEUT % 80.2 % (47.0-73.0); PLATELET COUNT AUTOMATED 221 10*3/uL (130-400); RED BLOOD COUNT 3.36 10*6/uL (4.10-5.10); RED CELL DISTRI WIDTH 16.2 % (0-14.5); WHITE BLOOD COUNT 9.5 10*3/uL (4.8-10.8)
[2019-11-27 20:04] LABS: ACT PARTIAL THROMBO TIME 38.7 SECONDS (20.0-32.1); INTERNATIONAL NORM RATIO 1.2 (2.0-3.5)
[2019-11-27 20:12] LABS: ALKALINE PHOSPHATASE 111 U/L (45-117); BUN 8 mg/dl (7-24); CHLORIDE 94 mmol/L (98-107); CREATININE 0.75 mg/dL (0.55-1.02); POTASSIUM 3.7 mmol/L (3.5-5.1); SGOT/AST 39 IU/L (3-35); SGPT/ALT 12 U/L (12-78); SODIUM 139 mmol/L (136-145); TOTAL PROTEIN 6.5 gm/dL (6.4-8.2)
[2019-11-27 20:16] LABS: TROPONIN I < 0.015 ng/ml (<0.045)
[2019-11-27 21:00] VITALS: BP 120/52
[2019-11-27 23:57] VITALS: BP 123/50
[2019-11-28] VITALS: BP 99/50
--- NOTE | 2019-11-28 | NUR ---
A 69, admitted to 4E, under the services of ADEBAYO Brown DO with a diagnosis of SEPSIS, COPD, PNEUMONITIS. Chief complaint is SOB, COUGH, CONGESTION. Patient arrived via stretcher from ER. Monitor applied. Initial assessment completed. Vital signs taken and recorded. ADEBAYO BROWN DO notified of admission to the unit. Orders received. See assessment for past medical history, medications and allergies. Patient and/or family oriented to unit. [facility] visitation policy reviewed. Clothing/patient valuable form completed. THOR BURROWS
[2019-11-28] MEDS ORDERED: METOPROLOL SUCC25 M2 PO (00:33)
[2019-11-28] MEDS ORDERED: SENNA-LAX8.6 MG PO (00:36)
[2019-11-28] MEDS ORDERED: CLOPIDOGREL75 MG PO (00:37)
[2019-11-28] MEDS ORDERED: XARELTO20 M1 PO (00:38)
[2019-11-28] MEDS ORDERED: MUCINEX ER600 MG PO (00:39)
--- NOTE | 2019-11-28 00:39 | NUR ---
PT MED REC UP TO DATE PER DAUGHTER.
--- NOTE | 2019-11-28 01:02 | NUR ---
NOTIFIED OF IV ROCEPHIN AND IV VANCO FLAGGING CONFLICT R/T ALLERGY OF TORADOL. OKAY TO GIVE PER .
[2019-11-28 03:30] VITALS: BP 114/53
[2019-11-28 04:04] LABS: BILIRUBIN NEGATIVE (NEGATIVE); BLOOD NEGATIVE (NEGATIVE); CLARITY SL CLOUDY (CLEAR); COLOR YELLOW (YELLOW); GLUCOSE NEGATIVE (NEGATIVE); KETONE NEGATIVE (NEGATIVE)
[2019-11-28 04:05] LABS: LEUKO ESTERASE 2+ (NEGATIVE); NITRITE NEGATIVE (NEGATIVE); UROBILINOGEN 0.2 E.U./dl (0.2-1.0)
[2019-11-28 04:07] LABS: BACTERIA TRACE; EPITHELIAL CELLS 20-25; WBC 21-30 wbc/hpf (0-5)
[2019-11-28 06:08] LABS: HEMOGLOBIN 8.3 g/dl (12.0-16.0); MEAN CELL VOLUME 94.9 fl (81.0-99.0); MEAN CORPUSCULAR HGB 26.3 pg (27.0-31.0); MEAN CORPUSCULAR HGB CONC 27.7 g/dl (33.0-37.0); MEAN PLATELET VOLUME 10.1 fl (9.6-12.3); PLATELET COUNT AUTOMATED 226 10*3/uL (130-400); RED BLOOD COUNT 3.16 10*6/uL (4.10-5.10); RED CELL DISTRI WIDTH 16.2 % (0-14.5); WHITE BLOOD COUNT 7.2 10*3/uL (4.8-10.8)
--- NOTE | 2019-11-28 06:30 | NUR ---
NOTIFIED OF CONSULT.
[2019-11-28 06:35] LABS: ALBUMIN 1.8 gm/dl (3.1-4.5); ALKALINE PHOSPHATASE 93 U/L (45-117); BUN 9 mg/dl (7-24); CHLORIDE 95 mmol/L (98-107); CHOLESTEROL 95 mg/dL (<200); CREATININE 0.72 mg/dL (0.55-1.02); FREE T4 0.73 ng/dl (0.76-1.46); HDL CHOLESTEROL 53 mg/dl (40-60); LDL CHOLESTEROL 27 mg/dL (9-159); PHOSPHOROUS 4.6 mg/dL (2.5-4.9); POTASSIUM 3.4 mmol/L (3.5-5.1); SGOT/AST 32 IU/L (3-35); SGPT/ALT 12 U/L (12-78); SODIUM 140 mmol/L (136-145); TRIGLYCERIDES 75 mg/dl (<150); VLDL CHOLESTEROL 15 mg/dL (6-40)
[2019-11-28 06:40] LABS: THYROID STIM HORMONE (HS) 0.457 uIU/ml (0.358-4.75)
--- NOTE | 2019-11-28 06:52 | NUR ---
NOTIFIED OF CRITICAL CO2 41, UP FROM 39.
[2019-11-28 08:04] LABS: BASO % 0.1 % (0.0-1.0); LYMPH # 0.9 10*3/uL (1.3-4.4); MONO # 0.4 10*3/uL (0.1-1.0); MONO % 5.3 % (3.0-9.0); NEUT # 5.9 10*3/uL (2.3-7.9)
--- NOTE | 2019-11-28 08:05 | NUR ---
PHYSICAL THERAPY Screen and PT eval received will follow thank you Elvia Castañeda PT
--- NOTE | 2019-11-28 09:00 | NUR ---
Core Shaper in to talk to patient. Patient states lives at home with daughter. There are non steps in the home. Physician: julia lew [facility]acy: [facility] Home health services: none Patient's level of ADLs: MINIMAL ASSIST Patient has working utilities: all working DME: stair lift, home oxygen, portable tanks, bipap from [facility] Follow-up physician's appointment after d/c: will be made by hospitalist nurse director upon discharge Does patient want to access PORTAL?: no Discharge plan discussed with patient, she lives at home with daughter she states she will return home when medically stable, patient stated she has 24 hour care at home and denies any other home needs. BALA RODRIGUEZ
[2019-11-28 09:16] LABS: VITAMIN D, 25-HYDROXY 34.5 ng/mL (30-100)
--- NOTE | 2019-11-28 09:39 | NUR ---
PATIENT HAVING TESTING DONE AT THIS TIME. WILL ASSESS AT A LATER TIME.
--- NOTE | 2019-11-28 10:43 | NUR ---
[facility] back after confirming what services she does have. -YADIEL Graves
[2019-11-28 12:00] VITALS: BP 136/47
--- NOTE | 2019-11-28 12:33 | NUR ---
O2 REMOVED, PT ON CONTINOUS PULSE OX SAT DECREASED TO 88%, PLACED ON 2L, SAT INCREASED TO 91, THEN DECREASED TO 89% WITH PT. RESTING QUIETLY. O2 INCREASED TO 3L, SAT INCREASING TO 93%. RN NOTIFIED.
--- NOTE | 2019-11-28 12:46 | NUR ---
SPEECH PATHOLOGY Clinical swallowing evaluation completed. Patient was admitted with sepsis, COPD and pneumonitis. She has a history of aspiration pneumonia and is known to this dept. from prior hospital stays. Further history includes CHF, DVT, seizures, GI bleed, A-fib, CAD, PVD, TIA, HTN. Patient is ordered a cardiac diet and honey thick liquid. She was alert and pleasant, with generalized weakness. She reported that she was hospitalized last month in [facility] and during that time underwent a MBS which revealed silent aspiration. She was recommended honey thick liquids. Patient also reported that prior to this hospitalization she was receiving home health therapy for swallowing improvement. Patient was assessed with solid consistency and honey thick liquid. She displayed no overt oral or pharyngeal difficulty. Recommend she remain on present diet with use of safe swallow precautions including upright positioning for meals, small bites/sips, consumption of soft, moist foods cut into small bites, alternating liquid and solid and remaining upright at least 30 minutes after meals. Follow up therapy is recommended focusing on education, adherence to safety precautions and pharyngeal exercises. Results and amos. were shared with patient and her home caregiver who was present. They verbalized understanding. Refer to report in [employer] for further information. Thank you for this referral. MANISHA DA SILVA MSCCC-CATHEAD WORKER
--- NOTE | 2019-11-28 13:42 | NUR ---
DR. BUSTAMANTE NOTIFIED OF PODIATRY CONSULT.
--- NOTE | 2019-11-28 13:59 | NUR ---
ABG ORDERED AND PT REFUSED TO HAVE ABG DONE
--- NOTE | 2019-11-28 14:47 | NUR ---
PT MEDICATED WITH PRN ZOFRAN FOR C/O NAUSEA. WILL MONITOR.
[2019-11-28 16:00] VITALS: BP 181/72
[2019-11-28 20:00] VITALS: BP 128/47
[2019-11-28 22:00] VITALS: BP 132/64
--- NOTE | 2019-11-28 22:04 | NUR ---
NOTIFIED OF PT'S HR SITTING IN 140S. PATIENT STATES SHE KNOWS IT IS UP, SHE CAN "FEEL" IT. PT DENIES CP, SOB, PALPITATIONS. NEW ORDER RECEIVED FOR STAT EKG.
--- NOTE | 2019-11-28 22:08 | NUR ---
HERE TO SEE PATIENT. AWARE OF MEDICATIONS/TIMES GIVEN. AWARE THAT EKG IN ER AND WILL BE UP SOON THEY CAN.
--- NOTE | 2019-11-28 22:11 | NUR ---
PATIENT'S HR RETURNED TO 90S-100S PER CM. HERE WHEN THIS HAPPENED. STATES HE WILL REVIEW EKG WHEN COMPLETE. INSTRUCTED TO CALL DR IF HR SUSTAINS ABOVE 120.
--- NOTE | 2019-11-28 22:47 | NUR ---
PT'S HR NOW 104-111. PATIENT IN APPEARS TO BE IN AFIB. HX OF PAROXYSMAL AFIB. AND AWARE. INSTRUCTED TO MONITOR CLOSELY AND CALL IF HR SPIKES AND SUSTAINS.
[2019-11-29] VITALS (8 sets, daily range): BP systolic 94–172; BP diastolic 43–63
--- NOTE | 2019-11-29 00:26 | NUR ---
NOTIFIED OF PATIENT'S HR SUSTAINING IN 120S. ALSO MADE AWARE THAT PT SOUNDS MUCH MORE MOIST THAN EARLIER. POX 94% ON 3L NC. WILL COME UP TO SEE PT.
--- NOTE | 2019-11-29 00:42 | NUR ---
RESPIRATORY AT BEDSIDE TO ATTEMPT SUCTIONING PT SOUNDS VERY MOIST.
--- NOTE | 2019-11-29 01:07 | NUR ---
'S ANSWERING SERVICE CALLED REGARDING CONSULT. INFORMATION LEFT WITH ANSWERING SERVICE. RETURN PHONE CALL REQUESTED.
--- NOTE | 2019-11-29 01:12 | NUR ---
RETURNED PHONE CALL REGARDING CONSULT. DISCUSSED PERTINENT PATIENT INFO, CURRENT SYMPTOMS/VITALS, AND CURRENT MEDICATIONS. NEW ORDER RECEIVED FOR 40 IV LASIX NOW.
--- NOTE | 2019-11-29 02:07 | NUR ---
NEW 24G IV SITE INITIATED IN R HAND PER POLICY OLD IV SITE TO R WRIST OCCLUDED AND PAINFUL. IV LASIX ADMINISTERED SLOWLY PER ORDER. IV MERREM INFUSION INTIATED. PT STATES SHE NEEDS TO GET UP TO BSC. PT ASSISTED TO BEDSIDE, BUT WAS INCONTINENT IN BED. AIDES IN ROOM GIVING PT A BATH AT THIS TIME.
--- NOTE | 2019-11-29 05:20 | NUR ---
PT MEDICATED WITH PO OXY IR PER ORDER FOR C/O PAIN IN RLL RATED 7/10. WILL MONITOR. PATIENT PULLED UP AND REPOSITIONED IN BED. RLL ELEVATED WITH HEEL OFF BED. WILL MONITOR. CALL LIGHT IN REACH. BED ALARM INTACT.
[2019-11-29 06:28] LABS: BASO % 0.2 % (0.0-1.0); HEMOGLOBIN 9.4 g/dl (12.0-16.0); LYMPH % 10.4 % (27.0-41.0); MEAN CELL VOLUME 92.2 fl (81.0-99.0); MEAN CORPUSCULAR HGB 26.3 pg (27.0-31.0); MEAN CORPUSCULAR HGB CONC 28.5 g/dl (33.0-37.0); MEAN PLATELET VOLUME 9.7 fl (9.6-12.3); MONO # 0.6 10*3/uL (0.1-1.0); MONO % 6.1 % (3.0-9.0); NEUT # 7.8 10*3/uL (2.3-7.9); NEUT % 82.9 % (47.0-73.0); PLATELET COUNT AUTOMATED 224 10*3/uL (130-400); RED BLOOD COUNT 3.58 10*6/uL (4.10-5.10); RED CELL DISTRI WIDTH 16.2 % (0-14.5); WHITE BLOOD COUNT 9.4 10*3/uL (4.8-10.8)
--- NOTE | 2019-11-29 06:33 | NUR ---
CHINMAY STARR [id number] Please refer to the physician's history and physical for past medical history, comorbid conditions, and allergies. Diagnosis: SEPSIS COPD PNEUMONITIS Mauricio Score: 14,MODERATE RISK WOUND DESCRIPTIONS: Wound Number: 1 Location of the wound: left arm Type of wound: skin tear Thickness: Partial Size: 2.0cm x 1.5cm x 0.1cm Tunneling: none Undermining: none Sinus Tract: none Presence of Exudate: Serosanguineous Amount: Light Color: Red Odor: None Periwound Skin Appearance: Normal Wound edges: approximated Pain (associated with wound): none at time assessment How does patient state this happened? pt stated that she bumped the areas and it caused her skin to open Wound Number: 2 Location of the wound: left buttocks Type of wound: stage 2 Thickness: Partial Size: 0.5cm x 0.5cm x 0.1cm Tunneling: none Undermining: none Sinus Tract: none Presence of Exudate: none Amount: None Color: Red, brown Odor: None Periwound Skin Appearance: scar tissue Wound edges: approximated Pain (associated with wound): none at time of assessment How does patient state this happened? pt is unsure of when this started Wound Number: 3 Location of the wound: right buttocks Type of wound: stage 3 Thickness: Full Size: 1.5cm x 1.0cm x 0.1cm Tunneling: none Undermining: none Sinus Tract: none Presence of Exudate: none Amount: None Color: Red, brown Odor: None Periwound Skin Appearance: Normal Wound edges: scar tissue Pain (associated with wound): none at time of assessment How does patient state this happened? pt is unsure how this happened Wound Number: 4 Location of the wound: right great toe Type of wound: unstageable Thickness: Full Size: 0.4cm x 0.3cm x 0.1cm Tunneling: none Undermining: none Sinus Tract: none Presence of Exudate: Serous Amount: Light Color: Yellow, red Odor: None Periwound Skin Appearance: Normal Wound edges: approximated Pain (associated with wound): none at time of assessment How does patient state this happened? pt unsure how this happened Wound Number: 5 Type of wound: unstageable Location of the wound: right 2nd toe Thickness: Partial Size: 0.1cm x 0.6cm x <0.1cm Tunneling: none Undermining: none Sinus Tract: none Presence of Exudate: none Amount: None Color: Red, brown Odor: None Periwound Skin Appearance: Normal Wound edges: approximated Pain (associated with wound): none at time of assessment How does patient state this happened? pt unable to state how this happened Surface the patient is resting on: Isoflex SKIN PREVENTION RECOMMENDATION: 1. Pressure redistribution support surface as appropriate 2. Elevate heels 3. Remove boots/TEDS every shift and reapply 4. Head of bed 30 degrees as tolerated 5. Assess nutrition and hydration 6. Manage moisture 7. Avoid the use of containment devices while in bed 8. Use absorptive products on surfaces limit layers of linens on bed 9. Turn and reposition every 1-2 hours in bed and every 1 hour in chair as tolerated 10. Weight shifts every 15 minutes while up in chair 11. Offloading with pillows or device to keep heels elevated off bed 12. Monitor skin at least every shift 13. Inspect under medical devices twice a day WOUND TREATMENT RECOMMENDATIONS: Skin tear guidelines: Cleanse left arm with nss and apply sureprep around the wound hydrogel to wound bed and cover with optifoam gentle every 2 days and prn for soiling. Full thickness guidelines: Cleanse right buttocks with nss and apply sureprep around the wound therahoney to wound bed and cover with optifoam gentle daily and prn for soiling. Partial thickness guidelines: Cleanse left buttocks with nss and apply sureprep around the wound therahoney to wound bed and cover with optifoam gentle daily and prn for soiling. Arterial studies of bilateral lower extremities due to wounds to right great toe and right 2nd toe Consult podiatry for areas to right great toe and right 2nd toe. Dressing change: Apply betadine to right great toe and right 2nd toe and apply dsd daily and prn for soiling.
[2019-11-29 06:59] LABS: BUN 8 mg/dl (7-24); CHLORIDE 89 mmol/L (98-107); CREATININE 0.48 mg/dL (0.55-1.02); POTASSIUM 2.7 mmol/L (3.5-5.1); SGOT/AST 40 IU/L (3-35); SGPT/ALT 14 U/L (12-78); SODIUM 135 mmol/L (136-145); TOTAL PROTEIN 6.7 gm/dL (6.4-8.2)
[2019-11-29 07:00] LABS: ALKALINE PHOSPHATASE 102 U/L (45-117)
--- NOTE | 2019-11-29 07:05 | NUR ---
NOTIFIED OF CO2 45. AWARE THAT DAUGHTER HAS NOT YET BROUGHT PT'S HOME CPAP. WILL REMIND FAMILY TO DO SO, IF POSSIBLE.
--- NOTE | 2019-11-29 07:44 | NUR ---
PT'S DAUGHTER, ARLYN, STATES SHE WILL BRING IN HOME CPAP MACHINE TODAY AT SOME POINT
--- NOTE | 2019-11-29 09:00 | NUR ---
case management visits with patient, caregiver, family member present, discussed with them a discharge plan and they stated patient would be returning home with [facility] home health and 24 hour care, no other needs at this time
--- NOTE | 2019-11-29 09:29 | NUR ---
Dr. Markham notified of wound care recommendations.
--- NOTE | 2019-11-29 12:10 | NUR ---
PT MEDICATED WITH PRN TYLENOL FOR INCREASED TEMPERATURE.
[2019-11-29 13:36] LABS: ABG BASE EXCESS 18.9 mmol/L (-2.0-2.0); ARTERIAL BLOOD GAS PH 7.44 (7.35-7.45)
--- NOTE | 2019-11-29 13:45 | NUR ---
ABGS DONE BY RESPIRATORY. RESULT PENDING. PT MOVED TO ICCU PER ORDER FROM DR. JACOBS. 3L NASAL CANNULA INTACT. REPEAT TEMPERATURE 98.7 AXILLARY.
--- NOTE | 2019-11-29 13:50 | NUR ---
PT TRANSFERED TO ICCU AT THIS TIME. PT A+O X3. HEART RATE 120'S ATRIAL FIB. BP 94/48. POX 90% ON 3L NC.
--- NOTE | 2019-11-29 14:05 | NUR ---
SPEECH THERAPY Attempted to see patient this am, however patient fatigued and resting after being changed and bathed following incontinence. Patient's caregiver was present at bedside who reported patient has been fatigued all morning. Attempted to awaken and encourage patient, however she stated she was tired and did not wish to eat at the moment. Results and recommendations of previous day's bedside swallowing evaluation reivewed with caregiver who verbalized understanding. Attempted swallowing treatment again this afternoon. Upon arrival, patient alert and eating lunch, however informed by nursing staff that patient was being transferred to ICU at that time. As patient is transferring unit, a new order is required should physician wish to continue speech therapy. Thank you. Clover Paige MA [facility]-TAXIMETER REPAIRER
--- NOTE | 2019-11-29 14:39 | NUR ---
PT'S HEART RATE DOWN TO 90'S. PT STATES HIS PAIN IS RELIEVED AFTER THE DILAUDID. DR GEORGES CONSULTING WITH CARDIOLOGY DR GUSTAFSON AT THIS TIME VIA PHONE.
--- NOTE | 2019-11-29 15:43 | NUR ---
RESPIRATORY THERAPY HERE TO PLACE PT ON BIPAP MACHINE.
--- NOTE | 2019-11-29 16:25 | NUR ---
ACCUCATH PLACED IN RIGHT ARM BY DR PARK.
--- NOTE | 2019-11-29 19:17 | NUR ---
CHART CHECK COMPLETE.
--- NOTE | 2019-11-29 23:17 | NUR ---
PT DOZING WHILE ON BIPAP.
[2019-11-30] VITALS: BP 133/63
--- NOTE | 2019-11-30 | NUR ---
PATIENT DENIES ANY NEEDS AT THIS TIME. RESTING ON BIPAP.
[2019-11-30 04:00] VITALS: BP 120/56
--- NOTE | 2019-11-30 05:48 | NUR ---
PATIENT REQUESTED TO HAVE BIPAP REMOVED. 3L NC PLACED.
[2019-11-30 07:54] LABS: ALBUMIN 1.7 gm/dl (3.1-4.5); ALKALINE PHOSPHATASE 91 U/L (45-117); BUN 10 mg/dl (7-24); CHLORIDE 97 mmol/L (98-107); CREATININE 0.55 mg/dL (0.55-1.02); POTASSIUM 3.9 mmol/L (3.5-5.1); SGOT/AST 45 IU/L (3-35); SGPT/ALT 13 U/L (12-78); SODIUM 141 mmol/L (136-145); TOTAL PROTEIN 5.9 gm/dL (6.4-8.2)
[2019-11-30 08:00] VITALS: BP 121/52
[2019-11-30 08:00] LABS: ABG BASE EXCESS 15.9 mmol/L (-2.0-2.0); ARTERIAL BLOOD GAS PH 7.353 (7.35-7.45)
[2019-11-30 08:02] LABS: BASO % 0.2 % (0.0-1.0); HEMATOCRIT 30.7 % (37.0-47.0); HEMOGLOBIN 8.6 g/dl (12.0-16.0); LYMPH # 1.1 10*3/uL (1.3-4.4); LYMPH % 21.2 % (27.0-41.0); MEAN CORPUSCULAR HGB 26.9 pg (27.0-31.0); MEAN PLATELET VOLUME 10.1 fl (9.6-12.3); MONO # 0.5 10*3/uL (0.1-1.0); MONO % 9.6 % (3.0-9.0); NEUT # 3.7 10*3/uL (2.3-7.9); NEUT % 68.8 % (47.0-73.0); PLATELET COUNT AUTOMATED 225 10*3/uL (130-400); RED CELL DISTRI WIDTH 16.3 % (0-14.5); WHITE BLOOD COUNT 5.4 10*3/uL (4.8-10.8)
[2019-11-30 08:08] LABS: MEAN CELL VOLUME 95.9 fl (81.0-99.0)
--- NOTE | 2019-11-30 08:18 | NUR ---
PT PLACED BACK ON BIPAP DUE TO PCO2 OF [address] JACOBS NOTIFIED VIA PHONE.
[2019-11-30 10:36] LABS: ABG BASE EXCESS 16.4 mmol/L (-2.0-2.0); ARTERIAL BLOOD GAS PH 7.371 (7.35-7.45)
--- NOTE | 2019-11-30 10:54 | NUR ---
DR. JACOBS MADE AWARE OF ABG RESULTS. NEW ORDER FOR BIPAP SETTING CHANGE TO /. RESPIRATORY THERAPIST MADE AWARE.
--- NOTE | 2019-11-30 11:14 | NUR ---
PT ASSISTED OUT OF BED IN TO RECLINER CHAIR.
--- NOTE | 2019-11-30 12:41 | NUR ---
I SPOKE WITH DR BUSTAMANTE, THE PODIATRY RESIDENT NUCLEAR PHARMACIST, AND HE STATED THAT HE WILL NOTIFY DR NAVARRETE OF THE CONSULT FROM DR CAGLE.
--- NOTE | 2019-11-30 12:52 | NUR ---
PHYSICAL THERAPY patient initially admitted to level 4 with orders for PT but was transferred to ICCU 11/29/19 and will need new PT orders when medically stable. thank you for referral Ayse Rashid PT
[2019-11-30 16:00] VITALS: BP 125/50
--- NOTE | 2019-11-30 19:35 | NUR ---
ASSUMED CARE FROM MERNA RUBIO. PATIENT RESTING IN BED WITH FAMILY AT THE BEDSIDE. PATIENT DENIES ANY PAIN, DISCOMFORT, OR SHORTNESS OF BREATHE O ASSESSMENT. PATIENT IS ON 3L NC ND IS O2 DEPENDENT. PATIENT HAS A LEFT AKA, BUT IS STILL ABLE TO GET UP AND PIVOT TO BSC WITH MODERATE ASSISTANCE. PATIENT IS ALERT AND ORIENTED AND ANSWERS QUESTIONS APPROPRIATELY. CALL LIGHT WITHIN REACH. SEE ASSESSMENT.
[2019-11-30 20:00] VITALS: BP 127/63
--- NOTE | 2019-11-30 22:30 | NUR ---
PATIENT ASKED IF THEY WANTED BATHED TONIGHT. PATIENT REQUESTS TO BE BATHED TOMORROW INSTEAD.
[2019-12-01] VITALS: BP 121/55
--- NOTE | 2019-12-01 03:16 | NUR ---
24 HOUR CHART CHECK COMPLETED.
[2019-12-01 04:00] VITALS: BP 110/50
[2019-12-01 04:24] LABS: BASO % 0.2 % (0.0-1.0); EOS % 0.2 % (1.0-4.0); HEMATOCRIT 32.8 % (37.0-47.0); HEMOGLOBIN 8.7 g/dl (12.0-16.0); LYMPH # 1.5 10*3/uL (1.3-4.4); LYMPH % 35.8 % (27.0-41.0); MEAN CORPUSCULAR HGB 26.4 pg (27.0-31.0); MEAN CORPUSCULAR HGB CONC 26.5 g/dl (33.0-37.0); MEAN PLATELET VOLUME 9.9 fl (9.6-12.3); MONO # 0.4 10*3/uL (0.1-1.0); MONO % 9.6 % (3.0-9.0); NEUT # 2.3 10*3/uL (2.3-7.9); NEUT % 53.7 % (47.0-73.0); PLATELET COUNT AUTOMATED 198 10*3/uL (130-400); RED BLOOD COUNT 3.29 10*6/uL (4.10-5.10); RED CELL DISTRI WIDTH 16.2 % (0-14.5); WHITE BLOOD COUNT 4.3 10*3/uL (4.8-10.8)
[2019-12-01 04:35] LABS: ALBUMIN 1.6 gm/dl (3.1-4.5); ALKALINE PHOSPHATASE 91 U/L (45-117); BUN 9 mg/dl (7-24); CHLORIDE 102 mmol/L (98-107); CREATININE 0.47 mg/dL (0.55-1.02); POTASSIUM 4.3 mmol/L (3.5-5.1); SGOT/AST 65 IU/L (3-35); SGPT/ALT 17 U/L (12-78); SODIUM 141 mmol/L (136-145); TOTAL PROTEIN 5.7 gm/dL (6.4-8.2)
[2019-12-01 04:37] LABS: MEAN CELL VOLUME 99.7 fl (81.0-99.0)
[2019-12-01 07:47] LABS: ABG BASE EXCESS 13.9 mmol/L (-2.0-2.0); ARTERIAL BLOOD GAS PH 7.301 (7.35-7.45)
[2019-12-01 08:00] VITALS: BP 113/47
--- NOTE | 2019-12-01 08:00 | NUR ---
Resting comfortably in bed. Denies any complaints of pain or shortness of breath. Pulse ox 95% on 3l nasal cannula. Coarse rales heard in posterior left base. Bp 113/47.
--- NOTE | 2019-12-01 09:08 | NUR ---
BIPAP NOT ON DUE TO PT. EATING BREAKFAST. NC ON AT 3L. SAT 95
--- NOTE | 2019-12-01 10:30 | NUR ---
Placed on bedpan for 250cc clear yellow urine
[2019-12-01 12:00] VITALS: BP 99/50
[2019-12-01 16:00] VITALS: BP 107/50
--- NOTE | 2019-12-01 18:02 | NUR ---
COMPLETE BED AND BATH DONE. PLACED UP INTO BEDSIDE CHAIR WITH ASSIST TIMES TW0
[2019-12-01 20:00] VITALS: BP 92/40
--- NOTE | 2019-12-01 20:27 | NUR ---
OXYCODONE GIVEN AT 2020 ORDERED PER PT REQUEST FOR GENERALIZED ACHES AND PAINS. LUNGS HAVE CRACKLES THROUGHOUT BOTH LUNGS AND ABDOMEN SOFTLY DISTENDED AND NORMO. 1+ANKLE EDEMA ON RIGHT LEFT AKA. PT. ALERT AND ORIENTED, COOPERATIVE, DEMANDING AT TIMES, DAUGHTER AT BEDSIDE. SAIDA BULLARD RN
--- NOTE | 2019-12-01 21:32 | NUR ---
PT. BACK TO BED WITH ASSIST., TOLERATED WELL.
--- NOTE | 2019-12-01 23:12 | NUR ---
SCHEDULE OXYCONTIN GIVEN PER PT REQUEST AT 2125. PT. CURRENTLY SLEEPING OXYCONDONE GIVEN AT 2019 AND OXYCONTIN GIVEN AT 2125 EFFECTIVE. SAIDA BULLARD RN
[2019-12-02] VITALS: BP 98/44
[2019-12-02 04:00] VITALS: BP 97/51
[2019-12-02 04:41] LABS: HEMATOCRIT 31.6 % (37.0-47.0); HEMOGLOBIN 8.4 g/dl (12.0-16.0); MEAN CORPUSCULAR HGB 26.6 pg (27.0-31.0); MEAN CORPUSCULAR HGB CONC 26.6 g/dl (33.0-37.0); MEAN PLATELET VOLUME 9.7 fl (9.6-12.3); PLATELET COUNT AUTOMATED 192 10*3/uL (130-400); RED BLOOD COUNT 3.16 10*6/uL (4.10-5.10); RED CELL DISTRI WIDTH 16.2 % (0-14.5); WHITE BLOOD COUNT 3.8 10*3/uL (4.8-10.8)
[2019-12-02 04:58] LABS: ALBUMIN 1.6 gm/dl (3.1-4.5); ALKALINE PHOSPHATASE 106 U/L (45-117); BUN 6 mg/dl (7-24); CHLORIDE 102 mmol/L (98-107); CREATININE 0.32 mg/dL (0.55-1.02); POTASSIUM 4.4 mmol/L (3.5-5.1); SGOT/AST 94 IU/L (3-35); SGPT/ALT 26 U/L (12-78); SODIUM 142 mmol/L (136-145); TOTAL PROTEIN 5.7 gm/dL (6.4-8.2)
[2019-12-02 05:16] LABS: ATYPICAL LYMPHS 5 % (0-0); TOTAL CELLS COUNTED 100 #CELLS
[2019-12-02 05:17] LABS: OVALOCYTES FEW; PLATELET SUFFICIENCY NORMAL (NORMAL); STOMATOCYTE MANY
--- NOTE | 2019-12-02 06:25 | NUR ---
Patient states she will follow up in the wound care center upon discharge. Phone number provided to patient and she states she will make appointment when she goes home.
--- NOTE | 2019-12-02 07:50 | NUR ---
Occupational therapy orders received when patient was admitted on the medical floor. She has seen been transferred to the ICCU. Will need new orders when medically stable and appropriate. Thank you. An Bashir, OTR/L
[2019-12-02 08:00] VITALS: BP 103/57
--- NOTE | 2019-12-02 08:44 | NUR ---
OXY IR PER PT REQUEST FOR GENERALIZED PAIN
[2019-12-02 10:59] LABS: ABG BASE EXCESS 12.9 mmol/L (-2.0-2.0); ARTERIAL BLOOD GAS PH 7.337 (7.35-7.45)
--- NOTE | 2019-12-02 11:43 | NUR ---
Patient placed on NIV
[2019-12-02 12:00] VITALS: BP 101/37
--- NOTE | 2019-12-02 12:18 | NUR ---
SPEECH PATHOLOGY Orders for evaluation received, since admission to ICCU. Patient was not able to be seen for assessment at this time as she was on BIPAP. Will attempt at a later time. MANISHA DA SILVA MSCCC-CARPENTRY SUPERVISOR
[2019-12-02 13:39] LABS: ABG BASE EXCESS 12.5 mmol/L (-2.0-2.0); ARTERIAL BLOOD GAS PH 7.331 (7.35-7.45)
--- NOTE | 2019-12-02 15:17 | NUR ---
UP TO BSC X 2 ASSIST X MULTIPLE TIME DUE TO IV LASIX, REMAINS ON NC3, TOLERATES BIPAP WHEN ON, PT NOW MED SURG AND AWAITING TRANSFER OUT OF THE ICU
[2019-12-02 16:00] VITALS: BP 99/53
--- NOTE | 2019-12-02 16:02 | NUR ---
SPEECH PATHOLOGY Evaluation completed as per orders. Patient was seen while on 4E but was transferred to ICCU with new orders obtained. Patient remains on cardiac diet with liquids thickened to honey consistency. She was alert and cooperative, receiving O2 via NC at time of assessment. Oral skills remain functional in lingual/labial strength, ROM and coordination. Patient followed commands appropriately. She was observed with solid food and honey liquids and displayed no overt s/s aspiration with any item consumed. She ate slowly, taking small bites and sips. Recommend she remain on present diet with continued use of safe swallow precautions. Continued therapy is recommended through length of stay to ensure safe swallow through education, adherence to safety precautions and pharyngeal strengthening exercises. Patient was educated on results and amos. and verbalized understanding. Refer to report in [employer] for further information. Thank you for this referral. MANISHA DA SILVA MSCCC-INSIDE BARREL POLISHER
[2019-12-02 20:00] VITALS: BP 119/48
--- NOTE | 2019-12-02 20:09 | NUR ---
PATIENT MEDICATED WITH PRN OXY PER DRS ORDERS FOR COMPLAINTS OF ALL OVER PAIN. WILL MONITOR FOR EFFETIVENESS
--- NOTE | 2019-12-02 21:34 | NUR ---
PATIENT RESTING WITH EYES CLOSED AT THIS TIME, APPEARS TO BE SLEEPING, SNORING RESPIRATIONS.PATIENT AWAKENED FOR SCHEDULED MEDICATIONS, AWAKENS EASILY TO VOICE, BUT ALMOST IMMEDIATELY FALLS BACK TO SLEEP AND NEEDS TO BE REDIRECTED IWITH ACTIONS. HAS TAKEN MEDICATIONS GOOD WITH HONEY THICKENED APPLE JUICE FROM HOME. NO COMPLICATIONS. WHEN ASKED ABOUT BIPAP, PATIENT STATES THAT SHE DOESNT WANT TO WEAR IT RIGHT NOW BUT MAYBE IN A LITTLE BIT.
--- NOTE | 2019-12-02 22:00 | NUR ---
PLACED PATIENT ON BIPAP FOR HS
[2019-12-03] VITALS: BP 143/64
[2019-12-03 07:33] LABS: HEMATOCRIT 30.6 % (37.0-47.0); HEMOGLOBIN 8.2 g/dl (12.0-16.0); MEAN CELL VOLUME 98.4 fl (81.0-99.0); MEAN CORPUSCULAR HGB 26.4 pg (27.0-31.0); MEAN CORPUSCULAR HGB CONC 26.8 g/dl (33.0-37.0); MEAN PLATELET VOLUME 10.2 fl (9.6-12.3); PLATELET COUNT AUTOMATED 220 10*3/uL (130-400); RED BLOOD COUNT 3.11 10*6/uL (4.10-5.10); RED CELL DISTRI WIDTH 16.1 % (0-14.5); WHITE BLOOD COUNT 4.2 10*3/uL (4.8-10.8)
--- NOTE | 2019-12-03 07:40 | NUR ---
PT IS NOT ON HER BIPAP AT THIS TIME.
[2019-12-03 07:54] LABS: BUN 4 mg/dl (7-24); CHLORIDE 102 mmol/L (98-107); CREATININE 0.31 mg/dL (0.55-1.02); POTASSIUM 4.1 mmol/L (3.5-5.1); SODIUM 141 mmol/L (136-145)
[2019-12-03 07:58] LABS: TOTAL CELLS COUNTED 100 #CELLS
[2019-12-03 08:00] VITALS: BP 122/50
[2019-12-03 08:00] LABS: PLATELET SUFFICIENCY NORMAL (NORMAL); STOMATOCYTE MODERATE
--- NOTE | 2019-12-03 09:47 | NUR ---
SPEECH PATHOLOGY Patient was seen for treatment this date. She was alert, sitting upright in bed. Occasional confusion was displayed. Patient did not appear to be oriented to her surroundings at this time. Reorientation was provided by clinician. Strengthening exercises were performed with patient requiring frequent cues and model due to confusion. She was also observed with breakfast tray. She consumed scrambled eggs and honey thick juice. No overt difficulty was displayed. Her status places her at risk for aspiration therefore it is recommended she remain on present diet of soft foods and honey liquids. Continue therapy plan. MANISHA DA SILVA MSCCC-CIAIO LUMITE INJECTOR
--- NOTE | 2019-12-03 10:55 | NUR ---
PATIENT MEDICATED WITH OXYCODONE PER PRN ORDER FOR BREAKTHROUGH PAIN IN BACK/RLE 06/15. WILL MONITOR FOR EFFECTIVENESS.
--- NOTE | 2019-12-03 11:00 | NUR ---
case management visits with patient, daughter present, discussed with her patient going to a short term intermediate for rehab prior to returning home, daughter stated her mom will return home when stable, she has [facility] and 24 hour care at home, daughter stated there wasn't anything else they needed, case management will follow
[2019-12-03 12:00] VITALS: BP 110/50
--- NOTE | 2019-12-03 12:00 | NUR ---
PT MUCH MORE COMFORTABLE AT THIS TIME. DENIES NEEDS.
--- NOTE | 2019-12-03 12:10 | NUR ---
Nutritional Support Services Note: Follow up done on patient. Patient is tolerating current diet well with honey thick liquids. PO intakes have improved. DEVON Greenwood dental intern
--- NOTE | 2019-12-03 13:30 | NUR ---
patient's information faxed to [facility] for when patient is medically stable for discharge
--- NOTE | 2019-12-03 15:38 | NUR ---
PHYSICAL THERAPY Jose completed high level of complexity [id number] recomend SNF but per pt she will go home w home health states she will hav 24 hr care at home. PT to work on transfers, Standing balance, strengthening. Elvia Castañeda PT
[2019-12-03 16:00] VITALS: BP 121/52
[2019-12-03 20:00] VITALS: BP 107/50
--- NOTE | 2019-12-03 23:35 | NUR ---
PT MEDICATED WITH PO OXY IR FOR C/O OF L THIGH PAIN RATED 8/10. PT ALSO C/O PHANTOM LOWER LEG PAIN. WILL MONITOR EFFECTIVENESS. RESPIRATORY AT BEDSIDE TO PLACE PT ON BIPAP. CALL LIGHT IN REACH. BED ALARM INTACT.
[2019-12-04] VITALS: BP 130/58
--- NOTE | 2019-12-04 02:30 | NUR ---
PT IS CURRENTLY OFF HER BIPAP IN NO DISTRESS.
--- NOTE | 2019-12-04 02:43 | NUR ---
PT PLACED BACK ON BIPAP AT THIS TIME WITH PREVIOUS SETTINGS. FiO2 40% AT THIS TIME. WILL MONITOR.
--- NOTE | 2019-12-04 03:24 | NUR ---
PATIENT TAKEN OFF BIPAP AND PLACED ON O2 VIA 3L NC SHE CANNOT STAND TO WEAR BIPAP AT THIS TIME. WILL MONITOR. CALL LIGHT IN REACH.
--- NOTE | 2019-12-04 04:30 | NUR ---
PT ASSISTED UP TO BSC AND BACK INTO BED. PT HAD BM. PO OXY IR ADMINISTERED PER PRN ORDER FOR C/O R LEG AND L THIGH/PHANTOM LEG PAIN RATED 8/10. WILL MONITOR EFFECTIVENESS. R LEG ELEVATED USING PILLOW TO OFFLOAD PRESSURE FROM HEEL. CALL LIGHT IN REACH. BED ALARM INTACT.
[2019-12-04 08:00] VITALS: BP 102/48
--- NOTE | 2019-12-04 08:24 | NUR ---
PT AWAKE, ALERT, & ORIENTED. SITTING UP EATING BREAKFAST IN BED AT THIS TIME. SCATTERED RHONCHI T/O LUNGS, & FAINT CRACKLES TO BASES NOTED. ON O2 @ 3L NC. TRACE EDEMA TO RLE. DRSGS DRY & INTACT TO WOUNDS. ABD SOFT & NONTENDER. DENIES NEEDS AT THIS TIME. CALL LIGHT WITHIN REACH.
--- NOTE | 2019-12-04 09:00 | NUR ---
case management visits with patient and daughter Jesusita, discussed with them a short term senior care for iv antibiotics if needed, daughter stated patient has been at two area nursing facilities and had bad experiences and that patient was out of full pay medicare days, daughter stated she would be able to bring patient into the hospital as an outpatient if needed for iv antibiotics. she will have [facility] home health and 24 hour care at home, case management will follow
--- NOTE | 2019-12-04 09:00 | NUR ---
PHYSICAL THERAPY Patient seen this am 1:1 for therapy visit and was resting supine in bed upon therapist arrival. Patient identified by name / and reports no new c/o's at this time. Patient presented with continuos O2-3L via NC and L AKA, however did not have L prosthesis. Patient transfers supine to sit EOB with MIN A, tolerating several minutes static sit SBA without c/o. Patient performed several sit to stand transfers, use of wh walker standing support, MIN A, demonstrating "slouched" upright posture, tolerating approx 1 minute static stand each trial. Patient also completed SPT to BSC, MIN A, requiring v/c for safe pivot / walker sequencing. Patient returned to supine in bed and remained with call light, tray table, telephone and bed alarm for safety. Will continue per POC as tolerated, total treatment time 16 minutes. Lloyd López, MANAGER ANALYSIS
--- NOTE | 2019-12-04 10:02 | NUR ---
Occupational therapy orders received and chart reviewed. Patient was being taken to a CT of the chest upon OT arrival. Will follow up with patient. Thank you. An Bashir, OTR/L
--- NOTE | 2019-12-04 10:30 | NUR ---
PATIENT MEDICATED WITH OXY IR AT THIS TIME PER PRN ORDER FOR COMPLAINTS OF PAIN IN RIGHT LEG 05/15. WILL MONITOR FOR EFFECTIVENESS.
--- NOTE | 2019-12-04 10:52 | NUR ---
SPEECH PATHOLOGY Patient was seen for treatment this am. Patient was alert, sitting upright in bed. She was confused at times but cooperative and able to participate. She performed pharyngeal exercises with cue and model. She occasionally became distracted but was able to be redirected back to tasks. Her daughter was present and was explained the exercises so she could practice with her mom. A written copy of exercises will be provided. Continue therapy plan. MANISHA DA SILVA MSCCC-WIND TURBINE SHEET METAL WORKER
--- NOTE | 2019-12-04 11:30 | NUR ---
Occupational therapy orders received and chart reviewed. Patient was completing a breathing treatment upon arrival and requested I return after lunch. Will follow up. Thank you. An Bashir OTR/L
[2019-12-04] MEDS ORDERED: LEVAQUIN750 M1 PO (12:04)
--- NOTE | 2019-12-04 13:16 | NUR ---
case management received a call from Margarita at [facility], she was informed that patient is being discharged to home today
--- NOTE | 2019-12-04 14:13 | NUR ---
Discharge instructions reviewed with patient/family. Patient receptive and verbalizes understanding. Follow-up care arranged. Written instructions given to patient/family. HEPLOCK DISCONTINUED. WOUND PHOTOS TAKEN. PATIENT TAKEN TO FRONT ENTRANCE VIA WHEELCHAIR;TRANSPORTED BY PRIVATE CAR (DAUGHTER). JO LESTER
--- NOTE | 2019-12-05 07:34 | NUR ---
PHYSICAL THERAPY CO-SIGN I approve of the Physical Therapy notes written above. Elvia Castañeda PT
== END 2019-12-04 14:13 | disposition home health service (06) | DRG 871 ==
LOC: ED 19:19 → 4E 21:26 → EDHOLD 21:26 → 4E 22:39 → ICCU 11-29 14:06 → 5E 12-02 18:52
PROVIDERS: Emergency Medicine; Hospitalist; Internal Medicine; Internal Medicine Critical Care Medicine; Student in an Organized Health Care Education/Training Program; ADMIT Internal Medicine
PROC: 5A09357 Assistance with Respiratory Ventilation, Less than 24 Consecutive Hours, Continuous Positive Airway Pressure (ICD-10-PCS; principal; 2019-11-29)
PROC: 5A09357 Assistance with Respiratory Ventilation, Less than 24 Consecutive Hours, Continuous Positive Airway Pressure (ICD-10-PCS; 2019-11-30)
PROC: 5A09357 Assistance with Respiratory Ventilation, Less than 24 Consecutive Hours, Continuous Positive Airway Pressure (ICD-10-PCS; 2019-12-01)
PROC: 5A09357 Assistance with Respiratory Ventilation, Less than 24 Consecutive Hours, Continuous Positive Airway Pressure (ICD-10-PCS; 2019-12-02)
PROC: 5A09357 Assistance with Respiratory Ventilation, Less than 24 Consecutive Hours, Continuous Positive Airway Pressure (ICD-10-PCS; 2019-12-03)
DX: A41.9 Sepsis, unspecified organism (principal); G93.41 Metabolic encephalopathy; E43 Unspecified severe protein-calorie malnutrition; J96.21 Acute and chronic respiratory failure with hypoxia; J96.22 Acute and chronic respiratory failure with hypercapnia; J69.0 Pneumonitis due to inhalation of food and vomit; I50.32 Chronic diastolic (congestive) heart failure; C92.10 Chronic myeloid leukemia, BCR/ABL-positive, not having achieved remission; E87.2 Acidosis; D68.59 Other primary thrombophilia; J44.0 Chronic obstructive pulmonary disease with (acute) lower respiratory infection; E87.3 Alkalosis; I48.21 Permanent atrial fibrillation; R65.20 Severe sepsis without septic shock; E87.8 Other disorders of electrolyte and fluid balance, not elsewhere classified; F32.9 Major depressive disorder, single episode, unspecified; E78.5 Hyperlipidemia, unspecified; I25.10 Atherosclerotic heart disease of native coronary artery without angina pectoris; I11.0 Hypertensive heart disease with heart failure; D53.1 Other megaloblastic anemias, not elsewhere classified; G40.909 Epilepsy, unspecified, not intractable, without status epilepticus; G89.29 Other chronic pain; E87.6 Hypokalemia; R74.0 Nonspecific elevation of levels of transaminase and lactic acid dehydrogenase [LDH]; J20.9 Acute bronchitis, unspecified; I48.0 Paroxysmal atrial fibrillation; L97.519 Non-pressure chronic ulcer of other part of right foot with unspecified severity; S90.931A Unspecified superficial injury of right great toe, initial encounter; S90.934A Unspecified superficial injury of right lesser toe(s), initial encounter; X58.XXXA Exposure to other specified factors, initial encounter; I70.203 Unspecified atherosclerosis of native arteries of extremities, bilateral legs; Y93.89 Activity, other specified; Y92.89 Other specified places as the place of occurrence of the external cause; Y99.8 Other external cause status; Z68.23 Body mass index [BMI] 23.0-23.9, adult; Z99.81 Dependence on supplemental oxygen; Z86.14 Personal history of Methicillin resistant Staphylococcus aureus infection; Z89.612 Acquired absence of left leg above knee; Z88.0 Allergy status to penicillin; Z91.040 Latex allergy status; Z88.8 Allergy status to other drugs, medicaments and biological substances; Z79.01 Long term (current) use of anticoagulants; Z79.899 Other long term (current) drug therapy; Z89.422 Acquired absence of other left toe(s); Z87.891 Personal history of nicotine dependence; Z82.49 Family history of ischemic heart disease and other diseases of the circulatory system; Z90.49 Acquired absence of other specified parts of digestive tract

== ENCOUNTER → 2020-04-24 | Outpatient (CLI) | payer MEDICARE, OTHER ==
[~2020-04-24] MED LIST changes: +METOPROLOL SUCC25 M2 PO; +MUCINEX ER600 MG PO; +SENNA-LAX8.6 MG PO; +XARELTO20 M1 PO
== END | disposition home or self-care (01) ==
LOC: MRI 13:00
DX: G45.9 Transient cerebral ischemic attack, unspecified (principal); R41.82 Altered mental status, unspecified

== ENCOUNTER → 2020-07-25 | Outpatient (CLI) | payer MEDICARE, OTHER | END | disposition home or self-care (01) | LOC: RAD 16:03 | PROVIDERS: ATTEND Family Medicine | DX: M79.644 Pain in right finger(s) (principal); M79.641 Pain in right hand; Z91.81 History of falling ==

== ENCOUNTER → 2020-08-03 | Outpatient (CLI) | payer MEDICARE, OTHER | END | disposition home or self-care (01) | LOC: RAD 17:37 | PROVIDERS: ATTEND Family Medicine | DX: J44.9 Chronic obstructive pulmonary disease, unspecified (principal); R04.2 Hemoptysis ==

== ENCOUNTER → 2020-09-15 | Outpatient (CLI) | payer MEDICARE, OTHER ==
[2020-09-15 18:56] LABS: MEAN CELL VOLUME 103.4 fl (81.0-99.0); MEAN CORPUSCULAR HGB 27.9 pg (27.0-31.0); MEAN PLATELET VOLUME 10.5 fl (9.6-12.3); RED BLOOD COUNT 3.58 10*6/uL (4.10-5.10); RED CELL DISTRI WIDTH 13.5 % (0-14.5); WHITE BLOOD COUNT 5.3 10*3/uL (4.8-10.8)
[2020-09-15 19:18] LABS: ALBUMIN 2.7 gm/dl (3.1-4.5); ALKALINE PHOSPHATASE 100 U/L (45-117); BUN 8 mg/dl (7-24); CHLORIDE 94 mmol/L (98-107); CREATININE 0.49 mg/dL (0.55-1.02); POTASSIUM 4.2 mmol/L (3.5-5.1); SGOT/AST 9 IU/L (3-35); SGPT/ALT 10 U/L (12-78); SODIUM 141 mmol/L (136-145); TOTAL PROTEIN 6.6 gm/dL (6.4-8.2)
== END | disposition home or self-care (01) ==
LOC: LAB 18:11
PROVIDERS: ATTEND Family Medicine
DX: J44.9 Chronic obstructive pulmonary disease, unspecified (principal); J84.10 Pulmonary fibrosis, unspecified; K44.9 Diaphragmatic hernia without obstruction or gangrene

== ENCOUNTER → 2020-09-18 | Outpatient (CLI) | payer MEDICARE, OTHER ==
[2020-09-18 18:32] LABS: BASO % 0.4 % (0.0-1.0); EOS # 0.2 10*3/uL (0.0-0.4); HEMATOCRIT 36.8 % (37.0-47.0); LYMPH # 1.5 10*3/uL (1.3-4.4); LYMPH % 27.5 % (27.0-41.0); MEAN CELL VOLUME 103.7 fl (81.0-99.0); MEAN CORPUSCULAR HGB 28.5 pg (27.0-31.0); MEAN CORPUSCULAR HGB CONC 27.4 g/dl (33.0-37.0); MEAN PLATELET VOLUME 10.6 fl (9.6-12.3); MONO # 0.4 10*3/uL (0.1-1.0); MONO % 7.8 % (3.0-9.0); NEUT # 3.3 10*3/uL (2.3-7.9); NEUT % 59.8 % (47.0-73.0); PLATELET COUNT AUTOMATED 144 10*3/uL (130-400); RED BLOOD COUNT 3.55 10*6/uL (4.10-5.10); RED CELL DISTRI WIDTH 13.4 % (0-14.5); RETICULOCYTE % 2.35 % (0.50-2.50); WHITE BLOOD COUNT 5.5 10*3/uL (4.8-10.8)
== END | disposition home or self-care (01) ==
LOC: LAB 17:48
PROVIDERS: ATTEND Internal Medicine Medical Oncology
DX: C92.10 Chronic myeloid leukemia, BCR/ABL-positive, not having achieved remission (principal); D60.9 Acquired pure red cell aplasia, unspecified; E55.9 Vitamin D deficiency, unspecified; E53.8 Deficiency of other specified B group vitamins

== ENCOUNTER → 2020-09-26 | Outpatient (CLI) | payer MEDICARE, OTHER | END | disposition home or self-care (01) | LOC: RAD 14:20 | PROVIDERS: ATTEND Nurse Practitioner Family | DX: M25.421 Effusion, right elbow (principal) ==

== ENCOUNTER → 2020-10-03 | Outpatient (CLI) | payer MEDICARE, OTHER | END | disposition home or self-care (01) | LOC: RAD 17:03 | PROVIDERS: ATTEND Family Medicine | DX: J18.0 Bronchopneumonia, unspecified organism (principal); R91.8 Other nonspecific abnormal finding of lung field ==

== ENCOUNTER → 2020-10-06 | Outpatient (CLI) | payer MEDICARE, OTHER | END | disposition home or self-care (01) | LOC: COVID19 08:35 | PROVIDERS: ATTEND Family Medicine | DX: Z20.828 Contact with and (suspected) exposure to other viral communicable diseases (principal) ==

== ENCOUNTER → 2020-10-23 | Outpatient (CLI) | payer MEDICARE, OTHER | END | disposition home or self-care (01) | LOC: RAD 19:18 | PROVIDERS: ATTEND Family Medicine | DX: J18.9 Pneumonia, unspecified organism (principal) ==

== ENCOUNTER → 2020-11-24 | Outpatient (CLI) | payer MEDICARE, OTHER ==
[~2020-11-24] MED LIST changes: +D3-501250 MCG PO; +KLOR-CON 1010 ME1 PO; +PEPCID20 MG PO; +TYLENOL EXTRA500 MG PO; +ZYPREXA2.5 MG PO
[2020-11-24 18:00] LABS: ABG BASE EXCESS 21.2 mmol/L (-2.0-2.0); ARTERIAL BLOOD GAS PH 7.255 (7.35-7.45)
== END | disposition home or self-care (01) ==
LOC: LAB 17:13
PROVIDERS: ATTEND Internal Medicine Pulmonary Disease
DX: R79.81 Abnormal blood-gas level (principal)

== ENCOUNTER → 2021-01-08 | Outpatient (CLI) | payer MEDICARE, OTHER | END | disposition home or self-care (01) | LOC: LAB 19:34 | PROVIDERS: ATTEND Family Medicine | DX: R35.0 Frequency of micturition (principal) ==

== ENCOUNTER → 2021-01-13 | Outpatient (CLI) | payer MEDICARE, OTHER ==
[2021-01-13 18:55] LABS: HEMATOCRIT 40.3 % (37.0-47.0); MEAN CELL VOLUME 103.9 fl (81.0-99.0); MEAN CORPUSCULAR HGB 29.1 pg (27.0-31.0); MEAN PLATELET VOLUME 10.3 fl (9.6-12.3); RED BLOOD COUNT 3.88 10*6/uL (4.10-5.10); RED CELL DISTRI WIDTH 13.7 % (0-14.5); WHITE BLOOD COUNT 5.7 10*3/uL (4.8-10.8)
[2021-01-13 19:15] LABS: ALBUMIN 2.6 gm/dl (3.1-4.5); ALKALINE PHOSPHATASE 100 U/L (45-117); BUN 7 mg/dl (7-24); CHLORIDE 92 mmol/L (98-107); CHOLESTEROL 185 mg/dL (<200); CPK 14 U/L (26-192); CREATININE 0.43 mg/dL (0.55-1.02); HDL CHOLESTEROL 76 mg/dl (40-60); LDL CHOLESTEROL 74 mg/dL (9-159); POTASSIUM 4.2 mmol/L (3.5-5.1); SGOT/AST 9 IU/L (3-35); SGPT/ALT 8 U/L (12-78); SODIUM 142 mmol/L (136-145); TOTAL PROTEIN 6.3 gm/dL (6.4-8.2); TRIGLYCERIDES 175 mg/dl (<150); VLDL CHOLESTEROL 35 mg/dL (6-40)
== END | disposition home or self-care (01) ==
LOC: LAB 17:55
PROVIDERS: ATTEND Family Medicine
DX: J44.9 Chronic obstructive pulmonary disease, unspecified (principal); E78.00 Pure hypercholesterolemia, unspecified

== ENCOUNTER 2021-01-20 11:32 | Inpatient (IN) | payer MEDICARE, OTHER ==
[~2021-01-20] VITALS: Ht 157.5 cm; Wt 56.3 kg
[~2021-01-20 11:32] MED LIST changes: -D3-501250 MCG PO; -PEPCID20 MG PO; -TYLENOL EXTRA500 MG PO; -ZYPREXA2.5 MG PO
[2021-01-20 11:43] VITALS: BP 105/49
[2021-01-20 12:38] LABS: BASO % 0.3 % (0.0-1.0); EOS # 0.4 10*3/uL (0.0-0.4); EOS % 5.8 % (1.0-4.0); HEMATOCRIT 37.5 % (37.0-47.0); LYMPH # 1.7 10*3/uL (1.3-4.4); MEAN CELL VOLUME 101.6 fl (81.0-99.0); MEAN CORPUSCULAR HGB CONC 28.5 g/dl (33.0-37.0); MEAN PLATELET VOLUME 9.8 fl (9.6-12.3); MONO # 0.5 10*3/uL (0.1-1.0); MONO % 8.2 % (3.0-9.0); NEUT # 3.7 10*3/uL (2.3-7.9); NEUT % 58.2 % (47.0-73.0); PLATELET COUNT AUTOMATED 171 10*3/uL (130-400); RED BLOOD COUNT 3.69 10*6/uL (4.10-5.10); RED CELL DISTRI WIDTH 13.8 % (0-14.5); WHITE BLOOD COUNT 6.4 10*3/uL (4.8-10.8)
[2021-01-20 12:50] LABS: ACT PARTIAL THROMBO TIME 30.8 SECONDS (20.0-32.1); INTERNATIONAL NORM RATIO 1.2 (2.0-3.5)
[2021-01-20 12:53] LABS: ALBUMIN 2.4 gm/dl (3.1-4.5); ALKALINE PHOSPHATASE 110 U/L (45-117); BUN 6 mg/dl (7-24); CHLORIDE 94 mmol/L (98-107); CREATININE 0.55 mg/dL (0.55-1.02); SGOT/AST 10 IU/L (3-35); SGPT/ALT 10 U/L (12-78); SODIUM 140 mmol/L (136-145); TOTAL PROTEIN 6.5 gm/dL (6.4-8.2)
[2021-01-20 13:01] LABS: TROPONIN I < 0.015 ng/ml (<0.045)
[2021-01-20 13:45] LABS: BILIRUBIN Negative (Negative); BLOOD Negative (Negative); CLARITY Clear (Clear); COLOR Yellow (Yellow); GLUCOSE Negative (Negative); KETONE Negative (Negative); LEUKO ESTERASE 1+ (Negative); NITRITE Negative (Negative); PH 7.5 (4.5-8.0)
[2021-01-20 13:51] LABS: ABG BASE EXCESS 16.9 mmol/L (-2.0-2.0); ARTERIAL BLOOD GAS PH 7.312 (7.35-7.45); ARTERIAL BLOOD GAS PO2 98.7 (80-90)
[2021-01-20 14:09] LABS: BACTERIA 1+
[2021-01-20 17:05] LABS: ABG BASE EXCESS 19.9 mmol/L (-2.0-2.0); ARTERIAL BLOOD GAS PH 7.342 (7.35-7.45); ARTERIAL BLOOD GAS PO2 88.3 (80-90)
[2021-01-20 17:21] VITALS: BP 120/50
[2021-01-20] MEDS ORDERED: TYLENOL EXTRA500 MG PO (17:49)
[2021-01-20] MEDS ORDERED: GAVISCON ES TA1 EACH PO (17:50)
[2021-01-20] MEDS ORDERED: PEPCID20 MG PO (17:50)
[2021-01-20] MEDS ORDERED: D3-501250 MCG PO (17:58)
[2021-01-20 20:30] VITALS: BP 91/51
[2021-01-20 22:01] LABS: BUN 9 mg/dl (7-24); CHLORIDE 94 mmol/L (98-107); CREATININE 0.63 mg/dL (0.55-1.02); POTASSIUM 4.3 mmol/L (3.5-5.1); SODIUM 142 mmol/L (136-145)
[2021-01-20 23:45] VITALS: BP 96/65
[2021-01-21 06:29] LABS: ABG BASE EXCESS 21.2 mmol/L (-2.0-2.0); ARTERIAL BLOOD GAS PH 7.408 (7.35-7.45); ARTERIAL BLOOD GAS PO2 100.6 (80-90)
[2021-01-21 06:33] LABS: BASO % 0.3 % (0.0-1.0); EOS % 0.3 % (1.0-4.0); HEMATOCRIT 35.3 % (37.0-47.0); LYMPH # 1.2 10*3/uL (1.3-4.4); LYMPH % 30.5 % (27.0-41.0); MEAN CELL VOLUME 99.2 fl (81.0-99.0); MEAN CORPUSCULAR HGB 28.7 pg (27.0-31.0); MEAN CORPUSCULAR HGB CONC 28.9 g/dl (33.0-37.0); MEAN PLATELET VOLUME 10.3 fl (9.6-12.3); MONO # 0.1 10*3/uL (0.1-1.0); MONO % 2.5 % (3.0-9.0); NEUT # 2.6 10*3/uL (2.3-7.9); NEUT % 65.6 % (47.0-73.0); PLATELET COUNT AUTOMATED 176 10*3/uL (130-400); RED BLOOD COUNT 3.56 10*6/uL (4.10-5.10); RED CELL DISTRI WIDTH 13.7 % (0-14.5); WHITE BLOOD COUNT 3.9 10*3/uL (4.8-10.8)
[2021-01-21 07:04] LABS: ALBUMIN 2.4 gm/dl (3.1-4.5); ALKALINE PHOSPHATASE 102 U/L (45-117); BUN 9 mg/dl (7-24); CHLORIDE 95 mmol/L (98-107); CHOLESTEROL 161 mg/dL (<200); CREATININE 0.61 mg/dL (0.55-1.02); FREE T4 0.77 ng/dl (0.76-1.46); HDL CHOLESTEROL 75 mg/dl (40-60); LDL CHOLESTEROL 67 mg/dL (9-159); POTASSIUM 4.4 mmol/L (3.5-5.1); SGOT/AST 13 IU/L (3-35); SGPT/ALT 9 U/L (12-78); SODIUM 143 mmol/L (136-145); TOTAL PROTEIN 6.4 gm/dL (6.4-8.2); TRIGLYCERIDES 96 mg/dl (<150); VLDL CHOLESTEROL 19 mg/dL (6-40)
[2021-01-21 07:09] LABS: THYROID STIM HORMONE (HS) 0.323 uIU/ml (0.358-4.75)
[2021-01-21 08:00] VITALS: BP 120/76
[2021-01-21 08:23] LABS: VITAMIN D, 25-HYDROXY 68.1 ng/mL (30-100)
[2021-01-21 12:00] VITALS: BP 140/70
[2021-01-21 16:00] VITALS: BP 123/55
[2021-01-21 16:39] LABS: ABG BASE EXCESS 11.4 mmol/L (-2.0-2.0); ARTERIAL BLOOD GAS PH 7.437 (7.35-7.45); ARTERIAL BLOOD GAS PO2 68.2 (80-90)
[2021-01-21 20:00] VITALS: BP 116/46
[2021-01-22] VITALS: BP 119/97
[2021-01-22 06:10] LABS: BASO % 0.2 % (0.0-1.0); HEMATOCRIT 34.1 % (37.0-47.0); LYMPH # 1.2 10*3/uL (1.3-4.4); LYMPH % 21.9 % (27.0-41.0); MEAN CELL VOLUME 99.4 fl (81.0-99.0); MEAN CORPUSCULAR HGB 29.2 pg (27.0-31.0); MEAN CORPUSCULAR HGB CONC 29.3 g/dl (33.0-37.0); MEAN PLATELET VOLUME 10.4 fl (9.6-12.3); MONO # 0.2 10*3/uL (0.1-1.0); MONO % 3.4 % (3.0-9.0); NEUT # 4.1 10*3/uL (2.3-7.9); NEUT % 73.4 % (47.0-73.0); PLATELET COUNT AUTOMATED 224 10*3/uL (130-400); RED BLOOD COUNT 3.43 10*6/uL (4.10-5.10); RED CELL DISTRI WIDTH 14.1 % (0-14.5); WHITE BLOOD COUNT 5.5 10*3/uL (4.8-10.8)
[2021-01-22 06:23] LABS: BUN 10 mg/dl (7-24); CHLORIDE 94 mmol/L (98-107); POTASSIUM 3.8 mmol/L (3.5-5.1); SODIUM 142 mmol/L (136-145)
[2021-01-22 08:00] VITALS: BP 125/52
[2021-01-22 08:12] LABS: ABG BASE EXCESS 17.7 mmol/L (-2.0-2.0); ARTERIAL BLOOD GAS PH 7.469 (7.35-7.45); ARTERIAL BLOOD GAS PO2 64.9 (80-90)
[2021-01-22 13:00] VITALS: BP 98/46
[2021-01-22 16:00] VITALS: BP 117/64
[2021-01-22 20:00] VITALS: BP 136/60
[2021-01-23] VITALS: BP 112/54
[2021-01-23 05:57] LABS: BASO % 0.3 % (0.0-1.0); EOS # 0.1 10*3/uL (0.0-0.4); EOS % 1.3 % (1.0-4.0); HEMATOCRIT 33.5 % (37.0-47.0); LYMPH # 2.4 10*3/uL (1.3-4.4); LYMPH % 32.3 % (27.0-41.0); MEAN CELL VOLUME 101.5 fl (81.0-99.0); MEAN CORPUSCULAR HGB 29.1 pg (27.0-31.0); MEAN CORPUSCULAR HGB CONC 28.7 g/dl (33.0-37.0); MONO # 0.7 10*3/uL (0.1-1.0); MONO % 9.1 % (3.0-9.0); NEUT # 4.2 10*3/uL (2.3-7.9); NEUT % 55.7 % (47.0-73.0); PLATELET COUNT AUTOMATED 212 10*3/uL (130-400); RED CELL DISTRI WIDTH 14.3 % (0-14.5); WHITE BLOOD COUNT 7.5 10*3/uL (4.8-10.8)
[2021-01-23 06:17] LABS: BUN 8 mg/dl (7-24); CHLORIDE 100 mmol/L (98-107); CREATININE 0.56 mg/dL (0.55-1.02); POTASSIUM 3.7 mmol/L (3.5-5.1); SODIUM 146 mmol/L (136-145)
[2021-01-23 08:00] VITALS: BP 116/40
[2021-01-23] MEDS ORDERED: PREDNISONE10 MG PO (10:48)
[2021-01-23] MEDS ORDERED: ZYPREXA2.5 MG PO ×2 (10:48→14:08)
[2021-01-23] MEDS ORDERED: LEVOFLOXACIN500 MG PO (10:52)
[2021-01-23 12:00] VITALS: BP 124/45
== END 2021-01-23 14:00 | disposition home or self-care (01) | DRG 291 ==
LOC: ED 11:32 → EDHOLD 14:11 → 5E 14:11
PROVIDERS: Family Medicine; Hospitalist; Internal Medicine; Student in an Organized Health Care Education/Training Program; ADMIT Internal Medicine; ATTEND Internal Medicine
PROC: 5A09357 Assistance with Respiratory Ventilation, Less than 24 Consecutive Hours, Continuous Positive Airway Pressure (ICD-10-PCS; principal; 2021-01-20)
PROC: 5A09357 Assistance with Respiratory Ventilation, Less than 24 Consecutive Hours, Continuous Positive Airway Pressure (ICD-10-PCS; 2021-01-22)
DX: I11.0 Hypertensive heart disease with heart failure (principal); J96.21 Acute and chronic respiratory failure with hypoxia; G93.41 Metabolic encephalopathy; J96.22 Acute and chronic respiratory failure with hypercapnia; N30.00 Acute cystitis without hematuria; J44.1 Chronic obstructive pulmonary disease with (acute) exacerbation; I50.33 Acute on chronic diastolic (congestive) heart failure; I25.10 Atherosclerotic heart disease of native coronary artery without angina pectoris; I48.0 Paroxysmal atrial fibrillation; G89.29 Other chronic pain; F32.9 Major depressive disorder, single episode, unspecified; E78.5 Hyperlipidemia, unspecified; I73.9 Peripheral vascular disease, unspecified; G40.909 Epilepsy, unspecified, not intractable, without status epilepticus; F41.9 Anxiety disorder, unspecified; Z88.0 Allergy status to penicillin; Z88.7 Allergy status to serum and vaccine; Z91.041 Radiographic dye allergy status; Z91.040 Latex allergy status; Z90.49 Acquired absence of other specified parts of digestive tract; Z89.432 Acquired absence of left foot; Z82.49 Family history of ischemic heart disease and other diseases of the circulatory system; Z86.718 Personal history of other venous thrombosis and embolism

== ENCOUNTER → 2021-02-15 | Outpatient (CLI) | payer MEDICARE, OTHER ==
[~2021-02-15] MED LIST changes: +D3-501250 MCG PO; +PEPCID20 MG PO; +TYLENOL EXTRA500 MG PO; +ZYPREXA2.5 MG PO
[2021-02-15 16:57] LABS: ABG BASE EXCESS 19.8 mmol/L (-2.0-2.0); ARTERIAL BLOOD GAS PH 7.419 (7.35-7.45); ARTERIAL BLOOD GAS PO2 48.2 (80-90)
== END | disposition home or self-care (01) ==
LOC: LAB 16:10
PROVIDERS: ATTEND Family Medicine
DX: J44.9 Chronic obstructive pulmonary disease, unspecified (principal)

== ENCOUNTER → 2021-05-13 | Outpatient (CLI) | payer MEDICARE, OTHER ==
[2021-05-13 19:33] LABS: BASO % 0.4 % (0.0-1.0); EOS # 0.3 10*3/uL (0.0-0.4); EOS % 3.3 % (1.0-4.0); HEMATOCRIT 40.6 % (37.0-47.0); LYMPH # 2.2 10*3/uL (1.3-4.4); LYMPH % 27.5 % (27.0-41.0); MEAN CELL VOLUME 100.5 fl (81.0-99.0); MEAN CORPUSCULAR HGB 27.7 pg (27.0-31.0); MEAN CORPUSCULAR HGB CONC 27.6 g/dl (33.0-37.0); MEAN PLATELET VOLUME 10.1 fl (9.6-12.3); MONO # 0.8 10*3/uL (0.1-1.0); MONO % 10.1 % (3.0-9.0); NEUT # 4.8 10*3/uL (2.3-7.9); NEUT % 58.5 % (47.0-73.0); PLATELET COUNT AUTOMATED 172 10*3/uL (130-400); RED BLOOD COUNT 4.04 10*6/uL (4.10-5.10); RED CELL DISTRI WIDTH 14.2 % (0-14.5); WHITE BLOOD COUNT 8.2 10*3/uL (4.8-10.8)
[2021-05-13 19:47] LABS: ALBUMIN 2.6 gm/dl (3.1-4.5); ALKALINE PHOSPHATASE 113 U/L (45-117); BUN 8 mg/dl (7-24); CHLORIDE 93 mmol/L (98-107); CREATININE 0.46 mg/dL (0.55-1.02); LDH 166 U/L (84-246); SGOT/AST 20 IU/L (3-35); SGPT/ALT 10 U/L (12-78); SODIUM 141 mmol/L (136-145); TOTAL PROTEIN 6.5 gm/dL (6.4-8.2)
== END | disposition home or self-care (01) ==
LOC: LAB 18:34
PROVIDERS: ATTEND Internal Medicine Medical Oncology
DX: C92.10 Chronic myeloid leukemia, BCR/ABL-positive, not having achieved remission (principal); M79.2 Neuralgia and neuritis, unspecified; E87.2 Acidosis; R40.4 Transient alteration of awareness; Z79.899 Other long term (current) drug therapy

== ENCOUNTER → 2021-05-19 | Outpatient (CLI) | payer MEDICARE, OTHER ==
[2021-05-19 16:33] LABS: ABG BASE EXCESS 19.8 mmol/L (-2.0-2.0); ARTERIAL BLOOD GAS PH 7.39 (7.35-7.45); ARTERIAL BLOOD GAS PO2 56.2 (80-90)
== END | disposition home or self-care (01) ==
LOC: LAB 00:35
PROVIDERS: ATTEND Internal Medicine Pulmonary Disease
DX: J44.9 Chronic obstructive pulmonary disease, unspecified (principal); J84.112 Idiopathic pulmonary fibrosis; J96.21 Acute and chronic respiratory failure with hypoxia

== ENCOUNTER → 2021-06-10 | Outpatient (CLI) | payer MEDICARE, OTHER ==
[2021-06-10 16:48] LABS: ALBUMIN 2.4 gm/dl (3.1-4.5); ALKALINE PHOSPHATASE 117 U/L (45-117); BUN 7 mg/dl (7-24); CHLORIDE 93 mmol/L (98-107); CHOLESTEROL 165 mg/dL (<200); CPK 12 U/L (26-192); CREATININE 0.56 mg/dL (0.55-1.02); LDL CHOLESTEROL 61 mg/dL (9-159); POTASSIUM 3.5 mmol/L (3.5-5.1); SGOT/AST 13 IU/L (3-35); SGPT/ALT 14 U/L (12-78); SODIUM 140 mmol/L (136-145); TOTAL PROTEIN 6.5 gm/dL (6.4-8.2); TRIGLYCERIDES 153 mg/dl (<150)
[2021-06-10 16:56] LABS: MEAN CELL VOLUME 98.6 fl (81.0-99.0); MEAN CORPUSCULAR HGB 27.4 pg (27.0-31.0); MEAN CORPUSCULAR HGB CONC 27.8 g/dl (33.0-37.0); MEAN PLATELET VOLUME 9.9 fl (9.6-12.3); RED BLOOD COUNT 3.65 10*6/uL (4.10-5.10); RED CELL DISTRI WIDTH 14.3 % (0-14.5); WHITE BLOOD COUNT 7.2 10*3/uL (4.8-10.8)
== END | disposition home or self-care (01) ==
LOC: RAD 06-09 16:01 → LAB 15:58
PROVIDERS: ATTEND Family Medicine
DX: I51.7 Cardiomegaly (principal); E78.00 Pure hypercholesterolemia, unspecified; J69.0 Pneumonitis due to inhalation of food and vomit; J98.4 Other disorders of lung

== ENCOUNTER → 2021-06-14 | Outpatient (CLI) | payer MEDICARE, OTHER ==
[2021-06-14 16:52] LABS: HEMATOCRIT 36.2 % (37.0-47.0); MEAN CELL VOLUME 104.6 fl (81.0-99.0); MEAN CORPUSCULAR HGB 27.5 pg (27.0-31.0); MEAN CORPUSCULAR HGB CONC 26.2 g/dl (33.0-37.0); RED BLOOD COUNT 3.46 10*6/uL (4.10-5.10); RED CELL DISTRI WIDTH 14.6 % (0-14.5); WHITE BLOOD COUNT 5.8 10*3/uL (4.8-10.8)
[2021-06-14 17:23] LABS: ALBUMIN 2.2 gm/dl (3.1-4.5); ALKALINE PHOSPHATASE 116 U/L (45-117); BUN 10 mg/dl (7-24); CHLORIDE 98 mmol/L (98-107); CREATININE 0.42 mg/dL (0.55-1.02); SGOT/AST 15 IU/L (3-35); SGPT/ALT 11 U/L (12-78); SODIUM 138 mmol/L (136-145); TOTAL PROTEIN 6.1 gm/dL (6.4-8.2)
== END | disposition home or self-care (01) ==
LOC: LAB 16:32
PROVIDERS: ATTEND Family Medicine
DX: K92.2 Gastrointestinal hemorrhage, unspecified (principal); D64.9 Anemia, unspecified

== ENCOUNTER → 2021-07-19 | Outpatient (CLI) | payer MEDICARE, OTHER ==
[~2021-07-19] MED LIST changes: +DOXYCYCLINE MO100 M1 PO; +LINEZOLID600 MG PO
== END | disposition home or self-care (01) ==
LOC: RAD 17:00
PROVIDERS: ATTEND Family Medicine
DX: R05 Cough (principal)

== ENCOUNTER → 2021-07-26 | Outpatient (CLI) | payer MEDICARE, OTHER ==
[2021-07-26 17:24] LABS: HEMATOCRIT 32.5 % (37.0-47.0); MEAN CELL VOLUME 95.9 fl (81.0-99.0); MEAN CORPUSCULAR HGB 25.7 pg (27.0-31.0); MEAN CORPUSCULAR HGB CONC 26.8 g/dl (33.0-37.0); RED BLOOD COUNT 3.39 10*6/uL (4.10-5.10); RED CELL DISTRI WIDTH 14.9 % (0-14.5)
[2021-07-26 17:42] LABS: ALBUMIN 2.5 gm/dl (3.1-4.5); BUN 8 mg/dl (7-24); CHLORIDE 92 mmol/L (98-107); CREATININE 0.46 mg/dL (0.55-1.02); POTASSIUM 3.4 mmol/L (3.5-5.1); SGOT/AST 17 IU/L (3-35); SGPT/ALT 12 U/L (12-78); SODIUM 142 mmol/L (136-145)
[2021-07-26 17:44] LABS: ALKALINE PHOSPHATASE 133 U/L (45-117); TOTAL PROTEIN 6.7 gm/dL (6.4-8.2)
== END | disposition home or self-care (01) ==
LOC: LAB 16:50
PROVIDERS: ATTEND Family Medicine
DX: D64.9 Anemia, unspecified (principal); A08.4 Viral intestinal infection, unspecified

== ENCOUNTER 2021-07-29 22:57 | Inpatient (IN) | payer MEDICARE, OTHER ==
[~2021-07-29] VITALS: Ht 149.8 cm; Wt 53.2 kg
[~2021-07-29 22:57] MED LIST changes: -DOXYCYCLINE MO100 M1 PO; -LINEZOLID600 MG PO
[2021-07-29 23:09] VITALS: BP 118/44
[2021-07-29 23:49] LABS: BASO % 0.5 % (0.0-1.0); EOS # 0.3 10*3/uL (0.0-0.4); EOS % 3.7 % (1.0-4.0); HEMATOCRIT 34.7 % (37.0-47.0); LYMPH # 1.8 10*3/uL (1.3-4.4); LYMPH % 23.8 % (27.0-41.0); MEAN CELL VOLUME 97.7 fl (81.0-99.0); MEAN CORPUSCULAR HGB 25.6 pg (27.0-31.0); MEAN CORPUSCULAR HGB CONC 26.2 g/dl (33.0-37.0); MONO # 0.9 10*3/uL (0.1-1.0); MONO % 11.6 % (3.0-9.0); NEUT # 4.5 10*3/uL (2.3-7.9); PLATELET COUNT AUTOMATED 196 10*3/uL (130-400); RED BLOOD COUNT 3.55 10*6/uL (4.10-5.10); RED CELL DISTRI WIDTH 14.5 % (0-14.5); WHITE BLOOD COUNT 7.6 10*3/uL (4.8-10.8)
[2021-07-30] VITALS (7 sets, daily range): BP systolic 106–132; BP diastolic 45–56
[2021-07-30 00:07] LABS: ALBUMIN 2.3 gm/dl (3.1-4.5); ALKALINE PHOSPHATASE 142 U/L (45-117); BUN 9 mg/dl (7-24); CHLORIDE 94 mmol/L (98-107); CREATININE 0.77 mg/dL (0.55-1.02); POTASSIUM 4.5 mmol/L (3.5-5.1); SGOT/AST 18 IU/L (3-35); SGPT/ALT 13 U/L (12-78); SODIUM 139 mmol/L (136-145); TOTAL PROTEIN 6.8 gm/dL (6.4-8.2)
[2021-07-30 00:09] LABS: TROPONIN I < 0.015 ng/ml (<0.045)
[2021-07-30 01:08] LABS: ABG BASE EXCESS 24.2 mmol/L (-2.0-2.0); ARTERIAL BLOOD GAS PH 7.236 (7.35-7.45); ARTERIAL BLOOD GAS PO2 142.5 (80-90)
[2021-07-30 03:10] LABS: ABG BASE EXCESS 23.6 mmol/L (-2.0-2.0); ARTERIAL BLOOD GAS PH 7.262 (7.35-7.45); ARTERIAL BLOOD GAS PO2 70.1 (80-90)
[2021-07-30 07:58] LABS: ABG BASE EXCESS 19.4 mmol/L (-2.0-2.0); ARTERIAL BLOOD GAS PH 7.389 (7.35-7.45); ARTERIAL BLOOD GAS PO2 80.4 (80-90)
[2021-07-30 08:40] LABS: BILIRUBIN Negative (Negative); BLOOD Negative (Negative); CLARITY Cloudy (Clear); COLOR Yellow (Yellow); GLUCOSE Negative (Negative); KETONE Negative (Negative); LEUKO ESTERASE 1+ (Negative); NITRITE Negative (Negative); SPECIFIC GRAVITY 1.015 (1.001-1.030)
[2021-07-30 08:56] LABS: WBC 16-20 wbc/hpf (0-5)
[2021-07-30 08:57] LABS: BACTERIA 1+; EPITHELIAL CELLS 16-20
[2021-07-31 08:04] LABS: ARTERIAL BLOOD GAS PH 7.37 (7.35-7.45); ARTERIAL BLOOD GAS PO2 102.4 (80-90)
[2021-07-31 08:17] LABS: BASO % 0.2 % (0.0-1.0); EOS # 0.1 10*3/uL (0.0-0.4); EOS % 2.8 % (1.0-4.0); HEMATOCRIT 30.2 % (37.0-47.0); LYMPH # 1.3 10*3/uL (1.3-4.4); LYMPH % 25.3 % (27.0-41.0); MEAN CELL VOLUME 95.3 fl (81.0-99.0); MEAN CORPUSCULAR HGB 25.9 pg (27.0-31.0); MEAN CORPUSCULAR HGB CONC 27.2 g/dl (33.0-37.0); MEAN PLATELET VOLUME 10.4 fl (9.6-12.3); MONO # 0.5 10*3/uL (0.1-1.0); MONO % 9.9 % (3.0-9.0); NEUT # 3.1 10*3/uL (2.3-7.9); NEUT % 61.4 % (47.0-73.0); PLATELET COUNT AUTOMATED 162 10*3/uL (130-400); RED BLOOD COUNT 3.17 10*6/uL (4.10-5.10); WHITE BLOOD COUNT 5.1 10*3/uL (4.8-10.8)
[2021-07-31 08:36] LABS: ALBUMIN 2.2 gm/dl (3.1-4.5); ALKALINE PHOSPHATASE 129 U/L (45-117); BUN 7 mg/dl (7-24); CHLORIDE 103 mmol/L (98-107); CREATININE 0.52 mg/dL (0.55-1.02); SGOT/AST 16 IU/L (3-35); SGPT/ALT 10 U/L (12-78); TOTAL PROTEIN 6.3 gm/dL (6.4-8.2)
[2021-07-31 08:49] LABS: SODIUM 144 mmol/L (136-145)
[2021-07-31 08:51] LABS: POTASSIUM 3.3 mmol/L (3.5-5.1)
[2021-08-01] VITALS: BP 118/49
[2021-08-01 07:23] LABS: ALBUMIN 2.3 gm/dl (3.1-4.5); ALKALINE PHOSPHATASE 130 U/L (45-117); BUN 12 mg/dl (7-24); CHLORIDE 105 mmol/L (98-107); CREATININE 0.59 mg/dL (0.55-1.02); SGOT/AST 18 IU/L (3-35); SGPT/ALT 13 U/L (12-78); SODIUM 142 mmol/L (136-145); TOTAL PROTEIN 6.8 gm/dL (6.4-8.2)
[2021-08-01 07:36] LABS: POTASSIUM 4.3 mmol/L (3.5-5.1)
[2021-08-01 08:00] VITALS: BP 137/56
[2021-08-01 12:00] VITALS: BP 129/60
[2021-08-01 16:00] VITALS: BP 131/58
[2021-08-01 20:00] VITALS: BP 142/44
[2021-08-02] VITALS: BP 126/70
[2021-08-02 07:12] LABS: ALBUMIN 2.3 gm/dl (3.1-4.5); ALKALINE PHOSPHATASE 132 U/L (45-117); BUN 14 mg/dl (7-24); CHLORIDE 105 mmol/L (98-107); CREATININE 0.77 mg/dL (0.55-1.02); POTASSIUM 3.4 mmol/L (3.5-5.1); SGOT/AST 18 IU/L (3-35); SGPT/ALT 14 U/L (12-78); SODIUM 139 mmol/L (136-145); TOTAL PROTEIN 6.8 gm/dL (6.4-8.2)
[2021-08-02 08:00] VITALS: BP 126/56
[2021-08-02 08:56] LABS: BASO % 0.4 % (0.0-1.0); EOS # 0.3 10*3/uL (0.0-0.4); EOS % 3.7 % (1.0-4.0); HEMATOCRIT 33.7 % (37.0-47.0); LYMPH # 2.4 10*3/uL (1.3-4.4); LYMPH % 31.4 % (27.0-41.0); MEAN CELL VOLUME 93.1 fl (81.0-99.0); MEAN CORPUSCULAR HGB 25.4 pg (27.0-31.0); MEAN CORPUSCULAR HGB CONC 27.3 g/dl (33.0-37.0); MEAN PLATELET VOLUME 10.8 fl (9.6-12.3); MONO # 0.8 10*3/uL (0.1-1.0); MONO % 10.3 % (3.0-9.0); NEUT # 4.2 10*3/uL (2.3-7.9); NEUT % 53.9 % (47.0-73.0); RED BLOOD COUNT 3.62 10*6/uL (4.10-5.10); RED CELL DISTRI WIDTH 15.1 % (0-14.5); WHITE BLOOD COUNT 7.8 10*3/uL (4.8-10.8)
[2021-08-02 08:59] LABS: PLATELET COUNT AUTOMATED 233 10*3/uL (130-400)
[2021-08-02] MEDS ORDERED: DOXYCYCLINE MO100 M1 PO (11:26)
[2021-08-02] MEDS ORDERED: LINEZOLID600 MG PO (11:26)
[2021-08-02 12:00] VITALS: BP 134/68
== END 2021-08-02 15:20 | disposition home health service (06) | DRG 100 ==
LOC: ED 22:57 → EDHOLD 07-30 05:04 → 4E 07-31 22:10
PROVIDERS: Emergency Medicine; Internal Medicine; Internal Medicine Critical Care Medicine; ADMIT Internal Medicine; ATTEND Internal Medicine
PROC: 5A09357 Assistance with Respiratory Ventilation, Less than 24 Consecutive Hours, Continuous Positive Airway Pressure (ICD-10-PCS; 2021-07-30)
PROC: 5A09357 Assistance with Respiratory Ventilation, Less than 24 Consecutive Hours, Continuous Positive Airway Pressure (ICD-10-PCS; principal; 2021-08-01)
DX: G40.409 Other generalized epilepsy and epileptic syndromes, not intractable, without status epilepticus (principal); E43 Unspecified severe protein-calorie malnutrition; J96.22 Acute and chronic respiratory failure with hypercapnia; J96.21 Acute and chronic respiratory failure with hypoxia; I50.33 Acute on chronic diastolic (congestive) heart failure; J44.1 Chronic obstructive pulmonary disease with (acute) exacerbation; E87.3 Alkalosis; N39.0 Urinary tract infection, site not specified; F33.1 Major depressive disorder, recurrent, moderate; J44.0 Chronic obstructive pulmonary disease with (acute) lower respiratory infection; I11.0 Hypertensive heart disease with heart failure; E78.2 Mixed hyperlipidemia; E87.6 Hypokalemia; I25.10 Atherosclerotic heart disease of native coronary artery without angina pectoris; B96.20 Unspecified Escherichia coli [E. coli] as the cause of diseases classified elsewhere; B95.2 Enterococcus as the cause of diseases classified elsewhere; K21.00 Gastro-esophageal reflux disease with esophagitis, without bleeding; I73.9 Peripheral vascular disease, unspecified; K59.09 Other constipation; G89.4 Chronic pain syndrome; I48.0 Paroxysmal atrial fibrillation; Z89.612 Acquired absence of left leg above knee; Z95.5 Presence of coronary angioplasty implant and graft; Z91.041 Radiographic dye allergy status; Z88.0 Allergy status to penicillin; Z91.040 Latex allergy status; Z88.8 Allergy status to other drugs, medicaments and biological substances; Z90.49 Acquired absence of other specified parts of digestive tract; Z82.49 Family history of ischemic heart disease and other diseases of the circulatory system; Z88.6 Allergy status to analgesic agent

== ENCOUNTER → 2021-09-17 | Outpatient (CLI) | payer MEDICARE, OTHER ==
[~2021-09-17] MED LIST changes: +DOXYCYCLINE MO100 M1 PO; +LINEZOLID600 MG PO
== END | disposition home or self-care (01) ==
LOC: RAD 16:37
PROVIDERS: ATTEND Family Medicine
DX: R05.9 Cough, unspecified (principal); R91.8 Other nonspecific abnormal finding of lung field

== ENCOUNTER → 2021-10-13 | Outpatient (CLI) | payer MEDICARE, OTHER ==
[2021-10-13 15:11] LABS: BASO % 0.4 % (0.0-1.0); EOS # 0.2 10*3/uL (0.0-0.4); EOS % 2.2 % (1.0-4.0); HEMATOCRIT 37.2 % (37.0-47.0); LYMPH # 1.4 10*3/uL (1.3-4.4); LYMPH % 19.9 % (27.0-41.0); MEAN CELL VOLUME 98.4 fl (81.0-99.0); MEAN CORPUSCULAR HGB 25.9 pg (27.0-31.0); MEAN CORPUSCULAR HGB CONC 26.3 g/dl (33.0-37.0); MEAN PLATELET VOLUME 10.9 fl (9.6-12.3); MONO # 0.5 10*3/uL (0.1-1.0); MONO % 6.3 % (3.0-9.0); NEUT # 5.1 10*3/uL (2.3-7.9); NEUT % 70.8 % (47.0-73.0); PLATELET COUNT AUTOMATED 151 10*3/uL (130-400); RED BLOOD COUNT 3.78 10*6/uL (4.10-5.10); RED CELL DISTRI WIDTH 17.9 % (0-14.5); WHITE BLOOD COUNT 7.2 10*3/uL (4.8-10.8)
[2021-10-13 15:27] LABS: IRON 58 ug/dL (50-170); TOTAL IRON BINDING CAPACITY 422 ug/dl (250-450)
[2021-10-13 15:30] LABS: LDH 200 U/L (84-246)
== END | disposition home or self-care (01) ==
LOC: LAB 14:24
PROVIDERS: ATTEND Internal Medicine Medical Oncology
DX: J44.9 Chronic obstructive pulmonary disease, unspecified (principal); C92.10 Chronic myeloid leukemia, BCR/ABL-positive, not having achieved remission; G54.6 Phantom limb syndrome with pain; D68.59 Other primary thrombophilia

== ENCOUNTER → 2021-11-29 | Outpatient (CLI) | payer MEDICARE, OTHER ==
[2021-11-29 13:24] LABS: ARTERIAL BLOOD GAS PH 7.359 (7.35-7.45); ARTERIAL BLOOD GAS PO2 176.8 (80-90)
== END | disposition home or self-care (01) ==
LOC: LAB 13:01
PROVIDERS: ATTEND Internal Medicine Pulmonary Disease
DX: R06.00 Dyspnea, unspecified (principal)

== ENCOUNTER → 2022-01-10 | Outpatient (CLI) | payer MEDICARE, OTHER | END | disposition home or self-care (01) | LOC: LAB 17:34 | PROVIDERS: ATTEND Internal Medicine Pulmonary Disease | DX: J44.9 Chronic obstructive pulmonary disease, unspecified (principal); R06.00 Dyspnea, unspecified; R05.9 Cough, unspecified; M40.294 Other kyphosis, thoracic region; M19.011 Primary osteoarthritis, right shoulder ==

== ENCOUNTER → 2022-01-13 | Outpatient (CLI) | payer MEDICARE, OTHER ==
[2022-01-13 17:15] LABS: ABG BASE EXCESS 17.4 mmol/L (-2.0-2.0); ARTERIAL BLOOD GAS PH 7.319 (7.35-7.45); ARTERIAL BLOOD GAS PO2 166.5 (80-90)
== END | disposition home or self-care (01) ==
LOC: LAB 16:45
PROVIDERS: ATTEND Internal Medicine Pulmonary Disease
DX: R06.00 Dyspnea, unspecified (principal)

== ENCOUNTER → 2022-01-18 | Outpatient (CLI) | payer MEDICARE, OTHER ==
[2022-01-18 17:53] LABS: ABG BASE EXCESS 15.6 mmol/L (-2.0-2.0); ARTERIAL BLOOD GAS PH 7.446 (7.35-7.45); ARTERIAL BLOOD GAS PO2 70.5 (80-90)
[2022-01-18 17:59] LABS: ALKALINE PHOSPHATASE 131 U/L (45-117); BUN 10 mg/dl (7-24); CHLORIDE 97 mmol/L (98-107); CREATININE 0.71 mg/dL (0.55-1.02); POTASSIUM 3.8 mmol/L (3.5-5.1); SGOT/AST 13 IU/L (3-35); SGPT/ALT 12 U/L (12-78); SODIUM 143 mmol/L (136-145); TOTAL PROTEIN 6.8 gm/dL (6.4-8.2)
== END | disposition home or self-care (01) ==
LOC: LAB 17:14
PROVIDERS: Family Medicine; ATTEND Internal Medicine Pulmonary Disease
DX: R06.00 Dyspnea, unspecified (principal)

== ENCOUNTER → 2022-01-21 | Outpatient (CLI) | payer MEDICARE, OTHER | END | disposition home or self-care (01) | LOC: RAD 19:27 | PROVIDERS: ATTEND Family Medicine | DX: J98.4 Other disorders of lung (principal); R05.9 Cough, unspecified ==

== ENCOUNTER → 2022-01-24 | Outpatient (CLI) | payer MEDICARE, OTHER | END | disposition home or self-care (01) | LOC: US 14:30 | PROVIDERS: ATTEND Surgery | DX: I82.413 Acute embolism and thrombosis of femoral vein, bilateral (principal) ==

== ENCOUNTER 2022-02-05 17:27 | Inpatient (IN) | payer MEDICARE, OTHER ==
[~2022-02-05] VITALS: Ht 157.4 cm; Wt 62.6 kg
[2022-02-05 17:33] VITALS: BP 109/51
[2022-02-05 17:56] LABS: BASO % 0.2 % (0.0-1.0); EOS % 0.3 % (1.0-4.0); LYMPH # 0.7 10*3/uL (1.3-4.4); MEAN CELL VOLUME 90.9 fl (81.0-99.0); MEAN CORPUSCULAR HGB 24.5 pg (27.0-31.0); MEAN CORPUSCULAR HGB CONC 26.9 g/dl (33.0-37.0); MEAN PLATELET VOLUME 10.1 fl (9.6-12.3); MONO # 0.9 10*3/uL (0.1-1.0); MONO % 6.6 % (3.0-9.0); NEUT # 11.4 10*3/uL (2.3-7.9); NEUT % 87.3 % (47.0-73.0); PLATELET COUNT AUTOMATED 229 10*3/uL (130-400); RED BLOOD COUNT 3.96 10*6/uL (4.10-5.10); RED CELL DISTRI WIDTH 15.8 % (0-14.5); WHITE BLOOD COUNT 13.1 10*3/uL (4.8-10.8)
[2022-02-05 18:08] LABS: BILIRUBIN Negative (Negative); BLOOD Negative (Negative); CLARITY Clear (Clear); COLOR Yellow (Yellow); GLUCOSE Negative (Negative); KETONE Negative (Negative); LEUKO ESTERASE Negative (Negative); NITRITE Negative (Negative); UROBILINOGEN 0.2 E.U./dl (0.0-1.0)
[2022-02-05 18:10] LABS: ACT PARTIAL THROMBO TIME 33.5 SECONDS (20.0-32.1); ALKALINE PHOSPHATASE 174 U/L (45-117); BUN 8 mg/dl (7-24); CHLORIDE 93 mmol/L (98-107); INTERNATIONAL NORM RATIO 1.3 (2.0-3.5); LIPASE 89 U/L (73-393); POTASSIUM 3.9 mmol/L (3.5-5.1); SGOT/AST 20 IU/L (3-35); SGPT/ALT 11 U/L (12-78); SODIUM 140 mmol/L (136-145); TOTAL PROTEIN 7.2 gm/dL (6.4-8.2)
[2022-02-05 18:27] LABS: EPITHELIAL CELLS 0-2; WBC 0-2 wbc/hpf (0-5)
[2022-02-05 21:35] VITALS: BP 93/40
[2022-02-05 21:36] LABS: ABG BASE EXCESS 16.4 mmol/L (-2.0-2.0); ARTERIAL BLOOD GAS PH 7.435 (7.35-7.45); ARTERIAL BLOOD GAS PO2 60.2 (80-90)
[2022-02-05] MEDS ORDERED: METAMUCIL0.4 G1 PO (21:40)
[2022-02-05 22:11] VITALS: BP 82/50
[2022-02-06 00:12] VITALS: BP 100/37
[2022-02-06 01:15] VITALS: BP 104/38
[2022-02-06] MEDS ORDERED: PRAVASTATIN SOD40 MG PO (01:20)
[2022-02-06] MEDS ORDERED: TRELEGY ELLIPT1 EACH INH (01:22)
[2022-02-06 08:00] VITALS: BP 139/53
[2022-02-06 12:00] VITALS: BP 134/55
[2022-02-06 16:00] VITALS: BP 91/50
[2022-02-06 20:00] VITALS: BP 125/51
[2022-02-07] VITALS: BP 152/60
[2022-02-07 06:10] LABS: BUN 6 mg/dl (7-24); CHLORIDE 104 mmol/L (98-107); CREATININE 0.39 mg/dL (0.55-1.02); POTASSIUM 3.7 mmol/L (3.5-5.1); SODIUM 141 mmol/L (136-145)
[2022-02-07 06:40] LABS: BASO % 0.2 % (0.0-1.0); EOS % 0.3 % (1.0-4.0); LYMPH # 1.3 10*3/uL (1.3-4.4); LYMPH % 12.2 % (27.0-41.0); MEAN CELL VOLUME 89.8 fl (81.0-99.0); MEAN CORPUSCULAR HGB 25.1 pg (27.0-31.0); MEAN CORPUSCULAR HGB CONC 27.9 g/dl (33.0-37.0); MEAN PLATELET VOLUME 11.1 fl (9.6-12.3); MONO # 0.8 10*3/uL (0.1-1.0); MONO % 7.8 % (3.0-9.0); NEUT # 8.1 10*3/uL (2.3-7.9); NEUT % 79.1 % (47.0-73.0); PLATELET COUNT AUTOMATED 215 10*3/uL (130-400); RED BLOOD COUNT 3.23 10*6/uL (4.10-5.10); RED CELL DISTRI WIDTH 16.3 % (0-14.5); WHITE BLOOD COUNT 10.3 10*3/uL (4.8-10.8)
[2022-02-07 08:00] VITALS: BP 138/50
[2022-02-07 12:00] VITALS: BP 138/60
[2022-02-07 16:00] VITALS: BP 123/56
[2022-02-07 20:00] VITALS: BP 133/54
[2022-02-08] VITALS: BP 138/53
[2022-02-08 08:00] VITALS: BP 122/72
[2022-02-08 10:10] LABS: ARTERIAL BLOOD GAS PH 7.353 (7.35-7.45); ARTERIAL BLOOD GAS PO2 90.3 (80-90)
[2022-02-08 12:00] VITALS: BP 130/59
[2022-02-08 14:23] LABS: ABG BASE EXCESS 14.8 mmol/L (-2.0-2.0); ARTERIAL BLOOD GAS PH 7.42 (7.35-7.45); ARTERIAL BLOOD GAS PO2 81.8 (80-90)
[2022-02-08 16:00] VITALS: BP 140/55
[2022-02-08 20:00] VITALS: BP 119/52
[2022-02-08] MEDS ORDERED: XARE20MG PO (21:50)
[2022-02-09] VITALS: BP 116/36
[2022-02-09 04:00] VITALS: BP 122/62
[2022-02-09 07:48] LABS: ABG BASE EXCESS 13.9 mmol/L (-2.0-2.0); ARTERIAL BLOOD GAS PH 7.429 (7.35-7.45); ARTERIAL BLOOD GAS PO2 74.6 (80-90)
[2022-02-09 08:00] VITALS: BP 92/62
[2022-02-09 10:04] LABS: BUN 3 mg/dl (7-24); CHLORIDE 99 mmol/L (98-107); CREATININE 0.59 mg/dL (0.55-1.02); POTASSIUM 3.3 mmol/L (3.5-5.1); SODIUM 140 mmol/L (136-145)
[2022-02-09 12:00] VITALS: BP 128/53
[2022-02-09 16:00] VITALS: BP 146/53
[2022-02-09 20:00] VITALS: BP 144/54
[2022-02-10] VITALS (14 sets, daily range): BP systolic 93–128; BP diastolic 41–58
[2022-02-10 05:07] LABS: BUN 4 mg/dl (7-24); CHLORIDE 103 mmol/L (98-107); CREATININE 0.62 mg/dL (0.55-1.02); SODIUM 144 mmol/L (136-145)
[2022-02-10 06:31] LABS: BASO % 0.4 % (0.0-1.0); EOS # 0.2 10*3/uL (0.0-0.4); EOS % 2.2 % (1.0-4.0); HEMATOCRIT 29.6 % (37.0-47.0); LYMPH # 1.9 10*3/uL (1.3-4.4); LYMPH % 21.4 % (27.0-41.0); MEAN CORPUSCULAR HGB 24.6 pg (27.0-31.0); MEAN CORPUSCULAR HGB CONC 27.4 g/dl (33.0-37.0); MEAN PLATELET VOLUME 10.7 fl (9.6-12.3); MONO # 0.8 10*3/uL (0.1-1.0); MONO % 9.3 % (3.0-9.0); NEUT # 5.9 10*3/uL (2.3-7.9); NEUT % 65.5 % (47.0-73.0); NUCLEATED RED BLOOD CELL 0.2 % (0.0-0.0); PLATELET COUNT AUTOMATED 284 10*3/uL (130-400); RED BLOOD COUNT 3.29 10*6/uL (4.10-5.10); RED CELL DISTRI WIDTH 16.3 % (0-14.5)
[2022-02-11] VITALS (7 sets, daily range): BP systolic 97–125; BP diastolic 34–54
[2022-02-11 08:39] LABS: ABG BASE EXCESS 13.6 mmol/L (-2.0-2.0); ARTERIAL BLOOD GAS PH 7.417 (7.35-7.45); ARTERIAL BLOOD GAS PO2 59.4 (80-90)
[2022-02-11 10:04] LABS: ACT PARTIAL THROMBO TIME 29.5 SECONDS (20.0-32.1); INTERNATIONAL NORM RATIO 1.1 (2.0-3.5)
[2022-02-12] VITALS: BP 127/45
[2022-02-12 04:00] VITALS: BP 115/51
[2022-02-12 08:00] VITALS: BP 103/41
[2022-02-12 12:00] VITALS: BP 125/46
[2022-02-12 16:00] VITALS: BP 110/42
[2022-02-12 20:00] VITALS: BP 110/50; BP 98/52
[2022-02-13] VITALS: BP 137/59
[2022-02-13 08:00] VITALS: BP 98/49
[2022-02-13 12:00] VITALS: BP 115/71; BP 92/46
[2022-02-13 16:00] VITALS: BP 97/45
[2022-02-13 21:45] VITALS: BP 108/46
[2022-02-14] VITALS: BP 80/40
[2022-02-14 06:44] VITALS: BP 126/44
[2022-02-14 08:00] VITALS: BP 110/46
[2022-02-14] MEDS ORDERED: METOPROLOL SUCC50 M1 PO (08:05)
[2022-02-14] MEDS ORDERED: VIBRAMYCIN100 MG PO (08:06)
[2022-02-14 12:00] VITALS: BP 116/52
== END 2022-02-14 15:55 | disposition home health service (06) | DRG 871 ==
LOC: ED 17:27 → 4E 23:54 → EDHOLD 23:54 → 4E 02-06 00:53 → ICCU 02-08 12:08 → 5E 02-12 18:31
PROVIDERS: Emergency Medicine; Internal Medicine Critical Care Medicine; Physician Assistant; ADMIT Internal Medicine; ATTEND Internal Medicine
PROC: 5A09357 Assistance with Respiratory Ventilation, Less than 24 Consecutive Hours, Continuous Positive Airway Pressure (ICD-10-PCS; 2022-02-08)
PROC: 05HB33Z Insertion of Infusion Device into Right Basilic Vein, Percutaneous Approach (ICD-10-PCS; 2022-02-09)
PROC: 5A09357 Assistance with Respiratory Ventilation, Less than 24 Consecutive Hours, Continuous Positive Airway Pressure (ICD-10-PCS; 2022-02-09)
PROC: 30233K1 Transfusion of Nonautologous Frozen Plasma into Peripheral Vein, Percutaneous Approach (ICD-10-PCS; principal; 2022-02-10)
PROC: 5A09357 Assistance with Respiratory Ventilation, Less than 24 Consecutive Hours, Continuous Positive Airway Pressure (ICD-10-PCS; 2022-02-10)
PROC: BD1BYZZ Fluoroscopy of Mouth/Oropharynx using Other Contrast (ICD-10-PCS; 2022-02-10)
PROC: 5A09357 Assistance with Respiratory Ventilation, Less than 24 Consecutive Hours, Continuous Positive Airway Pressure (ICD-10-PCS; 2022-02-11)
PROC: 05H533Z Insertion of Infusion Device into Right Subclavian Vein, Percutaneous Approach (ICD-10-PCS; 2022-02-11)
PROC: 5A09357 Assistance with Respiratory Ventilation, Less than 24 Consecutive Hours, Continuous Positive Airway Pressure (ICD-10-PCS; 2022-02-12)
PROC: 5A09357 Assistance with Respiratory Ventilation, Less than 24 Consecutive Hours, Continuous Positive Airway Pressure (ICD-10-PCS; 2022-02-13)
PROC: 5A09357 Assistance with Respiratory Ventilation, Less than 24 Consecutive Hours, Continuous Positive Airway Pressure (ICD-10-PCS; 2022-02-14)
DX: A41.9 Sepsis, unspecified organism (principal); J69.0 Pneumonitis due to inhalation of food and vomit; J96.22 Acute and chronic respiratory failure with hypercapnia; E43 Unspecified severe protein-calorie malnutrition; J96.21 Acute and chronic respiratory failure with hypoxia; E87.2 Acidosis; C92.10 Chronic myeloid leukemia, BCR/ABL-positive, not having achieved remission; F33.1 Major depressive disorder, recurrent, moderate; J98.11 Atelectasis; T82.838A Hemorrhage due to vascular prosthetic devices, implants and grafts, initial encounter; K52.1 Toxic gastroenteritis and colitis; I48.0 Paroxysmal atrial fibrillation; I25.10 Atherosclerotic heart disease of native coronary artery without angina pectoris; I10 Essential (primary) hypertension; D50.9 Iron deficiency anemia, unspecified; I95.9 Hypotension, unspecified; I73.9 Peripheral vascular disease, unspecified; E78.2 Mixed hyperlipidemia; J44.9 Chronic obstructive pulmonary disease, unspecified; G40.909 Epilepsy, unspecified, not intractable, without status epilepticus; G89.29 Other chronic pain; R13.12 Dysphagia, oropharyngeal phase; Z68.25 Body mass index [BMI] 25.0-25.9, adult; Z88.0 Allergy status to penicillin; Z91.041 Radiographic dye allergy status; Z89.612 Acquired absence of left leg above knee; Z91.040 Latex allergy status; Z88.8 Allergy status to other drugs, medicaments and biological substances; Z90.49 Acquired absence of other specified parts of digestive tract; Y83.8 Other surgical procedures as the cause of abnormal reaction of the patient, or of later complication, without mention of misadventure at the time of the procedure; Y92.239 Unspecified place in hospital as the place of occurrence of the external cause

== ENCOUNTER → 2022-02-22 | Outpatient (CLI) | payer MEDICARE, OTHER ==
[~2022-02-22] MED LIST changes: +METAMUCIL0.4 G1 PO; +PRAVASTATIN SOD40 MG PO; +TRELEGY ELLIPT1 EACH INH
[2022-02-22 15:42] LABS: ABG BASE EXCESS 11.9 mmol/L (-2.0-2.0); ARTERIAL BLOOD GAS PH 7.379 (7.35-7.45); ARTERIAL BLOOD GAS PO2 93.8 (80-90)
== END | disposition home or self-care (01) ==
LOC: LAB 13:04 → US 15:00
PROVIDERS: ATTEND Internal Medicine Pulmonary Disease
DX: J18.9 Pneumonia, unspecified organism (principal); R06.02 Shortness of breath; R06.00 Dyspnea, unspecified

== ENCOUNTER → 2022-04-12 | Outpatient (CLI) | payer MEDICARE, OTHER | END | disposition home or self-care (01) | LOC: RAD/SH 03:34 | PROVIDERS: ATTEND Family Medicine | DX: R13.10 Dysphagia, unspecified (principal) ==

== ENCOUNTER → 2022-04-27 | Outpatient (CLI) | payer MEDICARE, OTHER ==
[2022-04-27 17:20] LABS: ARTERIAL BLOOD GAS PH 7.351 (7.35-7.45); ARTERIAL BLOOD GAS PO2 98.9 (80-90)
== END | disposition home or self-care (01) ==
LOC: LAB 16:45
PROVIDERS: ATTEND Internal Medicine Pulmonary Disease
DX: J44.9 Chronic obstructive pulmonary disease, unspecified (principal); J84.112 Idiopathic pulmonary fibrosis; J96.21 Acute and chronic respiratory failure with hypoxia; R41.0 Disorientation, unspecified

== ENCOUNTER 2022-05-04 22:53 | Inpatient (IN) | payer MEDICARE, OTHER ==
[~2022-05-04] VITALS: Ht 160 cm; Wt 70.7 kg
[2022-05-04 23:00] VITALS: BP 99/55
[2022-05-04 23:20] LABS: BASO % 0.3 % (0.0-1.0); EOS # 0.2 10*3/uL (0.0-0.4); EOS % 2.1 % (1.0-4.0); HEMATOCRIT 30.1 % (37.0-47.0); LYMPH # 1.1 10*3/uL (1.3-4.4); LYMPH % 12.4 % (27.0-41.0); MEAN CELL VOLUME 85.8 fl (81.0-99.0); MEAN CORPUSCULAR HGB 21.1 pg (27.0-31.0); MEAN CORPUSCULAR HGB CONC 24.6 g/dl (33.0-37.0); MEAN PLATELET VOLUME 10.4 fl (9.6-12.3); MONO # 0.6 10*3/uL (0.1-1.0); MONO % 6.9 % (3.0-9.0); NEUT # 6.7 10*3/uL (2.3-7.9); NEUT % 77.6 % (47.0-73.0); PLATELET COUNT AUTOMATED 242 10*3/uL (130-400); RED BLOOD COUNT 3.51 10*6/uL (4.10-5.10); RED CELL DISTRI WIDTH 18.4 % (0-14.5); WHITE BLOOD COUNT 8.7 10*3/uL (4.8-10.8)
[2022-05-04 23:31] LABS: ACT PARTIAL THROMBO TIME 29.6 SECONDS (20.0-32.1); INTERNATIONAL NORM RATIO 1.1 (2.0-3.5)
[2022-05-04 23:35] LABS: ALKALINE PHOSPHATASE 124 U/L (45-117); BUN 8 mg/dl (7-24); CHLORIDE 99 mmol/L (98-107); CREATININE 0.71 mg/dL (0.55-1.02); POTASSIUM 4.5 mmol/L (3.5-5.1); SGOT/AST 9 IU/L (3-35); SGPT/ALT 8 U/L (12-78); SODIUM 144 mmol/L (136-145); TOTAL PROTEIN 6.7 gm/dL (6.4-8.2)
[2022-05-05 00:17] VITALS: BP 103/75
[2022-05-05 01:07] LABS: VENOUS PH 7.349 (7.37-7.45)
[2022-05-05 02:30] VITALS: BP 130/44
[2022-05-05 08:00] VITALS: BP 127/50
[2022-05-05] MEDS ORDERED: LEVOFLOXACIN250 M2 PO (10:03)
[2022-05-05] MEDS ORDERED: XARE20MG PO (10:06)
[2022-05-05] MEDS ORDERED: CLOPIDOGREL75 MG PO (10:07)
[2022-05-05] MEDS ORDERED: METOPROLOL SUCC25 M2 PO (10:09)
[2022-05-05 10:22] LABS: ABG BASE EXCESS 20.6 mmol/L (-2.0-2.0); ARTERIAL BLOOD GAS PH 7.377 (7.35-7.45); ARTERIAL BLOOD GAS PO2 66.7 (80-90)
[2022-05-05] MEDS ORDERED: OXYCODONE HCL20 M1 PO (11:03)
[2022-05-05 12:00] VITALS: BP 128/57
[2022-05-05 14:05] LABS: ABG BASE EXCESS 16.8 mmol/L (-2.0-2.0); ARTERIAL BLOOD GAS PH 7.361 (7.35-7.45)
== END 2022-05-05 15:35 | disposition home or self-care (01) | DRG 189 ==
LOC: ED 22:53 → 5E 05-05 00:37 → EDHOLD 05-05 00:37 → 5E 05-05 01:27
PROVIDERS: Emergency Medicine; Internal Medicine Critical Care Medicine; ADMIT Internal Medicine; ATTEND Internal Medicine
DX: J96.22 Acute and chronic respiratory failure with hypercapnia (principal); E43 Unspecified severe protein-calorie malnutrition; E87.2 Acidosis; C92.10 Chronic myeloid leukemia, BCR/ABL-positive, not having achieved remission; E87.3 Alkalosis; J96.21 Acute and chronic respiratory failure with hypoxia; J44.9 Chronic obstructive pulmonary disease, unspecified; I48.0 Paroxysmal atrial fibrillation; E78.2 Mixed hyperlipidemia; F32.9 Major depressive disorder, single episode, unspecified; I25.10 Atherosclerotic heart disease of native coronary artery without angina pectoris; I10 Essential (primary) hypertension; I73.9 Peripheral vascular disease, unspecified; R62.7 Adult failure to thrive; S31.829A Unspecified open wound of left buttock, initial encounter; S31.819A Unspecified open wound of right buttock, initial encounter; Z89.612 Acquired absence of left leg above knee; Z88.0 Allergy status to penicillin; Z88.8 Allergy status to other drugs, medicaments and biological substances; Z91.041 Radiographic dye allergy status; Z91.040 Latex allergy status; Z87.891 Personal history of nicotine dependence; Z82.49 Family history of ischemic heart disease and other diseases of the circulatory system; Z68.27 Body mass index [BMI] 27.0-27.9, adult

== ENCOUNTER → 2022-07-26 | Outpatient (CLI) | payer MEDICARE, OTHER ==
[~2022-07-26] MED LIST changes: +LEVOFLOXACIN250 M2 PO
== END | disposition home or self-care (01) ==
LOC: RAD/SH 10:00
PROVIDERS: ATTEND Family Medicine
DX: J69.0 Pneumonitis due to inhalation of food and vomit (principal)

== ENCOUNTER → 2022-08-18 | Outpatient (CLI) | payer MEDICARE, OTHER | LOC: US 00:15 | PROVIDERS: ATTEND Podiatrist | DX: R22.41 Localized swelling, mass and lump, right lower limb (principal) ==

== ENCOUNTER → 2022-09-01 | Outpatient (CLI) | payer MEDICARE, OTHER ==
[2022-09-01 17:41] LABS: HEMATOCRIT 43.2 % (37.0-47.0); MEAN CELL VOLUME 102.4 fl (81.0-99.0); MEAN CORPUSCULAR HGB 29.1 pg (27.0-31.0); MEAN CORPUSCULAR HGB CONC 28.5 g/dl (33.0-37.0); MEAN PLATELET VOLUME 10.3 fl (9.6-12.3); RED BLOOD COUNT 4.22 10*6/uL (4.10-5.10); RED CELL DISTRI WIDTH 14.2 % (0-14.5); WHITE BLOOD COUNT 6.2 10*3/uL (4.8-10.8)
[2022-09-01 17:57] LABS: ALKALINE PHOSPHATASE 134 U/L (45-117); BUN 14 mg/dl (7-24); CHLORIDE 97 mmol/L (98-107); CREATININE 0.64 mg/dL (0.55-1.02); POTASSIUM 4.3 mmol/L (3.5-5.1); SGOT/AST 19 IU/L (3-35); SGPT/ALT 16 U/L (12-78); SODIUM 142 mmol/L (136-145); TOTAL PROTEIN 7.3 gm/dL (6.4-8.2)
== END | disposition home or self-care (01) ==
LOC: LAB 17:14
PROVIDERS: ATTEND Family Medicine
DX: J44.9 Chronic obstructive pulmonary disease, unspecified (principal); R06.02 Shortness of breath; R53.83 Other fatigue; R60.9 Edema, unspecified

== ENCOUNTER → 2022-10-04 | Outpatient (CLI) | payer MEDICARE, OTHER | LOC: RAD 18:50 | PROVIDERS: ATTEND Family Medicine | DX: J44.1 Chronic obstructive pulmonary disease with (acute) exacerbation (principal); J84.10 Pulmonary fibrosis, unspecified; Z86.79 Personal history of other diseases of the circulatory system ==

== ENCOUNTER → 2022-11-04 | Outpatient (CLI) | payer MEDICARE, OTHER ==
[2022-11-04 15:41] LABS: BASO % 0.7 % (0.0-1.0); EOS # 0.2 10*3/uL (0.0-0.4); EOS % 3.1 % (1.0-4.0); HEMATOCRIT 42.9 % (37.0-47.0); LYMPH # 1.4 10*3/uL (1.3-4.4); MEAN PLATELET VOLUME 9.8 fl (9.6-12.3); MONO # 0.5 10*3/uL (0.1-1.0); MONO % 9.2 % (3.0-9.0); NEUT # 3.4 10*3/uL (2.3-7.9); NEUT % 61.5 % (47.0-73.0); PLATELET COUNT AUTOMATED 183 10*3/uL (130-400); RED BLOOD COUNT 4.29 10*6/uL (4.10-5.10); RED CELL DISTRI WIDTH 14.1 % (0-14.5); RETICULOCYTE % 1.46 % (0.50-2.50); WHITE BLOOD COUNT 5.6 10*3/uL (4.8-10.8)
[2022-11-04 16:08] LABS: ALKALINE PHOSPHATASE 115 U/L (46-116); BUN 12 mg/dl (9-23); CHLORIDE 97 mmol/L (98-107); CHOLESTEROL 158 mg/dL (<200); CREATININE 0.54 mg/dL (0.55-1.02); LDL CHOLESTEROL 84 mg/dL (9-159); POTASSIUM 4.4 mmol/L (3.4-5.1); TOTAL PROTEIN 6.6 gm/dL (6.0-8.0); TRIGLYCERIDES 107 mg/dl (<150)
[2022-11-04 17:13] LABS: SGPT/ALT < 7 U/L (10-49)
== END | disposition home or self-care (01) ==
LOC: LAB 15:01
PROVIDERS: Internal Medicine Medical Oncology; ATTEND Internal Medicine Cardiovascular Disease
DX: C92.10 Chronic myeloid leukemia, BCR/ABL-positive, not having achieved remission (principal); D50.9 Iron deficiency anemia, unspecified; E78.2 Mixed hyperlipidemia; D63.8 Anemia in other chronic diseases classified elsewhere

== ENCOUNTER → 2022-12-16 | Outpatient (CLI) | payer MEDICARE, OTHER | END | disposition home or self-care (01) | LOC: RAD 14:20 | PROVIDERS: ATTEND Family Medicine | DX: R91.8 Other nonspecific abnormal finding of lung field (principal); R06.02 Shortness of breath; J44.9 Chronic obstructive pulmonary disease, unspecified; R05.9 Cough, unspecified ==

== ENCOUNTER → 2022-12-21 | Outpatient (CLI) | payer MEDICARE, OTHER | END | disposition home or self-care (01) | LOC: RAD 18:03 | PROVIDERS: ATTEND Family Medicine | DX: J98.11 Atelectasis (principal); J18.9 Pneumonia, unspecified organism ==

== ENCOUNTER → 2023-01-24 | Outpatient (CLI) | payer MEDICARE, OTHER | END | disposition home or self-care (01) | LOC: US 09:29 | PROVIDERS: ATTEND Family Medicine | DX: R59.0 Localized enlarged lymph nodes (principal); R60.0 Localized edema; M79.661 Pain in right lower leg ==

== ENCOUNTER → 2023-01-31 | Outpatient (CLI) | payer MEDICARE, OTHER ==
[2023-01-31 18:45] LABS: HEMATOCRIT 29.6 % (37.0-47.0); MEAN CELL VOLUME 93.1 fl (81.0-99.0); MEAN CORPUSCULAR HGB 24.8 pg (27.0-31.0); MEAN CORPUSCULAR HGB CONC 26.7 g/dl (33.0-37.0); MEAN PLATELET VOLUME 10.5 fl (9.6-12.3); RED BLOOD COUNT 3.18 10*6/uL (4.10-5.10); RED CELL DISTRI WIDTH 15.7 % (0-14.5); WHITE BLOOD COUNT 8.1 10*3/uL (4.8-10.8)
[2023-01-31 19:00] LABS: ALKALINE PHOSPHATASE 135 U/L (46-116); BUN 7 mg/dl (9-23); CHLORIDE 94 mmol/L (98-107); POTASSIUM 4.2 mmol/L (3.4-5.1); TOTAL PROTEIN 6.7 gm/dL (6.0-8.0)
[2023-01-31 19:10] LABS: SGPT/ALT < 7 U/L (10-49)
== END | disposition home or self-care (01) ==
LOC: LAB 18:17
PROVIDERS: ATTEND Family Medicine
DX: J44.9 Chronic obstructive pulmonary disease, unspecified (principal); R60.0 Localized edema; K21.9 Gastro-esophageal reflux disease without esophagitis

== ENCOUNTER → 2023-02-18 | Outpatient (CLI) | payer MEDICARE, OTHER ==
[2023-02-18 10:57] LABS: MEAN PLATELET VOLUME 9.7 fl (9.6-12.3); NUCLEATED RED BLOOD CELL 0.3 % (0.0-0.0)
[2023-02-18 11:03] LABS: HEMATOCRIT 37.4 % (37.0-47.0); RED BLOOD COUNT 3.74 10*6/uL (4.10-5.10); RED CELL DISTRI WIDTH 19.8 % (0-14.5); RETICULOCYTE % 5.24 % (0.50-2.50); WHITE BLOOD COUNT 7.2 10*3/uL (4.8-10.8)
== END | disposition home or self-care (01) ==
LOC: LAB 10:22
PROVIDERS: ATTEND Family Medicine
DX: D64.9 Anemia, unspecified (principal)

== ENCOUNTER → 2023-04-14 | Outpatient (CLI) | payer MEDICARE, OTHER ==
[2023-04-14 17:20] LABS: ALKALINE PHOSPHATASE 118 U/L (46-116); BUN 11 mg/dl (9-23); CHLORIDE 96 mmol/L (98-107); CHOLESTEROL 170 mg/dL (<200); LDL CHOLESTEROL 85 mg/dL (9-159); POTASSIUM 4.6 mmol/L (3.4-5.1); TOTAL PROTEIN 6.3 gm/dL (6.0-8.0); TRIGLYCERIDES 130 mg/dl (<150)
[2023-04-14 17:41] LABS: SGPT/ALT < 7 U/L (10-49)
== END | disposition home or self-care (01) ==
LOC: LAB 16:32
PROVIDERS: ATTEND Internal Medicine Cardiovascular Disease
DX: E78.00 Pure hypercholesterolemia, unspecified (principal)

== ENCOUNTER → 2023-04-24 | Outpatient (CLI) | payer MEDICARE, OTHER ==
[2023-04-24 17:47] LABS: HEMATOCRIT 42.7 % (37.0-47.0); MEAN CELL VOLUME 104.9 fl (81.0-99.0); MEAN CORPUSCULAR HGB 28.7 pg (27.0-31.0); MEAN CORPUSCULAR HGB CONC 27.4 g/dl (33.0-37.0); MEAN PLATELET VOLUME 10.2 fl (9.6-12.3); RED BLOOD COUNT 4.07 10*6/uL (4.10-5.10); RED CELL DISTRI WIDTH 14.2 % (0-14.5); WHITE BLOOD COUNT 6.2 10*3/uL (4.8-10.8)
[2023-04-24 18:12] LABS: ALKALINE PHOSPHATASE 110 U/L (46-116); BUN 9 mg/dl (9-23); CHLORIDE 98 mmol/L (98-107); POTASSIUM 4.4 mmol/L (3.4-5.1); SGPT/ALT 8 U/L (10-49); TOTAL PROTEIN 6.8 gm/dL (6.0-8.0)
[2023-04-24 18:15] LABS: VITAMIN D, 25-HYDROXY 24.9 ng/mL (30-100)
== END | disposition home or self-care (01) ==
LOC: LAB 04-20 02:07
PROVIDERS: ATTEND Family Medicine
DX: I10 Essential (primary) hypertension (principal); E11.9 Type 2 diabetes mellitus without complications; E78.00 Pure hypercholesterolemia, unspecified; E55.9 Vitamin D deficiency, unspecified; D51.9 Vitamin B12 deficiency anemia, unspecified

== ENCOUNTER → 2023-05-17 | Outpatient (CLI) | payer MEDICARE, OTHER | END | disposition home or self-care (01) | LOC: RAD 12:20 | PROVIDERS: ATTEND Family Medicine | DX: J44.9 Chronic obstructive pulmonary disease, unspecified (principal); J18.9 Pneumonia, unspecified organism; R91.8 Other nonspecific abnormal finding of lung field ==

== ENCOUNTER → 2023-08-04 | Outpatient (CLI) | payer MEDICARE, OTHER | END | disposition home or self-care (01) | LOC: RAD 01:12 | PROVIDERS: ATTEND Family Medicine | DX: J44.9 Chronic obstructive pulmonary disease, unspecified (principal); K44.9 Diaphragmatic hernia without obstruction or gangrene; M48.04 Spinal stenosis, thoracic region; I70.0 Atherosclerosis of aorta ==

== ENCOUNTER → 2023-08-25 | Outpatient (CLI) | payer MEDICARE, OTHER | END | disposition home or self-care (01) | LOC: RAD 08-24 00:38 | PROVIDERS: ATTEND Family Medicine | DX: J44.9 Chronic obstructive pulmonary disease, unspecified (principal) ==

== ENCOUNTER → 2023-09-14 | Outpatient (CLI) | payer MEDICARE, OTHER ==
[2023-09-14 17:39] LABS: HEMATOCRIT 36.1 % (37.0-47.0); MEAN CORPUSCULAR HGB 27.4 pg (27.0-31.0); MEAN CORPUSCULAR HGB CONC 28.3 g/dl (33.0-37.0); RED BLOOD COUNT 3.72 10*6/uL (4.10-5.10); RED CELL DISTRI WIDTH 14.5 % (0-14.5)
[2023-09-14 18:26] LABS: ALKALINE PHOSPHATASE 120 U/L (46-116); BUN 17 mg/dl (9-23); CHLORIDE 92 mmol/L (98-107); CHOLESTEROL 167 mg/dL (<200); LDL CHOLESTEROL 85 mg/dL (9-159); TOTAL PROTEIN 6.8 gm/dL (6.0-8.0); TRIGLYCERIDES 139 mg/dl (<150)
[2023-09-14 18:27] LABS: VITAMIN D, 25-HYDROXY 22.4 ng/mL (30-100)
[2023-09-14 18:32] LABS: SGPT/ALT < 7 U/L (5-49)
== END | disposition home or self-care (01) ==
LOC: LAB 01:09
PROVIDERS: ATTEND Family Medicine
DX: J44.9 Chronic obstructive pulmonary disease, unspecified (principal); E78.00 Pure hypercholesterolemia, unspecified; E55.9 Vitamin D deficiency, unspecified; D64.9 Anemia, unspecified; R41.0 Disorientation, unspecified; R53.83 Other fatigue

== ENCOUNTER → 2023-10-19 | Outpatient (CLI) | payer MEDICARE, OTHER | END | disposition home or self-care (01) | LOC: RAD 00:17 | PROVIDERS: ATTEND Family Medicine | DX: J43.9 Emphysema, unspecified (principal) ==

== ENCOUNTER → 2023-11-04 | Outpatient (CLI) | payer MEDICARE, OTHER | END | disposition home or self-care (01) | LOC: CT 00:20 | PROVIDERS: ATTEND Family Medicine | DX: J98.11 Atelectasis (principal); K44.9 Diaphragmatic hernia without obstruction or gangrene; R91.8 Other nonspecific abnormal finding of lung field ==

== ENCOUNTER → 2023-12-01 | Outpatient (CLI) | payer MEDICARE, OTHER ==
[2023-12-01 18:00] LABS: BASO % 0.4 % (0.0-1.0); EOS # 0.2 10*3/uL (0.0-0.4); EOS % 2.8 % (1.0-4.0); LYMPH # 1.4 10*3/uL (1.3-4.4); LYMPH % 24.4 % (27.0-41.0); MEAN CELL VOLUME 96.6 fl (81.0-99.0); MEAN CORPUSCULAR HGB 25.2 pg (27.0-31.0); MEAN CORPUSCULAR HGB CONC 26.1 g/dl (33.0-37.0); MEAN PLATELET VOLUME 9.9 fl (9.6-12.3); MONO # 0.5 10*3/uL (0.1-1.0); MONO % 9.3 % (3.0-9.0); NEUT # 3.6 10*3/uL (2.3-7.9); NEUT % 62.9 % (47.0-73.0); PLATELET COUNT AUTOMATED 190 10*3/uL (130-400); RED BLOOD COUNT 3.21 10*6/uL (4.10-5.10); RED CELL DISTRI WIDTH 16.1 % (0-14.5); WHITE BLOOD COUNT 5.7 10*3/uL (4.8-10.8)
== END | disposition home or self-care (01) ==
LOC: LAB 17:39
PROVIDERS: ATTEND Internal Medicine Medical Oncology
DX: C92.10 Chronic myeloid leukemia, BCR/ABL-positive, not having achieved remission (principal); D50.8 Other iron deficiency anemias

== ENCOUNTER → 2023-12-07 | Outpatient (CLI) | payer MEDICARE, OTHER ==
[2023-12-07 17:28] LABS: HEMATOCRIT 34.3 % (37.0-47.0); MEAN CELL VOLUME 95.8 fl (81.0-99.0); MEAN CORPUSCULAR HGB 24.6 pg (27.0-31.0); MEAN CORPUSCULAR HGB CONC 25.7 g/dl (33.0-37.0); MEAN PLATELET VOLUME 10.6 fl (9.6-12.3); RED BLOOD COUNT 3.58 10*6/uL (4.10-5.10); RED CELL DISTRI WIDTH 15.9 % (0-14.5); WHITE BLOOD COUNT 6.5 10*3/uL (4.8-10.8)
== END | disposition home or self-care (01) ==
LOC: LAB 16:52
PROVIDERS: ATTEND Family Medicine
DX: D64.9 Anemia, unspecified (principal)

== ENCOUNTER → 2023-12-20 | Outpatient (CLI) | payer MEDICARE, OTHER ==
[2023-12-20 14:57] LABS: MEAN CELL VOLUME 101.2 fl (81.0-99.0); MEAN CORPUSCULAR HGB 25.1 pg (27.0-31.0); MEAN CORPUSCULAR HGB CONC 24.9 g/dl (33.0-37.0); MEAN PLATELET VOLUME 9.8 fl (9.6-12.3); NUCLEATED RED BLOOD CELL 0.4 % (0.0-0.0); RED BLOOD COUNT 3.46 10*6/uL (4.10-5.10); RED CELL DISTRI WIDTH 20.4 % (0-14.5); WHITE BLOOD COUNT 7.8 10*3/uL (4.8-10.8)
[2023-12-20 15:18] LABS: ALKALINE PHOSPHATASE 125 U/L (46-116); BUN 7 mg/dl (9-23); CHLORIDE 97 mmol/L (98-107); POTASSIUM 4.3 mmol/L (3.4-5.1); TOTAL PROTEIN 6.4 gm/dL (6.0-8.0)
[2023-12-20 15:21] LABS: SGPT/ALT < 7 U/L (5-49)
== END | disposition home or self-care (01) ==
LOC: LAB 14:18
PROVIDERS: ATTEND Family Medicine
DX: K44.9 Diaphragmatic hernia without obstruction or gangrene (principal); J44.9 Chronic obstructive pulmonary disease, unspecified; R06.02 Shortness of breath; R06.00 Dyspnea, unspecified; R41.82 Altered mental status, unspecified; M40.294 Other kyphosis, thoracic region

== ENCOUNTER → 2024-01-11 | Outpatient (CLI) | payer MEDICARE, OTHER | END | disposition home or self-care (01) | LOC: RAD 01:32 | PROVIDERS: ATTEND Family Medicine | DX: J44.9 Chronic obstructive pulmonary disease, unspecified (principal); R05.9 Cough, unspecified; R06.02 Shortness of breath ==

== ENCOUNTER → 2024-01-25 | Outpatient (CLI) | payer MEDICARE, OTHER | END | disposition home or self-care (01) | LOC: RAD 01-23 01:33 | PROVIDERS: ATTEND Family Medicine | DX: R06.02 Shortness of breath (principal); K44.9 Diaphragmatic hernia without obstruction or gangrene; R60.9 Edema, unspecified ==

== ENCOUNTER → 2024-02-05 | Outpatient (CLI) | payer MEDICARE, OTHER | END | disposition home or self-care (01) | LOC: RAD 17:11 | PROVIDERS: ATTEND Family Medicine | DX: J44.9 Chronic obstructive pulmonary disease, unspecified (principal); J98.11 Atelectasis; E11.9 Type 2 diabetes mellitus without complications; I48.91 Unspecified atrial fibrillation; K44.9 Diaphragmatic hernia without obstruction or gangrene; G45.9 Transient cerebral ischemic attack, unspecified; Z95.828 Presence of other vascular implants and grafts; Z89.612 Acquired absence of left leg above knee ==

== ENCOUNTER → 2024-02-06 | Outpatient (CLI) | payer MEDICARE, OTHER | LOC: LAB 02:46 | PROVIDERS: ATTEND Family Medicine | DX: K52.9 Noninfective gastroenteritis and colitis, unspecified (principal) ==